=== PATIENT | female | born 1970 | race Caucasian/White ===

== ENCOUNTER 2022-06-26 18:33 | Outpatient (REF) | payer BC, SELFPAY ==
--- OUTSIDE RECORDS SUMMARY | 2022-06-26 18:53 | XMS_ITS | Encounter Summary ---
:1970 Author Organization [place] Address [address] [facility] [place] [address] Care Team Providers Name Role Phone Logan Hayes MD Primary Care Provider [phone] Encounter Details Date Type Department Care Team Description 09/01/2018 Travel Social History Tobacco Use Types Packs/Day Years Used Date Smoking Tobacco: Never Smokeless Tobacco: Never Alcohol Use Standard Drinks/Week Comments No 0 (1 standard drink = 0.6 oz pure alcoho l) Sex Assigned at Date Recorded Not on file documented as of this encounter Plan of Treatment Not on filedocumented as of this encounter Visit Diagnoses Not on filedocumented in this encounter Additional Health Concerns Assessment Noted Time PHQ-9 Depression Total Score: 16 05/13/2018 7:03 AM CD T documented as of this encounter Care Teams Paper Production Engineer Relationship Specialty Start Date End Date Logan Hayes MD PCP - General 10/21/01 [address] [place], [place] [id number] documented as of this encounter
--- OUTSIDE RECORDS SUMMARY | 2022-06-26 18:53 | XMS_ITS | Encounter Summary ---
:1970 Author Organization [place] Address [address] [facility] [place] [address] Care Team Providers Name Role Phone Logan Hayes MD Primary Care Provider [phone] Reason for Visit Reason Onset Date Comments Clinic Care Coordination - Initial 11/28/2018 Encounter Details Date Type Department Care Team Description 11/28/2018 Telephone [facility] Neurology Brody Walker GC Clinic Care Coordination [address] [place] [address] SE - Initial 3rd Floor [id number] [place] [id number] [phone] Social History Tobacco Use Types Packs/Day Years Used Date Smoking Tobacco: Never Smokeless Tobacco: Never Alcohol Use Standard Drinks/Week Comments No 0 (1 standard drink = 0.6 oz pure alcoho l) Sex Assigned at Date Recorded Not on file documented as of this encounter Miscellaneous Notes Telephone Encounter - Brody Walker GC - 11/28/2018 11:57 AM CDT GENETIC COUNSELING-Neurology I received a referral request from Dr. Ardon for genetic testing for Vamsi Chappell. He wanted me to do genetic testing for dystonias. I indicated in my message to Vamsi that I do need to have a physician here at [facility] order any genetic testing and I cannot order tests for physicians outside of our health system. She has seen Dr. Aguilar here and I indicated that one option is to see if he can co-sign any order for genetic testing, although it does not look like he had discussed genetic testing during his evaluation. If she did not want to proceed that way, then I would need to see her in conjunction with one of our movement disorders physicians in order to be able to order any genetic testing. Drew Walker MS, [facility] Licensed Genetic Counselor documented in this encounter Plan of Treatment Not on filedocumented as of this encounter Visit Diagnoses Not on filedocumented in this encounter Additional Health Concerns Assessment Noted Time PHQ-9 Depression Total Score: 16 05/13/2018 7:03 AM CD T documented as of this encounter Care Teams Miller Apprentice Relationship Specialty Start Date End Date Logan Hayes MD PCP - General 10/21/01 [address] [place] [address] documented as of this encounter
--- OUTSIDE RECORDS SUMMARY | 2022-06-26 18:53 | XMS_ITS | Encounter Summary ---
:1970 Author Organization [place] Address [facility] [place] [address] Care Team Providers Name Role Phone Logan Hayes MD Primary Care Provider [phone] Reason for Referral Genomics (Routine) - Closed Specialty Diagnoses / Procedures Referred By Contact Refer red To Contact Diagnoses Dystonia, torsion, fragments of Jonathan Jalloh GC Procedures Hereditary Genomics Hold For Preauthorization: [address] [place] [id number] Referral ID Status Reason Start Date Expiration Date Visits Requ ested Visits Authorized [id number] Closed 12/30/2018 12/30/2019 1 47 Reason for Visit Reason Comments REINALDO Medeiros Encounter Details Date Type Department Care Team Description 12/30/2018 Office Visit [facility] Neurology Jonathan Jalloh, Dystonia, torsion, [address] [place] [address] fragments of (Primary [address] Floor [address] [place] [address] Dx) [place] [id number] [place], [place] [phone] Social History Tobacco Use Types Packs/Day Years Used Date Smoking Tobacco: Never Smokeless Tobacco: Never Alcohol Use Standard Drinks/Week Comments No 0 (1 standard drink = 0.6 oz pure alcoho l) Sex Assigned at Date Recorded Not on file documented as of this encounter Last Filed Vital Signs Vital Sign Reading Time Taken Comments Blood Pressure 111/75 12/30/2018 11:56 AM CDT Pulse 76 12/30/2018 11:56 AM CDT Temperature - - Respiratory Rate - - Oxygen Saturation 98% 12/30/2018 11:56 AM CDT Inhaled Oxygen Concentration - - Weight 107 kg (236 lb) 12/30/2018 11:56 AM CDT Height 170.2 cm (5' 7) 12/30/2018 11:56 AM CDT Body Mass Index 36.96 12/30/2018 11:56 AM CDT documented in this encounter Progress Notes Jonathan Jalloh, GC - 12/30/2018 12:00 PM CDT GENETIC COUNSELING-Neurology I met with Coleman River for 45 minutes in the neurology clinic at [facility]. She was previously seen by Dr. Aguilar in our clinic. More recently, she saw Dr. Ardon who referred her to me to discuss genetic testing for dystonia. MEDICAL HISTORY- Coleman reports that she was in good health until she developed a severe pulmonary infection about 1 year ago. Since then, she has experienced significant dystonic changes in her speech. She notes that shehas also experienced 'cramping' involving her hands and feet and that she has also experienced 'analspasms.' Dr. Ardon referred her to me due to concern for a hereditary dystonia as the basis for these symptoms. FAMILY HISTORY-see scanned pedigree 1. Coleman notes that all four of her siblings experience similar cramping of their feet. 2. Coleman notes that her mother also experiences foot cramping and anal spasms. 3. No other family history of neurologic disease is reported. GENETIC COUNSELING- We discussed the genetic and environmental basis of neurologic disease. I explained that in most cases, it results from complex and lifelong interaction of multiple genetic and environmental factors. In some rare cases, there may be a single gene cause. 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 We discussed the genetics of dystonia. I explained that there are approximately 2 dozen known genetic dystonias- and likely many more to be discovered. Most of these conditions are inherited in a dominant pattern- although the pattern of inheritance is frequently complicated by reduced penetrance, andin some cases, psrwyc-[id number] specific imprinting. Thus, it can be difficult to defnitively diagnose or exclude a dominant dystonia purely upon reported family history. There are also some more rare forms that can be inherited in recessive or X- linked patterns. We discussed the implications of thesepatterns of inheritance in terms of risks to children, siblings, parents and extended family. We discussed risks, benefits, limitations, and utility of genetic testing. In Coleman's case, this testing may identify the basis for her unusual neurologic findings and her family history of similar findings. This may be important in medical management as some hereditary dystonias may be particularly responsive to medications (e.g. Dopa responsive dystonias) and some forms of dystonia may be ammenable to treatment with surgical interventions. Thus, establishing a precise diagnosis may impact medical management. Coleman indicated that she would like to proceed with genetic testing for dystonia and provided written consent for this testing. Blood was drawn and we will check on prior authorizatoin. Drew Jalloh MS, [facility] Licensed Genetic Counselor Jonathan Jalloh GC - 12/30/2018 12:00 PM CDT GENETIC COUNSELING- addendum I incorrectly stated in my initial note that Coleman's mother had experienced cramping and anal spasms- it was actually a sister who had experienced anal spasms. Drew Jalloh MS, [facility] Licensed Genetic Counselor documented in this encounter Nursing Notes Kaila Willett MA - 12/30/2018 12:00 PM CDT Chief Complaint Patient presents with ??? REINALDO Willett MA documented in this encounter Plan of Treatment Not on filedocumented as of this encounter Results Hereditary Genomics Hold For Preauthorization: (12/30/2018 1:06 PM CDT) Component Value Ref Test Analysis Performed At [facility] Method Time Signature Copath Report Patient Name: COLEMAN RIVER LAINA MR#: [id number] Specimen #: [id number] Collected: 12/30/2018 13:06 Received: 01/02/2019 09:20 Reported: 01/03/2019 10:22 Ordering Phy(s): JONATHAN JALLOH For improved result formatting, select 'View Enhanced Report Format' under Linked Documents section. TEST(S) REQUESTED: Genetics Pre-Authorization Hold SPECIMEN DESCRIPTION: Blood INTERPRETATION: RESULTS: Sample processed in lab for DNA and archived for future us e. ??Testing will not commence until insurance prior authorization is ??obtained and clinician orders specific testing required. ??Contact lab with questions, . Electronically Signed Out By: BOOM Quality Control Expert CPT Codes: A: [id number] TESTING LAB LOCATION: [address] [place] [id number] COLLECTION SITE: Client: [facility] Location: ??[facility] (B) Specimen Anatomical Collection Method Collection Time Receive d Time (Source) Location / / Volume Laterality Blood specimen 12/30/2018 1:06 PM 019 9:20 (specimen) CDT AM CDT Jonathan Jalloh LAB - GENOMICS Performing Organization Address City/State/ZIP Code Phon e Number COPATH documented in this encounter Visit Diagnoses Diagnosis Dystonia, torsion, 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
--- OUTSIDE RECORDS SUMMARY | 2022-06-26 18:53 | XMS_ITS | Encounter Summary ---
:1970 Author Organization [place] Address [address] [facility] [place] [address] Care Team Providers Name Role Phone Logan Hayes MD Primary Care Provider Reason for Visit Reason Onset Date Comments Appointment 11/24/2018 Encounter Details Date Type Department Care Team Description 11/24/2018 Telephone [facility] Neurology None Appointment [address] [facility] [address] [place] [phone] Social History Tobacco Use Types Packs/Day Years Used Date Smoking Tobacco: Never Smokeless Tobacco: Never Alcohol Use Standard Drinks/Week Comments No 0 (1 standard drink = 0.6 oz pure alcoho l) Sex Assigned at Date Recorded Not on file documented as of this encounter Miscellaneous Notes Telephone Encounter - Roya Barbour - 11/24/2018 9:35 AM CDT [facility] Call Center Phone Message May a detailed message be left on voicemail: yes Reason for Call: Other: Patient is being referred by Dr. Leslie Ardon with [facility] for possible dystonia / neurogenetics. The referral has been faxed to the clinic. Action Taken: Message routed to: [facility] Neurology documented in this encounter Plan of Treatment Not on filedocumented as of this encounter Visit Diagnoses Not on filedocumented in this encounter Additional Health Concerns Assessment Noted Time PHQ-9 Depression Total Score: 16 05/13/2018 7:03 AM CD T documented as of this encounter Care Teams Hide Paster Relationship Specialty Start Date End Date Logan Hayes MD PCP - General 10/21/01 [address] [place] [address] documented as of this encounter
--- OUTSIDE RECORDS SUMMARY | 2022-06-26 18:53 | XMS_ITS | Encounter Summary ---
:1970 Author Organization [place] Address [address] [facility] [place] [address] Care Team Providers Name Role Phone Logan Hayes MD Primary Care Provider [phone] Encounter Details Date Type Department Care Team Description 01/19/2019 Telephone [facility] Neurology Jonathan Walker GC [id number] [place], [place] [phone] [place] [address] (Wo rk) Social History Tobacco Use Types Packs/Day Years Used Date Smoking Tobacco: Never Smokeless Tobacco: Never Alcohol Use Standard Drinks/Week Comments No 0 (1 standard drink = 0.6 oz pure alcoho l) Sex Assigned at Date Recorded Not on file documented as of this encounter Miscellaneous Notes Telephone Encounter - Jonathan Walker GC - 01/19/2019 10:40 AM CDT I spoke with [place] River by telephone. Her insurance company approved a partial panel of dystonia genes. I explained that the approved genes are the core, most common genes causing dystonia. They declined coverage of the remaining genes. I explained that testing would still be subject to her deductible and coinsurance. She indicated that she would like to proceed with testing for the core group of covered genes: COL6A3,GCH1,PNKD,SGCE,SLC2A1,TH,THAP1,TOR1A. Drew Walker MS, [facility] Licensed Genetic Counselor documented in this encounter Plan of Treatment Not on filedocumented as of this encounter Results Next Generation Sequencing (12/30/2018 1:06 PM CDT) Component Value Ref Test Analysis Performed At [facility] gist Range Method Time Signature Copath Report Patient Name: COLEMAN RIVER MR#: [id number] Specimen #: [id number] Collected: 12/30/2018 13:06 Received: 01/19/2019 13:15 Reported: 02/10/2019 11:45 Ordering Phy(s): JONATHAN WALKER For improved result formatting, select 'View Enhanced Report Format' under Linked Documents section. TEST(S) REQUESTED: Next Generation Sequencing SPECIMEN DESCRIPTION: Blood TEST REQUESTED: Custom Dystonia Panel. Next generation sequencing and copy n umber variation analysis of: COL6A3, GCH1, PNKD, SGCE, SLC2A1, TH, THAP1, TOR1A. RESULTS: ?NEGATIVE ?Path ogenic Variant(s): ? None Detected ?Vari ant(s) of Uncertain Significance: ?None Detected INTERPRETATION: No clearly pathogenic sequence variants or clinically signif icant copy number variants were detected in the genes analyzed. Therefore, a genetic cause for this patient' s symptoms was not identified. Genetic counseling regarding these results is recommended. BACKGROUND: A custom dystonia panel including 8 genes was requested by t ordering provider. COVERAGE: This analysis is limited to the coding exons and immediately adjoining intronic sequences of the analyzed genes. Unless specifically indicated below, all analyzed cod ing exonic bases have either a minimum of 20x coverage or have been analyzed by Thor sequencing. Coverag e at 20x is not guaranteed for intronic positions. Therefore, intronic variants cannot be confirmed or excluded with the same degree of confidence as coding exonic variants. Sequences that reside more than 25 base angelito rs from a coding exon are not genotyped and mutations in these regions will not be detected by this anal ysis. METHODOLOGY [Odalis et al., 2015][Richa et al., 2014]: Genomic DNA is extracted from the sample, and sequencing pamela raries are prepared according to standard Illumina protocols utilizing the Skin Scan One [employer] Systems Sequencing Calloway el and a custom designed supplemental capture for enrichment of targeted genes. ??The enriched DNA libraries are sequenced on an Illumina Dimeres instrument. Raw sequencing reads are mapped to the reference genome zina kerrie BWA. Raw alignment files are realigned in the neighborhood of indels, and recalibrated for base quality ac curacy using the Genome Analysis Tool Kit (GATK) version 3.8. Point mutation and indel calls in exons and adj oining intronic regions are made using a combination of the GATK haplotype caller and Samtools mpileu p. ??Variants are interpreted according to guidance issued by the [employer] [Edel et al.2015]. Pathogenic and predicted pathogenic variants that meet ALL o f the following criteria are reported without validation by [place] sequencing: ??1- single nucleotide subs titution, 2- receives a PASS from the SNP or indel filter, 3- has a VAF in the accepted range (heterozygo us = 0.3-0.6, homozygous/hemizygous >0.9), 4- has a minimum of 20x coverage, and 5-is present in the GATiPrint VC F file. ?? Pathogenic variants that fail to meet any of these criteria are verified by Thor sequencing prior to reporting [Ramana et al., 2015]. For copy number variation (CNV) analysis, raw sequencing linda ds are mapped to the reference human genome (HG19) using both BWA and Bowtie algorithms. ??CNV ratios are compu redd by comparing the average coverage in the sample across 60 base pair windows. ??Average coverage is compare d to control loci both within the sample and within a gender-matched control sample from the same run. ??The BWA/B owtie coverage ratio is calculated for each window in order to identify regions where the presence of homologou s sequences precludes accurate CNV calls. Heterozygous deletion calls are made when 3 consecutive wind ows have a CNV ratio of 0.3-0.7; homozygous/hemizygous deletion calls are made when 3 consecu tive windows have a CNV ratio less than 0.3; duplication calls are made when 5 consecutive windows have a CNV ratio 1.4. ??Calls are only made in areas where the BWA/Bowtie ratio is 0.75-1.1 and the average cover age is 20x. ?? All CNV calls are confirmed with a supplementary qPCR assay. The following types of variants are not included in the clin ical report, but information about these variants is available upon request: *Missense variants that are present at >1% MAF in population databases AND are not reported as pathogenic/likely pathogenic in ClinVar. *Missense variants with a MAF <1%, that are classified as be nign or likely benign according to published ACMG criteria. *Synonymous variants that do not occur at intron/exon bounda traci, are not reported as pathogenic mutations in relevant clinical databases, and are present in 15 or more i ndividuals in ExAC. *Intronic variants that reside more than 5 bases from the ex on/intron boundary AND are not reported as pathogenic/likely pathogenic in ClinVar. ??Known pathogenic variants residing 5-25bp from an intron/exon boundary will be reported. *Untranslated region (UTR) variants not previously categoriz ed as pathogenic or likely pathogenic in relevant clinical databases. *Some variants may be excluded based on review of sequencing quality data. ??It is possible that some low quality variants are, in fact, real. LIMITATIONS: This analysis has not been validated for detect ion of insertion/deletion mutations larger than 18bp in length. The size of polymorphic repetitive sequences such as CAG repeats, intronic dinucleotide repeats, or intronic polyT/polyA sequences, cannot be determ ined by this analysis. The CNV algorithm is not validated to detect deletions encom passing less than 180 base pairs of coding sequence or duplications encompassing less than 300 base angelito rs of coding sequence. Coding exons comprised of less than 60 bases are not assessed by these methods. The CN V algorithm does not define precise breakpoints for duplications or deletions. REFERENCES: Ramana ANAND, Jarrett Garza, Zohaib Fernandez, Richa Lomas, et al. 2015. Criteria for Clinical Reporting of Variants from a Broad Target Capture NGS Assay without [place] Verific ation. [facility] biomarkers 2(1):1005. Jarrett Greenberg Bower M, Henzler C, Sumanth Farmer, Reese OSHEA, Addis B. 2016. CNV-RF Is a Random Tyler-Based Copy Number Variation Detection Method Using Real Time Content-Generation Sequencing. J Mol Diagn. 18(6):872-881. PMID: 84443961. Scot Greenberg Spears MD, Malik Carlton, Laura MCMAHON, Rashida Cardoso, Odalis Rdz, Aaron Tucker, Deonte OSHEA, Addis B. 2014. Implementation of [place] based next gene ration sequencing data analysis in a clinical laboratory. BMC Res Notes. 7:314. PMID: 42167215. Edel S, Melva N, Renzo S, Fausto D, Nestor S, Jolie J, Kj CASTRO, Lanette Farmer, Be E, Jenae E, Nicki K, Ranulfo HL, [facility] Laboratory Drapery Supervisor Committee. 201 5. Standards and guidelines for the interpretation of sequence variants: a joint consensus recommendation of e [employer] and Genomics and the Association for Molecular Pathology. Cynthia. Med. 17(5):405-24. PMID: 96989090. Clotilde JA, Erasmo AW, O'Jigar TD, Fu W, Siddharth EE, Gravel S, Peña S, Do R, Helton X, Berto G, Sainz HM, Estrada D, Aisha SM, Jarred S, Tyrel MJ, Abecaeva G, Altshuler D, N bebo DA, Brandon E, Sunyaev S, Paul CD, Ramirez MJ, Ladi JM, Broad GO, [place] GO, [facility] Exome S equencing Project. 2012. Evolution and functional impact of rare coding variation from deep sequencing of gay n exomes. Science. 337(4204):64-9. PMID: 63697780. Odalis Rdz, Bert Cardoso, Jing Mckee, Aaron Car Schomaker M, O nsongo G, Wilson J, Erdmann J, Devaughn Y, Gary Flores MD, Laura Mckee, Deonte OSHEA, Addis B. 2015 . Clinical validation of targeted next-generation sequencing for inherited disorders. Arch. Pathol. Lab. Med. 139(2):204-10. PMID: 68347939. If a patient is the recipient of an allogeneic bone marrow t ransplant, this test must be done on a pre-transplant sample or buccal swab. ??A previous allogenei c bone marrow transplant will interfere with test results. ??Call the [facility]([phone]) for instructions on sample collection for these patients. This test was developed and its performance characteristics determined by the [facility], ??Molecular Diagnostics Laboratory and the [facility] Genomics Center(Cancer & Cardiovascular Research Building Room 1-210, [address] [place] [address]). ?? Genomic DNA extraction, interpretation of sequencing data, and when nece ssary, [place] sequencing is performed at [facility], ??Molecular Diagno stics Laboratory. ?? Wet bench processes including library creation, sequence capture using an Illumina Dimeres analyzer and bioinformatics is performed at the [facility]. ??It has not been c leared or approved by the FDA. The laboratory is regulated under CLIA as qualified to perform high-complexity testing. This test is used for clinical purposes. It should not be regarded as investigational or for research . A resident/fellow in an accredited training program was invo lved in the selection of testing, review of laboratory data, and/or interpretation of this case. ??I, as the senior physician, attest that I: (i) confirmed appropriate testing, (ii) examined the relevant raw data for the specimen(s); and (iii) rendered or confirmed the interpretation(s). Electronically Signed Out By: Sreekanth Boles M.D., [facility] CPT Codes: A: [id number], [id number] TESTING LAB LOCATION: [address] [place] [address] [id number] COLLECTION SITE: Client: ??[facility] Location: ??[facility] (B) Specimen Anatomical Collection Method Collection Time Receive d Time (Source) Location / / Volume Laterality Blood specimen 12/30/2018 1:06 PM 019 1:15 (specimen) CDT PM CDT Jonathan Aaron GC LAB - GENOMICS Performing Organization Address City/State/ZIP Code Phon e Number COPATH documented in this encounter Visit Diagnoses Diagnosis Dystonia, torsion, 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
--- OUTSIDE RECORDS SUMMARY | 2022-06-26 18:53 | XMS_ITS | Clinical Summary ---
:1970 Author Organization [place] Address [address] [facility] [place] [address] Care Team Providers Name Role Phone Logan Hayes MD Primary Care Provider [phone] Allergies Active Allergy Reactions Severity Noted Date Comments Adhesive Tape 06/26/2009 Burn king fro m some type of tapes Codeine Nausea and Vomiting 12/16/2004 Codeine Other (See Comments) 11/17/2006 Vomitti ng Hydrocodone GI Disturbance 02/20/2014 Other reactio n(s): Vomiting Severe vomiting from hydrocodone Hydromorphone Nausea and Vomiting 12/04/2016 Other r eaction(s): Vomiting Promethazine Hcl Difficulty breathing 12/16/2004 Thr oat closing Promethazine Other (See Comments) 11/17/2006 Passed out per pt Tetracyclines Rash Low 01/12/2012 Medications Medication Sig Dispensed Refills Start Date End Date Status Ascorbic Acid (VITAMIN Take 500 mg by 0 09/17/2017 Active C) 500 MG CHEW mouth B Complex Vitamins Take 1 capsule 0 09/07/2017 Active (VITAMIN B COMPLEX PO) by mouth Cholecalciferol Take 1,000 Units 0 09/07/2017 Active (VITAMIN D3) 1000 units by mouth CAPS fluticasone (FLONASE) [place] 1 spray 0 12/04/2016 Active 50 MCG/ACT spray into both nostrils daily hyoscyamine Take 0.125 mg by 0 09/21/2017 Active (ANASPAZ/LEVSIN) 0.125 mouth MG tablet levothyroxine Take 125 mcg by 0 09/29/2017 Active (SYNTHROID/LEVOTHROID) mouth 125 MCG tablet melatonin 3 MG tablet Take 3 mg by 0 05/03/2014 Active mouth nightly as needed nitroGLYcerin Place 0.4 mg 0 09/17/2017 Ac tive (NITROSTAT) 0.4 MG under the tongue sublingual tablet FLUoxetine (PROZAC) 20 Take 20 mg by 0 Active MG capsule mouth daily gabapentin (NEURONTIN) Take 1 tablet 90 capsule 5 08/23/2018 Active 300 MG three times capsuleIndications: daily. After one Cramp of limb month increase to 2 tablets three times daily Additional Information Patient taking differently: 200 mg 3 TIMES DAILY, Take 1 tablet three times daily. 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 Resolved Problems Problem Noted Date Resolved Date Neck pain 06/27/2018 06/27/2019 Family History Medical History Relation Comments Other - See Comments Brother foot cramping Other - See Comments Mother foot cramping Other - See Comments Sister 1 foot cramping Other - See Comments Sister 2 foot cramping, anal spasms of unclear etiology Autism Spectrum Disorder Son Dystonia No family hx of Tremor No family hx of Relation Status Comments Brother Mother Sister 1 Sister 2 Son Social History Tobacco Use Types Packs/Day Years Used Date Smoking Tobacco: Never Smokeless Tobacco: Never Alcohol Use Standard Drinks/Week Comments No 0 (1 standard drink = 0.6 oz pure alcoho l) Sex Assigned at Date Recorded Not on file Last Filed Vital Signs Vital Sign Reading Time Taken Comments Blood Pressure 111/75 12/30/2018 11:56 AM CDT Pulse 76 12/30/2018 11:56 AM CDT Temperature 36.8 ??C (98.2 ??F) 03/19/2005 10:00 AM CDT Respiratory Rate - - Oxygen Saturation 98% 12/30/2018 11:56 AM CDT Inhaled Oxygen Concentration - - Weight 107 kg (236 lb) 12/30/2018 11:56 AM CDT Height 170.2 cm (5' 7) 12/30/2018 11:56 AM CDT Body Mass Index 36.96 12/30/2018 11:56 AM CDT Plan of Treatment Health Maintenance Due Date Last Done Comments ADVANCE CARE PLANNING 1970 ANNUAL REVIEW OF HM ORDERS 1970 CT COLONOGRAPHY 1970 FIT-DNA (Cologuard) 1970 FIT 1970 FLEX SIG 1970 HEPATITIS B IMMUNIZATION (1 1970 of 3 - 3-dose series) MAMMO SCREENING 1970 COVID-19 Vaccine (#1) 1970 COLONOSCOPY 1980 COLORECTAL CANCER SCREENING 1980 HIV SCREENING 1985 HEPATITIS C SCREENING 1988 PAP 1991 LIPID 2015 DTAP/TDAP/TD IMMUNIZATION 10/18/2017 10/18/2007 (2 - Td or Tdap) ZOSTER IMMUNIZATION (1 of 2020 2) PHQ-2 (once per calendar 09/06/2021 12/30/2018, 12/30/2018, year) 05/12/2018, Additional history exists INFLUENZA VACCINE (#1) 2022 12/30/2018 (Declined), 06/07/2012, 08/27/2008 YEARLY PREVENTIVE VISIT 02/27/2023 02/27/2022, 05/27/2020 IPV IMMUNIZATION Aged Out No longer eligi ble based on patient 's age to complete this topic MENINGITIS IMMUNIZATION Aged Out No longe r eligible based on patient 's age to complete this topic Pneumococcal Vaccine: Aged Out No longer eligible Pediatrics (0 to 5 Years) based on patient's age and At-Risk Patients (6 to to co mplete this topic 64 Years) Insurance Payer Benefit Plan / Subscriber ID Effective Dates Phone Addre ss Type Group BCBS BCBS OUT OF [id number] 2012-Present [phone] [address] [address] [place] [address] Vamsi Chappell Personal/Family Self 1970 [id number] [place] [address] (Home) [place] [address] Care Teams Test And Balance Engineer Relationship Specialty Start Date End Date Logan Hayes MD PCP - General 10/21/01 [address] [place], [place] [id number] (work)
--- OUTSIDE RECORDS SUMMARY | 2022-06-26 18:53 | XMS_ITS | Encounter Summary ---
:1970 Author Organization [place] Address [address] [facility] [place] [address] Care Team Providers Name Role Phone Logan Hayes MD Primary Care Provider [phone] Encounter Details Date Type Department Care Team Description 12/30/2018 Travel Social History Tobacco Use Types Packs/Day [...] documented as of this encounter Care Teams Physical Therapist Aide Relationship Specialty Start Date End Date Logan Hayes MD PCP - General 10/21/01 [address] [place], [place] [id number] documented as of this encounter
--- OUTSIDE RECORDS SUMMARY | 2022-06-26 18:53 | XMS_ITS | Encounter Summary ---
:1970 Author Organization [place] Address [address] [facility] 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 [address] Floor [id number] [address] [phone] Social History Tobacco Use Types Packs/Day Years Used Date Smoking Tobacco: Never Smokeless Tobacco: Never Alcohol Use Standard Drinks/Week Comments No 0 (1 standard drink = 0.6 oz pure alcoho l) Sex Assigned at Date Recorded Not on file documented as of this encounter Plan of Treatment Not on filedocumented as of this encounter Procedures Procedure Name Priority Date/Time Associated Comments Diagnosis NEXT GENERATION Routine 12/30/2018 1:06 PM Dystonia, torsion, Results for this SEQUENCING CDT fragments of procedure are i n the results section. documented in this encounter Results Next Generation Sequencing (12/30/2018 1:06 PM CDT) Component Value Ref Test Analysis Performed At [facility] Range Method Time Signature Copath Report Patient Name: COLEMAN RIVER MR#: [id number] Specimen #: [id number] Collected: 12/30/2018 13:06 Received: 01/19/2019 13:15 Reported: [...] panel including 8 genes was requested by johnny louie ordering provider. COVERAGE: This analysis is limited to the coding exons and immediately adjoining intronic sequences of the analyzed genes. Unless specifically indicated below, all analyzed cod ing exonic bases have either a minimum of 20x coverage or have been analyzed by Saunemin sequencing. Coverag e at 20x is not [...] according to standard Illumina protocols utilizing the Dacos Software Sequencing Calloway el and a custom designed supplemental capture for enrichment of targeted genes. ??The enriched DNA libraries are sequenced on an Illumina Househappy instrument. Raw sequencing reads are mapped to the reference genome usin g BWA. Raw alignment files are realigned in the neighborhood of indels, and recalibrated for base quality ac curacy using the Genome Analysis Tool Kit (GATK) version 3.8. Point mutation and indel calls in exons and adj oining intronic regions are made using a combination of the GATK haplotype caller and Samtools mpileu p. ??Variants are interpreted according to guidance issued by the [place] [employer] [Edel et al.2015]. Pathogenic and predicted pathogenic variants that meet ALL o f the following criteria are reported without validation by Saunemin sequencing: ??1- single nucleotide subs titution, 2- receives a PASS from the SNP or indel filter, 3- has a VAF in the accepted range (heterozygo us = 0.3-0.6, homozygous/hemizygous >0.9), 4- has a minimum of 20x coverage, and 5-is present in the GATRetrofit VC F file. ?? Pathogenic variants that fail to meet any of these criteria are verified by Saunemin sequencing prior to reporting [Ramana et al., [...] for duplications or deletions. REFERENCES: Ramana ANAND, Aaron Farmer, Jarrett TAVERAS, Zohaib Fernandez, Richa Lomas, et al. 2015. Criteria for Clinical Reporting of Variants from a Broad Target Capture NGS Assay without Thor Verific ation. [facility] biomarkers 2(1):1005. Jarrett Greenberg, Zohaib Garza Schomaker M, Silve rstein KA, Dannielleagarajarrod B. 2016. CNV-RF Is a Random [place]-Based Copy Number Variation Detection Method Using Mytopia-Generation Sequencing. J Mol Diagn. 18(6):872-881. PMID: 36208893. Scot Greenberg Spears MD, Malik Carlton, Laura MCMAHON, Rashida e A, Odalis S, Sumanth Farmer, Aaron Farmer, Deonte KA, Thyagarajan B. 2014. Implementation of Providence based next gene ration sequencing data analysis in a clinical laboratory. BMC Res Notes. 7:314. PMID: 27026884. Edel S, Melva N, Renzo S, Fausto D, Nestor S, Jolie J, Kj CASTRO, Lanette Farmer, Be Oliveros, Jenae Oliveros, Nicki Mckee, Ranulfo HL, [facility] Laboratory Teacher Of The Emotionally Disturbed Committee. 201 5. Standards and guidelines for the interpretation of sequence variants: a joint consensus recommendation of e [place] [employer]etics and Genomics and the Association for Molecular Pathology. Cynthia. Med. 17(5):405-24. PMID: 37531478. Clotilde JA, Erasmo AW, O'Jigar TD, Taj W, Siddharth EE, Britton S, Casey S, R, Helton X, Berto G, Alistair HM, Estrada D, Aisha SM, Jarred S, Tyrel MJ, Kenya G, Adalgisa D, N bebo DA, Brandon E, Ac S, Paul CD, Ramirez IRVING, Ladi JM, Broad GO, Murray GO, [facility] Exome S equencing Project. 2012. Evolution and functional impact of rare coding variation from deep sequencing of gay n exomes. Science. 337(5830):64-9. PMID: 96987455. Odalis S, Bert A, Jing K, Martha T, Aaron M, Sumanth Farmer, O stephen G, Eduardo J, Scot J, Devaughn Y, Gary Flores MD, Laura Mckee, Deonte KA, Addis Valero. 2015 . Clinical validation of targeted next-generation sequencing for inherited disorders. Arch. Pathol. Lab. Med. 139(2):204-10. PMID: 74928053. If a patient is the recipient of an allogeneic bone marrow t ransplant, this test must be done on a pre-transplant sample or buccal swab. ??A previous allogenei c bone marrow transplant will interfere with test results. ??Call the [facility]([phone]) for instructions on sample collection for these patients. This test was developed and its performance characteristics determined by the [facility], ??Molecular Diagnostics Laboratory and the [facility](Cancer & Cardiovascular Research Building Room 1-210, [address] [place] [address] , [place] [address]). ?? Genomic DNA extraction, interpretation of sequencing data, and when nece monserrat, Thor sequencing is performed at [facility], ??Molecular Diagno stics Laboratory. ?? Wet bench processes including library creation, sequence capture using an Illumina Househappy analyzer and bioinformatics is performed at the [facility]. ??It has not been c leared or [...] Electronically Signed Out By: Sreekanth Boles M.D., [facility] CPT Codes: A: [id number], [id number] TESTING LAB LOCATION: [place] [id number] [id number] COLLECTION SITE: Client: ??[facility] Location: ??[facility] (B) Specimen Anatomical Collection Method Collection Time Receive d Time (Source) Location / / Volume Laterality Blood specimen 12/30/2018 1:06 PM 019 1:15 (specimen) CDT PM CDT Jonathan Walker GC LAB - GENOMICS Performing Organization Address City/State/ZIP Code Phon e Number COPATH documented in this encounter Visit Diagnoses Diagnosis Dystonia, torsion, 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
--- OUTSIDE RECORDS SUMMARY | 2022-06-26 18:53 | XMS_ITS | Encounter Summary ---
:1970 Author Organization [place] Address [address] [place] [address] Care Team Providers Name Role Phone Logan Hayes MD Primary Care Provider [phone] Reason for Visit Genomics (Routine) - Closed Specialty Diagnoses / Procedures Referred By Contact Refer red To Contact Diagnoses Dystonia, torsion, fragments of Aaron, Jonathan, GC Procedures Hereditary Genomics Hold For Preauthorization: [address] [place] [address] [id number] [place], [place] [address] Referral ID Status Reason Start Date Expiration Date Visits Requ ested Visits Authorized [id number] Closed 12/30/2018 12/30/2019 1 47 Encounter Details Date Type Department Care Team Description 12/30/2018 Orders Only [facility] Dystonia, torsion, [address] [facility] fragments of [address] Floor [place], [place] [phone] Social History Tobacco Use Types Packs/Day Years Used Date Smoking Tobacco: Never Smokeless Tobacco: Never Alcohol Use Standard Drinks/Week Comments No 0 (1 standard drink = 0.6 oz pure alcoho l) Sex Assigned at Date Recorded Not on file documented as of this encounter Plan of Treatment Not on filedocumented as of this encounter Procedures Procedure Name Priority Date/Time Associated Comments Diagnosis HEREDITARY GENOMICS HOLD Routine 12/30/2018 1:06 Dystonia, tor alfonso, Results for this FOR PREAUTHORIZATION PM CDT fragments of procedu re are in the results section. documented in this encounter Results Hereditary Genomics Hold For Preauthorization: (12/30/2018 1:06 PM CDT) Component Value Ref Test Analysis Performed At [facility] Range Method Time Signature Copath Report Patient Name: COLEMAN RIVER MR#: [id number] Specimen #: [id number] Collected: 12/30/2018 13:06 Received: 01/02/2019 09:20 Reported: [...] questions, . Electronically Signed Out By: BOOM Piano Mechanic CPT Codes: A: [id number] TESTING LAB LOCATION: [address] [phone] COLLECTION SITE: Client: ??[facility] Location: ??[facility] (B) Specimen Anatomical Collection Method Collection Time [...] documented as of this encounter Care Teams Poker Machine Attendant Relationship Specialty Start Date End Date Logan Hayes MD PCP - General 10/21/01 [address] [place] [address] documented as of this encounter
--- OUTSIDE RECORDS SUMMARY | 2022-06-26 18:54 | XMS_ITS | Encounter Summary ---
:1970 Author Organization [place] Address [address] [place] [address] Care Team Providers Name Role Phone Logan Hayes MD Primary Care Provider [phone] Reason for Visit Reason Comments Consult spasmodic dysphonia Encounter Details Date Type Department Care Team Description 05/10/2018 Office Visit M [facility] Ear Nose and Bertram Peraza honia (Primary Dx); Throat MD Katie Other diseases of vocal cords [address] [place] [address] [address] [place], [place] [phone] Social History Tobacco Use Types Packs/Day Years Used Date Smoking Tobacco: Never Alcohol Use Standard Drinks/Week Comments No 0 (1 standard drink = 0.6 oz pure alcoho l) Sex Assigned at Date Recorded Not on file documented as of this encounter Progress Notes Bertram Peraza MD - 05/10/2018 10:30 AM CDT Images from the original note were not included. HISTORY OF PRESENT ILLNESS: Vamsi Chappell is a 48 year old female with a history of dysphonia. She developed bronchitis in early February. This is managed with antibiotics prednisone and Magic mouthwash. Sheis also given an albuterol inhaler. She was not hospitalized. She continued to have difficulties with bronchitis and she had a follow-up chest x-ray which showed diminished lung volumes but no infiltrates. She was continued on prednisone as well as antibiotics and an inhaler. Follow-up a few days later noted a cough with possible allergic bronchospastic component. She is given another course of antibiotics. She had continued throat and lung problems and was seen in emergency room on February 20, 2018. She was felt to have vocal fold dysfunction. CT chest was normal and with she was given lorazepam which appeared to resolve her symptoms. 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 It was noted that she responded well to lorazepam and she is recommended to work with speech therapy. Evaluation by the speech therapist raised the possibility of laryngeal dystonia.She had intermittent periods of time where her voice was normal and at other times it was quite strained. In the meantime she did experience hyperacusis which resulted in pain in both ears she had no other otologic symptoms. An audiogram was normal as was the tympanogram. An MRI showed no abnormal signal or enhancement within the internal auditory canals in the intracranial contents were within normal limits. A CT scan of the neck showed no evidence discrete mass in the aerodigestive tract and no abnormally enlarged cervical lymph nodes. She has no difficulty eating. Occasionally she will have a cough and difficulty breathing but this will last for less than a minute and then resolves. Her voice approximate once a week will be normal or near normal for the entire day. She has had a bad vocal quality for the last 3 days. 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 Right sided cystic nodule aspirated in 1988 x 2... Benign. 07/28/2011: R: Cystic nodule superolaterally 5.0 x 5.0 x 3.0 mm Larger hypoechoic solid nodule lower pole 2.4 x 1.0 x 1.2 cm. Third nodule 9.0 x 7.0 x 6.0 mm. L : Hypoechoic nodule superior to mid 1.8 x 1.3 x 1.0 cm Smaller nodule mid-pole medially 5.0 x 5.0 x 3.0 mm. TSH 0.27 (normal before) The 24-hour uptake 30.7%. Dominant hyperfunctioning nodule lower pole R. Hyperfunctioning nodule upper pole L. Decreased uptake L lower pole R upper thyroid, possibly due to suppression. 09/2011: TSH 0.12 FNA Benign 10/2011: Iodine ablation with 28 mCi 07/2012: Neck US: 0.8 x 0.5 x 0.5 cm nodule (smaller and no need for further studies)) ?? Dizziness 07/28/2011 Vitamin D deficiency 12/24/2009 2006 Multiple cervical herniations 12/18/2009 Anal fissure 12/06/2009 Surgical History Surgery Date Laterality Comments APPENDECTOMY ? laparotomy and left oophorectomy ? for ovarian cyst and endometriosis US ASPIRATION THYROID CYST 1988 and 1989 ? LAP CHOLECYSTECTOMY 12/08/13 ? abdominal hysterectomy right salpingooophorectomy 01/24/2014 ?? for endometriosis Family History Medical History Relation Name Comments Heart Disease Brother Bessy fatal heart attack at 39, had ICD. Good Health Brother Ruby ?? Heart Disease Brother Ruby chest pains, recurrent syncope Alcohol/Drug Father ? Heart Disease Father ?? heart attack at 42 and 43 Thyroid Disease Father ? Graves Heart Disease Maternal Aunt ?? pacemaker in 40s, at 55 Good Health Maternal Grandfather ?? at age 73 natural causes Good Health Maternal Grandmother ?? at age 85 Some psych concerns Heart Disease Maternal Grandmother ?? pacemaker Good Health Mother ? Heart Disease Mother ?? pacemaker placed November 2014 Cancer-colon Other ? Good Health Paternal Grandfather ?? at age 97 natural causes Good Health Paternal Grandmother ?? at age 76, natural causes Heart attack Paternal Uncle ?? multiple heart attacks Good Health Sister Acthi ?? Heart Disease Sister Cathi pacer / ICD for monomorphic ventricular tachycardia Good Health Sister ? Bilateral breast cancer No Family History ? Relation Name Status Comments Brother Bessy ?? Brother Ruby Alive ?? Father ? Maternal Aunt ? Maternal Grandfather ? SOCIAL HISTORY: Social History Substance Use Topics ??? Smoking status: Never Smoker ??? Smokeless tobacco: Not on file ??? Alcohol use No REVIEW OF SYSTEMS: Ten point review of systems was performed and is negative except for: What is noted in the past medical history and history of present illness. ALLERGIES: Codeine and Phenergan [promethazine hcl] MEDICATIONS: Current Outpatient Prescriptions Medication Sig Dispense Refill ??? Ascorbic Acid (VITAMIN C) 500 MG CHEW Take 500 mg by mouth ??? aspirin 81 MG EC tablet Take 81 mg by mouth ??? B Complex Vitamins (VITAMIN B COMPLEX PO) Take 1 capsule by mouth ??? Cholecalciferol (VITAMIN D3) 1000 units CAPS Take 1,000 Units by mouth ??? cyclobenzaprine (FLEXERIL) 10 MG tablet Take 10 mg by mouth ??? fluticasone (FLONASE) 50 MCG/ACT spray [place] 1 spray in nostril ??? hyoscyamine (ANASPAZ/LEVSIN) 0.125 MG tablet Take 0.125 mg by mouth ??? levothyroxine (SYNTHROID/LEVOTHROID) 125 MCG tablet Take 125 mcg by mouth ??? LORazepam (ATIVAN) 1 MG tablet One oral twice daily as needed. ??? melatonin 3 MG tablet Take 3 mg by mouth ??? nitroGLYcerin (NITROSTAT) 0.[address] 0.4 mg under the tongue PHYSICAL EXAMINATION: She is awake, alert and in no apparent distress. With talking there appears shai poor coordination between her respiratory support and her focalization. At the beginning of our visit her voice is quite strained and shows evidence of some dysarthria. Her tympanic membranes are clear and intact bilaterally. External auditory canals are clear. Nasal exam shows a mild septal deviation without obstruction. Examination of the oral cavity shows no suspicious lesions. There is symmetric movement of the tongue and soft palate. The oropharynx is clear. Her neck is supple without significant adenopathy. There is tenderness to palpation of the thyrohyoid muscle. Pulse is regular. Upper airway is clear. Cranial nerves II-XII are grossly intact. With attempts at phonation she had a quitestrained quality to her voice. When lingual and lip movements were not associated with phonation shehad normal rapid alternating motion of both the tongue and the lips. With breathy phonation her articulation improved. No hand tremors no difficulty with hand coordination or repetitive motion was seen PROCEDURE: A flexible laryngoscopy was performed. Informed consent was obtained and a time out was performed. 3% lidocaine and 0.25% phenylephrine was sprayed into the nasal cavity and allowed 3 to 5 minutes for effect. The scope was passed through the right sided nostril. Examination showed the vocalfolds to be mobile and meet in the midline. No nodules, polyps or ulcerations are seen. There is minimal to no inflammation or erythema of the supraglottic or glottic larynx. With phonation there is moderate contraction of the supraglottic larynx. For the majority of the time with phonation the vocal folds are approximated well with little supraglottic hyperfunction but it extensively tends voice is p resent suggested increased focal fold tension. She has poor coordination between respiration and phonation. At some time speaking with a widely patent glottis and a hesitation to her speech. At other times her voice is remarkably strained. The hypopharynx is otherwise clear as is the subglottis. 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 I recommended she work with our speech-language pathologist as some progress wasable to make made during our visit today and the variable nature of her voice disorder. Because of the significance of the disorder I did offer her botulinum toxin injections and we will schedule this in approximately 1 month as I do want our speech-language pathologist to be able to try a couple sessions with her before we begin the injection. My plan would be to initially begin with 0.5 units of botulinum a toxin bilaterally should her voice disorder not resolve by the time of her injection visit. documented in this encounter Nursing Notes Conor Ngo - 05/10/2018 10:30 AM CDT Chief Complaint Patient presents with ??? Consult spasmodic dysphonia There were no vitals taken for this visit. Huber Perdomo documented in this encounter Plan of Treatment Not on filedocumented as of this encounter Procedures Procedure Name Priority Date/Time Associated Diagnosis Comme [facility] HC LARYNGOSCOPY FLEX Routine 05/10/2018 4:22 PM Dysphoni a FIBEROPTIC, DIAGNOSTIC CDT Other diseases of vocal cords IMAGESTREAM RECORDING Routine 05/10/2018 11:37 AM Dysphonia ORDER CDT documented in this encounter Results IMAGESTREAM RECORDING ORDER (05/10/2018 11:37 AM CDT) Specimen (Source) Anatomical Location Collection Method / Collectio n Time Received Time / Laterality Volume Bertram Peraza MD OTHER Performing Organization Address City/State/ZIP Code Phon e Number RADIOLOGY RESULTS documented in this encounter Visit Diagnoses Diagnosis Dysphonia - Primary Other diseases of vocal cords documented in this encounter Additional Health Concerns Assessment Noted Time PHQ-9 Depression Total Score: 17 05/12/2018 8:55 AM CD T documented as of this encounter Care Teams Forestry Patrolman Relationship Specialty Start Date End Date Logan Hayes MD PCP - General 10/21/01 [address] [place] [address] documented as of this encounter
--- OUTSIDE RECORDS SUMMARY | 2022-06-26 18:54 | XMS_ITS | Encounter Summary ---
:1970 Author Organization [place] Address [facility] [place] [address] Care Team Providers Name Role Phone Logan Hayes MD Primary Care Provider [phone] Reason for Visit Reason Comments Derm Problem rash on upper chest area Nose Problem tingling on face and chin Encounter Details Date Type Department Care Team Description 12/16/2004 Office Visit [facility] Logan Hayes T FEVER ([facility] [place] MD Dx) [address] [place] [id number] [phone] Social History Tobacco Use Types Packs/Day Years Used Date Smoking Tobacco: Never Alcohol Use Standard Drinks/Week Comments No 0 (1 standard drink = 0.6 oz pure alcoho l) Sex Assigned at Date Recorded Not on file documented as of this encounter Last Filed Vital Signs Vital Sign Reading Time Taken Comments Blood Pressure 100/70 12/16/2004 11:15 AM CDT Pulse - - Temperature 36.8 ??C (98.2 ??F) 12/16/2004 11:15 AM CDT Respiratory Rate - - Oxygen Saturation - - Inhaled Oxygen Concentration - - Weight 70.3 kg (155 lb) 12/16/2004 11:15 AM CDT Height 171.5 cm (5' 7.5) 12/16/2004 11:15 AM CDT Body Mass Index 23.92 12/16/2004 11:15 AM CDT documented in this encounter Progress Notes Logan Hayes - 12/16/2004 12:05 PM CDT Patient complains of congestion with sore throat, nasal congestion and sinus pain. Some mucopurulantdischarge but no upper dental pain and no sustained fever. Duration less than three days.Scarlatina rash on her trunk has no history of airborn allergy or asthma. No chest pain, diaphoresis, or sob. non productive cough. TMs dull notred, sinus tenderness none lungs clear, s1s2,soft abd,no distress, cyanosis or stridor. A:URI with strep exposure and scalatina rash P:fluids, antipyretics,rest and prnas directed. Recheck PRN worsening or non-improvement over 5 days. Discussed signs of systemic or constutional illness. Rash has scaley papular redness, papule morphology, location trunk and back and duration as above It is not pruritic Associated symptoms include pharyngitis and headache History of streip exposure or contact documented in this encounter Nursing Notes 12/16/2004 11:15 AM CDT >> MAYNOR KWOK 12/16/2004 11:46 am Vamsi Chappell presents for rash on upper chest for 10 days.Also having tingling and congestion in face.Sinus? Initial BP 100/70 Ht 5' 7.5 (1.72m) Wt 155 lbs (70.3kg) Body Mass Index is 23.90 kg/(m^2). . BP completed using cuff size: regular. SRanjan Kwok LPN documented in this encounter Plan of Treatment Not on filedocumented as of this encounter Procedures Procedure Name Priority Date/Time Associated Diagnosis Comme nts HCL BETA STREP Routine 12/16/2004 12:14 PM Scarlet Fever Resul ts for this CONFIRM CDT procedure are i n the results section. HCL STREP GROUP A Routine 12/16/2004 12:14 PM Scarlet Fever Re sults for this AG (RAPID) CDT procedure are i n the results section. documented in this encounter Results BETA STREP CONFIRM (12/16/2004 12:14 PM CDT) Component Value Ref Test Analysis Performed At [facility] Range Method Time Signature Specimen Throat [place] Description [facility] Culture Micro No Beta TURNER Streptococcus [facility] Report status FINAL [id number] [facility] Specimen Anatomical Collection Method Collection Time Receive d Time (Source) Location / / Volume Laterality 12/16/2004 12:14 12/16/2004 PM CDT 12:19 PM CDT Logan Hayes MD LABORATORY Performing Organization Address City/[facility]/ZIP Code Phon e Number [facility] [id number] [place] [address] [facility] STREP GROUP A AG (RAPID) (12/16/2004 12:14 PM CDT) Component Value Ref Test Analysis Performed At [facility] Range Method Time Signature Specimen Throat [place] Description [facility] Rapid Strep A NEGATIVE: No Group A strepto coccal antigen detected by immunoassay, await TURNER Screen culture report. [facility] Report status FINAL [id number] [facility] Specimen Anatomical Collection Method Collection Time Receive d Time (Source) Location / / Volume Laterality 12/16/2004 12:14 12/16/2004 PM CDT 12:19 PM CDT Logan Hayes MD LABORATORY Performing Organization Address City/[facility]/ZIP Code Phon e Number [facility] [id number] [place] [address] [facility] documented in this encounter Visit Diagnoses Diagnosis Scarlet fever - Primary documented in this encounter Care Teams Bilingual Office Assistant Relationship Specialty Start Date End Date Logan Hayes MD PCP - General 10/[birth year]/[id number] [place] [id number] documented as of this encounter
--- OUTSIDE RECORDS SUMMARY | 2022-06-26 18:54 | XMS_ITS | Encounter Summary ---
:1970 Author Organization [place] Address [address] [facility] [place] [address] Care Team Providers Name Role Phone Logan Hayes MD Primary Care Provider [phone] Reason for Visit Reason Onset Date Comments Previsit 05/10/2018 Encounter Details Date Type Department Care Team Description 05/10/2018 [facility] VISIT [facility] Bertram Peraza Previsit [address] [place] [address] MD Katie [address] [place] [phone] [place] [address] (Wo rk) Social History Tobacco Use Types Packs/Day Years Used Date Smoking Tobacco: Never Alcohol Use Standard Drinks/Week Comments No 0 (1 standard drink = 0.6 oz pure alcoho l) Sex Assigned at Date Recorded Not on file documented as of this encounter Miscellaneous Notes Telephone Encounter - Ria Foley - 05/06/2018 2:55 PM CDT Phone Call: Contact Name [facility] Swanson CALLED TO GET IMAGES PUSHED TO PACS Telephone Encounter - Ria Foley - 05/06/2018 2:48 PM CDT FUTURE VISIT INFORMATION FUTURE VISIT INFORMATION: ?? Date: 05/10/2018 ?? Time: 10:30 ?? [place] [facility] [place]: ?? Referring provider: DR Gallardo ?? Referring providers clinic: [facility] ?? Reason for visit/diagnosis . Gallardo Dx Spasmodic Dysphonia- possible botox injections RECORDS REQUESTED FROM: Clinic name Comments Records Status Imaging Status [facility] OFFICE VISIT: 04/13/2018,02/22/2018, 02/15/2018, 06/12/2016, 11/21/2014, 07/07/2014 IMAGE: CT NECK 04/14/2018, MR HEAD 04/14/2018, XR CHEST 02/15/2018, 12/04/2016 INTERNAL YES RECORDS STATUS documented in this encounter Plan of Treatment Not on filedocumented as of this encounter Visit Diagnoses Not on filedocumented in this encounter Additional Health Concerns Assessment Noted Time PHQ-9 Depression Total Score: 17 05/12/2018 8:55 AM CD T documented as of this encounter Care Teams Precision Inspector Relationship Specialty Start Date End Date Logan Hayes MD PCP - General [birth year] [address] [place] [address] documented as of this encounter
--- OUTSIDE RECORDS SUMMARY | 2022-06-26 18:54 | XMS_ITS | Encounter Summary ---
:1970 Author Organization [place] Address [facility] [place] [address] Care Team Providers Name Role Phone Logan Hayes MD Primary Care Provider [phone] Reason for Visit Reason Comments RECHECK Encounter Details Date Type Department Care Team Description 08/09/2018 Office Visit [facility] Bertram Peraza (Primary Dx); Throat MD Katie Other diseases of vocal cords [address] [place] [phone] Social History Tobacco Use Types Packs/Day Years Used Date Smoking Tobacco: Never Alcohol Use Standard Drinks/Week Comments No 0 (1 standard drink = 0.6 oz pure alcoho l) Sex Assigned at Date Recorded Not on file documented as of this encounter Patient Instructions Patient InstructionsSaNia garcia RN - 08/09/2018 11:15 AM CST 1. You were seen in the ENT Clinic today by Dr. Peraza. If you have any questions or concerns after your appointment, please call [phone]. Press option #1 for scheduling related needs. Press option #3 for Nurse advice. 2. Plan is to return to clinic as needed. Nia Duarte RN [facility] ENT Head & Neck Surgery UET FLOOR LAYER documented in this encounter Progress Notes Bertram Peraza MD - 08/09/2018 11:15 AM CST Images from the original note were not [...] lorazepam which appeared to resolve her symptoms. ?? She was seen by an lead consultant and felt to have a laryngeal muscle [...] and no abnormally enlarged cervical lymph nodes. ?? She has no difficulty eating. Occasionally she will have a cough and difficulty breathing but this will last for less than a minute and then resolves. Her voice approximate once a week will be normal or near normal for the entire day. She has had a bad vocal quality for the last 3 days. 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 She worked with her speech-language pathologist we discussed the possibility of botulinum toxin injection should her voice disorder not resolve. Since our last visit she has undergone speech therapy and has had a nice response except for probable phonemes. She has clear speech except when she tries to pronounce a hard C and a K sound. With the sounds she does have squeezing of the pharynx and has significant dysphonia and dysarthria. She does have an appointment to see a movement disorders specialist. Last 2 Scores for Patient-Answered VHI Questionnaire VHI Total Score 08/08/2018 VHI Total Score 28 Last 2 Scores for Patient-Answered CSI Questionnaire CSI Total Score 08/08/2018 CSI Total Score 18 Active Problems ?? Problem Noted Date Vocal cord dysfunction 03/07/2018 [...] Multiple cervical herniations 12/18/2009 Anal fissure 12/06/2009 ?? Surgical History Surgery Date Laterality Comments APPENDECTOMY ? laparotomy and left oophorectomy ? for ovarian cyst and endometriosis US ASPIRATION THYROID CYST 1988 and 1989 ? LAP CHOLECYSTECTOMY 12/08/13 ? abdominal hysterectomy right salpingooophorectomy 01/24/2014 ? for endometriosis ? Family History Medical History Relation Name Comments Heart Disease Brother Bessy fatal heart attack at 39, had ICD. Good Health Brother Ruby ? Heart Disease Brother Ruby chest pains, recurrent syncope Alcohol/Drug Father ? Heart Disease Father ? heart attack at 42 and 43 Thyroid Disease Father ? Graves Heart Disease Maternal Aunt ? pacemaker in 40s, at 55 Good Health Maternal Grandfather ? at age 73 natural causes Good Health Maternal Grandmother ? at age 85 Some psych concerns Heart Disease Maternal Grandmother ? pacemaker Good Health Mother ? Heart Disease Mother ? pacemaker placed November 2014 Cancer-colon Other ? Good Health Paternal Grandfather ? at age 97 natural causes Good Health Paternal Grandmother ? at age 76, natural causes Heart attack Paternal Uncle ? multiple heart attacks Good Health Sister Cathi ? Heart Disease Sister Cathi pacer / ICD for monomorphic ventricular tachycardia Good Health Sister ? Bilateral breast cancer No Family History ? Relation Name Status Comments Brother Bessy ? Brother Ruby Alive ? Father ? Maternal Aunt ? Maternal Grandfather ? SOCIAL HISTORY: Social History Substance Use Topics ??? Smoking status: Never Smoker ??? Smokeless tobacco: Not on file ??? Alcohol use No REVIEW OF SYSTEMS: Ten point review of systems was performed and is negative except for: [facility] ENT ROS 08/08/2018 Psychology Frequently feeling anxious Ears, Nose, Throat Ear pain, Nasal congestion or drainage, Sore throat, Hoarseness Cardiopulmonary Cough, Breathing problems Gastrointestinal/Genitourinary Heartburn/indigestion Musculoskeletal Sore or stiff joints, Neck pain Allergy/Immunology Allergies or hay fever ALLERGIES: Codeine and Phenergan [promethazine hcl] MEDICATIONS: [...] mouth ??? fluticasone (FLONASE) 50 MCG/ACT spray [place] 1 spray in nostril ??? hyoscyamine (ANASPAZ/LEVSIN) [...] awake, alert and in no apparent distress. Her tympanic membranes are clear and intact bilaterally. External auditory canals are clear. Nasal exam shows a mild septal deviation without obstruction. Examination of the oral cavity shows no suspicious lesions. There is symmetric movement of the tongue and soft palate. The oropharynx is clear. Her neck is supple without significant adenopathy. Palpation of the thyrohyoid muscle is much less tender than seen previously. Pulse is regular. Upper airway is clear. Cranial nerves II-XII are grossly intact. PROCEDURE: A flexible laryngoscopy was performed by our speech-language pathologist and reviewed by myself.. Examination showed the vocal folds to be mobile and meet in the midline. No nodules, polyps or ulcerations are seen. There is mild inflammation or erythema of the supraglottic or glottic larynx. With phonation not involving velopharyngeal phonemes there is only mild contraction of the supraglottic larynx. This changes when she uses a hard C and K. There is increased pharyngeal squeeze andcontracture of the supraglottic larynx. The hypopharynx is otherwise clear as is the subglottis. IMPRESSION/PLAN: She has had nice improvement with speech therapy but continues to have trouble withcertain phonemes. She will be working with a movement disorders specialist. We discussed the possibility of botulinum toxin injection but she wishes to hold off for now. She will continue to work with our speech- language pathologist and we will see her back after completion of therapy. UET FLOOR LAYER documented in this encounter Nursing Notes Conor Ngo - 08/09/2018 11:15 AM CST Chief Complaint Patient presents with ??? RECHECK Huber Perdomo UET FLOOR LAYER documented in this encounter Plan of Treatment Not on filedocumented as of this encounter Procedures Procedure Name Priority Date/Time Associated Diagnosis Comme nts IMAGESTREAM RECORDING Routine 08/09/2018 12:39 PM Dysphonia ORDER PARQUET FLOOR LAYER documented in this encounter Results IMAGESTREAM RECORDING ORDER (08/09/2018 12:39 PM PARQUET FLOOR LAYER) Specimen (Source) Anatomical Location Collection Method / [...] documented as of this encounter Care Teams Supervisor Transferring And Boxing Relationship Specialty Start Date End Date Logna Hayes MD PCP - General 10/21/01 [address] [place] [address] documented as of this encounter
--- OUTSIDE RECORDS SUMMARY | 2022-06-26 18:54 | XMS_ITS | Encounter Summary ---
:1970 Author Organization [place] Address [address] [place] [address] Care Team Providers Name Role Phone Logan Hayes MD Primary Care Provider [phone] Encounter Details Date Type Department Care Team Description 12/13/2005 Historic Results INTERFACED REPORT Kyle Tom MD [address] [place] [address] Social History Tobacco Use Types Packs/Day Years Used Date Smoking Tobacco: Never Alcohol Use Standard Drinks/Week Comments No 0 (1 standard drink = 0.6 oz pure alcoho l) Sex Assigned at Date Recorded Not on file documented as of this encounter Plan of Treatment Not on filedocumented as of this encounter Procedures Procedure Name Priority Date/Time Associated Comments Diagnosis HEMOGRAM DIFFERENTIAL STAT 12/13/2005 2:45 AM Results for this AND PLATELET CDT procedure are i n the results section. LIPASE STAT 12/13/2005 2:45 AM Results f or this CDT procedure are i n the results section. HCG QUALITATIVE STAT 12/13/2005 2:45 AM Result s for this CDT procedure are i n the results section. ROUTINE UA WITH STAT 12/13/2005 2:30 AM Result s for this MICROSCOPIC CDT procedure are i n the results section. documented in this encounter Results Hemogram differential and platelet (12/13/2005 2:45 AM CDT) [facility] Method Time Signature MCV 95 78 - 100 [facility] fl MCH 31.5 26.5 - [facility] 33.0 pg MCHC 33.3 32.0 - [facility] 36.0 g/dL RDW 11.1 10.0 - [facility] 15.0 % WBC 7.4 4.0 - [facility] 11.0 10e9/L RBC Count 4.13 3.8 - 5.2 [facility] 10e12/L Hemoglobin 13.0 11.7 - [facility] 15.7 g/dL Hematocrit 39.0 35.0 - [facility] 47.0 % % Neutrophils 67 40 - 75 % [facility] % Lymphocytes 23 20 - 48 % [facility] % Monocytes 8 0 - 12 % [facility] % Eosinophils 2 0 - 6 % [facility] % Basophils 0 0 - 2 % [facility] Platelet Count 229 150 - 450 [facility] 10e9/L Absolute 4.9 1.6 - 8.3 [facility] Neutrophil 10e9/L Absolute 1.7 0.8 - 5.3 [facility] Lymphocytes 10e9/L Absolute 0.6 0.0 - 1.3 [facility] Monocytes 10e9/L Absolute 0.1 0.0 - 0.7 [facility] Eosinophils 10e9/L Absolute 0.0 0.0 - 0.2 [facility] Basophils 10e9/L Diff Method Automated [facility] Method Specimen Anatomical Collection Method Collection Time Receive d Time (Source) Location / / Volume Laterality 12/13/2005 2:45 AM 6 2:19 CDT AM CDT Kyle Tom MD LAB - BLOOD ORDERABLES Performing Organization Address City/State/ZIP Code Phon e Number [facility] Lipase (12/13/2005 2:45 AM CDT) P athologist Signature Lipase 89 20 - 250 U/L [facility] Specimen Anatomical Collection Method Collection Time Receive d Time (Source) Location / / Volume Laterality 12/13/2005 2:45 AM 6 2:19 CDT AM CDT Kyle Tom MD LAB - BLOOD ORDERABLES Performing Organization Address City/State/ZIP Code Phon e Number [facility] HCG qualitative (12/13/2005 2:45 AM CDT) Patholo gist Method Time Signature HCG Qualitative Negative NEG [facility] Serum Specimen Anatomical Collection Method Collection Time Receive d Time (Source) Location / / Volume Laterality 12/13/2005 2:45 AM 6 2:19 CDT AM CDT Kyle Tom MD LAB - BLOOD ORDERABLES Performing Organization Address City/State/ZIP Code Phon e Number [facility] (ABNORMAL) Routine UA with microscopic (12/13/2005 2:30 AM CDT) [facility] Method Time Signature Source Midstream [facility] Urine Color Urine Yellow [facility] Appearance Urine Clear [facility] Glucose Urine Negative NEG mg/dL [facility] Bilirubin Urine Negative NEG [facility] Ketones Urine Negative NEG mg/dL [facility] Specific [place] 1.007 1.003 - [facility] Urine 1.035 Blood Urine Negative NEG [facility] pH Urine 6.0 5.0 - 7.0 [facility] pH Protein Albumin Negative NEG mg/dL [facility] Urine Urobilinogen Normal 0.0 - 2.0 [facility] mg/dL mg/dL Nitrite Urine Negative NEG [facility] Leukocyte Negative NEG [facility] Esterase Urine WBC Urine <1 0 - 2 [facility] /HPF RBC Urine <1 0 - 2 [facility] /HPF Squamous <1 0 - 1 [facility] Epithelial /HPF /HPF Urine Bacteria Urine Few (A) NEG /HPF [facility] Specimen Anatomical Collection Method Collection Time Receive d Time (Source) Location / / Volume Laterality 12/13/2005 2:30 AM 200 6 2:19 CDT AM CDT Kyle Tom MD LAB - URINE ORDERABLES Performing Organization Address City/State/ZIP Code Phon e Number [facility] documented in this encounter Visit Diagnoses Not on filedocumented in this encounter Care Teams Voice Professor Relationship Specialty Start Date End Date Logan Hayes MD PCP - General 10/21/01 [address] [place] [address] documented as of this encounter
--- OUTSIDE RECORDS SUMMARY | 2022-06-26 18:54 | XMS_ITS | Encounter Summary ---
:1970 Author Organization [facility] Address [address] [facility] [place] [address] Care Team Providers Name Role Phone Logan Hayes MD Primary Care Provider [phone] Encounter Details Date Type Department Care Team Description 08/16/2018 Office Visit [facility] Voice Jose Roberto Black, Dysphonia (Primary Dx); [address] [facility] GEOGRAPHIC INFORMATION SYSTEMS ENGINEER Throat pain [address] [place] [address] Social History Tobacco Use Types Packs/Day Years Used Date Smoking Tobacco: Never Alcohol Use Standard Drinks/Week Comments No 0 (1 standard drink = 0.6 oz pure alcoho l) Sex Assigned at Date Recorded Not on file documented as of this encounter Progress Notes Jose Roberto Black, GEOGRAPHIC INFORMATION SYSTEMS ENGINEER - 08/16/2018 10:00 AM CST [facility] VOICE CLINIC THERAPY NOTE (CPT 61266) Patient: Vamsi Chappell Date of Service: 08/16/2018 Referring physician: Dr. Peraza Impressions from most recent evaluation: Vamsi Chappell is a 48 year old female, presenting today for follow-up evaluation of R49.0 (Dysphonia) and R07.0 (Throat Pain). There is also very likely component of dystonia, which I suspect primarily involves the base of tongue and some extrinsic strap muscles. However, this has not been formally diagnosed. She has an appointment with Dr. Aguilar later this month, which will hopefully provide more information. Further, she and Dr. Peraza agreed today that she is not interested in Botox treatments that he could provide, as any treatment of the base of tongue would very likely impact her ability to swallow safely. Evaluation and personal report demonstrates that she has made good gains in therapy, although the results of the laryngeal function studies and AVQI are approximately within the same range. SUBJECTIVE: Since the patient's last session, they report the following: ?? Overall symptoms are improved ?? Successes: able to use techniques to abbreviate coughing fits and help recalibrate her voice ?? She reports that certain activities are frequently disruptive to her voice quality including: ?? Excitement ?? Laughing ?? stress OBJECTIVE: PATIENT REPORTED MEASURES: Patient Supplied Answers To GEOGRAPHIC INFORMATION SYSTEMS ENGINEER QOL Questionnaire Therapy Quality of Life 08/16/2018 Since my l ast session, I used the speech therapy exercises and strategies as recommended by my speech pathologist. Agree strongly I feel that using my therapy techniques has become a habit Agree I feel confident in my ability to manage my current and future symptoms. Agree Since my last session I feel my symptoms have --------. Improved Overall, since starting therapy I feel my symptoms are --------. Better Overall, how much better? A good deal better THERAPEUTIC ACTIVITIES Counseling and Education: ??? Asked many questions about the nature of her symptoms, and I answered all of these thoroughly. ??? We discussed the nature of dystonic movements and the need for acceptance of occasional disruption, with focus of effort on having tools for recalibration subsequently. Exercises to improve respiratory phonatory coordination ?? Awareness of excessive (inspiratory reserve) and insufficient (expiratory reserve) lung volumes ?? A counting task was utilized to promote patient recognition of increased respiratory engagement to counter recoil during exhalation, and habituate a low breath subsequent to this threshold, but before expiratory reserve volume ?? The patient was triggered significantly by the use of counting, and ultimately was abandoned in favor of sustained phonation on /m/ ?? Patient reported improved awareness of these thresholds, and was able to operate within their boundaries with minimal to moderate clinician suppor t ?? With the use of techniques patient recognized sensation of throat constriction which proceeds herworsening voice quality ??? A regimen for home practice was instructed. ??? I provided an audio recording and handouts of today's therapeutic activities to facilitate practice. ASSESSMENT/PLAN PROGRESS TOWARD [facility] GOALS: Adequate progress; please see above IMPRESSIONS: R49.0 (Dysphonia) and R07.0 (Throat Pain). Ms. Chappell feels that she has been able to use the techniques she learned with my colleague Connie Yoon to adapt to disruptions in her voicing and reduce their effects on her activities of daily living. She had many questions about her symptoms and we spent a significant portion of today's session discussing the nature of potentially dystonic laryngeal/lingual motions associated with speech. Many of these concepts appeared to resonate with her. PLAN: I will see Ms. Chappell in 1 weeks, at which point we will continue to promote generalization of therapeutic techniques focusing on improving her self efficacy with regards to the use her daily life. TOTAL SERVICE TIME: 60 minutes TREATMENT (35877): 60 minutes NO CHARGE FACILITY FEE (28274) Eb Black M.M., M.A., [facility]-GEOGRAPHIC INFORMATION SYSTEMS ENGINEER Speech-Language Pathologist Certificate of Vocology [phone] ENISHER documented in this encounter Plan of Treatment Not on filedocumented as of this encounter Procedures Procedure Name Priority Date/Time Associated Diagnosis Comme [facility] SPEECH/HEARING Routine 08/16/2018 7:05 PM REPLENISHER Dyspho kia THERAPY, INDIVIDUAL Throat pain documented in this encounter Visit Diagnoses Diagnosis Dysphonia - Primary Throat pain documented in this encounter Additional Health Concerns Assessment Noted Time PHQ-9 Depression Total Score: 16 05/13/2018 7:03 AM CD T documented as of this encounter Care Teams Crochet Beader Relationship Specialty Start Date End Date Logan Hayes MD PCP - General 10/21/01 [address] [place] [address] documented as of this encounter
--- OUTSIDE RECORDS SUMMARY | 2022-06-26 18:54 | XMS_ITS | Encounter Summary ---
:1970 Author Organization [facility] Address [address] [facility] [place] [address] Care Team Providers Name Role Phone Logan Hayes MD Primary Care Provider [phone] Reason for Visit Reason Onset Date Comments Previsit 08/23/2018 Laryngeal/Lingual Dy stonia Encounter Details Date Type Department Care Team Description 08/23/2018 PRE VISIT [facility] Neurology Savage Aguilar, Previsit [address] [place] [address] (Laryngeal/Lingual 3rd Floor [address] [place] [address] Dystonia) [place] [address] [phone] Social History Tobacco Use Types Packs/Day Years Used Date Smoking Tobacco: Never Smokeless Tobacco: Never Alcohol Use Standard Drinks/Week Comments No 0 (1 standard drink = 0.6 oz pure alcoho l) Sex Assigned at Date Recorded Not on file documented as of this encounter Miscellaneous Notes Telephone Encounter - Cindy Myers - 08/10/2018 2:50 PM CST FUTURE VISIT INFORMATION FUTURE VISIT INFORMATION: ?? Date: 08/23/18 ?? Time: 12p ?? [place] [facility] [place] INFORMATION: ?? Referring provider: Dr. Peraza ?? Referring providers clinic: [facility] ENT ?? Reason for visit/diagnosis Laryngeal/Lingual Dystonia RECORDS REQUESTED FROM: Clinic name Comments Records Status Imaging Status [facility] ENT Dr. Peraza 07/18/18 OV with FRIEND OF THE COURT Connie Yoon Internal EPIC 08/10/18: Internal referral from Dr. Peraza in ENT. Records and imaging in EPIC. GATION SPECIALIST documented in this encounter Plan of Treatment Not on filedocumented as of this encounter Visit Diagnoses Not on filedocumented in this encounter Additional Health Concerns Assessment Noted Time PHQ-9 Depression Total Score: 16 05/13/2018 7:03 AM CD T documented as of this encounter Care Teams Planting Material Unloader Relationship Specialty Start Date End Date Logan Hayes MD PCP - General 10/21/01 [address] [place] [address] documented as of this encounter
--- OUTSIDE RECORDS SUMMARY | 2022-06-26 18:54 | XMS_ITS | Encounter Summary ---
:1970 Author Organization [facility] Address [facility] [place] [address] Care Team Providers Name Role Phone Loagn Hayes MD Primary Care Provider [phone] Encounter Details Date Type Department Care Team Description 12/13/2005 Orders Only [facility] Logan Hayes SIS NOT YET Clinic Lorimor MD Sixto DEFINED (Primary Dx) [address] [facility] [id number] [place] [phone] [id number] Social History Tobacco Use Types Packs/Day Years Used Date Smoking Tobacco: Never Alcohol Use Standard Drinks/Week Comments No 0 (1 standard drink = 0.6 oz pure alcoho l) Sex Assigned at Date Recorded Not on file documented as of this encounter Plan of Treatment Not on filedocumented as of this encounter Procedures Procedure Name Priority Date/Time Associated Diagnosis Comme nts ABSTRACT [facility] REPORT Routine 12/13/2005 DIAGNOSIS NOT YET DEFINED documented in this encounter Results ABSTRACT [facility] REPORT (12/13/2005) Specimen (Source) Anatomical Location Collection Method / Collectio n Time Received Time / Laterality Volume 12/13/2005 Narrative This result has an attachment that is no t available. Logan Hayes MD LABORATORY Performing Organization Address City/State/ZIP Code Phon e Number MISYS documented in this encounter Visit Diagnoses Diagnosis DIAGNOSIS NOT YET DEFINED - Primary documented in this encounter Care Teams Cryogenic Transport Driver Relationship Specialty Start Date End Date Logan Hayes MD PCP - General 10/21/01 [address] [place], [place] [id number] documented as of this encounter
--- OUTSIDE RECORDS SUMMARY | 2022-06-26 18:54 | XMS_ITS | Encounter Summary ---
:1970 Author Organization [facility] Address [address] [facility] [place] [address] Care Team Providers Name Role Phone Logan Hayes MD Primary Care Provider Encounter Details Date Type Department Care Team Description 08/16/2018 Travel Social History Tobacco Use Types Packs/Day [...] documented as of this encounter Care Teams Money Examiner Relationship Specialty Start Date End Date Logan Hayes MD PCP - General 10/21/01 [address] [place], [place] [id number] documented as of this encounter
--- OUTSIDE RECORDS SUMMARY | 2022-06-26 18:54 | XMS_ITS | Encounter Summary ---
:1970 Author Organization [facility] Address [address] [place] [address] Care Team Providers Name Role Phone Logan Hayes MD Primary Care Provider [phone] Encounter Details Date Type Department Care Team Description 07/18/[address] [facility] Voice Connie Yoon, Dysphonia (Primary Dx); [address] [facility] SE SOFTWARE DEVELOPMENT COORDINATOR Throat pain 4th Floor [place] [id number] [facility] [address] CLINIC [address] [phone] [place] [address] Social History Tobacco Use Types Packs/Day Years Used Date Smoking Tobacco: Never Alcohol Use Standard Drinks/Week Comments No 0 (1 standard drink = 0.6 oz pure alcoho l) Sex Assigned at Date Recorded Not on file documented as of this encounter Progress Notes Connie Yoon, SOFTWARE DEVELOPMENT COORDINATOR - 07/18/2018 3:00 PM CST [facility] VOICE CLINIC THERAPY NOTE (CPT [id number]) Patient: Vamsi Chappell Date of Service: 07/18/2018 Referring physician: Dr. Peraza Impressions from most recent evaluation: (05/10/2018) Vamsi Chappell is a 48 year old female, presenting today with R49.0 (Dysphonia)??and??R07.0 (Throat Pain), as evidenced by evaluation and the laryngeal exam. ??Due to the inconsistencies demonstrated during her evaluation today, it is unclear whether there is a neurogenic component at this time, but possible. ?We agreed to proceed with further evaluation by completing the laryngeal function studies during her next appointment as well as continuing therapy. ??Dr. Peraza has offered a trial course of Botox following an initial course of speech therapy. SUBJECTIVE: Since her last session, Ms. Chappell reports the following: ?? Overall she reports that symptoms are better ?? Reports that she finds her voice does not work well when she doesn't get a good breath and holdit (similar to a yawn). Otherwise, she feels her claustrophobia kicks in and she experiences breath stacking. ?? Tried gargling a few times over the last few weeks, unsuccessfully. [place] like she was choking. ?? PT has been a bit uncomfortable and she does experience a soreness after her sessions. OBJECTIVE: Ms. Chappell presents today with the following: ?? Mild to moderate extrinsic neck tension ? Improved, but still somewhat limited optimal breath coordination, which improved over the course of today's session. Voice quality: ?? Mild to moderate backward focus of resonance, moderate breathiness (no whispering today) and severe strain during connected speech ?? Modal pitch is around A3 ? Cough/ Throat clear: ?? Occasional severe, dry cough caused by massage of anterior extrinsic base of tongue muscles and prolonged phonation attempts. PATIENT REPORTED MEASURES: Patient Supplied Answers To SOFTWARE DEVELOPMENT COORDINATOR QOL Questionnaire Therapy Quality of Life 07/18/2018 Since my l ast session, I used the speech therapy exercises and strategies as recommended by my speech pathologist. Agree strongly I feel that using my therapy techniques has become a habit Neither agree nor disagree I feel confident in my ability to manage my current and future symptoms. Neither agree nor disagree Since my last session I feel my symptoms have --------. Improved Overall, since starting therapy I feel my symptoms are --------. About the same THERAPEUTIC ACTIVITIES ??? Demonstrated previous exercises. o demonstrated improved technique o appropriate redirection provided o instruction provided for increased level of complexity/difficulty Semi-Occluded Vocal Tract (SOVT) exercises instructed to reduce laryngeal tension, promote vocal fold pliability, and coordinate respiration and phonation ?? Straw phonation with water resistance was found to be most facilitating ?? Sustained phonation, and voice vs. voiceless productions used to promote easy voicing and raise awareness of laryngeal tension ?? Ascending and descending glides utilized to promote vocal fold pliability ?? Messa di voce, gradual crescendo and decrescendo to vary medial compression was also utilized to promote vocal fold pliability. ?? Instructed on the benefits of using these exercises for improved coordination of breath flow withphonation and tissue mobilization. ?? Instructed on the importance of using these exercises as a warm-up / cool down, and to re-calibrate the voice throughout the day. Exercises in techniques for improved airflow during phonation ?? Speech material with wh was facilitating at the word level. ?? Progressed to wh phrases blending phrases ?? Instructed to chant on modal pitch before speaking; this was helpful. ?? Jewett techniques to reduce glottal lund and improve breath flow; negative practice improved awareness today. Resonant Voice Therapy (RVT) exercises to promote forward locus of resonance and optimized pattern of laryngeal adduction ?? Easy descending glide on /m/ utilized in conjunction with relaxed jaw, tongue, and lightly closedlips to facilitate forward resonant sound ?? Use of the carrier phrase mmhmm instructed to promote generalization to everyday speech ?? Syllable level using /m/ in alternation with cardinal vowels on sustained pitches and speech inflection ?? Word level exercises featuring nasal continuant loaded stimuli ?? Phrase level exercises featuring nasal continuants in more complex phonemic contexts were employed ?? comfortable speech using optimal breath flow. ?? Able to recognize improvement in quality and comfort Counseling and Education: ??? Asked many questions about the nature of her symptoms, and I answered all of these thoroughly. ??? A revised regimen for home practice was instructed. ASSESSMENT/PLAN PROGRESS TOWARD GROUP HOME GOALS: Adequate progress; please see above IMPRESSIONS: R49.0 (Dysphonia) and R07.0 (Throat Pain). Ms. Chappell was able to achieve an improved voice quality today. I provided thorough education, to the different layers of voice symptoms. There appear to be three: 1) muscle tension 2) possible dystonia, which I suspect is associated with the base of tongue, as velar phonemes are most affected (ie: /k/ and /g/). ?? PLAN: I will see Ms. Chappell in 2 weeks For practice goals see AVS. ?? TOTAL SERVICE TIME: 60 minutes TREATMENT (71370): 60 minutes NO CHARGE FACILITY FEE (99075) ?? Connie Yoon M.M. (voice), M.A., CCC/SOFTWARE DEVELOPMENT COORDINATOR Speech-Language Pathologist Certificate of Vocology [facility] [phone] [email or web address] Prounouns: she/her ?? OR MAGAZINE Connie Yoon, SOFTWARE DEVELOPMENT COORDINATOR - 07/18/2018 3:00 PM CST Images from the original note were not included. After Visit Summary Patient: Vamsi Chappell Date of Visit: 07/18/2018 Next appointments: Wednesday at 3pm with Connie Wednesday at 10am with Jose Roberto Wednesday at 11am with Jose Roberto at 1pm with Jose Roberto Voice (2-3x/day unless otherwise noted): Bubbles (straw in 1-1.5?? of water) or finger by the mouth you showed us today: x/day for 1-2 min: REMEMBER: Breath flow is the gasoline for all voices. It is what makes vocal folds vibrate. Too much muscle will lead to whispering. 1) Blow bubbles for 15-20 seconds with no voice. Bubbles need to be consistent and like a bubbly cauldron 2) Jingle bells (10 times): Whooooo, whooooo, whooooooooooooooo on one low, but comfortable pitch 3) blow bubbles and add a sustained ???whooooooooooooooooooooooooooooo?? (same comfortable pitch) 4) bubbles and then lips away from the straw whooo are (if you have a problem, go back to the first step!) 5) When ready try bubbles with the following phrases: - whooooo are youuuuuuuuuuuuuuuuu - Whoooo is sheeeeeeeeeeeeeeee -Whoooooo is heeeeeeeeeeeeeee - whooooo are theyyyyyyyyyyyyyyy ??? M+ vowels ?? Repeat each vowel three times (Example: mmmma mmmma mmmma) ?m?? words o Chant on A3 (follow recording) o Then speak ?? m sentences ?? Chant on A3 (follow recording) ?? Then speak *Can use the finger by your mouth and the strategies learned today as a recalibration tool for your voice if you have a sneeze/cough/etc that sets you back Plant Equipment Engineer: Val Redd [phone]/ [email or web address] Connie Yoon M.M. (voice), MRanjanA., [facility]/SOFTWARE DEVELOPMENT COORDINATOR Speech-Language Pathologist Certificate of Vocology [facility] [phone] [email or web address] Prounouns: she/her OR MAGAZINE documented in this encounter Plan of Treatment Not on filedocumented as of this encounter Procedures Procedure Name Priority Date/Time Associated Diagnosis Comme [facility] SPEECH/HEARING Routine 07/25/2018 10:08 AM Dysphonia THERAPY, INDIVIDUAL EDITOR MAGAZINE Throat pain documented in this encounter Visit Diagnoses Diagnosis Dysphonia - Primary Throat pain documented in this encounter Additional Health Concerns Assessment Noted Time PHQ-9 Depression Total Score: 16 05/13/2018 7:03 AM CD T documented as of this encounter Care Teams Director Of Public Works Relationship Specialty Start Date End Date Logan Hayes MD PCP - General 10/21/01 [address] [place] [address] documented as of this encounter
--- OUTSIDE RECORDS SUMMARY | 2022-06-26 18:54 | XMS_ITS | Encounter Summary ---
:1970 Author Organization [facility] Address [address] [facility] [place] [address] Care Team Providers Name Role Phone Logan Hayes MD Primary Care Provider [phone] Reason for Referral Rehab Therapy Physical Therapy - Closed Specialty Diagnoses / Procedures Referred By Contact Refer red To Contact Diagnoses Dysphonia Bertram Peraza MD [address] [place] [phone] Referral ID Status Reason Start Date Expiration Date Visits Requ ested Visits Authorized [id number] Closed 06/20/2018 06/20/2019 1 1 Encounter Details Date Type Department Care Team Description 06/20/2018 Orders Only [facility] Bertram Peraza Dysp honia (Primary Dx) Throat MD Katie [address] [place] [address] [address] [place], [place] [phone] Social History Tobacco Use Types Packs/Day Years Used Date Smoking Tobacco: Never Alcohol Use Standard Drinks/Week Comments No 0 (1 standard drink = 0.6 oz pure alcoho l) Sex Assigned at Date Recorded Not on file documented as of this encounter Plan of Treatment Scheduled Referrals Name Type Priority Associated Diagnoses Order S chedule PHYSICAL THERAPY Referral Routine Dysphonia 1 Occurrenc es starting REFERRAL 06/20/2018 unti l 06/20/2019 documented as of this encounter Visit Diagnoses Diagnosis Dysphonia - Primary documented in this encounter Additional Health Concerns Assessment Noted Time PHQ-9 Depression Total Score: 16 05/13/2018 7:03 AM CD T documented as of this encounter Care Teams Display Decorator Relationship Specialty Start Date End Date Logan Hayes MD PCP - General 10/21/01 [address] [place] [address] documented as of this encounter
--- OUTSIDE RECORDS SUMMARY | 2022-06-26 18:54 | XMS_ITS | Encounter Summary ---
:1970 Author Organization [facility] Address [address] [facility] [place] [address] Care Team Providers Name Role Phone Logan Hayes MD Primary Care Provider [phone] Reason for Referral Consultation - Closed Specialty Diagnoses / Procedures Referred By Contact Refer red To Contact Diagnoses Dystonia Bertram Peraza MD [address] [place] [phone] Referral ID Status Reason Start Date Expiration Date Visits Requ ested Visits Authorized [id number] Closed 07/14/2018 07/14/2019 1 1 CLEANER OPERATOR Encounter Details Date Type Department Care Team Description 07/14/2018 Orders Only [facility] Bertram Peraza Dyst onia (Primary Dx) Throat MD Katie [address] [place] [address] [address]th [place], [place] [address] Social History Tobacco Use Types Packs/Day Years Used Date Smoking Tobacco: Never Alcohol Use Standard Drinks/Week Comments No 0 (1 standard drink = 0.6 oz pure alcoho l) Sex Assigned at Date Recorded Not on file documented as of this encounter Plan of Treatment Scheduled Referrals Name Type Priority Associated Diagnoses Order S chedule NEUROLOGY ADULT REFERRAL Referral Routine Dystonia Ord ered: 07/14/2018 documented as of this encounter Visit Diagnoses Diagnosis Dystonia - Primary Abnormal involuntary movements documented in this encounter Additional Health Concerns Assessment Noted Time PHQ-9 Depression Total Score: 16 05/13/2018 7:03 AM CD T documented as of this encounter Care Teams Crib Clerk Relationship Specialty Start Date End Date Logan Hayes MD PCP - General 10/21/01 [address] [place] [address] documented as of this encounter
--- OUTSIDE RECORDS SUMMARY | 2022-06-26 18:54 | XMS_ITS | Encounter Summary ---
:1970 Author Organization [place] Address [address] [facility] [place] [address] Care Team Providers Name Role Phone Logan Hayes MD Primary Care Provider [phone] Encounter Details Date Type Department Care Team Description 08/23/2018 Orders Only [facility] Cramp of limb [address] [facility] [address] 1[address] Floor [place], [place] [phone] Social History Tobacco Use [...] Procedure Name Priority Date/Time Associated Comments Diagnosis PARANEOPLASTIC ANTIBODY Routine 08/23/2018 2:05 PM Cramp of li mb Results for this SYSTEM SUPPORT DEVELOPER procedure are i n the results section. documented in this encounter Results Paraneoplastic antibody (08/23/2018 2:05 PM SYSTEM SUPPORT DEVELOPER) Analysis Performed At Patho logist Time Signature PNP Antibody SEE NOTE 09/01/2018 [facility] 09/01/2018 12:41 PM SYSTEM SUPPORT DEVELOPER [place] 12:41 PM [facility] [place] Comment: (Note) Test ? Result ?? Flag ??Unit ?RefValue Paraneoplastic Autoantibody Kendell Grey Interpretive Comments ? SEE NOTE ? No informative autoantibodies were d etected in the ?? Paraneoplastic Evaluation. However, a negative result does ?? not exclude neurological autoimmunit y with or without ?? associated neoplasia. Sensitivity an d specificity of ?? antibody testing are enhanced by malik ting both serum and ?? CSF. CINTHYA-1, S ?Negative ? titer ?? <1:240 ?? Reflex Added ? None. ? This test was developed and its perf ormance characteristics ?? determined by [facility] in a [place] consistent with CLIA ?? requirements. This test has not been cleared or approved by ?? the U.S. Food and Drug Administratio n. CINTHYA-2, S ?Negative ? titer ?? <1:240 ? This test was developed and its perf ormance characteristics ?? determined by [facility] in a [place] consistent with CLIA ?? requirements. This test has not been cleared or approved by ?? the U.S. Food and Drug Administratio n. CINTHYA-3, S ?Negative ? titer ?? <1:240 ? This test was developed and its perf ormance characteristics ?? determined by [facility] in a [place] consistent with CLIA ?? requirements. This test has not been cleared or approved by ?? the U.S. Food and Drug Administratio n. AGNA-1, S ?Negative ? titer ?? <1:240 ? This test was developed and its perf ormance characteristics ?? determined by [facility] in a [place] consistent with CLIA ?? requirements. This test has not been cleared or approved by ?? the U.S. Food and Drug Administratio n. PAINT BOOTH OPERATOR-1, S ? Negative ? titer ?? <1:240 ? This test was developed and its perf ormance characteristics ?? determined by [facility] in a [place] consistent with CLIA ?? requirements. This test has not been cleared or approved by ?? the U.S. Food and Drug Administratio n. PAINT BOOTH OPERATOR-2, S ? Negative ? titer ?? <1:240 ? This test was developed and its perf ormance characteristics ?? determined by [facility] in a [place] consistent with CLIA ?? requirements. This test has not been cleared or approved by ?? the U.S. Food and Drug Administratio n. PAINT BOOTH OPERATOR-Tr, S ?Negative ? titer ?? <1:240 ? This test was developed and its perf ormance characteristics ?? determined by [facility] in a [place] consistent with CLIA ?? requirements. This test has not been cleared or approved by ?? the U.S. Food and Drug Administratio n. Amphiphysin Ab, S ?Negative ? titer ?? <1:240 ? This test was developed and its perf ormance characteristics ?? determined by [facility] in a [place] consistent with CLIA ?? requirements. This test has not been cleared or approved by ?? the U.S. Food and Drug Administratio n. CRMP-5-IgG, S ?Negative ? titer ?? <1:240 ? This test was developed and its perf ormance characteristics ?? determined by [facility] in a [place] consistent with CLIA ?? requirements. This test has not been cleared or approved by ?? the U.S. Food and Drug Administratio n. Striational (Striated Muscle) ?Nega tive ? titer ?? <1:120 ?? Ab, S ?? This test was developed and its perf ormance characteristics ?? determined by [facility] in a [place] consistent with CLIA ?? requirements. This test has not been cleared or approved by ?? the U.S. Food and Drug Administratio n. P/Q-Type Calcium Channel Ab ?0.0 0 ? nmol/L ??<=0.02 ? This test was developed and its perf ormance characteristics ?? determined by [facility] in a [place] consistent with CLIA ?? requirements. This test has not been cleared or approved by ?? the U.S. Food and Drug Administratio n. N-Type Calcium Channel Ab ?0. 00 ? nmol/L ??<=0.03 ? This test was developed and its perf ormance characteristics ?? determined by [facility] in a [place] consistent with CLIA ?? requirements. This test has not been cleared or approved by ?? the U.S. Food and Drug Administratio n. ACh Receptor (Muscle) Binding ?0.00 ? nmol/L ??<=0.02 ?? Ab ?? This test was developed and its perf ormance characteristics ?? determined by [facility] in a [place] consistent with CLIA ?? requirements. This test has not been cleared or approved by ?? the U.S. Food and Drug Administratio n. AChR Ganglionic Neuronal Ab, S ?? 0.00 ? nmol/L ??<=0.02 ? This test was developed and its perf ormance characteristics ?? determined by [facility] in a [place] consistent with CLIA ?? requirements. This test has not been cleared or approved by ?? the U.S. Food and Drug Administratio n. Neuronal (V-G) K+ Channel Ab, S ??0.00 ? nmol/L ??<=0.02 ? This test was developed and its perf ormance characteristics ?? determined by [facility] in a [place] consistent with CLIA ?? requirements. This test has not been cleared or approved by ?? the U.S. Food and Drug Administratio n. ? Test Performed by: ?? [facility] ?? [address] [place], [place] [address] Specimen Anatomical Collection Method Collection Time Receive d Time (Source) Location / / Volume Laterality Blood specimen 08/23/2018 2:05 PM 018 2:10 (specimen) SYSTEM SUPPORT DEVELOPER PM SYSTEM SUPPORT DEVELOPER Todd Bright MD LAB - BLOOD ORDERABLES Performing Organization Address City/State/ZIP Code Phon e Number [address] [address] [facility] documented in this encounter Visit Diagnoses Diagnosis Cramp of limb documented in this encounter Additional Health Concerns Assessment Noted Time PHQ-9 Depression Total Score: 16 05/13/2018 7:03 AM CD T documented as of this encounter Care Teams Health And Safety Consultant Relationship Specialty Start Date End Date Logan Hayes MD PCP - General 10/21/01 [id number] [facility] [place] [address] documented as of this encounter
--- OUTSIDE RECORDS SUMMARY | 2022-06-26 18:54 | XMS_ITS | Encounter Summary ---
:1970 Author Organization [place] Address [address] [facility] [place] [address] Care Team Providers Name Role Phone Logan Hayes MD Primary Care Provider [phone] Reason for Visit [place] [facility] (Routine) - Closed Specialty Diagnoses / Procedures Referred By Contact Refer red To Contact Physical Therapy Diagnoses neck and throat / Connie Yoon @ [facility] OUT OF STATE Connie Yoon, OPERATIONS EXECUTIVE Zeferino Arredondo, PT Procedures [facility] [place] [address] [facility] [address] [place], [place] [address] [place] [address] Phone: Fax: Referral ID Status Reason Start Date Expiration Date Visits Requ ested Visits Authorized [id number] Closed 06/27/2018 09/05/2018 70 [id number] Encounter Details Date Type Department Care Team Description 06/27/2018 Therapy Visit [facility] Zeferino Arredondo, PT Neck pain (Primary Rehabilitation Services [place] MECHE A Dx) [facility] [address] [place] [address] [address] [place] [address] [address] [phone] [place], [place] (Work) [phone] Social History Tobacco Use Types Packs/Day Years Used Date Smoking Tobacco: Never Alcohol Use Standard Drinks/Week Comments No 0 (1 standard drink = 0.6 oz pure alcoho l) Sex Assigned at Date Recorded Not on file documented as of this encounter Progress Notes Zeferino Arredondo, PT - 06/27/2018 10:40 AM CDT Physical Therapy Initial Evaluation June 27, 2018 Instructions/Precautions/Restrictions: PT eval and treat. Referred by speech therapist at [facility]. 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 Skilled PT services are necessary in order to reduce impairments and improve independent function. Subjective: Date of Onset: February 2018. 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 Jaylin got very sick and was coughing very hard - almost to the point of emesis. Was told she had bronchitis, never got better. Went to ER and someone thought she had a vocal chord dysfunction. Saw ENT in [place] and say vocal chords were sp asming/slamming shut (scope procedure). Began to secondarily have lots of neck tightness (especiallyanteriorly) from trying to hard to vocalize. Worsened by: Environmental vibrations (leaf blower, Orbital Traction music, PAK PA systems), trying to speak, occasionally rotating neck, chin to chest (cervical flexion) hurts neck much more too. Alleviated by: Noise reduction headphones/earbuds, warm drinks, warm compress on anterior neck. General health as reported by patient: good Pertinent medical/surgical history: Refer to health history in EMR. Imaging: Scope from ENT. 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 Patient's goals are: decrease pain, talk more easily, turn head more easily. Return to MD: PRN. Objective: CERVICAL EXAMINATION Posture: Forward head on neck and Rounded shoulders Active ROM Limitation Flexion Mod loss, severe anterior neck pain Extension Min loss, mild anterior neck pain/stretch Protraction Retraction Min loss, no effect L R Rotation Min loss, pull on R Min loss, pull on L Sidebend Min loss, pull on R Min loss, pull on L Note: Exam condensed due to time constraints (patient got lost on way to appt), see objective flowsheet notes for ongoing evaluation. Assessment/Plan: The patient is a 48 year old female with chief complaint of neck hypertonicity. The patient has the following significant findings with corresponding treatment plan. 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 Pain - hot/cold therapy, US, electric stimulation, mechanical traction, manual therapy, splint/taping/bracing/orthotics, self management, education, directional preference exercise and home program Decreased ROM/flexibility - manual therapy, therapeutic exercise and home program Decreased joint mobility - manual therapy, therapeutic exercise and home program Decreased strength - therapeutic exercise, therapeutic activities and home program Impaired muscle performance - neuro re-education and home program Decreased function - therapeutic activities and home program Impaired posture - neuro re-education, therapeutic activities and home program Therapy Evaluation Codes: 1) History comprised of: Personal factors that impact the plan of care: Please refer to health history in EMR. Comorbidity factors that impact the plan of care are: Please refer to health history in EMR. Medications impacting care: None. 2) Examination of Body Systems comprised of: Body structures and functions that impact the plan of care: Cervical spine. Activity limitations that impact the plan of care are: Speak, drive, look down. Clinical presentation characteristics are: Stable/Uncomplicated. 3) Presentation comprised of: Presentation scored as Low complexity with uncomplicated characteristics.. 4) Decision-Making Low complexity using standardized patient assessment instrument and/or measureable assessment of functional outcome. Cumulative Therapy Evaluation is: Low complexity. Previous and current functional limitations: (See Goal Flow Sheet for this information) Short term and rn long term care goals: (See Goal Flow Sheet for this information) Communication ability: Patient appears to be able to clearly communicate and understand verbal and written communication and follow directions correctly. Treatment Explanation - The following has been discussed with the patient: RX ordered/plan of care, anticipated outcomes, and possible risks and side effects. This patient would benefit from PT intervention to resume normal activities. Rehab potential is good. Frequency: 2x/month, once daily Duration: for 2 months Discharge Plan: Achieve all LTGs, be independent in home treatment program, and reach maximal therapeutic benefit. Please refer to the daily flowsheet for treatment today, total treatment time and time spent performing 1:1 timed codes. Shyla Bailey - 06/27/2018 10:40 AM CDT [facility] Initial Evaluation Subjective: Patient is a 48 year old female presenting with rehab cervical spine hpi. Pertinent medical history includes: Overweight, thyroid problems, menopausal, migraines/headaches and depression. Medical allergies: yes (Adhesive, dilotid, hydrocodone, codeine, phenergan). Other surgeries include: Other (Gall bladder, full hysterectomy, appendix). Current medications: Anti-depressants and thyroid medication. 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 Objective: System Physical Exam General ROS Assessment/Plan: documented in this encounter Plan of Treatment Not on filedocumented as of this encounter Procedures Procedure Name Priority Date/Time Associated Diagnosis Comme [facility] Z THERAPEUTIC Routine 06/27/2018 1:49 PM CDT Neck pain EXERCISES documented in this encounter Visit Diagnoses Diagnosis Neck pain - Primary Cervicalgia documented in this encounter Additional Health Concerns Assessment Noted Time PHQ-9 Depression Total Score: 16 05/13/2018 7:03 AM CD T documented as of this encounter Care Teams Campus Recruiting Internship Relationship Specialty Start Date End Date Logan Hayes MD PCP - General 10/21/01 [address] [place] [address] documented as of this encounter
--- OUTSIDE RECORDS SUMMARY | 2022-06-26 18:54 | XMS_ITS | Encounter Summary ---
:1970 Author Organization [place] Address [address] [facility] [place] [address] Care Team Providers Name Role Phone Logan Hayes MD Primary Care Provider [phone] Reason for Visit [place] [facility] (Routine) - Closed Specialty Diagnoses / Procedures Referred By Contact Refer red To Contact Physical Therapy Diagnoses neck and throat / Connie Yoon @ [facility] Connie Yoon, GAS ENGINE OPERATOR COMPRESSORS Zeferino Arredondo, PT Procedures [facility] [place] [address] [facility] [address] [place], [place] [address] [address] [place] [address] Phone: Fax: Referral ID Status Reason Start Date Expiration Date Visits Requ ested Visits Authorized [id number] Closed 06/27/2018 09/05/2018 70 68 Encounter Details Date Type Department Care Team Description 08/01/2018 Therapy Visit [facility] Zeferino Arredondo, PT Neck pain Rehabilitation Services [place] [facility] [address] [facility] [address] [place] [address] [place], [place] [address] [phone] Social History Tobacco Use Types Packs/Day Years Used Date Smoking Tobacco: Never Alcohol Use Standard Drinks/Week Comments No 0 (1 standard drink = 0.6 oz pure alcoho l) Sex Assigned at Date Recorded Not on file documented as of this encounter Progress Notes Zeferino Arredondo, PT - 08/01/2018 1:50 PM CST Discharge Note Progress reporting period is from initial eval to Aug 01, 2018. Vamsi failed to return for next follow up visit and current status is unknown. Please see information below for last relevant information on current status. Patient seen for Rxs Used: 3 visits. SUBJECTIVE Subjective changes noted by patient: Subjective: Making good progress with Connie in speech therapy. With regard to neck movements, still having greatest difficulties with retraction and extension. Rotation seems to be improving. L side continues to be more painful than R side of anterior neck. . Current pain level is Current Pain level: 4/10. Previous pain level was Initial Pain level: 6/10. Changes in function: Yes (See Goal flowsheet attached for changes in current functional level) Adverse reaction to treatment or activity: None OBJECTIVE Changes noted in objective findings: Objective: 10deg improvement of rotation bilaterally. Pain continues with limited motion of retraction. . 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 Updated problem list and treatment plan: Decreased ROM/flexibility - HEP Decreased strength - HEP STG/LTGs have been met or progress has been made towards goals: Yes, please see goal flowsheet for most current information. Assessment of Progress: current status is unknown. Last current status: Assessment of progress: Pt is progressing as expected. Self Management Plans: HEP I have re-evaluated this patient and find that the nature, scope, duration and intensity of the therapy is appropriate for the medical condition of the patient. Vamsi continues to require the following intervention to meet STG and LTG's: HEP. Recommendations: Discharge with current home program. Patient to follow up with MD as needed. Episode to be closed atthis time and patient formally discharged from therapy. Zeferino Arredondo PT, DPT, OCS Please refer to the daily flowsheet for treatment today, total treatment time and time spent performing 1:1 timed codes. documented in this encounter Plan of Treatment Not on filedocumented as of this encounter Procedures Procedure Name Priority Date/Time Associated Diagnosis Comme nts JEROMEC MANUAL THER Routine 08/01/2018 2:05 PM Neck pain TECH,1+REGIONS,EA 15 MIN PRODUCTION SANITIZER Z NEUROMUSCULAR Routine 08/01/2018 2:05 PM Neck pain RE-EDUCATION PRODUCTION SANITIZER ZZC THERAPEUTIC EXERCISES Routine 08/01/2018 2:05 PM Neck pain PRODUCTION SANITIZER documented in this encounter Visit Diagnoses Diagnosis Neck pain Cervicalgia documented in this encounter Additional Health Concerns Assessment Noted Time PHQ-9 Depression Total Score: 16 05/13/2018 7:03 AM CD T documented as of this encounter Care Teams Material Lister Relationship Specialty Start Date End Date Logan Hayes MD PCP - General 10/21/01 [address] [place] [address] documented as of this encounter
--- OUTSIDE RECORDS SUMMARY | 2022-06-26 18:54 | XMS_ITS | Encounter Summary ---
:1970 Author Organization [place] Address [address] [facility] [place] [address] Care Team Providers Name Role Phone Logan Hayes MD Primary Care Provider [phone] Encounter Details Date Type Department Care Team Description 05/10/2018 Office Visit [facility] Voice Connie Yoon, Dysphonia (Primary Dx); [address] [facility] [address] BUSINESS PLANNING DIRECTOR Throat pain 4th Floor [place], [place] [address] [facility] [id number] CLINIC 8A [phone] [place] [address] Social History Tobacco Use Types Packs/Day Years Used Date Smoking Tobacco: Never Alcohol Use Standard Drinks/Week Comments No 0 (1 standard drink = 0.6 oz pure alcoho l) Sex Assigned at Date Recorded Not on file documented as of this encounter Progress Notes Connie Yoon, FABIAN - 05/10/2018 10:30 AM CDT Images from the original note were not included. [facility] Bertram Peraza Jr., M.D., F.A.C.S. Aida Lerner M.D., M.P.H. Jennifer Blanco, Ph.D., CCC/BUSINESS PLANNING DIRECTOR Connie Yoon M.M. (voice), Vanita, CCC/BUSINESS PLANNING DIRECTOR Jose Roberto Black M.M. (voice) MTigist., CCC/BUSINESS PLANNING DIRECTOR Evaluation report Clinician: Connie Yoon M.M. (voice)Vanita, CCC/BUSINESS PLANNING DIRECTOR Seen in conjunction with: Dr. Peraza Referring physician: Sami Patient: Vamsi Chappell Date of Visit: 05/10/2018 HISTORY Chief complaint: Vamsi Chappell is a 48 year old presenting today for evaluation of voice issues. Salienthistory: She has a history significant for a bout of bronchitis in February 2018. 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 CURRENT SYMPTOMS INCLUDE VOICE ?? Severely poor voice quality since she developed a bout of bronchitis in February 2018, which involvedsevere coughing. ?? Voice was normal prior to her illness ?? 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 ?? Sometimes she had experienced hoarseness in the past with allergies or a URI, but never voice issues like her current voice issues. ?? Voice can be near normal, and has been on a handful of days since February. ?? However, her voice quality has been particularly poor over the past 3-4 days. ?? She also complains of significant ear discomfort and hypersensitivity to noises. After Dr. Perazamassaged and touched near the TMJ, her voice slightly improved for a short time. COUGH/THROAT CLEARING ??? Denies issues SWALLOWING ?? Denies issues RESPIRATION ?? Experienced more shortness of breath during the more acute phases of her bronchitis. It is now more infrequent, but can still occur. ?? When she does experience shortness of breath, she will experience a tight feeling in the neck andsome grunting, which will turn into a cough that lasts for no longer than a minute. OTHER PERTINENT HISTORY ??? Please also refer to Dr. Peraza's dictation for additional details. ??? Has a Hx of ovarian cysts and endometriosis, and has been on Prozac for her symptoms since that time. ??? Anxiety/depression ??? Hx of thyroid issues. No past medical history on file. No past surgical history on file. OBJECTIVE PATIENT REPORTED MEASURES ?? Effort to talk: 10 / 10 (0-10 in which 10 represents maximal effort) ?? Effort to sing: n/a / 10 (0-10 in which 10 represents maximal effort) ?? Voice quality: 1 / 10 (0-10 in which 10 represents best possible voice) Patient Supplied Answers To VHI Questionnaire No flowsheet data found. Patient Supplied Answers To CSI Questionnaire No flowsheet data found. Patient Supplied Answers To EAT Questionnaire No flowsheet data found. PERCEPTUAL EVALUATION (CPT 21209) POSTURE / TENSION: ?? jaw ?? tounge base ?? neck ?? upper body ?? neck and shoulders ?? face BREATHING: ?? inspirations are inadequate in volume and frequency ?? excessive thoracic muscle use pattern ?? abdominal muscle use pattern ?? shoulder and neck involvement ?? abdominal contraction at initiation of phonation ?? phonation is not coordinated with respiration LARYNGEAL PALPATION: ?? firm musculature ?? tenderness of the thyrohyoid area ?? reduced thyrohyoid space ?? no significant tenderness ?? palpation induced cough VOICE: ?? Roughness: WNL ?? Breathiness: Moderate to severe ?? Strain: Severe to profound ?? Back focus ?? Irregular tight spasms ?? Frequent voice breaks ?? Valsalva during phonation attempts ?? Voiced phonemes were more effortful than voiceless phonemes, but both were markedly effortful. She noted that bilabial phonemes seemed easier to produce (ie: /m/) ?? Intermittently spoke with a whisper ?? Loudness ?? Conversational speech: Severely reduced ?? Projected speech: Profoundly ?? Pitch: ?? Conversational speech: Moderately lowered ?? Pitch glide: limited due (at least) partly to severe strain ?? Resonance: ?? Conversational speech: backward focus of resonance; ?? Singing vs. Speech: Same effort ?? Whistle: able to produce, but eventually led to severe throat discomfort and a cough ?? CAPE-V Overall Severity: 78/100 ORAL MOTOR EXAMINATION ?? Face: Normal ?? Lip Strength: Intact ?? Jaw Strength: Intact ?? Tongue Strength: Intact; no fasciculations noted by Dr. Peraza ?? Teeth: ?? Upper and lower intact ?? Alternating motion rates (AMRs): Significant delays when attempted with a voice; minimal difficulty when demonstrated with no voice ?? Sequential motion rates (SMRs): Significant delays when attempted with a voice; minimal difficulty when demonstrated with no voice SPEECH ?? Severe strain and prolonged periods of rest to catch her breath with all volitional phonation attempts. Reading was markedly more difficult than spontaneous connected speech. ?? Near normal laugh. ?? Visible effort/ strain and tension when attempting to speak with phonation, but also intermittently present during a whisper ?? Head and neck involvement in attempting to speak with phonation, but also intermittently present during a whisper ?? Effort and tension resolves when relaxed and using no voice ?? Strain and effort also obvious in the face, tongue and jaw. She notes that she will intermittently experience pain and discomfort in the face after attempting to speak for prolonged periods of time. COUGH/THROAT CLEARING: ?? Not observed, unless caused by prolonged phonation attempts or touch to the anterior extrinsic neck muscles. LARYNGEAL FUNCTION STUDIES (CPT 81170) Initiated, but not completed. Will complete this . LARYNGEAL EXAMINATION Procedure: Flexible endoscopy with chip-tip technology without stroboscopy, right nostril; topical anesthesia with 3% Lidocaine and 0.25% phenylephrine was applied. Performed by: Dr. Peraza The laryngeal and pharyngeal structures were evaluated for gross appearance, mobility, function, andfocal lesions / abnormalities of the associated mucosa. All findings were within normal limits with the exception of the following salient features: ?? Essentially healthy larynx with normal neurological mobility ?? no obvious spasms observed during the production of voiced and voiceless phonemes. ?? Severe respiratory incoordination during phonation tasks ?? Moderate to severe supraglottic hyperfunction observed during intermittent moments of phonation. The vocal folds appear stiff with minimal mucosal wave, which is most likely associated with incoordination between breath flow and phonation tasks. THERAPY PROBES: Limited improvement was elicited with use of forward resonant stimuli, coordination of respiration and phonation and use of yawn sigh; additional education and intervention is likely necessary to make progress. ?? Abducted view of the larynx - healthy in appearance. The laryngeal exam was reviewed with Ms. Chappell, and I provided pertinent explanations, as well as written and oral information. ASSESSMENT / PLAN IMPRESSIONS: Vamsi Chappell is a 48 year old female, presenting today with R49.0 (Dysphonia) and R07.0 (Throat Pain), as evidenced by evaluation and the laryngeal exam. Due to the inconsistencies demonstrated during her evaluation today, it is unclear whether there is a neurogenic component at this time, but possible. We agreed to proceed with further evaluation by completing the laryngeal function studies during her next appointment as well as continuing therapy. Dr. Peraza has offered a trial course ofBotox following an initial course of speech therapy. STIMULABILITY: Limited improvement was elicited with use of forward resonant stimuli, coordination of respiration and phonation and use of yawn sigh; additional education and intervention is likely necessary to make progress. RECOMMENDATIONS: ?? A course of speech therapy is recommended to optimize vocal technique, improve voice quality, promote reduced discomfort, effort and fatigue, promote reduction of vocal fold impact to help resolve the lesions and help reduce mucosal irritation and extrinsic neck discomfort. ?? She demonstrates a Good prognosis for improvement given adherence to therapeutic recommendations. ?? Positive indicators: diagnosis is known to respond to treatment high level of comittment ?? Negative indicators: possible neurogenic component to voice/ speech issues ?? DURATION / FREQUENCY: 2 one-hour weekly sessions, followed by 2 one-hour biweekly sessions. A total of 6-8 sessions may be necessary. GOALS: Patient goal: 1. To understand the problem and fix it as much as possible 2. To have a normal and acceptable voice quality 3. To breathe normally and comfortably in all situations Long-term goal(s): In 6 months, Ms. Chappell will: Report a week of typical vocal activities, in which dysphonia and throat discomfort do not exceed a level of 3 out of 10, 80% of the time Report a speaking voice quality that is acceptable to her, 90%of the time In a 20-minute conversation task, demonstrate 90% accuracy with forward resonance/optimal breath flow, by therapist judgment This treatment plan was developed with the patient who agreed with the recommendations. THERAPY NOTE (CPT 33371) Date of Service: 05/10/2018 SUBJECTIVE / OBJECTIVE: Please refer to my evaluation report from today's encounter for full details regarding subjective data, patient reported measures, and diagnostic findings. THERAPEUTIC ACTIVITIES Counseling and Education ??? Asked many questions about the nature of her symptoms, and I answered all of these thoroughly. o I also provided information regarding MTD, ILS, and proper respiratory mechanics Semi-Occluded Vocal Tract (SOVT) exercises instructed to reduce laryngeal tension, promote vocal fold pliability, and coordinate respiration and phonation Straw phonation with water resistance was found to be most facilitating Sustained phonation, and voice vs. voiceless productions used to promote easy voicing and raise awareness of laryngeal tension She was able to sustain phonation for up to 10 seconds today Instructed on the benefits of using these exercises for improved coordination of breath flow with phonation and tissue mobilization. Instructed on the importance of using these exercises as a warm-up / cool down, and to re-calibrate the voice throughout the day. ??? Concepts of an optimal regimen for practice were instructed. o She should use an interval schedule of practice, with brief periods of practice frequently throughout each day o [place] concepts of volitional practice to facilitate motor learning. ??? A regimen for home practice was instructed. ASSESSMENT/PLAN PROGRESS TOWARD COAT JOINER LOCKSTITCH GOALS: Minimal at this point, as this is first session, but good learning today IMPRESSIONS: R49.0 (Dysphonia) in the context of R07.0 (Throat Pain) PLAN: I will see Ms. Chappell in 2 days to complete the laryngeal function studies and continue therapy TOTAL SERVICE TIME: 75 minutes EVALUATION OF VOICE AND RESONANCE (64401) TREATMENT (94555) NO CHARGE FACILITY FEE (94723) Connie Yoon M.M. (voice) MRanjanARanjan, [facility]/BUSINESS PLANNING DIRECTOR Speech-Language Pathologist Certificate of Vocology [facility] [phone] [email or web address] Prounouns: she/her Answers for HPI/ROS submitted by the patient on 05/10/2018 PHQ-2 Score: 4 If you checked off any problems, how difficult have these problems made it for you to do your work, take care of things at home, or get along with other people?: Very difficult PHQ9 TOTAL SCORE: 17 documented in this encounter Plan of Treatment Not on filedocumented as of this encounter Procedures Procedure Name Priority Date/Time Associated Diagnosis Comme nts [facility] & Routine 05/10/2018 4:10 PM Dysphonia QUALITATIVE ANALYSIS CDT Throat pain VOICE AND RESONANCE [facility] SPEECH/HEARING Routine 05/10/2018 4:10 PM Dysphonia THERAPY, INDIVIDUAL CDT Throat pain documented in this encounter Visit Diagnoses Diagnosis Dysphonia - Primary Throat pain documented in this encounter Additional Health Concerns Assessment Noted Time PHQ-9 Depression Total Score: 17 05/12/2018 8:55 AM CD T documented as of this encounter Care Teams Communications Instructor Relationship Specialty Start Date End Date Logan Hayes MD PCP - General 10/21/01 [address] [place] [address] documented as of this encounter
--- OUTSIDE RECORDS SUMMARY | 2022-06-26 18:54 | XMS_ITS | Encounter Summary ---
:1970 Author Organization [facility] Address [address] [facility] [place] [address] Care Team Providers Name Role Phone Logan Hayes MD Primary Care Provider [phone] Encounter Details Date Type Department Care Team Description 05/31/2018 Office Visit [facility] Voice Connie Yoon, Dysphonia (Primary Dx); [address] [facility] [address] HEAD OF ENGLISH Throat pain 4th Floor [place] [id number] [facility] [id number] CLINIC 8A [phone] [place] [address] Social History Tobacco Use Types Packs/Day Years Used Date Smoking Tobacco: Never Alcohol Use Standard Drinks/Week Comments No 0 (1 standard drink = 0.6 oz pure alcoho l) Sex Assigned at Date Recorded Not on file documented as of this encounter Progress Notes Connie Yoon, HEAD OF ENGLISH - 05/31/2018 1:00 PM CDT [facility] THERAPY NOTE (CPT 80213) Patient: Vamsi Chappell Date of Service: 05/31/2018 Referring physician: Dr. Peraza Impressions from most recent evaluation (Impressions from most recent evaluation: (05/10/2018) Vamsi Chappell [...] by completing the laryngeal function studies during hernext appointment as well as continuing therapy. ??Dr. Peraza has offered a trial course of Botox following an initial course of speech therapy. *Talk to Dr. Peraza regarding this patient and scheduled botox treatment SUBJECTIVE: Since her last session, Ms. Chappell reports the following: ?? Recording of bubbles was difficult to hear - can listen to protestant music again, but turns the kohler down. ?? Today is a good voice day. Hard to say if things are improving, because she has had illness (whole family) since that time. ?? Voice continues to fatigue with extended speech ?? Overall, she reports symptoms continue to wax and wane; however, she tends to have more good days. OBJECTIVE: Ms. Chappell presents today with the following: ??? Still has significant hearing sensitivity; it is unclear as to whether it is associated with MTDsymptoms. Voice quality: ??? Intermittent, backward focus of resonance, moderate breathiness, and severe strain when falling into old voice ??? Velar phonemes such as /g/ and /k/ frequently caused spasms of neck and upper thoracic muscles indicating a possible base of tongue dystonia; however, there were a few times during the session whenMs. Chappell produced these phonemes without difficulty. Cough/ Throat clear: ??? Occasional severe, dry cough caused by massage of anterior extrinsic base of tongue muscles and prolonged phonation attempts. PATIENT REPORTED MEASURES: Patient Supplied Answers To HEAD OF ENGLISH QOL Questionnaire Therapy Quality of Life 05/31/2018 Since my l ast session, I used the speech therapy exercises and strategies as recommended by my speech pathologist. Agree I feel that using my therapy techniques has become a habit Neither agree nor disagree I feel confident in my ability to manage my current and future symptoms. Neither agree nor disagree Since my last session I feel my symptoms have --------. Stayed the same Overall, since starting therapy I feel my symptoms are --------. About the same THERAPEUTIC ACTIVITIES ??? Asked many questions about the nature of her symptoms, and I answered all of these thoroughly. ??? Demonstrated previous exercises. o demonstrated improved [...] airflow during phonation ?? Speech material with /ju/ glides and easy onsets beginning with Sh was facilitating at the wordlevel and phrase level. ?? Words were modified to eliminate velar sounds and voiceless plosives, which seemed to trigger hersymptoms ?? [place] techniques to improve voice quality; negative practice improved awareness today. Manual laryngeal massage was performed: ?? Significant tenderness of the base of tongue. ?? Base of tongue were targeted with gentle circular massage. ?? This exercise was stopped due to patient's profound hypersensitivity. The exercise caused her discomfort/pain and triggered a moderate to severe bout of coughing. ?? We discussed the possibility of working with a physical therapist for additional therapeutic exercises, as well as myofascial release. she was amenable to this recommendation. Counseling and Education: ??? Asked many questions about the nature of her symptoms, and I answered all of these thoroughly. ??? A revised regimen for home practice was instructed. ??? I provided an audio recording (iPhone) and handouts of today's therapeutic activities to facilitate practice. ASSESSMENT/PLAN PROGRESS TOWARD COLOR COATER GOALS: Adequate progress; too early for objective measures IMPRESSIONS: R49.0 (Dysphonia) and R07.0 (Throat Pain). Ms. Chappell demonstrated good learning today. It remains unclear whether her symptoms are partly related to a neurogenic component, however today she demonstrated spasms that were most often associated with velar sounds, and suggested that any possible dystonia may not be laryngeal, but possibly base of tongue. I will consult with Dr. Peraza further regarding today's symptoms, as she is scheduled for a Botox procedure the day after her next therapy appointment. I spoke with Dr. Peraza on 06/07/18 and we agreed that she should postpone her Botox appt that was scheduled on 06/21 until further notice. I have rescheduled Vamsi for a follow up on 08/[address] Peraza, and will touch base with him regarding a possible referral for PT. - Connie PLAN: I will see Ms. Chappell in 3 weeks. [facility]? For practice goals see AVS. TOTAL SERVICE TIME: 60 minutes TREATMENT (32461): 60 minutes NO CHARGE FACILITY FEE (35506) Connie Yoon M.M. (voice)Vanita, CCC/HEAD OF ENGLISH Speech-Language Pathologist Certificate of Vocology [facility] [phone] [email or web address] Prounouns: she/her Connie Yoon HEAD OF ENGLISH - 05/31/2018 1:00 PM CDT Images from the original note were not included. After Visit Summary Patient: Vamsi Chappell Date of Visit: 05/31/2018 Hygiene: ?? Gargling (let's try to get to this next time) ?? Relieving Extrinsic Muscle Discomfort: ?? Massage (let's try to get to this and exercises for base of tongue tension next time) ?? Breathing: ?? In the morning and evening (twice daily) for 2-5 minutes: ?? Breathe while lying on your back with your face and knees up. Hands on tummy and chest. Take a breath in with rounded lips and exhale with a ???Shhhhh? Inhale = Inflate; exhale = deflate ?? 3x each: try breathin in/8 out ?? Throughout the day (2-3x/day for just a couple minutes) check breathing while keeping shoulders relaxed (riding to and from school, etc.) ? Breathing Tips: ?? If you are coughing - try repeated sh, sh, sh to calm your throat and cough ?? During practice of breathing: Breathe in through rounded lips with a slurping breath and out with a ???Sh? Keep shoulders down and chest relaxed ?? Speaking Tips: - Breathe before all speech - Speak into the mask, feel vibrations anywhere in the front of the face and keep your voice there. - Do not whisper - stop and take a breath and then speak - Avoid speaking in the back of your throat - stop/ take a breath/ who on B3, then transition to [id number]..., then chanting [id number] to help recalibrate your voice to the better place. ?? Voice (2-3x/day unless otherwise noted): ?? Semi-occluded vocal tract exercise: ?? Bubbles (straw in 1.5 to 2?? of water) every hour (or as often as possible)/day for 1-2 min: ?? 5x: blow 10-15 seconds with no voice and keep bubbles consistent. ?? 5x: blow bubbles and add a sustained ???who?? or an ???oo?? (Bb3) These exercises are great for: *warm up / cool down - Part of the morning routing and before and after extended voice use. *tissue mobilization exercise - Improving the condition and pliability of the vocal folds. *Abdominal breathing and applying optimal breath flow to speech/singing. ?u?? words (2-3 x per day) ?? Few/ new/ pew/ shoe (skip Cue and Chew if they cause problems for you - reinforce the better voice quality, rather than reinforcing old habits to make these words happen). ?? Breathe first and chant on Bb3 (use recording to help if needed) Relieving Extrinsic Muscle Discomfort: ??? Massage o Please follow instructions as learned today and provided on handout - Focus on base of tongue, front of the neck and using a warm compress. Start with a warm compress to help reduce tension. ?Sh?? words o Progress from1- and 2-syllable words to the modified sentences Clean In Places Operator: Val Redd [phone]/ [email or web address] Connie Yoon M.M. (voice), M.A., [facility]/HEAD OF ENGLISH Speech-Language Pathologist Certificate of Vocology [facility] [phone] [email or web address] Prounouns: she/her Connie Yoon SLP - 05/31/2018 1:00 PM CDT Images from the original note were not included. documented in this encounter Plan of Treatment Not on filedocumented as of this encounter Procedures Procedure Name Priority Date/Time Associated Diagnosis Comme nts [facility] SPEECH/HEARING Routine 06/04/2018 10:25 PM Dysphonia THERAPY, INDIVIDUAL CDT Throat pain documented in this encounter Visit Diagnoses Diagnosis Dysphonia - Primary Throat pain documented in this encounter Additional Health Concerns Assessment Noted Time PHQ-9 Depression Total Score: 16 05/13/2018 7:03 AM CD T documented as of this encounter Care Teams Cord Cutter Relationship Specialty Start Date End Date Logan Hayes MD PCP - General 10/21/01 [address] [place] [address] documented as of this encounter
--- OUTSIDE RECORDS SUMMARY | 2022-06-26 18:54 | XMS_ITS | Encounter Summary ---
:1970 Author Organization [place] Address [address] [facility] [place] [address] Care Team Providers Name Role Phone Logan Hayes MD Primary Care Provider [phone] Encounter Details Date Type Department Care Team Description 09/01/2018 Office Visit [facility] Voice Jose Roberto Black, Dysphonia (Primary Dx); [address] [facility] WEAVER AXMINSTER Throat pain [address] [place] [address] Social History Tobacco Use Types Packs/Day Years Used Date Smoking Tobacco: Never Smokeless Tobacco: Never Alcohol Use Standard Drinks/Week Comments No 0 (1 standard drink = 0.6 oz pure alcoho l) Sex Assigned at Date Recorded Not on file documented as of this encounter Progress Notes Jose Roberto Black, WEAVER AXMINSTER - 09/01/2018 1:00 PM CST [facility] VOICE CLINIC THERAPY NOTE (CPT 03309) Patient: Vamsi Chappell Date of Service: 09/01/2018 Referring physician: Dr. Peraza Impressions from most [...] report the following: ?? Overall symptoms are a good deal better ?? She is feeling less stressed about her breathing and in turn her voice ?? Significant ear pain when around noise ?? Michaelle saw Dr. Aguilar but predominately worked with one of the residents / fellows, and wasn't happy with the process. She and her are considering a second opinion. ?? Per review of that note evaluation showed no clear evidence of dystonia, but a paraneoplastic panel is being performed currently for further evaluation. OBJECTIVE: PATIENT REPORTED MEASURES: Patient Supplied Answers To WEAVER AXMINSTER QOL Questionnaire Therapy Quality of Life 09/01/2018 Since my l ast session, I used [...] how much better? A good deal better Patient Supplied Answers To Last 2 VHI Questionnaires Voice Handicap Index (VHI-10) 08/08/2018 09/01/2018 My voice makes it difficult for people to hear me 3 2 People have difficulty understanding me in a noisy room 3 4 My voice difficulties restrict my personal and social life. 3 3 I feel left out of conversations because of my voice 3 3 My voice problem causes me to lose income 2 3 I feel as though I have to strain to produce voice 3 2 The clarity of my voice is unpredictable 4 3 My voice problem upsets me 3 3 My voice makes me feel handicapped 3 3 People ask, What's wrong with your voice? 4 3 VHI-10 31 29 THERAPEUTIC ACTIVITIES Counseling and Education: ??? Many questions about her symptoms particularly hyper acuity. I mentioned that this was outside of my [place], but I would speak with some of my audiology colleagues, and follow-up with her if there are other avenues worthy of exploration. Exercises to promote generalization of therapeutic techniques to everyday voice use ?? Resonant voice stimuli was utilized particularly the /m/ phoneme in a carrier phrase or as an initiator prior to statements ?? Work was predominantly in a conversational context is this is most reflective of daily voice use ?? Patient was able to recognize laryngeal/perilaryngeal tension and use this facilitating strategy to re-calibrate within the course of a conversation with good accuracy and minimal clinician support ?? She reported that focus on forward locus of resonance as well as anterior sensation of articulation was significantly facilitating ?? To this end forward resonant loaded phrases were utilized ?? Good accuracy minimal to moderate clinician support ??? A regimen for home practice was instructed. ??? I provided an audio recording and handouts of today's therapeutic activities to facilitate practice. 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 Ms. Chappell feels that she is more in control of her voice and is less stressed about its use with focus on target strategies. Today's session focused on the use of quick facilitating strategies during conversational speech to act as a vocal re-calibrators, and she felt that this was significantly helpful. PLAN: I will see Ms. Chappell in 4-8 weeks, at which point we will gauge maintenance of gains and introduce conversational training therapy TOTAL SERVICE TIME: 60 minutes TREATMENT (82584): 60 minutes NO CHARGE FACILITY FEE (95888) Eb Black M.M., M.A., [facility]-WEAVER AXMINSTER Speech-Language Pathologist Certificate of Vocology [phone] AURANT SHIFT SUPERVISOR documented in this encounter Plan of Treatment Not on filedocumented as of this encounter Procedures Procedure Name Priority Date/Time Associated Diagnosis Comme [facility] SPEECH/HEARING Routine 09/01/2018 1:30 PM RESTAURANT SHIFT SUPERVISOR Dyspho kia THERAPY, INDIVIDUAL Throat pain documented in this encounter Visit Diagnoses Diagnosis Dysphonia - Primary Throat pain documented in this encounter Additional Health Concerns Assessment Noted Time PHQ-9 Depression Total Score: 16 05/13/2018 7:03 AM CD T documented as of this encounter Care Teams Corporate Real Estate Specialist Relationship Specialty Start Date End Date Logan Hayes MD PCP - General 10/21/01 [address] [place] [address] documented as of this encounter
--- OUTSIDE RECORDS SUMMARY | 2022-06-26 18:54 | XMS_ITS | Encounter Summary ---
:1970 Author Organization [place] Address [address] [facility] [place] [address] Care Team Providers Name Role Phone Logan Hayes MD Primary Care Provider [phone] Encounter Details Date Type Department Care Team Description 08/09/2018 Office Visit [facility] Voice Connie Yoon, Dysphonia (Primary Dx); [address] [facility] SE TEST ENGINE EVALUATOR Throat pain 4th Floor [place], [place] [address] [facility] [place] [address] CLINIC [address]A [phone] [place] [address] Social History Tobacco Use Types Packs/Day Years Used Date Smoking Tobacco: Never Alcohol Use Standard Drinks/Week Comments No 0 (1 standard drink = 0.6 oz pure alcoho l) Sex Assigned at Date Recorded Not on file documented as of this encounter Progress Notes Connie Yoon, FABIAN - 08/09/2018 11:15 AM CST Images from the original note were not included. [facility] Bertram Peraza Jr., M.D., F.A.C.S. Aida Lerner M.D., M.P.H. Jennifer Blanco, Ph.D., CCC/TEST ENGINE EVALUATOR Connie Yoon M.M. (voice), Livan., CCC/TEST ENGINE EVALUATOR Jose Roberto Black M.M. (voice) MTigist., CCC/TEST ENGINE EVALUATOR [facility] VOICE/SPEECH/BREATHING THERAPY CLINICAL FOLLOW-UP AND LARYNGEAL EXAMINATION REPORT Clinician: Connie Yoon M.M. (voice)Vanita, CCC/TEST ENGINE EVALUATOR Seen in conjunction with: Dr. Peraza Referring physician: StuPatient: Vamsi Chappell Date of Visit: 08/09/2018 HISTORY PATIENT INFORMATION Vamsi Chappell was seen for follow-up in conjunction with a visit to Dr. Peraza today. Please also refer to Dr. Peraza's dictation. She was last seen on 08/01/18 for therapy. She is returning today for follow up evaluation of her voice symptoms. PROGRESS SINCE LAST VISIT Ms. Chappell reports: ??? voice quality moments of near normal voice quality. She is able to use her piano jordon and the strategies learned to recalibrate her voice when she becomes symptomatic. ??? Ongoing difficulty with velar phonemes (/g, k/), and also intermittently /d/ today. ??? Tries to substitute words, but finds it difficult to think of words that would not trigger her symptoms quickly ??? Intermittently, talking and using trigger phonemes will develop a moderate to severe cough, and she reports that it feels as though her throat is 'tight, and closing up PROGRESS ON LONG-TERM GOALS: Improving, but not yet met. OBJECTIVE FINDINGS PERCEPTUAL EVALUATION (CPT 02649) POSTURE / TENSION: ?? tounge base ?? upper body ?? neck and shoulders BREATHING: ?? appears within normal limits and adequate ?? clavicular muscle use pattern ?? shoulder and neck involvement ?? phonation is not coordinated with respiration LARYNGEAL PALPATION: ?? firm musculature ?? tenderness of the thyrohyoid area ?? reduced thyrohyoid space ?? However, her anterior neck and base of tongue tension has significantly improved since she began PT, and she continues to complete the exercises on a regular basis. VOICE: ?? Roughness: Mild Intermittent ?? Breathiness: Mild Intermittent ?? Strain: Severe ?? Back focus ?? Loudness ?? Conversational speech: Mildly reduced ?? Projected speech: n/a ?? Pitch: ?? Conversational speech: WNL ?? Pitch glide: difficulty completing with out a spasm, but no SLN weakness noted ?? Resonance: ?? Conversational speech: backward focus of resonance ?? Singing vs. Speech: same ?? CAPE-V Overall Severity: 55/100 COUGH/THROAT CLEARING: ?? Occasional ?? Dry ?? Severity: moderate to severe LARYNGEAL FUNCTION STUDIES (CPT 99517) Laryngeal Function Studies (CPT 67815) Acoustic Measures Protocol / Parameter = result Fundamental frequency Metrics /a/ mean F0 = 227 Hz (SD = 3.01 Hz) /i/ mean F0 = 224 Hz (SD = 3.47 Hz) [place] Mean f0 = 232 Hz (SD 62.52 Hz) [place]: Min F0 = 63 Hz Max F0 = 816 Hz Range = 753 Hz Notes = limited range, but was intentionally more careful today Cepstral Measures CPPS /a/ = 22.51 dB CPPS /i/ = 23.02 dB CPPS all voiced = 16.87 dB AVQI (v.3.01) = 2.40 Additional Measures Harmonic to Noise Ratio /a/ = 23.36 dB Harmonic to Noise Ratio: [place] = 12.11 dB Jitter (local) /a/ = 0.380 % Shimmer (local) /a/ = 2.017 % Aerodynamic Measures Protocol / Parameter Result Normative Mean (SD) Vital Capacity Expiratory Volume 3.11 Liters 3.01 (0.7) Liters Comfortable Sustained Phonation Mean SPL 68.64 dB 77.53 (3.9) dB Mean Pitch 232.08 Hz 197.7 (23.92) Hz Peak Expiratory Airflow 0.439 Lit/Sec 0.21 (0.09) Lit/Sec Mean Expiratory Airflow 0.205 Lit/Sec 0.15 (0.07) Lit/Sec Voicing Efficiency Peak Air Pressure -1 cm H2O 7.49 (2.64) cm H2O Mean Peak Air Pressure -1 cm H2O 5.76 (1.51) cm H2O Peak Expiratory Airflow 2.291 Lit/Sec 0.22 (0.1) Lit/Sec Mean Airflow During Voicing 0.301 Lit/Sec 0.13 (0.06) Lit/Sec Running Speech: All Voiced Stimulus Mean SPL 74.61 dB Mean Pitch 223.26 Hz Peak Expiratory Airflow 19.57 cm H2O Mean Expiratory Airflow 10.86 cm H2O Mean Airflow During Voicing 0.24 Lit/Sec Running Speech: [place] Mean SPL 0.256 morales SPL Range 44.34 cm H2O/(l/s) Mean Pitch 16 ppm Pitch Range Peak Expiratory Airflow 68 dB Mean Expiratory Airflow 198.29 Hz Expiratory Volume 3.29 Mean Airflow During Voicing 2.37 Sec Peak Inspiratory Airflow 4.29 Sec Inspiratory Volume 0.601 Lit/Sec LARYNGEAL EXAMINATION Procedure: Flexible endoscopy with chip-tip technology without stroboscopy, left nostril; topical anesthesia with 3% Lidocaine and 0.25% phenylephrine was applied. Performed by: Connie Yoon M.M. (voice), Vanita, CCC/TEST ENGINE EVALUATOR The laryngeal and pharyngeal structures were evaluated for gross appearance, mobility, function, andfocal lesions / abnormalities of the associated mucosa. All findings were within normal limits with the exception of the following salient features: ?? Occasional mild base of tongue retraction, but never obstructing airway or touching pharyngeal wall. ?? Moderate 4 way constriction during the production of trigger phonemes. ?? Good improvement and relaxation with the use of resonant phonemes today THERAPY PROBES: Improvement was elicited with use of forward resonant stimuli, coordination of respiration and phonation, use of yawn sigh and use of cough suppression and substitution strategies. The laryngeal exam was reviewed with Ms. Chappell, and I provided pertinent explanations, as well as written and oral information. IMPRESSIONS/ RECOMMENDATIONS/ PLAN IMPRESSIONS: Vamsi Chappell is a 48 [...] base of tongue would very likely impact herability to swallow safely. Evaluation and personal report demonstrates that she has made good gains in therapy, although the results of the laryngeal function studies and AVQI are approximately within the same range. She will continue therapy with my colleague, Mr. Jose Roberto Black, while I am on medicalleave. STIMULABILITY: results of therapy probes during perceptual and laryngeal evaluation demonstrate improvement with use of forward resonant stimuli, coordination of respiration and phonation, use of yawn sigh and use of cough suppression and substitution strategies. RECOMMENDATIONS: ?? An ongoing course of speech therapy is recommended to optimize vocal technique and improve voice quality. She will continue to work with my colleague, Mr. Jose Roberto Black, who I introduced today. ?? She demonstrates a Good prognosis for improvement given adherence to therapeutic recommendations. ?? Positive indicators: positive response to therapy probes diagnosis is known to respond to treatment high level of comittment good awareness of patterns of use ?? Negative indicators: ongoing dystonic symptoms are undergoing further evaluation with Dr. Aguilar of the neurologic/ movement disorders team ?? DURATION / FREQUENCY: 3 one-hour sessions. A total of 6-8 sessions may be necessary. GOALS: Patient goal: To improve and maintain a healthy voice quality To understand the problem and fix it as much as possible To reduce her cough/ throat hypersensitivity to acceptable levels Long-term goal(s): In 6 months, Ms. Chappell will: 2. Report a week of typical vocal activities, in which dysphonia and throat discomfort do not exceeda level of 3 out of 10, 85% of the time 3. Report a speaking voice quality that is acceptable to her, 85%of the time 4. In a 20-minute conversation task, demonstrate 85% accuracy with forward resonance/optimal breath flow, by therapist judgment ?? TOTAL SERVICE TIME: 90 minutes EVALUATION OF VOICE AND RESONANCE (77337) LARYNGEAL FUNCTION STUDIES (97944) ENDOSCOPIC LARYNGEAL EXAMINATION WITHOUT STROBOSCOPY (79256) NO CHARGE FACILITY FEE (44768) Connie Yoon M.M. (voice), MRanjanA., CCC/TEST ENGINE EVALUATOR Speech-Language Pathologist Certificate of Vocology [facility] [phone] [email or web address] Prounouns: she/her PING HAND documented in this encounter Plan of Treatment Not on filedocumented as of this encounter Procedures Procedure Name Priority Date/Time Associated Diagnosis Comme [facility] BEHAVIORAL & Routine 08/11/2018 8:25 AM Dysphonia QUALITATIVE ANALYSIS SHIPPING HAND Throat pain VOICE AND RESONANCE HC LARYNGOSCOPY FLEX Routine 08/11/2018 8:25 AM Dysphoni a FIBEROPTIC, DIAGNOSTIC SHIPPING HAND Throat pain [facility] LARYNGEAL FUNCTION Routine 08/11/2018 8:25 AM Dyspho kia STUDIES SHIPPING HAND Throat pain documented in this encounter Visit Diagnoses Diagnosis Dysphonia - Primary Throat pain documented in this encounter Additional Health Concerns Assessment Noted Time PHQ-9 Depression Total Score: 16 05/13/2018 7:03 AM CD T documented as of this encounter Care Teams Will Call Order Clerk Relationship Specialty Start Date End Date Lgoan Hayes MD PCP - General 10/21/01 [address] [place] [address] documented as of this encounter
--- OUTSIDE RECORDS SUMMARY | 2022-06-26 18:54 | XMS_ITS | Encounter Summary ---
:1970 Author Organization [place] Address [address] [facility] [place] [address] Care Team Providers Name Role Phone Logan Hayes MD Primary Care Provider [phone] Encounter Details Date Type Department Care Team Description 07/11/2018 Office Visit [facility] Voice Connie Yoon, Dysphonia (Primary Dx); [address] [facility] [address] DIAMOND CLEAVER Throat pain 4th Floor [place] [address] [facility] [address] CLIN[address] [phone] [place] [address] Social History Tobacco Use Types Packs/Day Years Used Date Smoking Tobacco: Never Alcohol Use Standard Drinks/Week Comments No 0 (1 standard drink = 0.6 oz pure alcoho l) Sex Assigned at Date Recorded Not on file documented as of this encounter Progress Notes Connie Yoon, DIAMOND CLEAVER - 07/11/2018 3:00 PM CST [facility] VOICE CLINIC THERAPY NOTE (CPT 82234) Patient: Vamsi Chappell Date of Service: 07/11/2018 Referring physician: Dr. Peraza Impressions from most [...] session, Ms. Chappell reports the following: ?? PT is going well. There was some confusion associated with why we were recommending physical therapy. I clarified today that it was for her present extrinsic muscle tension; not to work on her base of tongue symptoms. ?? Overall she reports that symptoms are poor; limited progress ?? She reports that she had two severe bouts of sneezing last . Her voice has improved sincethat time, but is still quite poor, which is a frustration. ?? She presents today with a letter from her , as he is frustrated about her limited progressand not having a clear understanding of the root cause of her symptoms. OBJECTIVE: Ms. Chappell presents today with the following: ??? Continues to experience moderate extrinsic neck tension ??? Significant limitation of optimal breath coordination, which improved over the course of today'ssession. Voice quality: ?? Constant backward focus of resonance, moderate to severe breathiness (and intermittent whispering) and severe strain during connected speech ?? Cough/ Throat clear: ?? Occasional severe, dry cough caused by massage of anterior extrinsic base of tongue muscles and prolonged phonation attempts. PATIENT REPORTED MEASURES: Patient Supplied Answers To DIAMOND CLEAVER QOL Questionnaire Therapy Quality of Life 07/11/2018 Since my l ast session, I used the speech therapy exercises and strategies as recommended by my speech pathologist. Agree I feel that using my therapy techniques has become a habit Agree I feel confident in my ability to manage my current and future symptoms. Disagree Since my last session I feel my symptoms have --------. Stayed the same Overall, since starting therapy I feel my symptoms are --------. About the same THERAPEUTIC ACTIVITIES ??? Demonstrated previous exercises. o Demonstrated limited improvement. o appropriate redirection provided and exercises were either modified to improve understanding and make progress. Semi-Occluded Vocal Tract (SOVT) exercises instructed to [...] utilized to promote vocal fold pliability. ?? Advanced to /w/ phoneme to promote forward locus of resonance ?? Instructed on the benefits of using these exercises for improved coordination of breath flow withphonation and tissue mobilization. ?? Instructed on the importance of using these exercises as a warm-up / cool down, and to re-calibrate the voice throughout the day. Counseling and Education: ??? Asked many questions about the nature of her symptoms, and I answered all of these thoroughly. ??? A revised regimen for home practice was instructed. ??? I provided an audio recording (phone) and handouts of today's therapeutic activities to facilitate practice. ASSESSMENT/PLAN PROGRESS TOWARD CROWN POUNCER GOALS: Modest progress to date, therapeutic methods have been altered to account for this; please see above IMPRESSIONS: R49.0 (Dysphonia) and R07.0 (Throat Pain). Ms. Chappell was able to achieve an improved voice quality today, but her progress remains slow and there continue to be several questions as to theultimate cause of her symptoms. I provided thorough education, and stressed that the irregularity ofappointments (not placing blame on either side of this collaboration), has made it more difficult toprogress in an ideal way. PLAN: I will see Ms. Chappell in 1 week For practice goals see AVS. TOTAL SERVICE TIME: 60 minutes TREATMENT (17460): 60 minutes NO CHARGE FACILITY FEE (66999) Connie Yoon M.M. (voice), M.A., CCC/DIAMOND CLEAVER Speech-Language Pathologist Certificate of Vocology [facility] Voice [facility] [phone] [email or web address] Prounouns: she/her GRATION PATROL INSPECTOR Connie Yoon, DIAMOND CLEAVER - 07/11/2018 3:00 PM CST Images from the original note were not included. After Visit Summary Patient: Vamsi Chappell Date of Visit: 07/11/2018 When having trouble getting voice out - Resume basic activities that need to be at the foundation ofyo voice. Semi-occluded vocal tract exercise: o Bubbles (straw in 1-1.5?? of water) x/day for 1-2 min: REMEMBER: Breath flow is the gasoline for all voices. It is what makes vocal folds vibrate. Too much muscle will lead to whispering. 1) Blow bubbles for 15-20 seconds with no voice. Bubbles need to be consistent and like a bubbly cauldron 2) Jingle [place] (10 times): Whooooo, whooooo, whooooooooooooooo on one [...] -Whoooooo is heeeeeeeeeeeeeee - whooooo are theyyyyyyyyyyyyyyy I suspect that your sneezes caused your throat to react in a protective manner and tense. The throatis meant to protect us from trouble and things coming in Fitness/Wellness Director: Val Redd [phone]/ [email or web address] Connie Yoon M.M. (voice), MRanjanA., [facility]/DIAMOND CLEAVER Speech-Language Pathologist Certificate of Vocology [facility] [phone] [email or web address] Prounouns: she/her GRATION PATROL INSPECTOR documented in this encounter Plan of Treatment Not on filedocumented as of this encounter Procedures Procedure Name Priority Date/Time Associated Diagnosis Comme [facility] SPEECH/HEARING Routine 07/18/2018 3:00 PM IMMIGRATION PATROL INSPECTOR Dyspho kia THERAPY, INDIVIDUAL Throat pain documented in this encounter Visit Diagnoses Diagnosis Dysphonia - Primary Throat pain documented in this encounter Additional Health Concerns Assessment Noted Time PHQ-9 Depression Total Score: 16 05/13/2018 7:03 AM CD T documented as of this encounter Care Teams Reproduction Artist Relationship Specialty Start Date End Date Logan Hayes MD PCP - General 10/21/01 [address] [place] [address] documented as of this encounter
--- OUTSIDE RECORDS SUMMARY | 2022-06-26 18:54 | XMS_ITS | Encounter Summary ---
:1970 Author Organization [place] Address [address] [facility] [place] [address] Care Team Providers Name Role Phone Logan Hayes MD Primary Care Provider [phone] Reason for Visit [facility] (Routine) - Closed Specialty Diagnoses / Procedures Referred By Contact Refer red To Contact Physical Therapy Diagnoses neck and throat / Connie Yoon @ [facility]/ [facility] OUT OF STATE Connie Yoon, FIELD ARTILLERY FIRE CONTROL MAN Zeferino Arredondo, PT Procedures SPINE INITIAL [facility] [address] [facility] [address] [place], [place] [address] [address] [place] [address] Phone: Fax: Referral ID Status Reason Start Date Expiration Date Visits Requ ested Visits Authorized [id number] Closed 06/27/2018 09/05/2018 70 68 Encounter Details Date Type Department Care Team Description 07/11/2018 Therapy Visit [facility] Zeferino Arredondo, PT Neck pain Rehabilitation Services [facility] [address] [facility] [address] [place] [address] [place], [place] [address] [phone] Social History Tobacco Use Types Packs/Day Years Used Date Smoking Tobacco: Never Alcohol Use Standard Drinks/Week Comments No 0 (1 standard drink = 0.6 oz pure alcoho l) Sex Assigned at Date Recorded Not on file documented as of this encounter Plan of Treatment Not on filedocumented as of this encounter Procedures Procedure Name Priority Date/Time Associated Diagnosis Comme nts [facility] MANUAL THER Routine 07/11/2018 2:16 PM Neck pain TECH,1+REGIONS,EA 15 MIN AIRPORT OPERATIONS COORDINATOR [facility] NEUROMUSCULAR Routine 07/11/2018 2:16 PM Neck pain RE-EDUCATION AIRPORT OPERATIONS COORDINATOR [facility] THERAPEUTIC EXERCISES Routine 07/11/2018 2:16 PM Neck pain AIRPORT OPERATIONS COORDINATOR documented in this encounter Visit Diagnoses Diagnosis Neck pain Cervicalgia documented in this encounter Additional Health Concerns Assessment Noted Time PHQ-9 Depression Total Score: 16 05/13/2018 7:03 AM CD T documented as of this encounter Care Teams Exhibit Technician Relationship Specialty Start Date End Date Logan Hayes MD PCP - General 10/21/01 [address] [place] [address] documented as of this encounter
--- OUTSIDE RECORDS SUMMARY | 2022-06-26 18:54 | XMS_ITS | Encounter Summary ---
:1970 Author Organization [place] Address [address] [facility] [place] [address] Care Team Providers Name Role Phone Logan Hayes MD Primary Care Provider [phone] Encounter Details Date Type Department Care Team Description 05/12/2018 Office Visit [facility] Connie Yoon, Dysphonia (Primary Dx); [address] [facility] [address] PRODUCT OPERATIONS ASSOCIATE Throat pain [address] [place] [address] [facility] [address] CLINIC [address]A [phone] [place] [address] Social History Tobacco Use Types Packs/Day Years Used Date Smoking Tobacco: Never Alcohol Use Standard Drinks/Week Comments No 0 (1 standard drink = 0.6 oz pure alcoho l) Sex Assigned at Date Recorded Not on file documented as of this encounter Patient Instructions Patient InstructionsConnie Yoon, PRODUCT OPERATIONS ASSOCIATE - 05/12/2018 10:00 AM CDT Images from the original note were not included. After Visit Summary Patient: Vamsi Chappell Date of Visit: 05/12/2018 Hygiene: ??? Gargling (let's try to get to this next time) Relieving Extrinsic Muscle Discomfort: ??? Massage (let's try to get to this and exercises for base of tongue tension next time) Breathing: ??? In the morning and evening (twice daily) for 2-5 minutes: o Breathe while lying on your back with your face and knees up. Hands on tummy and chest. Take a breath in with rounded lips and exhale with a ???Shhhhh?? o Inhale = Inflate; exhale = deflate o 3x each: try breathin in/8 out o Throughout the day (2-3x/day for just a couple minutes) check breathing while keeping shoulders relaxed (riding to and from school, etc.) ??? Breathing Tips: o If you are coughing - try repeated sh, sh, sh to calm your throat and cough o During practice of breathing: Breathe in through rounded lips with a slurping breath and out with a ???Sh?? o Keep shoulders down and chest relaxed Speaking Tips: - Breathe before all speech - Speak into the mask, feel vibrations anywhere in the front of the face and keep your voice there. - Do not whisper - stop and take a breath and then speak - Avoid speaking in the back of your throat - stop/ take a breath/ who on B3, then transition to kia-sxq-iao-william-who..., then chanting otx-ehay-uxh to help recalibrate your voice to the better place. Voice (2-3x/day unless otherwise noted): ??? Semi-occluded vocal tract exercise: o Bubbles (straw in 1.5 to 2?? of water) every hour (or as often as possible)/day for 1-2 min: o 5x: blow 10-15 seconds with no voice and keep bubbles consistent. o 5x: blow bubbles and add a sustained ???who?? or an ???oo?? (Bb3) These exercises are great for: *warm up / cool down - Part of the morning routing and before and after extended voice use. *tissue mobilization exercise - Improving the condition and pliability of the vocal folds. *Abdominal breathing and applying optimal breath flow to speech/singing. ?u?? words (2-3 x per day) o Few/ new/ pew/ shoe (skip Cue and Chew if they cause problems for you - reinforce the better voicequality, rather than reinforcing old habits to make these words happen). o Breathe first and chant on Bb3 (use recording to help if needed) ?Spacious speech phrases?? (2-3x per day) o Second column - H+ vowel combinations - tongue dip touching lower teeth o First column - Start with ross - guadarrama - you and continue through asuzo-nqeir-lsggs ??? [place] o Take breaths as needed o Keep speech in the mask * No - you don't sound sexual! Call me the next 2 and leave a voice message when you have time, BUT - avoid phone use, orother circumstances that make you try to speak louder for now. Supply Analyst: Val Redd [phone]/ [email or web address] Connie Yoon M.M. (voice)Vanita, [facility]/PRODUCT OPERATIONS ASSOCIATE Speech-Language Pathologist Certificate of Vocology [facility] [phone] [email or web address] Prounouns: she/her documented in this encounter Progress Notes Connie Yoon SLP - 05/12/2018 10:00 AM CDT Images from the original note were not included. [facility] THERAPY NOTE (CPT 88869) Patient: Vamsi Chappell Date of Service: 05/12/2018 Referring physician: Dr. Peraza Impressions from most [...] Dr. Peraza has offered a trial course of Botox following an initial course of speech therapy. SUBJECTIVE: Since her last session, Ms. Chappell reports the following: ?? Overall she reports that symptoms are minimally better ?? She is still experiencing a globus sensation (worse when she is supine) ?? Anterior extrinsic muscle soreness and tenderness ?? Notes there have been a few moments where her voice sounds near normal ??? She experiences improvement in fatigue and discomfort while doing the bubbles OBJECTIVE: Ms. Chappell presents today with the following: Voice quality: ??? Backward focus of resonance, which did improve frequently with verbal cues ??? Occasional diplophonia ??? Severe strain, which reduced after exercises to coordinate breath and phonation as well as reduce muscle tension ??? Moderate breathiness ??? Occasional valsalva during phonation attempts ??? Intermittently spoke with a whisper; however, I encouraged her to try to produce a voice insteadof a whisper Cough/ Throat clear: ??? Frequent throat clearing ??? Occasional severe, dry cough caused by prolonged phonation attempts PATIENT REPORTED MEASURES: Patient Supplied Answers To PRODUCT OPERATIONS ASSOCIATE QOL Questionnaire Therapy Quality of Life 05/12/2018 Since my l ast session, I used the speech therapy exercises and strategies as recommended by my speech pathologist. Neither agree nor disagree I feel that using my therapy techniques has become a habit Disagree strongly I feel confident in my ability to manage my current and future symptoms. Disagree strongly Since my last session I feel my symptoms have --------. Stayed the same Overall, since starting therapy I feel my symptoms are --------. About the same Laryngeal Function Studies (CPT 94134) Acoustic Measures Protocol / Parameter = result Fundamental frequency Metrics /a/ mean F0 = 150 Hz (SD = 68.58 Hz) /i/ mean F0 = 178 Hz (SD = 27.66 Hz) [place] Passage Mean f0 = 219 Hz (SD 53.81 Hz) Thornton: Min F0 = 51 Hz Max F0 = 1773 Hz Range = 1721 Hz Cepstral Measures CPPS /a/ = 15.21 dB CPPS /i/ = 16.73 dB CPPS all voiced = 16.06 dB AVQI (v.3.01) = 2.29 Additional Measures Harmonic to Noise Ratio /a/ = 4.69 dB Harmonic to Noise Ratio: Grayland passage = 17.00 dB Jitter (local) /a/ = 3.289 % Shimmer (local) /a/ = 11.213 % Aerodynamic Measures Protocol / Parameter Result Normative Mean (SD) Vital Capacity Expiratory Volume 3.64 Liters 3.01 (0.7) Liters Comfortable Sustained Phonation Mean SPL 67.83 dB 77.53 (3.9) dB Mean Pitch 164.5 Hz 197.7 (23.92) Hz Peak Expiratory Airflow 0.437 Lit/Sec 0.21 (0.09) Lit/Sec Mean Expiratory Airflow 0.286 Lit/Sec 0.15 (0.07) Lit/Sec Voicing Efficiency Peak Air Pressure 21.6 cm H2O 7.49 (2.64) cm H2O Mean Peak Air Pressure 15.54 cm H2O 5.76 (1.51) cm H2O Peak Expiratory Airflow 1.053 Lit/Sec 0.22 (0.1) Lit/Sec Mean Airflow During Voicing 0.365 Lit/Sec 0.13 (0.06) Lit/Sec Running Speech: All Voiced Stimulus Mean SPL 62.13 dB Mean Pitch 199.51 Hz Peak Expiratory Airflow 0.591 Lit/Sec Mean Expiratory Airflow 0.257 Lit/Sec Mean Airflow During Voicing 0.333 Lit/Sec Running Speech: Grandfather Passage Mean SPL 58.3 dB SPL Range 55.47 dB Mean Pitch 193.07 Hz Pitch Range 262.74 Hz Peak Expiratory Airflow 2.249 Lit/Sec Mean Expiratory Airflow 0.421 Lit/Sec Expiratory Volume 13.18 Liters Mean Airflow During Voicing 0.372 Lit/Sec Peak Inspiratory Airflow -2.822 Lit/Sec Inspiratory Volume -11.25 Liters THERAPEUTIC ACTIVITIES ??? Asked many questions about the nature of her symptoms, and I answered all of these thoroughly. ??? Demonstrated previous exercises. o demonstrated improved technique o appropriate redirection provided o instruction provided for increased level of complexity/difficulty Exercises to promote optimal respiratory mechanics ?? I provided explanation of the anatomy and physiology of respiration for speech and singing; she found this to be helpful ?? She demonstrated excessive upper thoracic engagement during inhalation ?? She demonstrated clavicular/neck/shoulder involvement in inhalation and a great deal of upper body tension. ?? Practiced in a seated, prone and supine position on the massage table, with tactile cue of a handon the low rib-cage to facilitate awareness of low respiratory engagement. ?? With clinician support, patient was able to demonstrate improved abdominal relaxation and engagement on inhalation ?? Optimal exhalation using inward engagement of the abdominal wall with no corresponding collapse of the upper chest cavity was trained using the pulsed sh task ?? Denning a respiratory pacing exercise; this was helpful ?? Acceptable improvement in airflow and respiratory mechanics Semi-Occluded Vocal Tract (SOVT) exercises instructed to reduce laryngeal tension, promote vocal fold pliability, and coordinate respiration and phonation ?? Straw phonation with water resistance was found to be most facilitating ?? Sustained phonation, and voice vs. voiceless productions used to promote easy voicing and raise awareness of laryngeal tension (Bb3) ?? Instructed on the benefits of using these exercises for improved coordination of breath flow withphonation and tissue mobilization. ?? Instructed on the importance of using these exercises as a warm-up / cool down, and to re-calibrate the voice throughout the day. Exercises in techniques for improved airflow during phonation ?? Speech material with /ju/ glides and aspirate onsets was facilitating at the word level. ?? Progressed to easy onset/ flow ?? Instructed with chanting words and short phrases on Bb3; this was helpful. ?? Denning techniques to reduce muscle tension and improve breath flow. ?? Good increase in awareness today. Instructed in techniques to improve length of utterance with reduced effort for optimal carryover. o Instructed with the [place] Pass[place] o Focusing on taking breaths as much as possible and keeping speech in the mask ??? Developed a mental checklist of factors to help trouble shoot moments of difficulty during dailyspeaking tasks. Counseling and Education: ??? Asked many questions about the nature of her symptoms, and I answered all of these thoroughly. ??? A revised regimen for home practice was instructed. ??? I provided an audio recording and handouts of today's therapeutic activities to facilitate practice. ASSESSMENT/PLAN PROGRESS TOWARD AMBULANCE DISPATCHER GOALS: Minimal at this point, as this is first session, but good learning today IMPRESSIONS: Ms. Chappell is a 48 year old female presenting with R49.0 (Dysphonia) and R07.0 (Throat Pain), as evidenced by evaluation and the laryngeal exam. Due to the inconsistencies she continues to demonstrate today, it is unclear whether there is a neurogenic component at this time, but possible. Ms. Chappell demonstrated very good learning today. Her dysphonia and voice identity with her less optimal voice is quite significant; however, she was able to learn how to achieve and recalibrate to a more optimal voice quality by the end of today's lengthy session. I strongly encouraged her to use therecordings and therapeutic activities regularly to help maintain the more optimal voice quality achieved today. PLAN: I will see Ms. Chappell in 2 1/2 weeks, if not sooner depending on appointment availability. At Ms. Chappell's next session we will discuss vocal hygiene (gargling), techniques to relieve extrinsic muscle discomfort and significant base of tongue tension. For practice goals see AVS. TOTAL SERVICE TIME: 120 minutes LARYNGEAL FUNCTION STUDIES (57715) TREATMENT (61410) NO CHARGE FACILITY FEE (03672) Connie Yoon M.M. (voice), Vanita, CCC/PRODUCT OPERATIONS ASSOCIATE Speech-Language Pathologist Certificate of Vocology [facility] [phone] [email or web address] Prounouns: she/her Answers for HPI/ROS submitted by the patient on 05/12/2018 PHQ-2 Score: 4 If you checked off any problems, how difficult have these problems made it for you to do your work, take care of things at home, or get along with other people?: Very difficult PHQ9 TOTAL SCORE: 16 Connie Yoon PRODUCT OPERATIONS ASSOCIATE - 05/12/2018 10:00 AM CDT Images from the original note were not included. After Visit Summary Patient: Vamsi Chappell Date of Visit: 05/12/2018 Hygiene: ??? Gargling (let's try to get to this next time) Relieving Extrinsic Muscle Discomfort: ??? Massage (let's try to get to this and exercises for base of tongue tension next time) Breathing: ??? In the morning and evening (twice daily) for 2-5 minutes: o Breathe while lying on your back with your face and knees up. Hands on tummy and chest. Take a breath in with rounded lips and exhale with a ???Shhhhh?? o Inhale = Inflate; exhale = deflate o 3x each: try breathin in/8 out o Throughout the day (2-3x/day for just a couple minutes) check breathing while keeping shoulders relaxed (riding to and from school, etc.) ??? Breathing Tips: o If you are coughing - try repeated sh, sh, sh to calm your throat and cough o During practice of breathing: Breathe in through rounded lips with a slurping breath and out with a ???Sh?? o Keep shoulders down and chest relaxed Speaking Tips: - Breathe before all speech - Speak into the mask, feel vibrations anywhere in the front of the face and keep your voice there. - Do not whisper - stop and take a breath and then speak - Avoid speaking in the back of your throat - stop/ take a breath/ who on B3, then transition to gbi-ska-hbv-william-who..., then chanting mcj-lyhq-aap to help recalibrate your voice to the better place. Voice (2-3x/day unless otherwise noted): ??? Semi-occluded vocal tract exercise: o Bubbles (straw in 1.5 to 2?? of water) every hour (or as often as possible)/day for 1-2 min: o 5x: blow 10-15 seconds with no voice and keep bubbles consistent. o 5x: blow bubbles and add a sustained ???who?? or an ???oo?? (Bb3) These exercises are great for: *warm up / cool down - Part of the morning routing and before and after extended voice use. *tissue mobilization exercise - Improving the condition and pliability of the vocal folds. *Abdominal breathing and applying optimal breath flow to speech/singing. ?u?? words (2-3 x per day) o Few/ new/ pew/ shoe (skip Cue and Chew if they cause problems for you - reinforce the better voicequality, rather than reinforcing old habits to make these words happen). o Breathe first and chant on Bb3 (use recording to help if needed) ?Spacious speech phrases?? (2-3x per day) o Second column - H+ vowel combinations - tongue dip touching lower teeth o First column - Start with ross - guadarrama - you and continue through ruwjc-ecrzp-psclc ??? [place] o Take breaths as needed o Keep speech in the mask * No - you don't sound sexual! Call me the next 2 and leave a voice message when you have time, BUT - avoid phone use, orother circumstances that make you try to speak louder for now. Supply Analyst: Val Redd [phone]/ [email or web address] Connie Yoon M.M. (voice), M.A., CCC/PRODUCT OPERATIONS ASSOCIATE Speech-Language Pathologist Certificate of Vocology [facility] [phone] [email or web address] Prounouns: she/her documented in this encounter Plan of Treatment Not on filedocumented as of this encounter Procedures Procedure Name Priority Date/Time Associated Diagnosis Comme nts [facility] LARYNGEAL FUNCTION Routine 05/12/2018 6:33 PM CDT Dy sphonia STUDIES Throat pain [facility] SPEECH/HEARING Routine 05/12/2018 6:33 PM CDT Dyspho kia THERAPY, INDIVIDUAL Throat pain documented in this encounter Visit Diagnoses Diagnosis Dysphonia - Primary Throat pain documented in this encounter Additional Health Concerns Assessment Noted Time PHQ-9 Depression Total Score: 16 05/13/2018 7:03 AM CD T documented as of this encounter Care Teams Material Crew Supervisor Relationship Specialty Start Date End Date Logan Hayes MD PCP - General 10/21/01 [address] [place] [address] documented as of this encounter
--- OUTSIDE RECORDS SUMMARY | 2022-06-26 18:54 | XMS_ITS | Encounter Summary ---
:1970 Author Organization [place] Address [facility] [place] [address] Care Team Providers Name Role Phone Logan Hayes MD Primary Care Provider [phone] Reason for Visit Reason Comments Derm Problem bumps on lower leg Encounter Details Date Type Department Care Team Description 03/19/2005 Office Visit [facility] Logan Hayes SEBORR HEIC KERATOSIS NOS; Clinic Mustang MD Sixto MOLLUSCUM CONTAGIOSUM [address] [place] [phone] Social History Tobacco Use Types Packs/Day Years Used Date Smoking Tobacco: Never Alcohol Use Standard Drinks/Week Comments No 0 (1 standard drink = 0.6 oz pure alcoho l) Sex Assigned at Date Recorded Not on file documented as of this encounter Last Filed Vital Signs Vital Sign Reading Time Taken Comments Blood Pressure 114/60 03/19/2005 10:00 AM CDT Pulse - - Temperature 36.8 ??C (98.2 ??F) 03/19/2005 10:00 AM CDT Respiratory Rate - - Oxygen Saturation - - Inhaled Oxygen Concentration - - Weight 75.3 kg (166 lb) 03/19/2005 10:00 AM CDT Height 172.7 cm (5' 8) 03/19/2005 10:00 AM CDT Body Mass Index 25.24 03/19/2005 10:00 AM CDT documented in this encounter Progress Notes Logan Hayes - 03/19/2005 10:28 AM CDT In today for partial excision and cryotherapy of multiple warts with prior treatments. Discussed the success factors in treatments including intervals, additional peeling agents and recurrent lesions due to friction. Treatment options including pealing or aldara alone are discussed. On the left leg are anterior and posterior sebhorreah keratoses and on the anterior right leg a cluster of molluscum. She elects to observe the bunch and report back prn documented in this encounter Nursing Notes 03/19/2005 10:00 AM CDT >> WILLIAM MAYERS 03/19/2005 10:03 am Vamsi Chappell presents for bumps on lower legs. Initial BP 114/60 Temp (Src) 98.2 (Oral) Ht 5' 8 (1.73m) Wt 166 lbs (75.3kg) Body Mass Index is 25.25 kg/(m^2). . BP completed using cuff size: regular. William Mayers CMA documented in this encounter Plan of Treatment Not on filedocumented as of this encounter Visit Diagnoses Diagnosis Other seborrheic keratosis Molluscum contagiosum documented in this encounter Care Teams Pole Framer Machine Relationship Specialty Start Date End Date Logan Hayes MD PCP - General 10/21/01 [address] [place] [address] documented as of this encounter
--- OUTSIDE RECORDS SUMMARY | 2022-06-26 18:54 | XMS_ITS | Encounter Summary ---
:1970 Author Organization [place] Address [address] [facility] [place] [address] Care Team Providers Name Role Phone Logan Hayes MD Primary Care Provider [phone] Encounter Details Date Type Department Care Team Description 08/23/2018 Travel Social History Tobacco Use Types Packs/Day [...] documented as of this encounter Care Teams Straddle Bug Operator Relationship Specialty Start Date End Date Logan Hayes MD PCP - General 10/21/01 [address] [place], [place] [id number] documented as of this encounter
--- OUTSIDE RECORDS SUMMARY | 2022-06-26 18:54 | XMS_ITS | Encounter Summary ---
:1970 Author Organization Cool Address [address] [facility] [place] [address] Care Team Providers Name Role Phone Logan Hayes MD Primary Care Provider [phone] Encounter Details Date Type Department Care Team Description 12/13/2005 Emergency room Kyle Still MD [address] [place] [address] Social History Tobacco Use Types Packs/Day Years Used Date Smoking Tobacco: Never Alcohol Use Standard Drinks/Week Comments No 0 (1 standard drink = 0.6 oz pure alcoho l) Sex Assigned at Date Recorded Not on file documented as of this encounter Progress Notes Interface, Surveillance Observer - 12/18/2005 3:19 PM CDT FINAL CHIEF COMPLAINT: Abdominal pain. HISTORY OF PRESENT ILLNESS: The patient is a 35-year-old female who says she did not feel well all day. Tonight she went to bed at 22:30, she woke at 23:15 with pain in her upper and mid abdomen that was crampy and radiated to her back and was burning. It is constant, but worse at times. It was a 10/10 on the pain scale, now it is a 2/10. She has felt nauseated but has not vomited. She has had normal stools including at 1800 hours last evening. She denies any urinary symptoms. She had a period 2 weeks ago. The patient says that she had ham, potato salad, dressing with corn and onions in it for both supper and lunch today when family members were over. She says she has not had dietary intolerance previously. She has a history of pancreatitis several years ago. She was worked up for a cause none was found including no gallstones. She is currently getting treated for neck and shoulder pain. MEDICATIONS: Naproxen, Skelaxin. ALLERGIES: Phenergan and codeine. PAST MEDICAL HISTORY: As above. Appendectomy. She has one child. SOCIAL HISTORY: She does not smoke or use alcohol. 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 She is , here with her . REVIEW OF SYSTEMS: All other systems are negative. PHYSICAL EXAMINATION: GENERAL: An alert female. VITAL SIGNS: Temperature is 97.3, pulse 90, respirations 16, blood pressure 135/70 and pulse ox 98%on room air. HEENT: Normal. CHEST: Shows clear equal breath sounds. CARDIOVASCULAR: Regular S1 and S2 without murmur, normal pulses. ABDOMEN: Bowel sounds are active, soft. She has some mild mid abdominal tenderness. Her liver edge is negative. There is no guarding or rebound, no mass effect. PELVIC AND RECTAL: Deferred. BACK: Negative. EXTREMITIES: Normal. SKIN: Clear. NEUROLOGIC: Within normal limits. LABORATORY DATA: Urine specific gravity 1.007, pH 6, with a few bacteria. White count 7400, hemoglobin 13, platelets 229,000, 67 PMNs and 23 lymphs, lipase 89 and hCG negative. EMERGENCY DEPARTMENT COURSE: The situation was discussed with the patient and her . She had an IV of normal saline established at 100 cc an hour, 10 mg of Reglan and 4 mg of morphine were givenIV with her symptoms improving. Eventually, her test results were reviewed with her when they becameavailable. She has abdominal pain. She does not have pancreatitis. Most likely this is related to her diet and a combination of factors, although I did advise her she could have an evolving condition and require prompt reevaluation and possibly intervention of some sort. In the meanwhile, however, sheis able to be discharged. We will cover her with Cipro for her urine for now. The discharge plan wasreviewed with her and is as follows. DISCHARGE PLAN: The patient is to rest at home. She is to be on clear liquids for 24 hours. Vicodin5/500 one every 4 hours as needed for pain, #15 and Cipro 500 mg twice a day for 5 days was prescribed. The patient is to be rechecked with a doctor if she is worse at any time or in 2-3 days and may return to emergency department as needed. DIAGNOSES: 1. Abdominal pain. 2. History of pancreatitis. Electronically signed on 12/18/2005 15:18 by KYLE STILL MD MT: BISHOP#[id number] Name: COLEMAN RIVER Account: [id number] : 1970 Visit Date: 12/13/2005 Document: [id number] Interface, Surveillance Observer - 12/14/2005 2:14 PM CDT PRELIMINARY CHIEF COMPLAINT: Abdominal pain. HISTORY OF PRESENT ILLNESS: The patient is a 35-year-old female who says she did not feel well all day. Tonight she went to bed at 22:30, she woke at 23:15 with pain in her upper and mid abdomen that was crampy and radiated to her back and was burning. It is constant, but worse at times. It was a 10/10 on the pain scale, now it is a 2/10. She has felt nauseated but has not vomited. She has had normal stools including at 1800 hours last evening. She denies any urinary symptoms. She had a period 2 weeks ago. The patient says that she had ham, potato salad, dressing with corn and onions in it for both supper and lunch today when family members were over. She says she has not had dietary intolerance previously. She has a history of pancreatitis several years ago. She was worked up for a cause none was found including no gallstones. She is currently getting treated for neck and shoulder pain. MEDICATIONS: Naproxen, Skelaxin. ALLERGIES: Phenergan and codeine. PAST MEDICAL HISTORY: As above. Appendectomy. She has one child. SOCIAL HISTORY: She does not smoke or use alcohol. 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 She is , here with her . REVIEW OF SYSTEMS: All other systems are negative. PHYSICAL EXAMINATION: GENERAL: An alert female. VITAL SIGNS: Temperature is 97.3, pulse 90, respirations 16, blood pressure 135/70 and pulse ox 98%on room air. HEENT: Normal. CHEST: Shows clear equal breath sounds. CARDIOVASCULAR: Regular S1 and S2 without murmur, normal pulses. ABDOMEN: Bowel sounds are active, soft. She has some mild mid abdominal tenderness. Her liver edge is negative. There is no guarding or rebound, no mass effect. PELVIC AND RECTAL: Deferred. BACK: Negative. EXTREMITIES: Normal. SKIN: Clear. NEUROLOGIC: Within normal limits. LABORATORY DATA: Urine specific gravity 1.007, pH 6, with a few bacteria. White count 7400, hemoglobin 13, platelets 229,000, 67 PMNs and 23 lymphs, lipase 89 and hCG negative. EMERGENCY DEPARTMENT COURSE: The situation was discussed with the patient and her . She had an IV of normal saline established at 100 cc an hour, 10 mg of Reglan and 4 mg of morphine were givenIV with her symptoms improving. Eventually, her test results were reviewed with her when they becameavailable. She has abdominal pain. She does not have pancreatitis. Most likely this is related to her diet and a combination of factors, although I did advise her she could have an evolving condition and require prompt reevaluation and possibly intervention of some sort. In the meanwhile, however, sheis able to be discharged. We will cover her with Cipro for her urine for now. The discharge plan wasreviewed with her and is as follows. DISCHARGE PLAN: The patient is to rest at home. She is to be on clear liquids for 24 hours. Vicodin5/500 one every 4 hours as needed for pain, #15 and Cipro 500 mg twice a day for 5 days was prescribed. The patient is to be rechecked with a doctor if she is worse at any time or in 2-3 days and may return to emergency department as needed. DIAGNOSES: 1. Abdominal pain. 2. History of pancreatitis. KYLE STILL MD MT: BISHOP#[id number] Name: COLEMAN [place] Account: [id number] : 1970 Visit Date: 12/13/2005 Document: [id number] documented in this encounter Plan of Treatment Not on filedocumented as of this encounter Visit Diagnoses Not on filedocumented in this encounter Care Teams Skip Pit Worker Relationship Specialty Start Date End Date Logan Hayes MD PCP - General 10/21/01 [address] [place] [address] documented as of this encounter
--- OUTSIDE RECORDS SUMMARY | 2022-06-26 18:54 | XMS_ITS | Encounter Summary ---
:1970 Author Organization [facility] Address [address] [place] [address] Care Team Providers Name Role Phone Logan Hayes MD Primary Care Provider [phone] Encounter Details Date Type Department Care Team Description 06/08/2018 Orders Only [facility], Bertram Throat MD Katie [address] [place] [address] [place] [phone] Social History Tobacco Use Types Packs/Day Years [...] documented as of this encounter Care Teams Shirt Maker Relationship Specialty Start Date End Date Logan Hayes MD PCP - General 10/21/01 [address] [place], [place] [id number] documented as of this encounter
--- OUTSIDE RECORDS SUMMARY | 2022-06-26 18:54 | XMS_ITS | Encounter Summary ---
:1970 Author Organization [place] Address [address] [facility] [place] [address] Care Team Providers Name Role Phone Logan Hayes MD Primary Care Provider [phone] Encounter Details Date Type Department Care Team Description 08/01/2018 [facility] Visit [facility] Connie Yoon, Dysphonia (Primary [address] [facility] [address] RETIREMENT ASSISTANT Dx) 4th Floor [place], [place] [address] [facility] [address] CL[address] [phone] [place] [address] Social History Tobacco Use Types Packs/Day Years Used Date Smoking Tobacco: Never Alcohol Use Standard Drinks/Week Comments No 0 (1 standard drink = 0.6 oz pure alcoho l) Sex Assigned at Date Recorded Not on file documented as of this encounter Progress Notes Connie Yoon, RETIREMENT ASSISTANT - 08/01/2018 3:00 PM CST [facility] THERAPY NOTE (CPT 40405) Patient: Vamsi Chappell Date of Service: 08/01/2018 Referring physician: Dr. Peraza Impressions from most [...] session, Ms. Chappell reports the following: ?? was difficult because they were with family for Thanksgiving who smoke heavily. Wednesday was a recovery day, Wednesday more difficult again. Yesterday and today are better. ?? Feels that she has more of a voice today. ?? Gargling: too difficult to complete. ?? Completed PT; optimized what he could help with. Has provided exercises for her to continue independently. ?? Still, if she over extends her head back, or completes a chin tuck, she will have a difficult time making her voice spasm. ?? Repetitive sh has been very helpful for cough suppression, and her PT has even commented on howquickly she was able to stifle her cough. OBJECTIVE: Ms. Chappell presents today with the following: Voice quality: ??? Habitual pitch A 3 ??? Many more moments of near normal voice quality today THROAT ISSUES ??? Intermittent coughing, and throat clearing persist, but have significantly improved. PATIENT REPORTED MEASURES: Patient Supplied Answers To RETIREMENT ASSISTANT QOL Questionnaire Therapy Quality of Life 08/01/2018 Since my l ast session, I used [...] are --------. Better Overall, how much better? Somewhat better THERAPEUTIC ACTIVITIES ??? Asked many questions about the nature of her symptoms, and I answered all of these thoroughly. ??? [place] concepts of post-operative voice use and care, to optimize healing. ??? Demonstrated previous exercises. o demonstrated improved technique o appropriate redirection provided o instruction provided for increased level of complexity/difficulty Chronic cough / throat clearing reduction therapy ?? Suppression and substitution strategies were instructed including ?? Swallowing substitution techniques ?? Breathing suppression techniques to reduce laryngeal tension ?? Low impact glottic coup and soft cough ?? Techniques to raise awareness of habitual throat clearing Semi-Occluded Vocal Tract (SOVT) exercises instructed to reduce laryngeal tension, promote vocal fold pliability, and coordinate respiration and phonation ?? Straw phonation with water resistance was found to be most facilitating ?? Sustained phonation, and voice vs. voiceless productions used to promote easy voicing and raise awareness of laryngeal tension. ?? Instructed on the benefits of using these exercises for improved coordination of breath flow withphonation and tissuemobilization. ?? Instructed on the importance of using these exercises as a warm-up / cool down, and to re-calibrate the voice throughout the day. Resonant Voice Therapy (RVT) exercises to promote forward locus of resonance and optimized pattern of laryngeal adduction ?? Speech material that elicits a high, forward tongue position (/n/) was most facilitating ?? Easy descending glide on /n/ utilized in conjunction with relaxed jaw, tongue, and lightly closedlips to facilitate forward resonant sound ?? Syllable level using /n/ in alternation with cardinal vowels on sustained pitches and speech inflection ?? Word level exercises featuring nasal continuant loaded stimuli ?? Phrase level exercises featuring nasal continuants in more complex phonemic contexts were employed ?? Negative practice was employed and was facilitative ?? Able to recognize improvement in quality and comfort Counseling and Education: ??? Asked many questions about the nature of her symptoms, and I answered all of these thoroughly. ??? A revised regimen for home practice was instructed. ??? I provided an audio recording (phones) and handouts of today's therapeutic activities to facilitate practice. ASSESSMENT/PLAN PROGRESS TOWARD FDC GOALS: Adequate progress; please see above IMPRESSIONS: R49.0 (Dysphonia) and R07.0 (Throat Pain). Ms. Chappell, demonstrates good improvement in her understanding of her voice symptoms, the therapeutic activities that she has learned, and how they support improvement of her voice quality. We discussed at length that we continue to work on reducing muscle tension dysphonia, suppression of cough and reduction of laryngeal hypersensitivity. She has undergone a course of physical therapy to help reduce extrinsic neck tension, and will be pursuing further evaluation of her neurologic symptoms (I question a possible base of tongue dystonia, as her s ymptoms are most triggered by velar phonemes) in August. In the meantime, she will continue speechtherapy with my colleague, Mr. Jose Roberto Black, as I will soon be going on medical leave. Separate from her appointment today, I provided her with a recording of strategies to reduce anxiety by Trudy Love; she feels that these may be helpful to her work in therapy, and I encouraged her to discuss it further with her counselor. PLAN: Ms. Chappell will continue therapy with my colleague, Jose Roberto Black, while I am on my medical leave. Her next appointment is 08/16/2018. For practice goals see AVS. TOTAL SERVICE TIME: 60 minutes TREATMENT (56334): 60 minutes NO CHARGE FACILITY FEE (77514) Connie Yoon M.M. (voice)Vanita, CCC/RETIREMENT ASSISTANT Speech-Language Pathologist Certificate of Vocology [facility] [phone] [email or web address] Prounouns: she/her L MAINTENANCE ENGINEER Connie Yoon RETIREMENT ASSISTANT - 08/01/2018 3:00 PM CST Images from the original note were not included. After Visit Summary Patient: Vamsi Chappell Date of Visit: 08/01/2018 Next appointments: Wednesday at 10am with Jose Roberto Wednesday at 11am with Jose Roberto (Jian - beata) at 1pm with Jose Roberto Continue with: - coordination of breath Hygiene: ??? Systemic Hydration: internal hydration of the entire body o Continue to sip water regularly ??? Topical Hydration: hydration for the surface mucosa of the larynx and vocal folds. ?? Please follow strategies learned on the Tips for Topical Hydration handout ??? Nasal [place] o 3 puffs in each nostril; sniff and then blow your nose (especially when exposed to strong odors, or have a dry nose) Cough/ Throat Clearing/ Laryngeal hypersensitivity: ?? Tongue up: ?? Great for cold air ?? Environmental odors ?? If someone surprises you. ??? Breathe in through rounded lips + out with a repeated ???sh?? + swallow ??? Puppy Sniffs - 2-3 small quick sniffs through the nose and exhale with ???sh? Sip of water (room temp or warm, as cold is an issue for you) ??? Swallow ??? Hum + swallow ??? Soft throat clear h, h, h + swallow ??? Suck on a lozenge with Pectin (avoid mint or menthol) or a sugar-free candy, gum, wet snacks (apples, pineapple, grapes, etc). Also consider Xylitol products, like the [place] brand of lozenges, gum, spray ??? massage Breathing: ??? Breathing Tips: o Breathe in and tongue up, use it for speech ?? Voice (2-3x/day unless otherwise noted): Bubbles (straw in??1-1.5?of water) or finger by the mouth you showed us today:??x/day for 1-2 min: REMEMBER: Breath flow is the gasoline for all voices. It is what makes vocal folds vibrate. ??Too much muscle will lead to whispering. ?1) Blow bubbles for 15-20 seconds with no voice. ??Bubbles need to be consistentand like a bubbly cauldron ? 2) Dominique harvey (10 times): Whooooo, whooooo, whooooooooooooooo on one low, butcomfortable pitch ?3) ??blow bubbles and add a sustained ???whooooooooooooooooooooooooooooo?(same comfortable pitch) ?4) bubbles and then lips away from the straw whooo are (if you have a problem, go back to the first step!) ??5) When ready try bubbles with the following phrases: ?- whooooo are youuuuuuuuuuuuuuuuu ?- Whoooo is sheeeeeeeeeeeeeeee ?-Whoooooo is heeeeeeeeeeeeeee ?- whooooo are theyyyyyyyyyyyyyyy ? M (or N)+ vowels ?? Repeat each vowel three times (Example: mmmma mmmma mmmma) ?m?? (n) words ?? Chant on A3 (follow recording) ?? Then speak ? m (n) sentences ?? Chant on A3 (follow recording) ?? Then speak ?? *Can use the finger by your mouth and the strategies learned today as a recalibration tool for your voice if you have a sneeze/cough/etc that sets you back *Check out Trudy CD ?? Deck Engine Operator: Val Redd [phone]/ [email or web address] ?? Connie Yoon M.M. (voice)Vanita, CCC/RETIREMENT ASSISTANT Speech-Language Pathologist Certificate of Vocology [facility] [phone] [email or web address] Prounouns: she/her Deck Engine Operator: Val Redd [phone]/ [email or web address] Connie Yoon M.M. (voice)Vanita, CCC/RETIREMENT ASSISTANT Speech-Language Pathologist Certificate of Vocology [facility] [phone] [email or web address] Prounouns: she/her L MAINTENANCE ENGINEER documented in this encounter Plan of Treatment Not on filedocumented as of this encounter Procedures Procedure Name Priority Date/Time Associated Diagnosis Comme [facility] SPEECH/HEARING Routine 08/07/2018 8:02 AM HOTEL MAINTENANCE ENGINEER Dysphonia THERAPY, INDIVIDUAL documented in this encounter Visit Diagnoses Diagnosis Dysphonia - Primary documented in this encounter Additional Health Concerns Assessment Noted Time PHQ-9 Depression Total Score: 16 05/13/2018 7:03 AM CD T documented as of this encounter Care Teams Iron Worker Relationship Specialty Start Date End Date Logan Hayes MD PCP - General 10/21/01 [address] [place] [address] documented as of this encounter
--- OUTSIDE RECORDS SUMMARY | 2022-06-26 18:54 | XMS_ITS | Encounter Summary ---
:1970 Author Organization [place] Address [address] [facility] [place] [address] Care Team Providers Name Role Phone Logan Hayes MD Primary Care Provider Reason for Visit Reason Comments Consult [facility] NEW - LARYNGEAL/LINGUAL DYSTONIA, HANDS/FEET CRAMPING Consultation - Closed Specialty Diagnoses / Procedures Referred By Contact Refer red To Contact Diagnoses Dystonia Bertram Peraza MD [address] [place] [address] [phone] Referral ID Status Reason Start Date Expiration Date Visits Requ ested Visits Authorized [id number] Closed 07/14/2018 07/14/2019 1 1 Encounter Details Date Type Department Care Team Description 08/23/2018 Office Visit [facility] Neurology Lauren, Cramp of limb (Primary Dx); [address] [facility] MD Savage Temporomandibular dysfunction syndrome [address]rd [address] [place] [id number] [phone] Social History Tobacco Use Types Packs/Day Years Used Date Smoking Tobacco: Never Smokeless Tobacco: Never Alcohol Use Standard Drinks/Week Comments No 0 (1 standard drink = 0.6 oz pure alcoho l) Sex Assigned at Date Recorded Not on file documented as of this encounter Last Filed Vital Signs Vital Sign Reading Time Taken Comments Blood Pressure 121/79 08/23/2018 12:11 PM LUNG SPLITTER Pulse 80 08/23/2018 12:11 PM LUNG SPLITTER Temperature - - Respiratory Rate - - Oxygen Saturation 99% 08/23/2018 12:11 PM LUNG SPLITTER Inhaled Oxygen Concentration - - Weight 107.3 kg (236 lb 8 oz) 08/23/2018 12:11 PM LUNG SPLITTER Height - - Body Mass Index - - documented in this encounter Patient Instructions Patient InstructionsTodd Bright MD - 08/23/2018 12:00 PM CST We do not see any evidence of dystonia on your exam. Try taking gabapentin for your cramps. I have ordered one lab to rule out a cause of cramping. SPLITTER documented in this encounter Progress Notes Savage Aguilar MD - 08/23/2018 12:00 PM CST [facility] - New Patient CC: possible dystonia HPI: Vamsi Chappell is a 48 year-old female who presents for evaluation of possible dystonia. She was referred by Dr Peraza for possibly laryngeal dystonia. She notes other symptoms which she is concerned are related to dystonia as well. She reports she had a bad episode of bronchitis in February. Had lots of coughing. Since then has had difficulty speaking particularly with k and g sounds. It will worsen if she flexes her neck and moves her shoulders in certain ways. Also worse if trying to project her voice, laugh, or cry. Also present during singing. She was referred for speech therapy and has had some improvement. Botox has been considered in the future as well. 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 She is wondering if some other symptoms she has are related. She has had cramping of the feet, left more than right, for about 20 years. She has had the toes feel like they cross over, toes extend, andalso the great toe abduct. These are painful. She also has pain on the top of the left foot. In addition she feels like her hand will get stuck in a cupped position after playing the flute. It has beenmore painful in her left hand when she holds hair to cut it. She denies any tremors, hyposmia, dream enactment behavior, difficulty walking (unless left foot pain present), difficulty rising from a chair or rolling over in bed. Will have some sudden hypersalivation episodes while sleeping. No orthostasis. Has some stress incontinence. Results of laryngoscopy from Dr. Peraza: PROCEDURE: A flexible laryngoscopy was performed. Informed [...] is otherwise clear as is the subglottis. Past Medical History: Diagnosis Date ??? Temporomandibular dysfunction syndrome Past Surgical History: Procedure Laterality Date ??? HYSTERECTOMY Current Outpatient Medications Medication ??? Ascorbic Acid (VITAMIN C) 500 MG CHEW ??? B Complex Vitamins (VITAMIN B COMPLEX PO) ??? Cholecalciferol (VITAMIN D3) 1000 units CAPS ??? FLUoxetine (PROZAC) 20 MG capsule ??? fluticasone (FLONASE) 50 MCG/ACT spray ??? hyoscyamine (ANASPAZ/LEVSIN) 0.125 MG tablet ??? levothyroxine (SYNTHROID/LEVOTHROID) 125 MCG tablet ??? melatonin 3 MG tablet ??? nitroGLYcerin (NITROSTAT) 0.4 MG sublingual tablet No current facility-administered medications for this visit. Social History Social History Narrative . Works at home. No tobacco, no alcohol. Family History Problem Relation Age of Onset ??? Other - See Comments Mother foot cramping ??? Other - See Comments Sister foot cramping ??? Other - See Comments Brother foot cramping ??? Other - See Comments Sister foot cramping, anal spasms of unclear etiology ??? Autism Spectrum Disorder Son ??? Dystonia No family hx of ??? Tremor No family hx of Remainder of complete ROS negative Exam: BP 121/79 (BP Location: Left arm, Patient Position: Sitting, Cuff Size: Adult Regular) Pulse 80 Wt 107.3 kg (236 lb 8 oz) SpO2 99% No acute distress Breathing comfortably No peripheral edema Neurological Examination (R/L): Mental Status: Awake, alert. Fluent. Affect normal. Cranial Nerves: Visual palacios intact to confrontation. Versions full. No hypomimia. No hypophonia. Fluctuating dysphonia. Breathy voice at times and hesitation/stuttering. No arrest of vocalization. EEEE and AAHH normal. Motor: Pronator drift was absent. Strength full. No bradykinesia although left hand grasping and left toe tapping limited due to pain. Sensory: Light touch intact in all four extremities. Vibration intact at the toes bilaterally. Romberg negative. Reflexes: Biceps 2/2 Triceps 2/2 Brachioradialis 2/2 Patellar 2/2 Achilles 2/2. Toes were downgoing bilaterally. Coordination: Finger to nose without dysmetria. Gait: Can rise from chair with arms crossed. Gait narrow-based with good posture, arm swing, and stride length. Pivot turns. Imaging: [facility] HEAD MRI WITHOUT AND WITH IV CONTRAST 04/14/2018 10:19 AM INDICATION: Hyperacusis Of Both Ears Spasmodic Dysphonia. TECHNIQUE:?Head MRI without and with IV contrast with attention to the internal auditory canals. CONTRAST: Gadavist 5 mL. COMPARISON: None. FINDINGS: Diffusion-weighted images demonstrate no areas of restricted diffusion. Normal cerebral parenchymal volume. No midline shift. The basilar cisterns are patent. Cerebral parenchymal signal is within normal limits for patient's age. The flow-voids of the directly imaged major intracranial arteries and major dural venous sinuses appear grossly patent. No abnormal signal within the internal auditory canals or inner ear structures bilaterally. No abnormal enhancement within the internal auditory canals. Whole brain postcontrast images demonstrate no abnormal enhancement. The pituitary gland is not enlarged. No abnormal signal within the orbits. Mild mucosal thickening of the ethmoid air cells. No abnormal signal within the mastoid air cells. Nonpathologic marrow signal in the bones of the calvaria and skull base. CONCLUSION: 1.?No abnormal signal or enhancement within the internal auditory canals bilaterally. 2.?Intracranial contents are within normal limits for patient's age. Assessment: 48 year-old with dysphonia following bronchitis as well as muscle cramping. See no clearevidence of dystonia on exam. Given laryngeal spasms and cramps can be seen in paraneoplastic syndromes will evaluate for this, although it seems somewhat unlikely. Will attempt symptomatic treatment for cramps with gabapentin. Recommendations: -paraneoplastic panel -gabapentin 300mg TID, after one month can increase to 600mg TID Follow-up 3 -6 months Todd Bright MD Movement Disorders Fellow I, Savage Aguilar, personally interviewed, examined and evaluated this patient on 08/23/2018. I discussed the patient with Dr. Bright and agree with the assessment, examiantion and plan of care documented by Dr. Bright. I personally reviewed the vital signs, medications and labs/imaging. She has longtime cramps. This does not sound like dystonia. It is painful and intermittent. Her speech disorder is more recent and by speech pathology exam and Dr. Peraza's laryngoscopy exam looks morelike muscle tension dysphonia. I don't think she has a generalized dystonic disorder. We will try her on some gabapentin which is the best evidence-based medication for cramp. We will also check her for CINTHYA-2 antibodies (related to laryngospam and breast cancer) and VGK antibodies (seen in some crampdisorders). Savage Aguilar MD SPLITTER documented in this encounter Nursing Notes Bart Gonzalez EMT - 08/23/2018 12:00 PM CST Chief Complaint Patient presents with ??? Consult [facility] NEW - LARYNGEAL/LINGUAL DYSTONIA, HANDS/FEET CRAMPING ISAI Cabrera SPLITTER documented in this encounter Plan of Treatment Not on filedocumented as of this encounter Results Paraneoplastic antibody (08/23/2018 2:05 PM LUNG SPLITTER) Analysis Performed At Patho logist Time Signature PNP Antibody SEE NOTE 09/01/2018 [facility] 09/01/2018 12:41 PM [facility] 12:41 PM [facility] Comment: (Note) Test ? Result ?? Flag ??Unit ?RefValue Paraneoplastic Autoantibody Eval, S Interpretive Comments ? SEE NOTE ? No [...] its perf ormance characteristics ?? determined by [facility] in a mariola r consistent with CLIA ?? requirements. This test has not been cleared or approved by ?? the U.S. Food and Drug Administratio n. CINTHYA-2, S ?Negative ? titer ?? <1:240 ? This test was developed and its perf ormance characteristics ?? determined by [facility] in a mariola r consistent with CLIA ?? requirements. This test has not been cleared or approved by ?? the U.S. Food and Drug Administratio n. CINTHYA-3, S ?Negative ? titer ?? <1:240 ? This test was developed and its perf ormance characteristics ?? determined by [facility] in a mariola r consistent with CLIA ?? requirements. This test has not been cleared or approved by ?? the U.S. Food and Drug Administratio n. AGNA-1, S ?Negative ? titer ?? <1:240 ? This test was developed and its perf ormance characteristics ?? determined by [facility] in a mariola r consistent with CLIA ?? requirements. This test has not been cleared or approved by ?? the U.S. Food and Drug Administratio n. PAPER PROCESSING MACHINE HELPER-1, S ? Negative ? titer ?? <1:240 ? This test was developed and its perf ormance characteristics ?? determined by [facility] in a mariola r consistent with CLIA ?? requirements. This test has not been cleared or approved by ?? the U.S. Food and Drug Administratio n. PAPER PROCESSING MACHINE HELPER-2, S ? Negative ? titer ?? <1:240 ? This test was developed and its perf ormance characteristics ?? determined by [facility] in a mariola r consistent with CLIA ?? requirements. This test has not been cleared or approved by ?? the U.S. Food and Drug Administratio n. PAPER PROCESSING MACHINE HELPER-Tr, S ?Negative ? titer ?? <1:240 ? This test was developed and its perf ormance characteristics ?? determined by [facility] in a mariola r consistent with CLIA ?? requirements. This test has not been cleared or approved by ?? the U.S. Food and Drug Administratio n. Amphiphysin Ab, S ?Negative ? titer ?? <1:240 ? This test was developed and its perf ormance characteristics ?? determined by [facility] in a mariola r consistent with CLIA ?? requirements. This test has not been cleared or approved by ?? the U.S. Food and Drug Administratio n. CRMP-5-IgG, S ?Negative ? titer ?? <1:240 ? This test was developed and its perf ormance characteristics ?? determined by [facility] in a mariola r consistent with CLIA ?? requirements. This test has not been cleared or approved by ?? the U.S. Food and Drug Administratio n. Striational (Striated Muscle) ?Nega tive ? titer ?? <1:120 ?? Ab, S ?? This test was developed and its perf ormance characteristics ?? determined by [facility] in a mariola r consistent with CLIA ?? requirements. This test has not been cleared or approved by ?? the U.S. Food and Drug Administratio n. P/Q-Type Calcium Channel Ab ?0.0 0 ? nmol/L ??<=0.02 ? This test was developed and its perf ormance characteristics ?? determined by [facility] in a mariola r consistent with CLIA ?? requirements. This test has not been cleared or approved by ?? the U.S. Food and Drug Administratio n. N-Type Calcium Channel Ab ?0. 00 ? nmol/L ??<=0.03 ? This test was developed and its perf ormance characteristics ?? determined by [facility] in a mariola r consistent with CLIA ?? requirements. This test has not been cleared or approved by ?? the U.S. Food and Drug Administratio n. ACh Receptor (Muscle) Binding ?0.00 ? nmol/L ??<=0.02 ?? Ab ?? This test was developed and its perf ormance characteristics ?? determined by [facility] in a mariola r consistent with CLIA ?? requirements. This test has not been cleared or approved by ?? the U.S. Food and Drug Administratio n. AChR Ganglionic Neuronal Ab, S ?? 0.00 ? nmol/L ??<=0.02 ? This test was developed and its perf ormance characteristics ?? determined by [facility] in a mariola r consistent with CLIA ?? requirements. This test has not been cleared or approved by ?? the U.S. Food and Drug Administratio n. Neuronal (V-G) K+ Channel Ab, S ??0.00 ? nmol/L ??<=0.02 ? This test was developed and its perf ormance characteristics ?? determined by [facility] in a mariola r consistent with CLIA ?? requirements. This test has not been cleared or approved by ?? the U.S. Food and Drug Administratio n. ? Test Performed by: ?? [facility] ?? [address] [id number] Specimen Anatomical Collection Method Collection Time Receive d Time (Source) Location / / Volume Laterality Blood specimen 08/23/2018 2:05 PM 018 2:10 (specimen) LUNG SPLITTER PM LUNG SPLITTER Todd Bright MD LAB - BLOOD ORDERABLES Performing Organization Address City/State/ZIP Code Phon e Number [address] [address] [facility] documented in this encounter Visit Diagnoses Diagnosis Cramp of limb - Primary Temporomandibular dysfunction syndrome Temporomandibular joint disorders, unspe cified documented in this encounter Additional Health Concerns Assessment Noted Time PHQ-9 Depression Total Score: 16 05/13/2018 7:03 AM CD T documented as of this encounter Care Teams Labor Delivery Rn Relationship Specialty Start Date End Date Logan Hayes MD PCP - General 10/21/01 [address] [place] [address] documented as of this encounter
--- OUTSIDE RECORDS SUMMARY | 2022-06-26 18:54 | XMS_ITS | Encounter Summary ---
:1970 Author Organization [place] Address [address] [facility] [place] [address] Care Team Providers Name Role Phone Logan Hayes MD Primary Care Provider [phone] Reason for Visit Reason Onset Date Comments Other 08/23/2018 DOUGLAS number Encounter Details Date Type Department Care Team Description 08/23/2018 [facility] Savage Aguilar Othe r (DOUGLSA number) Neurology Clinic N[facility] HUTCHINS [address] [id number] [phone] Social History Tobacco Use Types Packs/Day Years Used Date Smoking Tobacco: Never Smokeless Tobacco: Never Alcohol Use Standard Drinks/Week Comments No 0 (1 standard drink = 0.6 oz pure alcoho l) Sex Assigned at Date Recorded Not on file documented as of this encounter Miscellaneous Notes Telephone Encounter - Todd Bright MD - 08/23/2018 2:10 PM [facility] [employer] Called. My DOUGLAS number is incorrect in system. Called and fixed with pharmacy. Todd Bright MD Movement Disorders Fellow [employer] Telephone Encounter - Adrienne Patel - 08/23/2018 1:37 PM CST M [facility] Call Center Phone Message May a detailed message be left on voicemail: yes Reason for Call: Other: Kyle at [facility] called in looking for the DOUGLAS number for Todd Bright. He says the number that was sent in on pt's script is inaccurate. Please give Kyle a call back [phone]. Thank you. Action Taken: Message routed to: [facility] Neurology [employer] [employer] documented in this encounter Plan of Treatment Not on filedocumented as of this encounter Visit Diagnoses Not on filedocumented in this encounter Additional Health Concerns Assessment Noted Time PHQ-9 Depression Total Score: 16 05/13/2018 7:03 AM CD T documented as of this encounter Care Teams Supply Cataloguer Relationship Specialty Start Date End Date Logan Hayes MD PCP - General 10/21/01 [address] [place] [address] documented as of this encounter
--- OUTSIDE RECORDS SUMMARY | 2022-06-26 18:55 | XMS_ITS | Encounter Summary ---
:1970 Author Organization [facility] Address [address], [place] [address] Care Team Providers Name Role Phone Jatinder Haddad MD Primary Care Provider Encounter Details Date Type Department Care Team Description 11/02/2000 PN Conversion Only [facility] Leann Hazel [address] [facility] [place] [address] URGENT CARE [phone] 00 URGENT CARE, 000 00 Social History Tobacco Use Types Packs/Day Years Used Date Smoking Tobacco: Never Assessed Sex Assigned at Date Recorded Not on file documented as of this encounter Progress Notes Leann Hazel MD - 11/02/2000 12:01 AM CST Progress Notes signed by Leann Hazel MD at 11/08/00 0853 Author: Leann Hazel MD Service: (none) Author Type: (none) Filed: 12/24/109 Note Time: 11/02/00 0001 Status: Signed Access Specialist: Leann Hazel MD (Physician) IMPRESSION: Gastritis and esophagitis. SUBJECTIVE: Patient is a 30-year-old female who is having mid epigastric pain and sort of a deep, penetrating, crampy feeling in the upper abdomen and a lot of heartburn over the past four to five days. She had just gotten over cold and flu symptoms last week and then was seen Wednesday for a sinus infection and was treated with amoxicillin. Over the past two to three days, abdominal pain and heartburn seem to be somewhat worse but actually preceded the antibiotic use. She had a similar thing happen a few years ago. Does not recall exactly how long the symptoms lasted or what was done for her medically. Otherwise she is in good health. ALLERGIES: CODEINE MAKES HER SICK. OBJECTIVE: BP: 104/64. T: 97.4. P: 82. R: 20. PHYSICAL EXAM: Pleasant female sitting hunched over clutching her mid epigastrium. COLOR: Good. HEENT: Unremarkable. CHEST: Clear. CARDIAC: Regular rate and rhythm without murmurs, gallops or rubs. ABDOMEN: With tenderness in the mid epigastrium. Active bowel sounds. No other abdominal tenderness, no masses, no organomegaly. Rectal not done. ASSESSMENT: Gastritis and esophagitis. PLAN: Zantac 150 mg p.o. b.i.d. x one month then 20 mg p.o. q.i.d. p.r.n. stomach spasm; 40 tablets given. Carafate 1 gm p.o. b.i.d. crushed in tablespoon or two of water and taken at least an hour before or an hour after meals. She was advised to avoid caffeine, carbonated beverages, alcohol and she should expect improvement of her symptoms in the next couple of days and continuing gradual improvement thereafter over the next seven to ten days. If she has any worsening of symptoms, particularly any evidence of hematemesis or melena, she should be seen immediately. JCL:[id number] C: DOCUMENT: [id number] Suzan Carvajal MD - 10/30/2000 12:01 AM CST Progress Notes signed by at 10/28/022109 Author: Suzan Gutierrez MD Service: (none) Author Type: Physician Filed: 12/24/102109 Note Time: 10/30/002109 Status: Signed Access Specialist: Suzan Gutierrez MD (Physician) IMPRESSION: No dictation. Sinusitis. SUBJECTIVE: N/A OBJECTIVE: N/A ASSESSMENT: Sinusitis. PLAN: TREATMENT: Amoxicillin. [id number] C: DOCUMENT: [id number] NER BOX Amira Zuleta MD - 04/11/2000 12:01 AM CDT Progress Notes signed by Amira Zuleta MD at 05/13/01 8808 Author: Amira Zuleta MD Service: (none) Author Type: Physician Filed: 12/24/10 0302 Note Time: 04/11/00 0001 Status: Signed Access Specialist: Amira Zuleta MD (Physician) IMPRESSION: Tonsillitis. SUBJECTIVE: A 30-year-old white female who noted onset of throat pain on 04/09. This is primarily on the right side. Pain radiates into the right jaw and the right ear. Says she really has not had any cough or nasal congestion. She has no strep exposure that she is aware of. PAST MEDICAL HISTORY is significant for prominent seasonal allergies. ALLERGIES: CODEINE which causes vomiting. MEDICATION: Miraphen, Nasonex, Maxair, Patanol ophthalmic drops, and Zyrtec. OBJECTIVE: T: 96.8 tympanic. P: 72. R: 16. BP: 110/70. Patient looks uncomfortable, although not toxic. TMs are clear. Oropharynx shows 3+ erythema with 2-3+ tonsillar hypertrophy and some exudate on the right tonsil. The uvula is midline and I am not suspicious of a peritonsillar abscess. She has 2+ adenopathy. Chest is clear to auscultation. Rapid strep test is negative. She is given Advil 400 mg p.o. which helped her pain. ASSESSMENT: Tonsillitis. PLAN: She is given Rocephin 1 gram IM which she tolerated well. Prescription for Augmentin 875 mg 1 q. 12 hours with food, #20. Plenty of fluids and warm salt water gargles. May use Tylenol or ibuprofen. Recheck p.r.n. [id number] C: DOCUMENT: [id number] Adri Kelly MD - 08/03/1999 12:01 AM CST Progress Notes signed by Adri Kelly MD at 08/06/992040 Author: Guy Kelly MD Service: (none) Author Type: Physician Filed: 12/24/10 0386 Note Time: 08/03/992109 Status: Signed Access Specialist: Guy Kelly MD (Physician) IMPRESSION: Upper respiratory infection with possible sinusitis. SUBJECTIVE: This pleasant patient presents for followup of urgent care visit. Apparently last Wednesday she was in the urgent care here and was evaluated and was told she had sinus infection. She was placed on amoxicillin 500 mg. Right now facial pain is better, but since that time she still has had hoarseness, difficulty talking. She also has noticed some streaks of blood in the phlegm. She denies having fevers, chills. She feels tired. OBJECTIVE: T: 99.4. P: 88. BP: 118/72. Please see urgent care [facility]. Exam was unremarkable. ASSESSMENT: Upper respiratory infection with possible sinusitis. PLAN: Reassurance was given. Advised patient to continue taking amoxicillin. Robitussin with Codeine prescribed. She was asked to increase her fluid intake and see family physician if she is not improving after a few days. CC: [facility]:[id number] C: DOCUMENT: [id number] NER BOX Suzan Gutierrez MD - 08/01/1999 12:01 AM CST Progress Notes signed by Suzan Gutierrez MD at 06/16/002002 Author: Suzan Gutierrez MD Service: (none) Author Type: Physician Filed: 12/24/10 7692 Note Time: 08/01/992109 Status: Signed Access Specialist: Suzan Gutierrez MD (Physician) IMPRESSION: Viral syndrome. Sinusitis. SUBJECTIVE: No dictation. OBJECTIVE: N/A ASSESSMENT: 1. Viral syndrome. 2. Sinusitis. PLAN: Amoxicillin. CC: [id number] C: DOCUMENT: [id number] documented in this encounter Plan of Treatment Not on filedocumented as of this encounter Procedures Procedure Name Priority Date/Time Associated Diagnosis Comme nts STREP GROUP A Routine 04/11/2000 10:44 AM Results for this ANTIGEN TEST CDT procedure are i n the results section. BETA STREP FOLLOWUP Routine 04/11/2000 10:44 AM R esults for this CDT procedure are i n the results section. documented in this encounter Results Strep Group A Antigen Test (04/11/2000 10:44 AM CDT) Analysis Performed At Patho logist Time Signature Strep Group A Negative Negative HP CONVERSION Antigen Test Comment: Culture to follow. Specimen (Source) Anatomical Collection Method Collection Time Re ceived Time Location / / Volume Laterality 04/11/2000 10:44 AM CDT Jimy Rushing MD LAB_1 Performing Organization Address City/State/ZIP Code Phon e Number HP CONVERSION Beta Strep Followup (04/11/2000 10:44 AM CDT) P athologist Signature Strep Screen SEE TEXT HP CONVERSION Comment: Patient: [place] Rapid Strep Follow up Culture @ ? Collected: ??[id number] ??[id number] Source: Throat ?Processed: ??[id number] ??1327 ? 1V Final Report ------ ?[id number] ??1015 No beta hemolytic Strep group A isolated . @ = Rapid F/U Cult Performed at ??[address] [place], [place] ?[address] Specimen (Source) Anatomical Collection Method Collection Time Re ceived Time Location / / Volume Laterality 04/11/2000 10:44 AM CDT Jimy Rushing MD LAB_1 Performing Organization Address City/State/ZIP Code Phon e Number HP CONVERSION documented in this encounter Visit Diagnoses Not on filedocumented in this encounter Care Teams Loan Workout Officer Relationship Specialty Start Date End Date Jatinder Haddad MD PCP - General 08/18/1996 [address] [place] [address] documented as of this encounter
--- OUTSIDE RECORDS SUMMARY | 2022-06-26 18:55 | XMS_ITS | Encounter Summary ---
:1970 Author Organization [facility] Address [address], [place] [address] Care Team Providers Name Role Phone Jatinder Haddad MD Primary Care Provider Encounter Details Date Type Department Care Team Description 01/24/2014 Orders Only External to Sadie Wilson MD [address] [place], [place] [address] Social History Tobacco Use Types Packs/Day Years Used Date Smoking Tobacco: Never Assessed Sex Assigned at Date Recorded Not on file documented as of this encounter Plan of Treatment Not on filedocumented as of this encounter Procedures Procedure Name Priority Date/Time Associated Diagnosis Comme nts PATHOLOGY 01/24/2014 12:00 AM Results for this CDT procedure are i n the results section . documented in this encounter Results PATHOLOGY (01/24/2014 12:00 AM CDT) Specimen (Source) Anatomical Location Collection Method / Collectio n Time Received Time / Laterality Volume 01/24/2014 Narrative This result has an attachment that is no t available. DUMMY/OTHER/AR documented in this encounter Visit Diagnoses Not on filedocumented in this encounter Care Teams District Administrator Relationship Specialty Start Date End Date Jatinder Haddad MD PCP - General 08/18/1996 [address] [place] [address] documented as of this encounter
--- OUTSIDE RECORDS SUMMARY | 2022-06-26 18:55 | XMS_ITS | Encounter Summary ---
:1970 Author Organization [facility] Address [address] [place] [address] Care Team Providers Name Role Phone Jatinder Haddad MD Primary Care Provider Reason for Visit Reason Comments Refill Encounter Details Date Type Department Care Team Description 03/26/2020 Refill [facility] Leslie Ardon MD Refill [address] [address] [place], [place] [address] [place], [place] [address] (Wo rk) Social History Tobacco Use Types Packs/Day Years Used Date Smoking Tobacco: Never Assessed Sex Assigned at Date Recorded Not on file documented as of this encounter Nursing Notes Danielle Domínguez RN - 03/26/2020 4:29 PM CDT Last seen: 10/25/18. Called and spoke with Vamsi. She states she has been using something called [employer] and this effects the neuro points and has helped with her symptoms. 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 She has reduced her gabapentin to 1 tab daily, so will refuse this request. Set up follow-up on 06/18/20 documented in this encounter Plan of Treatment Not on filedocumented as of this encounter Visit Diagnoses Not on filedocumented in this encounter Care Teams Construction Carpenters Helper Relationship Specialty Start Date End Date Jatinder Haddad MD PCP - General 08/18/1996 [address] [place] [address] documented as of this encounter
--- OUTSIDE RECORDS SUMMARY | 2022-06-26 18:55 | XMS_ITS | Encounter Summary ---
:1970 Author Organization [facility] Address [address] [address] Care Team Providers Name Role Phone Jatinder Haddad MD Primary Care Provider Encounter Details Date Type Department Care Team Description 09/28/2006 Correspondence External to External, Provid er AMELIA [place] [address] Social History Tobacco Use Types Packs/Day Years Used Date Smoking Tobacco: Never Assessed Sex Assigned at Date Recorded Not on file documented as of this encounter Progress Notes External, Provider - 09/28/2006 12:00 AM PRESIDENT AND CHIEF EXECUTIVE OFFICER documented in this encounter Plan of Treatment Not on filedocumented as of this encounter Visit Diagnoses Not on filedocumented in this encounter Care Teams Drafting Technician Relationship Specialty Start Date End Date Jatinder Haddad MD PCP - General 08/18/1996 [address] [place] [address] documented as of this encounter
--- OUTSIDE RECORDS SUMMARY | 2022-06-26 18:55 | XMS_ITS | Encounter Summary ---
:1970 Author Organization [facility] Address [address] [address] Care Team Providers Name Role Phone Jatinder Haddad MD Primary Care Provider Encounter Details Date Type Department Care Team Description 11/02/2018 Correspondence [facility], MRI SAFETY SHEET [address] [facility] [place] [address] Social History Tobacco Use Types Packs/Day Years Used Date Smoking Tobacco: Never Assessed Sex Assigned at Date Recorded Not on file documented as of this encounter Plan of Treatment Not on filedocumented as of this encounter Visit Diagnoses Not on filedocumented in this encounter Care Teams Joint Filler Relationship Specialty Start Date End Date Jatinder Haddad MD PCP - General 08/18/1996 [address] [place] [address] documented as of this encounter
--- OUTSIDE RECORDS SUMMARY | 2022-06-26 18:55 | XMS_ITS | Encounter Summary ---
:1970 Author Organization [facility] Address [address], [place] [address] Care Team Providers Name Role Phone Jatinder Haddad MD Primary Care Provider Reason for Visit Reason Onset Date Comments Medication Request 12/07/2018 gabepentin Refill 12/12/2018 Refill 12/14/2018 Refill 12/15/2018 Refill 01/05/2019 Encounter Details Date Type Department Care Team Description 12/07/2018 Refill [facility] Allison Tavera Medication Request [address] fabby Elder, RN (gabepentin); Refill; [place], [place] [address] Refill; Refill; Refill [phone] Social History Tobacco Use Types Packs/Day Years Used Date Smoking Tobacco: Never Assessed Sex Assigned at Date Recorded Not on file documented as of this encounter Progress Notes Herminia Johnson RN - 01/17/2019 1:08 PM CDT Addended by: HERMINIA JOHNSON on: 01/17/2019 01:08 PM Modules accepted: Orders documented in this encounter Nursing Notes Herminia Johnson RN - 01/17/2019 1:04 PM CDT Pt called with update. She states that 300mg TID of gabapentin has not done much for her voice but it has improved the tremors in her hands, cramping of her feet, and left hand cramping as well. She would like to continue onthe Rx and would like to switch to the gabapentin 300mg capsule strength, 1 cap TID. Order pended. FYI Pt states she's still waiting to here from the to find out if her genetic testing is covered by insurance. Dr. Ardon- GALA. Please sign pended order if you agree. Thanks Herminia Johnson RN - 01/06/2019 1:03 PM CDT Spoke with pt. She verbalized her understanding and had no further questions/concerns at this time. Closing encounter. Herminia Johnson RN - 01/05/2019 5:57 PM CDT LM for pt to return call to discuss. Leslie Ardon MD - 01/05/2019 3:31 PM CDT OK to increase the gabapentin to 300 mg tid. If it works better she shou;ld let us know so we can switch to the 300 mg capsules. I am not sure it will help wit her voice though. Allison Tavera RN - 01/05/2019 2:35 PM CDT Spoke with patient she will continue taking the gabapentin 200mg TID as ordered. She states this dose have improved symptoms, but she still has concerns with her voice. She would like to know Dr. Ardon thoughts on when to increase to 300mg TID? She did have to push back her genetic counselor appointment to last week. They took blood work and are determining what her insurance will and will not cover. Patient okays a detailed message to be left on her voicemail with provider response. Dr. Ardon - Please advise on gabapentin. Allison Tavera RN - 12/15/2018 1:49 PM CDT Provider signed a prescription. Left message requesting patient to call back into discuss provider response. Requested Prescriptions Signed Prescriptions Disp Refills ??? gabapentin (NEURONTIN) 100 MG capsule 180 Capsule 11 Sig: Take 2 Capsules by mouth three times a day. Authorizing Provider: LESLIE ARDON Awaiting a return call Allison Tavera RN - 12/07/2018 11:54 AM CDT The patient called in to request an updated order for gabapentin be sent to the pharmacy. She says she has been having and increased amount of better times, but she does not know if that is medication or environment related. She also is requesting direction on if she should stay on 200mg TID or increase to 300mg TID. She also has a genetic appointment later this week at the [facility]. Dr. Ardon - please advise on medication documented in this encounter Plan of Treatment Not on filedocumented as of this encounter Visit Diagnoses Not on filedocumented in this encounter Care Teams Video Operator Relationship Specialty Start Date End Date Jatinder Haddad MD PCP - General 08/18/1996 [address] [place] [address] documented as of this encounter
--- OUTSIDE RECORDS SUMMARY | 2022-06-26 18:55 | XMS_ITS | Encounter Summary ---
:1970 Author Organization [facility] Address [address], [place] [address] Care Team Providers Name Role Phone Jatinder Haddad MD Primary Care Provider Encounter Details Date Type Department Care Team Description 11/08/2018 Orders Only [facility] EEG /EMG [address] [place] [address]. [facility] [place] [address] [place], [place] [phone] (Wo rk) Social History Tobacco Use Types Packs/Day Years Used Date Smoking Tobacco: Never Assessed Sex Assigned at Date Recorded Not on file documented as of this encounter Progress Notes Leslie Ardon MD - 11/08/2018 11:59 PM CST Please call her: the EMG was normal. ER SCREEN OPERATOR documented in this encounter Plan of Treatment Not on filedocumented as of this encounter Procedures Procedure Name Priority Date/Time Associated Diagnosis Comme nts EMG SCAN 11/08/2018 12:00 AM Results for this SHAKER SCREEN OPERATOR procedure are i n the results section . documented in this encounter Results EMG SCAN (11/08/2018 12:00 AM SHAKER SCREEN OPERATOR) Specimen (Source) Anatomical Location Collection Method / Collectio n Time Received Time / Laterality Volume 11/08/2018 Narrative This result has an attachment that is no t available. Leslie Ardon MD HP DUMMY CODES documented in this encounter Visit Diagnoses Not on filedocumented in this encounter Care Teams Bacteriologist Pharmaceutical Relationship Specialty Start Date End Date Jatinder Haddad MD PCP - General 08/18/1996 [address] [place] [address] documented as of this encounter
--- OUTSIDE RECORDS SUMMARY | 2022-06-26 18:55 | XMS_ITS | Encounter Summary ---
:1970 Author Organization [facility] Address [address], [place] [address] Care Team Providers Name Role Phone Jatinder Haddad MD Primary Care Provider Reason for Visit Auth/Cert Specialty Diagnoses / Procedures Referred By Contact Refer red To Contact Referral ID Status Reason Start Date Expiration Date Visits Requ ested Visits Authorized [id number] 1 1 Encounter Details Date Type Department Care Team Description 11/02/2018 Ancillary [facility], Muscle cramps ; Procedure [facility] MRI Leslie Cardoso MD Muscle spasm; 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 documented in this encounter Results MR Cervical Spine WO IV Cont (11/02/2018 12:17 PM MENTAL HYGIENE CONSULTANT) Anatomical Region Laterality Modality Spine, C-Spine, Neck, Vascular Magnetic Resonance Specimen (Source) Anatomical Collection Method Collection Time Re ceived Time Location / / Volume Laterality 11/02/2018 12:17 PM MENTAL HYGIENE CONSULTANT Narrative 11/02/2018 3:[address]GIENE [address] [facility] EXAM: MR CERVICAL SPINE WO IV CONT LOCATION: [facility] DATE/TIME: 11/02/2018 12:17 PM INDICATION: Muscle spasms COMPARISON: None available. TECHNIQUE: Without IV contrast. FINDINGS: Vertebral body heights are unremarkable. No marrow-replacing process is demonstrated. There is no evidence of pathologic bony edema. There is a T2 hyperintense/T1 hypointense/STIR hyperintense 9 mm focu s in the T2 vertebral body without destr uctive features. This is incompletely characterized but favored to reflect an atypical hemangioma. There is straightening of the normal cer vical lordosis. Alignment is otherwise unremarkable. No cervical cord signal abnormalities ar e demonstrated. The paraspinal soft tissues are unremark able. Limited images of the intracranial tucker rtment demonstrate no acute abnormality. Uncal vertebral artery flow voids appear preserved. C2-C3: Normal disc height. No herniation . No facet arthropathy. No spinal canal stenosis. No right neural foraminal stenosis. No left neural foraminal stenosis. C3-C4: Unremarkable disc height. Shallow broad-based bulge . No significant facet arthropathy. No significant spinal canal stenosis. No right neural foraminal stenosis. No left neural foraminal stenosis. C4-C5: Preserved intervertebral disc hei ght. Shallow broad-based bulge. No facet arthropathy. No significant spinal canal stenosis. No right neural foraminal stenosis. No left neural foraminal stenosis. ?? C5-C6: Preserved intervertebral disc hei ght. Trace bulge. No facet arthropathy. No spinal canal stenosis. No right neural foraminal stenosis. No left neural foraminal stenosis. C6-C7: Mild intervertebral disc height l oss with shallow broad-based disc bulge and mild bilateral uncinate spurring. No significant facet arthropathy. No spinal canal stenosis. No right neural foraminal stenosis. No left neural foraminal stenosis. C7-T1: Normal disc height. No herniation . No facet arthropathy. No spinal canal stenosis. No right neural foraminal stenosis. No left neural foraminal stenosis. CONCLUSION: 1. ??No evidence of cervical cord signal abnormality. 2. ??Mild spondylosis without sites of h igh-grade spinal canal stenosis or neural foraminal stenosis. Procedure Note Blayne Carballo MD - 11/02/2018Formatti ng of this note might be different from the original. [facility] RAD[facility] EXAM: MR CERVICAL SPINE WO IV CONT LOCATION: [facility] DATE/TIME: 11/02/2018 12:17 PM INDICATION: Muscle spasms COMPARISON: None available. TECHNIQUE: Without IV contrast. FINDINGS: Vertebral body heights are unremarkable. No marrow-replacing process is demonstrated. There is no evidence of pathologic bony edema. There is a T2 hyperintense/T1 hypointense/STIR hyperintense 9 mm focus in the T2 vertebral body without destructive featu res. This is incompletely characterized but favored to reflect an atypical hemangioma. There is straightening of the normal cer vical lordosis. Alignment is otherwise unremarkable. No cervical cord signal abnormalities ar e demonstrated. The paraspinal soft tissues are unremark able. Limited images of the intracranial tucker rtment demonstrate no acute abnormality. Uncal vertebral artery flow voids appear preserved. C2-C3: Normal disc height. No herniation . No facet arthropathy. No spinal canal stenosis. No right neural foraminal stenosis. No left neural foraminal stenosis. C3-C4: Unremarkable disc height. Shallow broad-based bulge . No significant facet arthropathy. No significant spinal canal stenosis. No right neural foraminal stenosis. No left neural foraminal stenosis. C4-C5: Preserved intervertebral disc hei ght. Shallow broad-based bulge. No facet arthropathy. No significant spinal canal stenosis. No right neural foraminal stenosis. No left neural foraminal stenosis. C5-C6: Preserved intervertebral disc hei ght. Trace bulge. No facet arthropathy. No spinal canal stenosis. No right neural foraminal stenosis. No left neural foraminal stenosis. C6-C7: Mild intervertebral disc height l oss with shallow broad-based disc bulge and mild bilateral uncinate spurring. No significant facet arthropathy. No spinal canal stenosis. No right neural foraminal stenosis. No left neural foraminal stenosis. C7-T1: Normal disc height. No herniation . No facet arthropathy. No spinal canal stenosis. No right neural foraminal stenosis. No left neural foraminal stenosis. CONCLUSION: 1. No evidence of cervical cord signal a bnormality. 2. Mild spondylosis without sites of hig h-grade spinal canal stenosis or neural foraminal stenosis. Leslie Ardon MD RAD MRI documented in this encounter Visit Diagnoses Diagnosis Muscle cramps Cramp of limb Muscle spasm Spasm of muscle Dysphonia documented in this encounter Care Teams Real Estate Sales Supervisor Relationship Specialty Start Date End Date Jatinder Haddad MD PCP - General 08/18/1996 [address] [place] [address] documented as of this encounter
--- OUTSIDE RECORDS SUMMARY | 2022-06-26 18:55 | XMS_ITS | Encounter Summary ---
:1970 Author Organization [employer] Address [address], [place] [address] Care Team Providers Name Role Phone Jatinder Haddad MD Primary Care Provider Reason for Visit Reason Comments Follow-up Medication Questions Should she take the gabapent in? Or when should she take it? Encounter Details Date Type Department Care Team Description 06/18/2020 Telemedicine [facility] Parashos, Sotirios Muscle spasm (Primary Dx); [address] Khal[address] Cardoso MD Dysphonia; Drive [address] Muscle cramps [place], [place] [address] [address] [place], [place] [phone] (Wo rk) Social History Tobacco Use Types Packs/Day Years Used Date Smoking Tobacco: Never Assessed Sex Assigned at Date Recorded Not on file documented as of this encounter Last Filed Vital Signs Vital Sign Reading Time Taken Comments Blood Pressure 106/70 06/18/2020 4:15 PM CDT 05/27/20 Pulse 71 06/18/2020 4:15 PM CDT Temperature - - Respiratory Rate - - Oxygen Saturation - - Inhaled Oxygen Concentration - - Weight 104.8 kg (231 lb) 06/18/2020 4:15 PM CDT 05/27/20 Height - - Body Mass Index 35.12 10/25/2018 10: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 Please contact us using [employer] or by calling the [facility] nurse line at [phone]. Danielle Domínguez RN documented in this encounter Progress Notes Leslie Ardon MD - 06/18/2020 4:10 PM CDT Neurology progress note. Chief complaint: Follow-up of dysphonia. History of present illness: This is a 50-year-old lady whom I saw on more than 1 year ago because at the time she had some voicechanges that were suggestive of dysphonia and started having some spasms in her feet and arms that raise the question of dystonia. She had been evaluated at the [facility] previously and the evaluation was inconclusive for possible dystonia, and she was seen at the voice clinic there, andwas felt not to be a candidate for botulinum toxin injections. When I saw him she was receiving gabapentin for spasms with some benefit. At the time recommended genetic counseling and she did that and had genetic testing for 8 of the known genes to produce dystonia, all of which were negative. Also the last time I saw her we obtained an MRI of the cervical spine which showed no abnormalities, and an EMG which failed to reveal any muscle membrane instability such as a channelopathy that might producemuscle cramps and muscle spasming. In the meanwhile she tried some alternative treatments, and eventually ran across a treatment called Voxxlife, which consists of a pattern that is working to socks and insoles, and which is marketed for a variety of an such as chronic pain, spasms, etcetera. She finds out that when she wears those socks or the soles her voice normalizes. When she takes them off almost immediately her voice returns to the previous dysphonic sound being condition with spasming of thevocal cords. The extremities spasms have completely subsided and at some point she came off of the gabapentin. She is now wondering whether there is any particular reason that she should remain she also had some questions about whether she should be using her voice normally, or whether overusing her visit cause her dysphonia to get worse. Impression: 1. 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 2. Muscle spasms of the extremities which have noted. Discussion: I explained the patient that she has she found about it seems to be helping her symptoms, I see absolutely no reason why she should continue taking the medication which was prescribed a symptomatic therapy rather than etiologic therapy. I do not see any reason to not use her voice regularly as long michael does not experience the symptoms of dysphonia, however if the dysphonia occurs then she should probably preserve her voice, to avoid a possible component of task specific dystonia. I do not see any reason to have any further scheduled neurological follow-up with myself at this point. She will call me in the future on an as-needed basis. TT 25 minutes, CT 20 minutes. Leslie Ardon MD documented in this encounter Plan of Treatment Not on filedocumented as of this encounter Visit Diagnoses Diagnosis Muscle spasm - Primary Spasm of muscle Dysphonia Muscle cramps Cramp of limb documented in this encounter Care Teams Materials Planning Manager Relationship Specialty Start Date End Date Jatinder Haddad MD PCP - General 08/18/1996 [address] [place] [address] documented as of this encounter
--- OUTSIDE RECORDS SUMMARY | 2022-06-26 18:55 | XMS_ITS | Encounter Summary ---
:1970 Author Organization [facility] Address [address], [place] [address] Care Team Providers Name Role Phone Jatinder Haddad MD Primary Care Provider Encounter Details Date Type Department Care Team Description 04/06/2014 Office Visit [facility] Adarsh Butler Suture reaction, [address] WORLEY MD initial en counter [address] (Primary Dx) [place] [address] Social History Tobacco Use Types Packs/Day Years Used Date Smoking Tobacco: Never Assessed Sex Assigned at Date Recorded Not on file documented as of this encounter Last Filed Vital Signs Vital Sign Reading Time Taken Comments Blood Pressure 108/69 04/06/2014 3:19 PM CDT Pulse 76 04/06/2014 3:19 PM CDT Temperature 36.8 ??C (98.2 ??F) 04/06/2014 3:19 PM CDT Respiratory Rate - - Oxygen Saturation - - Inhaled Oxygen Concentration - - Weight 90.3 kg (199 lb) 04/06/2014 3:19 PM CDT Height 171.5 cm (5' 7.5) 04/06/2014 3:19 PM CDT Body Mass Index 30.71 04/06/2014 3:19 PM CDT documented in this encounter Patient Instructions Patient InstructionsAdarsh Butler MD - 04/06/2014 3:[address] heat over the a radha twice a day for 10 minutes. documented in this encounter Progress Notes Adarsh Butler MD - 04/06/2014 3:49 PM CDT I was asked to evaluate this [address] Bart Cardenas. HPI: This woman is about 10 weeks out after surgery after she had hysterectomy. She has had problemswith hysterectomy incision. She initially she had nine holes which did not close now she only has five. She had what sounds like a Vicryl suture, outer quadrant incisions. She also has a dull ache and burning sensation sometimes. Every few days she has these will start to close and then opened up a few days later. She sometimes has some drainage. She has been cultured and started on oral antibiotics. She also has some tenderness in the left lateral aspect above the incision. She does not use alcohol. She does not smoke. PAST MEDICAL HISTORY No past medical history on file. Patient Active Problem List Diagnosis ??? Postoperative wound infection PAST SURGICAL HISTORY No past surgical history on file. SOCIAL HISTORY History Social History ??? Marital Status: Unknown Spouse Name: N/A Number of Children: N/A ??? Years of Education: N/A Social History Main Topics ??? Smoking status: Not on file ??? Smokeless tobacco: Not on file ??? Alcohol Use: Not on file ??? Drug Use: Not on file ??? Sexual Activity: Not on file Other Topics Concern ??? Not on file Social History Narrative ALLERGIES Allergies Allergen Reactions ??? Codeine Other, see comments Vomitting ??? Doxy [Tetracyclines] Rash ??? Hydrocodone Gastrointestinal Severe vomiting from hydrocodone ??? Phenergan [Promethazine Hcl] Other, see comments Passed out per pt CURRENT MEDICATIONS Current Outpatient Prescriptions Medication Sig ??? Black Cohosh 540 MG Take 1 Tab by mouth three times a day. ??? cephalexin (AKA KEFLEX) 500 MG capsule Take 1 Cap by mouth 4 times a day. ??? fexofenadine (ALLER-EASE) 180 MG tablet Take 180 mg by mouth daily as needed. ??? FLUoxetine (AKA PROZAC) 20 MG capsule Take 20 mg by mouth daily. ??? levothyroxine (AKA SYNTHROID) 100 MCG tablet Take 100 mcg by mouth daily. ROS: Remainder of Complete Review of Systems is negative PHYSICAL EXAM Blood pressure 108/69, pulse 76, temperature 98.2 ??F (36.8 ??C), temperature source Oral, height 5'7.5 (1.715 m), weight 199 lb (90.266 kg). Alert and oriented The Pfannenstiel incision is without evidence of cellulitis. There are very superficial skin dehiscence is since four small areas. The abdomen is soft and nontender. There is a little bit of tendernesswith a possible Maxon not which I assume is the fascial closure just above the lateral aspect of theleft end of the incision. ASSESSMENT: Reaction to Vicryl. I reassured the patient. There is no need for antibiotics. PLAN: I recommended heat to the area that is sore above the lateral left part of the incision twice a day for 10 minutes. I invited to come back to see me if she is concerned about 3-4 weeks. Adarsh Butler MD documented in this encounter Plan of Treatment Not on filedocumented as of this encounter Visit Diagnoses Diagnosis Suture reaction, initial encounter - Lois bustillo documented in this encounter Care Teams Web Production Artist Relationship Specialty Start Date End Date Jatinder Haddad MD PCP - General 08/18/1996 [address] [place] [address] documented as of this encounter
--- OUTSIDE RECORDS SUMMARY | 2022-06-26 18:55 | XMS_ITS | Encounter Summary ---
:1970 Author Organization [facility] Address [address] [address] Care Team Providers Name Role Phone Jatinder Haddad MD Primary Care Provider Reason for Referral Procedure/Equipment (Routine) - Closed Specialty Diagnoses / Procedures Referred By Contact Refer red To Contact Diagnoses Muscle cramps Muscle spasm Dysphonia Leslie Ardon MD [address] [place], [place] [address] Referral ID Status Reason Start Date Expiration Date Visits Requ ested Visits Authorized [id number] Closed 10/25/2018 01/24/2020 1 1 Scheduling Instructions Your provider has recommended genetic la b testing. This request is being reviewed by the [facility] Genetic [facility] un[facility]. If testing is needed, your care team will contact you to assist you in settin g up a lab appointment. The recommended service and/or location may not be cover ed by your insurance plan. Please call the number on your insurance card to find ou t your specific benefits and coverage for the recommended services and/or location. IFIED NEURODIAGNOSTIC TECHNOLOGIST Procedure/Equipment (Routine) - Closed Specialty Diagnoses / Procedures Referred By Contact Refer red To Contact Diagnoses Muscle cramps Muscle spasm Dysphonia Leslie Ardon MD Procedures NEURO--EMG ELECTRICAL NERVE CONDUCTION STUDY [facility] [place], [place] [address] Referral ID Status Reason Start Date Expiration Date Visits Requ ested Visits Authorized [id number] Closed 10/25/2018 01/24/2020 1 1 IFIED NEURODIAGNOSTIC TECHNOLOGIST Procedure/Equipment (Routine) - Incomplete Specialty Diagnoses / Procedures Referred By Contact Refer red To Contact Diagnoses Muscle cramps Muscle spasm Dysphonia Leslie Ardon MD Procedures MR Cervical Spine WO IV Cont [address] [place], [place] [address] Referral ID Status Reason Start Date Expiration Date Visits V isits Requested Authorized [id number] Incomplete 10/25/2018 01/24/2020 1 1 IFIED NEURODIAGNOSTIC TECHNOLOGIST Reason for Visit Reason Comments Cramps foot and hand cramps TREMORS left hand on occasion for pa st few years, has increased in past year Symptoms neck pain, voice changes sin ce February of 2018 due to bronchitis Encounter Details Date Type Department Care Team Description 10/25/2018 Initial Consult [facility] Leslie Ardon Muscle cramps (Primary Dx); [address] Khalif Orona MD Muscle spasm; Drive [address] [facility] [address] [place], [place] [phone] Social History Tobacco Use Types Packs/Day Years Used Date Smoking Tobacco: Never Assessed Sex Assigned at Date Recorded Not on file documented as of this encounter Last Filed Vital Signs Vital Sign Reading Time Taken Comments Blood Pressure 121/80 10/25/2018 10:26 AM CERTIFIED NEURODIAGNOSTIC TECHNOLOGIST Pulse 95 10/25/2018 10:26 AM CERTIFIED NEURODIAGNOSTIC TECHNOLOGIST Temperature - - Respiratory Rate - - Oxygen Saturation - - Inhaled Oxygen Concentration - - Weight 107 kg (236 lb) 10/25/2018 10:24 AM CERTIFIED NEURODIAGNOSTIC TECHNOLOGIST Height 172.7 cm (5' 8) 10/25/2018 10:24 AM CERTIFIED NEURODIAGNOSTIC TECHNOLOGIST Body Mass Index 35.88 10/25/2018 10:24 AM CERTIFIED NEURODIAGNOSTIC TECHNOLOGIST documented in this encounter Patient Instructions Patient InstructionsYing Jackson RN - 10/25/2018 10:10 AM CERTIFIED NEURODIAGNOSTIC TECHNOLOGIST Please call the [facility] nurse line for any questions, concerns or updates, . Ying Jackson RN IFIED NEURODIAGNOSTIC TECHNOLOGIST documented in this encounter Progress Notes Leslie Ardon MD - 10/25/2018 10:10 AM CST Chief complaint: Possible dystonia. History of present illness: She is seen because of cramps and shaking. She has had cramping in her feet for all her life. Over the last 6-9 months her cramps have become worse and more painful especially in her hands. She had a bad case of bronchitis in February of 2018, ravindra orona pes]rsistent severe cough after which she has had difficulty with phonation especially with hard g and hard k and sometimes h sounds. Her cough is quite bad at times where she may even vomit. Laughing, crying or talking too much may bring it on, but at other times it just happens spontaneously. 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 She did have some voice exercises that have been helpful.Last summer she also started having hyperacusis and could not tolerate sound. She has been using earplugs as she does not tolerate the noise of the traffic. She feels that the vibrations from music affects her ears but they also cause pain to her neck region. At other times her voice gets back to normal. She had a brain MRI done which was normal. She also saw ENT and she was evaluated by Dr. Gandhi,who did a laryngoscopy and felt that this was tension of the vocal cords and recommended speech therapy as he thought Botox injections would not be indicated. Seen Dr. Aguilar at the [facility] who did not feel this was dystonia. A paraneoplastic panel was obtained and was negative. She tried gabapentin for a month. She had a lot of side-effects of dizziness and being disoriented. She is frustratedand looking for answers. Her mother and siblings have cramps. She has been on Prozac, so she is wondering if that has anything to do with it. A friend who has dysphonia and PD recommended an evaluationat our center. She showed me a video-clip of her feet and toes, which will go in weird positions when they cramp up and this is similar to what her siblings and her mother has had. I reviewed the PMH, PSH, FH, SH, medications and allergies from the EHR and through care everywhere.She is her autistic son's primary caregiver. 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 All others are negative. General: Normal appearance for age, overweight. Cardiovascular: Normal auscultation of the heart and great vessels of the neck. Mental status: Alert, oriented, with normal attention, concentration, language, memory, fund of knowledge. Cranial nerves: Visual palacios full, eye movements conjugate, pupillary responses symmetric, funduscopic examination benign. Face movement and sensation, tongue and palate movement, shoulder shrug and neck muscle strength, swallowing and hearing are normal to bedside testing. She has variable voice, strained and breathy at times. She may go into a coughing paroxysm at times. There may be diaphragm spasming as well. Motor: Normal muscle strength, muscle bulk, and tone. Deep tendon reflexes: Normal and symmetric, except for absent right ankle jerk (left is present) without Babinski signs. Sensory: No deficits to light touch and vibration. Coordination: Normal rggxau-uhva-qiludj, fzvf-xbzg-livt. Normal rapid alternating motion rate in the4 extremities. Gait balance: Normal casual and tandem gait, Romberg test, and posture. Impression: 1. Dysphonia 2. Muscle cramps. 3. Muscle spasms. Discussion: Consideration should be given to either a hereditary or acquired channelopathy that produced muscle spasms or dystonic phenomena. She may have a dystonic condition that produces primarily phasic dystonia as well, particularly after viewing the video clips. I think it is worthwhile obtaining a MRI of the c-spine (given possible involvement of the diaphragm and possible triggers as it would be in segmental myoclonus), and an EMG (looking for myotonic discharges), and consider genetic testing for dystonias and channelopathies. Recommendations: 1. MRI c-spine. 2. Genetic counseling 3. EMG 4. Follow up afterwards. IFIED NEURODIAGNOSTIC TECHNOLOGIST documented in this encounter Plan of Treatment Scheduled Referrals Name Type Priority Associated Diagnoses Order S chedule Genetic Lab Testing Referral Routine Muscle cramp s Ordered: 10/25/2018 Request Muscle spasm Dysphonia documented as of this encounter Results MR Cervical Spine WO IV Cont (11/02/2018 12:17 PM CERTIFIED NEURODIAGNOSTIC TECHNOLOGIST) Anatomical Region Laterality Modality Spine, C-Spine, Neck, Vascular Magnetic Resonance Specimen (Source) Anatomical Collection Method Collection Time Re ceived Time Location / / Volume Laterality 11/02/2018 12:17 PM CERTIFIED NEURODIAGNOSTIC TECHNOLOGIST Narrative 11/02/2018 3:25 PM CERTIFIED NEURODIAGNOSTIC TECHNOLOGIST [facility] EXAM: MR CERVICAL SPINE WO IV [...] note might be different from the original. [facility] EXAM: MR CERVICAL SPINE WO IV [...] this encounter Visit Diagnoses Diagnosis Muscle cramps - Primary Cramp of limb Muscle spasm Spasm of muscle Dysphonia Muscle cramps Cramp of limb Muscle spasm Spasm of muscle Dysphonia documented in this encounter Care Teams Geotechnicial Properties Technician Relationship Specialty Start Date End Date Jatinder Haddad MD PCP - General 08/18/1996 [address] [place] [address] documented as of this encounter
--- OUTSIDE RECORDS SUMMARY | 2022-06-26 18:55 | XMS_ITS | Encounter Summary ---
:1970 Author Organization [facility] Address [address] [address] Care Team Providers Name Role Phone Jatinder Haddad MD Primary Care Provider Reason for Visit Reason Comments RESULTS, TEST MRI c-spine Encounter Details Date Type Department Care Team Description 11/03/2018 Telephone [facility] Mayte Oropeza, RESULTS, TEST (MRI [address] fabby [facility] c-spine) [place] [phone] Social History Tobacco Use Types Packs/Day Years Used Date Smoking Tobacco: Never Assessed Sex Assigned at Date Recorded Not on file documented as of this encounter Nursing Notes Mayte Constantino RN - 11/03/2018 9:04 AM CST Spoke with patient and read to her the msg from Dr. Ardon. She verbalized her understanding and has no further questions. Closing encounter at this time. H PLANT SUPERVISOR Mayte Constantino RN - 11/03/2018 9:01 AM CST ----- Message from Leslie Ardon MD sent at 11/02/2018 4:07 PM BATCH PLANT SUPERVISOR ----- Please call:her: MRI c-spine looks good H PLANT SUPERVISOR documented in this encounter Plan of Treatment Not on filedocumented as of this encounter Visit Diagnoses Not on filedocumented in this encounter Care Teams Lamp Shade Maker Relationship Specialty Start Date End Date Jatinder Haddad MD PCP - General 08/18/1996 [address] [place] [address] documented as of this encounter
--- OUTSIDE RECORDS SUMMARY | 2022-06-26 18:55 | XMS_ITS | Encounter Summary ---
:1970 Author Organization [facility] Address [address], [place] [address] Care Team Providers Name Role Phone Jatinder Haddad MD Primary Care Provider Encounter Details Date Type Department Care Team Description 01/24/2014 Outside Hospital External to Sadie Wilson OPE RATIVE REPORT [facility] [address] [place] [address] Social History Tobacco Use Types Packs/Day Years Used Date Smoking Tobacco: Never Assessed Sex Assigned at Date Recorded Not on file documented as of this encounter Plan of Treatment Not on filedocumented as of this encounter Visit Diagnoses Not on filedocumented in this encounter Care Teams Broomcorn Sorter Relationship Specialty Start Date End Date Jatinder Haddad MD PCP - General 08/18/1996 [address] [place] [address] documented as of this encounter
--- OUTSIDE RECORDS SUMMARY | 2022-06-26 18:55 | XMS_ITS | Encounter Summary ---
:1970 Author Organization [employer] Address [address] [place] [address] Care Team Providers Name Role Phone Jatinder Haddad MD Primary Care Provider Encounter Details Date Type Department Care Team Description 05/29/1997 Orders Only Jatinder Haddad MD ABDOMINAL PAIN RUQ [address] [place] [address] (Wo rk) Social History Tobacco Use Types Packs/Day Years Used Date Smoking Tobacco: Never Assessed Sex Assigned at Date Recorded Not on file documented as of this encounter Procedure Notes Terry Navarrete - 05/29/1997 12:00 AM CDTAssociated Order(s): SMALL BOWEL STUDY CLINICAL DATA: R/O SMALL BOWEL PATHOLOGY INTERPRETATION: SBFT: The jejunum, ileum, and terminal ileum are Nl. in appearance. No inflammatory changes are Nl. CONCLUSION: Nl. SBFT Terry Navarrete MD cc: Radiology AV Jatinder Haddad MD documented in this encounter Plan of Treatment Not on filedocumented as of this encounter Procedures Procedure Name Priority Date/Time Associated Diagnosis Comme nts RADEX SM INT W/CHAIR INSTALLER 05/29/1997 12:00 AM Abdominal Pain Ruq Results for this SRL FLMS CDT procedure are i n the results section. documented in this encounter Results SMALL BOWEL STUDY (05/29/1997 12:00 AM CDT) Anatomical Region Laterality Modality Other Specimen (Source) Anatomical Location Collection Method / Collectio n Time Received Time / Laterality Volume 05/29/1997 Transcriptions Terry Navarrete - 05/29/1997 12 :00 AM CDTCLINICAL DATA: R/O SMALL BOWEL PATHOLOGY INTERPRETATION: SBFT: The jejunum, ileum , and terminal ileum are Nl. in appearance. No inflammatory changes are Nl. CONCLUSION: Nl. SBFT Terry Navarrete MD cc: Radiology AV Jatinder Haddad MD Jatinder Haddad MD RAD_FL documented in this encounter Visit Diagnoses Diagnosis Abdominal pain, right upper quadrant documented in this encounter Care Teams Marketing Production Coordinator Relationship Specialty Start Date End Date Jatinder Haddad MD PCP - General 08/18/1996 [address] [place] [address] documented as of this encounter
--- OUTSIDE RECORDS SUMMARY | 2022-06-26 18:55 | XMS_ITS | Encounter Summary ---
:1970 Author Organization [facility] Address [address], [place] [address] Care Team Providers Name Role Phone Jatinder Haddad MD Primary Care Provider Reason for Referral Consult/Transfer Care (Routine) - Closed Specialty Diagnoses / Procedures Referred By Contact Refer red To Contact Diagnoses Muscle spasm Dysphonia Leslie Ardon MD [address] [place], [place] [address] Referral ID Status Reason Start Date Expiration Date Visits Requ ested Visits Authorized [id number] Closed 11/18/2018 05/17/2019 1 1 Scheduling Instructions This order is your clinician's recommend ation for a service and is not an insurance referral which authorizes payment. The r ecommended service and/or location may not be covered by your insurance plan. Please c all the number on your insurance card to find out your specific benefits and coverage for the recommended services and/or location. If you need help scheduling the recommen ded services, please ask your clinician's staff to assist you. Reason for Visit Reason Comments RESULTS, TEST Encounter Details Date Type Department Care Team Description 11/15/2018 Telephone [facility] Mayte Oropeza RN RESULTS, TEST [address] [place] [address] Social History Tobacco Use Types Packs/Day Years Used Date Smoking Tobacco: Never Assessed Sex Assigned at Date Recorded Not on file documented as of this encounter Nursing Notes Ying Jackson, ERYN - 11/22/2018 1:56 PM CDT Completed referral to [facility] faxed to [phone]. Mayte Constantino RN - 11/21/2018 2:53 PM CDT Called and LM for pt with the instructions for titration below (pt states it would be OK to LM). Asked that she call back if she had any further questions/concerns? Leslie Ardon MD - 11/21/2018 2:37 PM CDT After 1 week of 100 mg tid she can increase the dose to 200 mg tid for the gabapentin. Mayte Constantino RN - 11/21/2018 1:29 PM CDT Referral form for the [facility] placed in MD folder for review/completion. Attached the signed Rx from [facility]. Did speak with pt today. She states that she is tolerating the 100mg TID well for the gabapentin (noincreased fatigue). She is wondering how soon she should try titrating it up? She has not noticed any improvement in cramping symptoms yet. Leslie Ardon MD - 11/18/2018 12:26 PM CDT OK. I am faxing the referral Mayte Constantino RN - 11/17/2018 4:23 PM CDT Pt verbalized her understanding. She would like to try the gabapentin and she said she would like to do the referral to the [facility] for genetic testing as well. Please write order as you see fit. Thanks Leslie Ardon MD - 11/17/2018 4:06 PM CDT If she wants to try a low dose of gabapentin we can prescribe the 100 mg and she can try 1 cap up totid. However, this is wit the understanding that we do not know what we are treating. Genetic testing would be able to tell us if she has any of the genes known to cause dystonia. If negative we may not have much else to try diagnostically. If, however, one of the tests s positive then we have an established diagnosis so we know what we are dealing with, what to expect and what might and min=ght not work. I am sending a prescription for the gabapentin. Mayte Constantino RN - 11/17/2018 3:04 PM CDT Patient states if the testing so far has not shown anything, she is wondering what the genetic testing would do for her besides say that I would be more prone to have issues? She states she does not want to go back to [facility] (she said she had a bad experience at the Neurology office). Pt states she's interested in trying a lower-dose of gabapentin to see if it helps her foot concerns; previously when she tried it she experienced bothersome fatigue. Dr. Ardon - please advise. Thanks Leslie Ardon MD - 11/17/2018 2:27 PM CDT Could refer her for genetic counseling to the [facility], but she has been seen there before by Neurology, so I don't know if she wishes to go there. Typically the [facility] core machine operator wants his patients evaluated also by [facility] neurology, but she already had that done. If she wants to pursue we can send a referral. Mayte Constantino RN - 11/17/2018 11:43 AM CDT Spoke with Tevin Nieves, genetic counselor. She states that at this time the schedules are too full for new testing so they are unable to take PN referrals. How would you like to proceed? Leslie Ardon MD - 11/15/2018 12:23 PM CDT Was the genetic counseling ever scheduled? That would be with Yasmeen at [facility]. Follow up with me after that. Mayte Constantino RN - 11/15/2018 11:48 AM CDT Pt called back. Told her EMG was normal. Pt is wondering what her plan for f/u is? She mentioned that it was discussed that she possibly restart gabapentin if the tests were normal or if she should see Dr. Ardon again. Dr. Ardon - please advise. Did you want her to f/u at [facility] or the [facility]? thanks Mayte Constantino RN - 11/15/2018 10:08 AM CDT Attempted call to pt to discuss results. Was only able to LM. Awaiting return call. Mayte Dumont RN - 11/15/2018 10:07 AM CDT ----- Message from Leslie Ardon MD sent at 11/11/2018 2:45 PM REGISTERED PUBLIC SURVEYOR ----- Please call her: the EMG was normal. documented in this encounter Plan of Treatment Scheduled Referrals Name Type Priority Associated Diagnoses Order S chedule Genetics Consult-Adult Referral Routine Muscle sp asm Ordered: 11/18/2018 Dysphonia documented as of this encounter Visit Diagnoses Diagnosis Muscle spasm - Primary Spasm of muscle Dysphonia documented in this encounter Care Teams Asset Liability Analyst Relationship Specialty Start Date End Date Jatinder Haddad MD PCP - General 08/18/1996 [address] [place] [address] documented as of this encounter
--- OUTSIDE RECORDS SUMMARY | 2022-06-26 18:55 | XMS_ITS | Encounter Summary ---
:1970 Author Organization [facility] Address [address] [place] [address] Care Team Providers Name Role Phone Jatinder Haddad MD Primary Care Provider Reason for Visit Procedure/Equipment (Routine) - Closed Specialty Diagnoses / Procedures Referred By Contact Refer red To Contact Diagnoses Muscle cramps Muscle spasm Dysphonia Leslie Ardon MD Procedures NEURO--EMG ELECTRICAL NERVE CONDUCTION STUDY [address] [place], [place] [address] Referral ID Status Reason Start Date Expiration Date Visits Requ ested Visits Authorized [id number] Closed 10/25/2018 01/24/2020 1 1 Encounter Details Date Type Department Care Team Description 11/08/2018 Office Visit David Cardozo Left arm pa in (Primary Dx); [facility] [place] Muscle cramps; Neurology EEG/EMG [address] Muscle spasm; [address] [place], [place] Dysphonia; [place] [address] Left leg pain [phone] Social History Tobacco Use Types Packs/Day Years Used Date Smoking Tobacco: Never Assessed Sex Assigned at Date Recorded Not on file documented as of this encounter Patient Instructions Patient Erin Green - 11/08/2018 10:00 AM CST The results of your EMG exam will be sent to the health care provider who ordered your EMG. Results are usually available in 2-3 days. Your referring provider will discuss the EMG results with you. If you have any site tenderness from the EMG needle exam, feel free to use an ice pack on the area as well as any over the counter pain reliever such as Tylenol or Ibuprofen. If you have any further questions or concerns, please contact us. Call for the [facility]G [facility] in [place]. ER TRAINEE documented in this encounter Progress Notes David Bright MD - 11/08/2018 10:00 AM CST Normal study. David Bright MD 11/08/2018, 10:49 AM Department of Neurology [facility] ER TRAINEE documented in this encounter Plan of Treatment Not on filedocumented as of this encounter Visit Diagnoses Diagnosis Left arm pain - Primary Pain in limb Muscle cramps Cramp of limb Muscle spasm Spasm of muscle Dysphonia Left leg pain Pain in limb documented in this encounter Care Teams Shoulder Boner Relationship Specialty Start Date End Date Jatinder Haddad MD PCP - General 08/18/1996 [address] [place] [address] documented as of this encounter
--- OUTSIDE RECORDS SUMMARY | 2022-06-26 18:55 | XMS_ITS | Encounter Summary ---
:1970 Author Organization [facility] Address [address] [address] Care Team Providers Name Role Phone Jatinder Haddad MD Primary Care Provider Encounter Details Date Type Department Care Team Description 07/06/1997 Orders Only David Arriaga MD ABDOMINAL PAIN UNSPEC SITE [address] [place] [address] (Wo rk) Social History Tobacco Use Types Packs/Day Years Used Date Smoking Tobacco: Never Assessed Sex Assigned at Date Recorded Not on file documented as of this encounter Procedure Notes Davis Osuna - 07/06/1997 12:00 AM CSTAssociated Order(s): CHOLECYSTOGRAPHY (GALLBLADDER) CLINICAL DATA: RUQ PAIN, R/O GALLSTONES INTERPRETATION: OCG: The gallblader is well opacified. The gallbladder is Nl. and no stone is identified. Davis Sepulveda MD cc: Radiology AV David Arriaga M.D. documented in this encounter Plan of Treatment Not on filedocumented as of this encounter Procedures Procedure Name Priority Date/Time Associated Diagnosis Comme nts CCG ORAL CNTRST 07/06/1997 12:00 AM Abdominal Pain Uns pec Results for this CONSTRUCTION SAFETY CONSULTANT Site procedure are i n the results section. documented in this encounter Results CHOLECYSTOGRAPHY (GALLBLADDER) (07/06/1997 12:00 AM CONSTRUCTION SAFETY CONSULTANT) Anatomical Region Laterality Modality Other Specimen (Source) Anatomical Location Collection Method / Collectio n Time Received Time / Laterality Volume 07/06/1997 Transcriptions Davis sOuna - 07/06/1997 12:00 AM C STCLINICAL DATA: RUQ PAIN, R/O GALLSTONES INTERPRETATION: OCG: The gallblader is w ell opacified. The gallbladder is Nl. and no stone is identified. Davis Sepulveda MD cc: Radiology AV David Arriaga M.D. David Arriaga MD RAD_FL documented in this encounter Visit Diagnoses Diagnosis Abdominal pain, unspecified site documented in this encounter Care Teams Radiation Technician Relationship Specialty Start Date End Date Jatinder Haddad MD PCP - General 08/18/1996 [address] [place] [address] documented as of this encounter
--- OUTSIDE RECORDS SUMMARY | 2022-06-26 18:55 | XMS_ITS | Encounter Summary ---
:1970 Author Organization [facility] Address [address] [address] Care Team Providers Name Role Phone Jatinder Haddad MD Primary Care Provider Encounter Details Date Type Department Care Team Description 01/24/2014 Orders Only External to Sadie Wilson MD [address] [place], [place] [address] Social History Tobacco Use [...] on filedocumented in this encounter Care Teams Prehemmer Relationship Specialty Start Date End Date Jatinder Haddad MD PCP - General 08/18/1996 [address] [place] [address] documented as of this encounter
--- OUTSIDE RECORDS SUMMARY | 2022-06-26 18:55 | XMS_ITS | Clinical Summary ---
:1970 Author Organization [employer] [facility] [place] [address] Care Team Providers Name Role Phone Dario Ramos MD Primary Care Provider Allergies Active Allergy Reactions Severity Noted Date Comments Codeine Vomiting 11/17/2006 Hydromorphone Vomiting 12/04/2016 Doxycycline Rash 01/12/2012 Hydrocodone Vomiting 02/20/2014 Promethazine 11/17/2006 Adhesive Tape 06/26/2009 Burn king fro m some type of tapes Tetracycline Rash 03/29/2014 Medications Medication Sig Dispensed Refills Start End Date Status Date fluticasone (50 mcg Inhale 1 [place] 1 Bottle 0 Active per actuation) nasal into both 7 solution (FLONASE) nostrils once daily. cholecalciferol Take 1 capsule 0 Active (VITAMIN D3) 1,000 by mouth once 8 unit capsule daily. hyoscyamine (LEVSIN) Take 1 tablet by 0 Active 0.125 mg tablet mouth every 4 9 hours if needed. ibuprofen (ADVIL; Take 1 tablet by 60 tablet 0 Active MOTRIN) 600 mg mouth every 6 1 tabletIndications: hours if needed. Leg injury, right, Maximum of 3200 initial encounter mg in 24 hours. FLUoxetine (PROZAC) TAKE 1 CAPSULE 30 Capsule 0 Active 40 mg BY MOUTH EVERY 1 capsuleIndications: DAY IN THE Generalized anxiety MORNING disorder mirtazapine Take 1 Tablet 90 Tablet 1 Acti ve (REMERON) 7.5 mg (7.5 mg) by 1 tabletIndications: mouth at Depression, bedtime. unspecified depression type FLUoxetine (PROZAC) Take 20 mg by 0 Active 20 mg capsule mouth once 2 daily. buPROPion Take 150 mg by 0 Activ e (WELLBUTRIN XL) 150 mouth once 2 mg Extended-Release daily. tablet lamoTRIgine Take 100 mg by 0 Act fabby (LAMICTAL) 100 mg mouth once 2 tablet daily. propranoloL Take 20 mg by 0 Acti ve (INDERAL) 20 mg mouth. FOR 2 tablet ANXIETY traZODone (DESYREL) 0.5-2 TABS DAILY 0 Active 50 mg tablet AT BEDTIME 2 NEEDED FOR SLEEP polyethylene Drink 2 liters 4000 mL 0 Ac tive glycol-electrolyte the day before 2 (GOLYTELY) procedure and 236-22.74-6.74 -5.86 drink 2 liters gram 4-6 hours before suspensionIndication colonoscopy s: Encounter for appointment screening colonoscopy fluconazole Take 1 tablet by 2 Tablet 0 A ctive (DIFLUCAN) 150 mg mouth once. January 05 tabletIndications: repeat in 3 days Yeast vaginitis if needed. levothyroxine TAKE 1 TABLET 90 Tablet 0 Ac tive (SYNTHROID) 125 mcg (125 MCG) BY 2 tabletIndications: MOUTH BEFORE Acquired BREAKFAST. hypothyroidism levothyroxine TAKE 1 TABLET 90 Tablet 0 06/26/20 Di scontinued (SYNTHROID) 125 mcg (125 MCG) BY 2 22 tabletIndications: MOUTH BEFORE Acquired BREAKFAST. hypothyroidism cephalexin (KEFLEX) Take 1 Capsule 28 Capsule 0 03/25 500 mg (500 mg) by 2 22 capsuleIndications: mouth four times Abdominal wall daily for 7 cellulitis days. mupirocin (BACTROBAN Apply topically 30 g 0 03/25 OINTMENT) to affected 2 22 ointmentIndications: area(s) three Abdominal wall times daily for cellulitis 7 days. Active Problems Problem Noted Date Stage 3a chronic kidney disease 06/13/2022 Insomnia, idiopathic 10/18/2020 Vocal cord dysfunction 03/07/2018 Family history of heart disease 09/07/2017 Adjustment disorder with mixed anxiety and depressed m ood 05/10/2012 Postablative hypothyroidism 12/29/2011 Toxic multinodul goiter 07/31/2011 Overview: Right sided cystic nodule aspirated in 1 989 x 2... Benign. 07/28/2011: R: Cystic nodule superolaterally 5.0 x 5 .0 x 3.0 mm Larger hypoechoic solid nodule lower po le 2.4 x 1.0 x 1.2 cm. Third nodule 9.0 x 7.0 x 6.0 mm. L : Hypoechoic nodule superior to mid 1. 8 x 1.3 x 1.0 cm Smaller nodule mid-pole medially 5.0 x 5.0 x 3.0 mm. TSH 0.27 (normal before) The 24-hour uptake 30.7%. Dominant hyper functioning nodule lower pole R. Hyperfunctioning nodule upper pole L. Decreased uptake L lower pole R upper th yroid, possibly due to suppression. 09/2011: TSH 0.12 FNA Benign 10/2011: Iodine ablation with 28 mCi 07/2012: Neck US: 0.8 x 0.5 x 0.5 cm nod ule (smaller and no need for further studies)) Dizziness 07/28/2011 Vitamin D deficiency 12/24/2009 2006 Multiple cervical herniations 12/18/2009 Anal fissure 12/06/2009 Anxiety and depression Resolved Problems Problem Noted Date Resolved Date Generalized anxiety disorder 05/22/2020 05/27/2020 Cholecystitis chronic, acute 12/27/2013 09/09/2020 Abnormal thyroid function test 07/31/2011 2 Degeneration of cervical intervertebral disc 02/11/2007 10/30/2009 Displacement of cervical intervertebral disc without 007 10/30/2009 myelopathy Unspecified musculoskeletal disorders and symptoms referable 11/17/2006 10/30/2009 to neck Encounters Date Type Specialty Care Team Description 06/25/2022 Refill Dario Ramos Refill Requ est MD Meaghan (Levothyroxine) 06/15/2022 Telephone Dario Ramos Questions ( patients MD Meaghan request) 06/12/2022 Preop Visit Claire Erwin, Preopera tive Exam; DO Follow Up; Immunization/In jection 06/12/2022 Travel 06/10/2022 Travel 06/05/2022 Office Visit Claire Erwin, Derm Pro blem DO 06/05/2022 Travel 06/01/2022 Nurse/Clinic Staff Immunizat ion/Injection Only 06/01/2022 Travel 05/27/2022 Orders Only Yasmin Nathan, PT <No scan s attached> 05/21/2022 Telephone Abdulaziz Clinton Appointment Re maynor Wan MD 04/16/2022 Hospital Encounter Florencia Tran, MAGNETIC PROSPECTOR Yasmin Nathan, PT Discharge Summary - Yasmin Nathan, PT - 04/16/2022 10:30 AM CDT [facility] Outpatient Physical Therapy Discharge Summary DISCHARGE NOTE Start of Service: 04/06/22 Last date of service: Therapy Completed: No Reason Therapy Not Completed : Unknown - used for patients that do not complete their care or return the therapist's call for a status update (Pt canceled her follow up appointments and has not rescheduled appointments in a month) Goal Status: The status of p atient? s goals cannot be assessed at this time due to patient not returning. See progress note from 04/16/2022 for patient's last known status in therapy. [facility] Physical Therapy Outpatient Progress Note ? Patient Name: JOSE RAFAEL Chappell Date of Service: 04/16/2022 Start of Service: 04/06/22 Visit Count: Visit Count: 2 PT MEDICAL/TREATMENT DIAGNOS IS Mixed stress and urge urinar y incontinence ICD-10 N39.46 ? Referring MD/Provider: Florencia Cárdenas NP Insurance: BCBS ?? Therapist Assessment Patient seen for second naldo tment session for treatment of her mixed urinary incontinence. Patient reports no significant change to date has has some success with urge deferring techniques. Patient tole rated assessment of core and hips today and was able to demonstrate ability to perform exercise issued for home exercise program after instructions in treatment session today. Patient was issued written illustrated instructions. P atient would continue to benefit from skilled physical therapy at this time to address her mixed urinary incontinence. ? SUBJECTIVE SUBJECTIVE Patient Symptoms : Same Change in Functional Status: No Comments : Pt states she [place] to the cabin after last treatment and forgot her folder so did not do her bladder diary will do next week and bring for next rx session. Acute Pain Intensity (0-10): (5-6/10) Location: (in lower back and will shoot posteriorly bilateral LE) Quality: (shooting, sharp, a eva) ? OBJECTIVE SPINE OBJECTIVE (last 48 josé miguel rs) ?? Spine Objective ?? Row Name 04/16/221033 ? CORE STRENGTH ?? Spinal Extensors Normal e quals 10 sec ? TA Contraction Impaired < 10 sec ? Trunk Flexors Impaired <1 0 sec ? Lateral Abdominals Impair ed <10 sec ? LE ROM (last 48 hours) ?? LE OBJECTIVE ?? Row Name 04/16/221033 ? Hip Strength (Flex/Ext/Ab d/Add/IR/ER/Knee Flex/Knee Ext) ?? Hip Strength Right Normal , Except:;Left Normal, Except: ? Row Name 04/16/221033 ? LEFT HIP IMPAIRED STRENGT H ?? Left Hip Extension with F lexed Knee 3+/5 ? Left Hip ER in Sitting 3+ /5 ? Row Name 04/16/221033 ? RIGHT HIP IMPAIRED STRENG TH ?? Right Hip Extension with Flexed Knee 3+/5 ? Right Hip ER in Sitting 3 +/5 ? OBJECTIVE (last 48 hours) ?? PELVIC FLOOR OBJECTIVE ?? Row Name 04/16/221033 ? PELVIC FLOOR OBJECTIVE ?? Pelvic Floor Objective Pe lvic Exam ? Row Name 04/16/221033 ? JOINT SCREEN ?? Lumbar Impaired Lumbar RO M ? Impaired Lumbar ROM Flex finger tips to knees pain in lower back, R SB 80% of normal with increased pain R SI region, L SB and ext WNL ? Row Name 04/16/22 1034 ? SACRAL ILIAC JOINT ?? Active Straight Leg Raise Right Positive ? Distraction Right Positiv e ? Compression Right Positiv e ? Thigh Thrust Negative ? Gaenslen's Negative ? Row Name 04/16/22 1034 ? FLEXIBILITY ?? Hamstring Bilateral Stephanie l ? Piriformis/Gluteals Bilat eral Normal ? Quadriceps Bilateral Norm al ? ITB/TFL Bilateral Normal ? Row Name 04/16/22 1034 ? Hip Strength (Flex/Ext/Ab d/Add/IR/ER/Knee Flex/Knee Ext) ?? Hip Strength Right Normal , Except:;Left Normal, Except: ? Row Name 04/16/22 1034 ? LEFT HIP IMPAIRED STRENGT H ?? Left Hip Extension with F lexed Knee 3+/5 ? Left Hip ER in Sitting 3+ /5 ? Row Name 04/16/22 1034 ? RIGHT HIP IMPAIRED STRENG TH ?? Right Hip Extension with Flexed Knee 3+/5 ? Right Hip ER in Sitting 3 +/5 ? Row Name 04/16/22 1034 ? CORE STRENGTH ?? Spinal Extensors Normal e quals 10 sec ? TA Contraction Impaired < 10 sec ? Trunk Flexors Impaired <1 0 sec ? Lateral Abdominals Impair ed <10 sec ? Row Name 04/16/22 1034 ? DIASTASIS ?? Above Umbilicus 1 ? At Umbilicus 1 ? Below Umbilicus 1 ? Tenting No ? Row Name 04/16/22 1034 ? DIAPHRAGM BREATHING ABILI TY ?? Diaphragm Breathing Abili ty Compensates with Accessory Muscles Breathing ? Row Name 04/16/22 1034 ? BONY PALPATION ?? Bony Palpation Pain/Tende r ? Pain/Tender to sacral yovani maninder with pain over sacrum ? INTERVENTION Today's Interventions Therapeutic Exercise : to im prove strength, endurance, mobility and proper stability to address deficits identified in Physical Therapy to improve patient's function and quality of life. *patient's lumbar and hip mo bility and strength assessed ?? -TrA contraction 5 min with verbal and tactile cues given using diaphragmatic breathing to help patient to initiate contraction -Supine march x 5 reps with tactile and verbal cues for form to ensure TrA activation given -Beginner bridge 5 x 10 rep s with tactile and verbal cues for form given to ensure posterior chain activation -side lying clamshell 5 x 1 0 reps with tactile and verbal cues for form given ?? HOME EXERCISE PROGRAM for re ference ?? Access Code: [email or web address] URL: [email or web address] Date: 04/16/2022 Prepared by: Yasmin Nathan ?? Exercises Hooklying Transversus Abdomi nis Palpation - 1 x daily - 7 x weekly - 1 sets - 10 reps - 5 hold Supine March - 1 x daily - 7 x weekly - 1 sets - 10 reps Beginner Bridge - 1 x daily - 7 x weekly - 1 sets - 10 reps - 5 hold Clamshell - 1 x daily - 7 x weekly - 1 sets - 10 reps - 5 hold ? Home Exercise Program: Urge deferring techniques ? GOALS ?? Patient goal: is better blad aftab control Goal Status Comments: Early in POC only second rx session. ?? Patient will demonstrate: ab cuadra to delay voiding => 20 min from first urge in order to: allow pt to complete tasks without interruption to urinate. in (weeks): 6 weeks Goal Status Comments: Early in POC only second rx session. ?? Patient will demonstrate: go od TrA contration with supine march in order to: stabilize pelvis for improved pelvic floor function to improve bladder control. in (weeks): 8 weeks Goal Status Comments: Early in POC only second rx session. ?? Patient will demonstrate: ab cuadra to perform the knack in order to: decrease incontinence when she coughs or sneezes. in (weeks): 8 weeks Goal Status Comments: Early in POC only second rx session. ?? Patient will demonstrate: in dependence in home program in order to: self manage symptoms to maintain continence after discharge from therapy for improved quality of life. in (weeks): 12 weeks Goal Status Comments: Early in POC only second rx session. ? PLAN ?? Plan for next session: Trell paredes bladder diary, complete pevic exam and progress HEP as assessed to be appropriate. ?? Frequency (number of times p er week): 1 Duration (entire episode of care in weeks): 12 ?? Planned Interventions: Thera peutic exercise (84299);Therapeutic activity (82397);Neuromuscular re-education (91113);Manual therapy (05326);Biofeedback Desiree/Anorect with EMG (27994/86357) 04/16/2022 Travel 04/06/2022 Hospital Encounter Alvin Tran ssiradha E, MAGNETIC PROSPECTOR Mixed stress and urge urinary Yasmin Nathan, PT incontin ence 04/06/2022 Travel from Last 3 Months Immunizations Name Administration Dates Next Due COVID-19 vaccine (Adrling-J&J) PF, MDV 2021 Influenza, IIV3 (Age >=3 years) 06/07/2012, 08/27/2008 Influenza, IIV4 06/12/2022, 06/19/2019 Influenza, IIV4 (=>6mos) MDV 05/29/2016 Td, Preservative Free (age >= 7 Years) 10/18/2007 Tdap 04/05/2017 Zoster (Shingrix-RZV, recombinant) 06/01/2022, 02/27/2022 Family History Medical History Relation Name Comments Heart Disease Brother 1 Kully fatal heart darrian ck at 39, had ICD. Good Health Brother 2 Trepp Heart Disease Brother 2 Trepp chest pains, rec urrent syncope Alcohol/Drug Father Heart Disease Father heart attack at 42 and 43 Thyroid Disease Father ?? Graves Heart Disease Maternal Aunt pacemaker in 40s , at 55 Good Health Maternal Grandfather at age 73 natural causes Good Health Maternal Grandmother at age 85 Some psych concerns Heart Disease Maternal Grandmother pacemaker Good Health Mother Heart Disease Mother pacemaker placed November 2014 Cancer-colon Other Good Health Paternal Grandfather at age 97 natural causes Good Health Paternal Grandmother at age 76, natural causes Heart attack Paternal Uncle multiple heart a ttacks Good Health Sister 1 Cathi Heart Disease Sister 1 Cathi pacer / ICD for monomorphic ventricular tach ycardia Lumbar disc disease Sister 1 Cathi Obesity Sister 1 Cathi Asthma Sister 2 Sol Good Health Sister 2 Sol Bilateral breast cancer No Family History Cancer-breast No Family History Cancer-ovarian No Family History Relation Name Status Comments Brother 1 Kully Brother 2 Trepp Alive Father Alive Maternal Aunt Maternal Grandfather Maternal Grandmother Mother Alive Other Paternal Grandfather Paternal Grandmother Paternal Uncle Sister 1 Cathi Alive Sister 2 Sol Social History Tobacco Use Types Packs/Day Years Used Date Never Smoker Smokeless Tobacco: Never Used Tobacco Cessation: Counseling Given: Yes Alcohol Use Standard Drinks/Week Comments No 0 (1 standard drink = 0.6 oz pure alcoho l) Sex Assigned at Date Recorded Female 2021 1:16 AM CDT COVID-19 Exposure Response Date Recorded In the last 10 days, have you been in contact with No / Unsu re 06/12/2022 2:10 PM CDT someone who was confirmed or suspected to have Coronavirus/COVID-19? Obstetrics History Para Term AB IAB SAB Ectopic Multiple Living Live Births 2 2 2 1 1 Date Outcome GA Total Labor/2nd/3rd Weight Sex Delivery Anes PTL Rebecca A 1 A5 Name Clin Labor Term Ann-Marie ng Term Last Filed Vital Signs Vital Sign Reading Time Taken Comments Blood Pressure 110/70 06/12/2022 2:16 PM CDT Pulse 71 06/12/2022 2:16 PM CDT Temperature 36.6 ??C (97.9 ??F) 05/27/2020 8:53 AM CDT Respiratory Rate 16 10/29/2020 12:00 PM DESIGNER Oxygen Saturation 98% 06/12/2022 2:16 PM CDT Inhaled Oxygen Concentration - - Weight 113.7 kg (250 lb 11.2 oz) 06/12/2022 2:16 PM CDT Height 171.5 cm (5' 7.52) 06/12/2022 2:16 PM CDT Body Mass Index 38.66 06/12/2022 2:16 PM CDT Plan of Treatment Upcoming Encounters Date Type Specialty Care Team Description 06/29/2022 Procedure Only Abdulaziz Clinton MD [address] [facility] [address] (Wo rk) Health Maintenance Due Date Last Done Comments Colonoscopy through age 75 1970 COVID-19 vaccine series (2 05/19/2021 2021 - Booster for Darling series) Depression screening for 10/18/2021 10/18/2020, 09/09/2020, age 12+ 07/01/2020, Additional history exists Fecal testing non-DNA 02/27/2023 12/30/2020 Postponed from (FIT,FOBT,iFOBT) for age 04 022 (Patient 45-75 discretion) Mammogram for age 45-75 03/23/2023 03/23/2022, 08/31/2019, 08/15/2018, Additional history exists BMI (ht and wt on same 06/12/2023 06/12/2022, 02/27/2022, day) for age 18+ 2021, Additional history exists Lipids for age 45-75 02/27/2027 02/27/2022, 05/27/2020, 09/07/2017, Additional history exists Tetanus booster 04/05/2027 04/05/2017, 10/18/2007 Tdap Completed 04/05/2017 Hepatitis C screening for Completed 02/27/2022 age 18-79 Zoster (shingles) series Completed 06/01/2022, 02/27/2022 for age 50+ Influenza for age 50-64 Completed 06/12/2022, 06/19/2019, 05/29/2016, Additional history exists Procedures Procedure Name Priority Date/Time Associated Comments Diagnosis CREATININE Routine 06/12/2022 2:59 PM Abnormal creatine Resu lts for this CDT kinase level procedure are i n the results section. AEROBIC BACTERIAL Routine 06/05/2022 1:40 PM Abdominal wall Re sults for this CULTURE, STAIN CDT cellulitis procedure are in the results section. from Last 3 Months Results (ABNORMAL) CREATININE (06/12/2022 2:59 PM CDT) P athologist Signature CREATININE 1.08 0.57 - 1.11 06/13/2022 [facility] mg/dL 10:17 AM CDT LABORATORY-[facility]ENT [facility] eGFR 62 (L) >90 06/13/2022 [facility] mL/min/1.73 10:17 AM CDT LABORATORY-CENT m2 RAL LABORATORY Comment: As of 2021, eGFR is calcu lated by the CKD-EPI creatinine equation without race adjustment. eGFR can be inf luenced by muscle mass, exercise, and diet. The reported eGFR is an estimation only and is only applicable if the renal function is stable. Specimen Anatomical Collection Method / Collection Time Recei gokul Time (Source) Location / Volume Laterality Blood BLOOD SPECIMEN / Venipuncture / 06/12/2022 2:59 2021 2:59 Unknown Unknown PM CDT PM CDT Claire Erwin DO CHEMISTRY Performing Organization Address City/State/ZIP Code Phon e Number [email or web address] [address] [place] [address] LABORATORY-CENTRAL [facility] LABORATORY (ABNORMAL) AEROBIC BACTERIAL CULTURE, STAIN (06/05/2022 1:40 PM CDT) Component Value Ref Test Analysis Performed At [facility] gist Range Method Time Signature CULTURE RESULT (A) 06/08/2022 [facility] 2:20 PM CDT LABORATORY-CE NTRAL LABORATORY CULTURE 1+ Staphylococcus 06/08/2022 [facility] coagulase negative 2:20 PM CDT LABORATOR Y-CE NTRAL LABORATORY GRAM STAIN No Epithelial 06/08/2022 [facility] cells 2:20 PM CDT LABORATORY-CE NTRAL LABORATORY GRAM STAIN 4+ RBCs 06/08/2022 [facility] 2:20 PM CDT LABORATORY-CE NTRAL LABORATORY GRAM STAIN No PMNs 06/08/2022 [facility] 2:20 PM CDT LABORATORY-CE NTRAL LABORATORY GRAM STAIN No organisms seen 06/08/2022 [facility] 2:20 PM CDT LAB[facility]AT[facility]-CE NTRAL LABORATORY Specimen Anatomical Collection Method Collection Time Receive d Time (Source) Location / / Volume Laterality Other (Other) Non-Blood / 06/05/2022 1:40 PM 06/05/20 22 1:40 Unknown CDT PM CDT Claire Silva Yaima DO MICROBIOLOGY Performing Organization Address City/State/ZIP Code Phon e Number [facility] [address] [place] [address] LABORATORY-CENTRAL [address] LABORATORY from Last 3 Months Insurance Payer Benefit Plan Subscriber ID Effective Dates Phone Address Type / Group WC WORKERS WC WORKERS [id number] 2005-Presen [phone] [address] [place] [address] [employer] OF [id number] 2021-Presen [address] [address] [place] [address] ChappellJOSE RAFAEL Fernandez Workers Comp Self [address] (Home) [place] [address] Care Teams Radiologic Therapist Relationship Specialty Start Date End Date Dario Ramos MD PCP - General Family Practice 06/15/22 [address] [place], [place] [id number]
--- OUTSIDE RECORDS SUMMARY | 2022-06-26 18:55 | XMS_ITS | Encounter Summary ---
:1970 Author Organization [employer] Address [address] [place] [address] Care Team Providers Name Role Phone Jatinder Haddad MD Primary Care Provider Reason for Visit Reason Comments INCISION DRAINING hysterectomy 01/24/14 [facility]AL Encounter Details Date Type Department Care Team Description 03/29/2014 Office Visit [facility] Theresa, Post- operative and Gynecology MD Bart complication, initial Physicians [address] encounter (Primary Dx) [address] [place], [place] [address] [place] [address] [phone] Social History Tobacco Use Types Packs/Day Years Used Date Smoking Tobacco: Never Assessed Sex Assigned at Date Recorded Not on file documented as of this encounter Last Filed Vital Signs Vital Sign Reading Time Taken Comments Blood Pressure 108/72 03/29/2014 2:17 PM CDT Pulse - - Temperature 36.9 ??C (98.4 ??F) 03/29/2014 2:17 PM CDT Respiratory Rate - - Oxygen Saturation - - Inhaled Oxygen Concentration - - Weight - - Height - - Body Mass Index - - documented in this encounter Patient Instructions Patient InstructionsBart Cardenas MD - 03/29/2014 2:38 PM CDT Please cleanse incision area 1-2 times daily with saline and gauze. May address the area with a new sanitary napkin each time. Call with signs of claire infection such as pus drainage increasing redness pain fever or chills. Bart Cardenas MD 03/29/2014, 2:39 PM documented in this encounter Progress Notes Bart Cardenas MD - 03/29/2014 3:48 PM CDT S: This 44-year-old patient presents with concerns about a poorly healing incision post-hysterectomy. She underwent a hysterectomy on 01/24/[address] Sadie Wilson in collaboration with Dr. Gela Escobar had [facility]. Preoperative diagnosis was pelvic pain, history of endometriosis and history of failed laparoscopy with laparotomy to remove left tube and ovary. We have obtained the operative note. Closure of the fascia was done with a 0 looped Maxon suture subcutaneous tissues were approximated with 3 interrupted 3-0 plain catgut suture and skin was closed with subcuticular 4-0 Vicryl stitch. Postoperative pathology showed endometriosis involving uterine serosa, functional ovarian cyst on the right ovary with hemorrhagic corpus luteum, 3 small leiomyomas proliferative phase endometrium and cystically dilated endocervical glands (nabothian cyst) no malignancy was found. Patient states that at her [address] Wilson everything was good with her incision. However at 4 weeks postoperatively she noticed a small defect in the incision was some puslike drainage and bleeding. She saw her primary care doctor for assessment of this and was treated with antibiotics, she thinks cephalexin. 6 weeks postoperative patient saw her surgeon again and was told that the incision everything looked good. However since that time she has noticed small raised areas along the skin suture line that sometimes drain and open up. These spots will heal after several days to week but other spots will open up and go through the same process. She denies high fever or chills. She was treating her incision earlier with half peroxide and half saline washes. She is no longer doing that. O: Blood pressure 108/72, temperature 98.4 ??F (36.9 ??C), temperature source Oral. On exam today she is in no acute distress. Incision is largely intact. She has erythematous slightlyraised areas approximately half a centimeter long in a few millimeters wide some of which showed slight defect superficially in the edges of the incision. I see no claire pus or signs of claire infection. She is not significantly tender to palpation over these areas. Swab taken from some of these areas and sent for superficial wound culture. HGB (g/dl) Date Value 03/29/2014 13.8 05/22/1997 14.6 WBC (k/ul) Date Value 03/29/2014 6.1 05/22/1997 7.1 A: 1-postoperative wound complication P: I reviewed her operative note and told her that the subcuticular Vicryl stitch that was placed and take up to 6-8 weeks to dissolve. Some people get some what an allergic reaction to Vicryl this could be part of the problem. However since she is 9 weeks post postoperative now, I would think if thiswere the issue, that things would be resolving. I advised her to await wound culture and treat accordingly. I also advised her to have a consult with one of our general surgeons regarding these findings. This was arranged for her at [facility] the next several days. The meantime advised her to use saline washes with sterile gauze 1-2 times daily over the incision in Q but open to the air or usea clean sanitary napkin over the incision tissue from rubbing by her clothes. She is to report any signs of claire infection, pus drainage, fever chills increasing pain etc. Greater than 30 minutes then this encounter discussing her concerns and making recommendations. All this was for counseling and discussion except for a few minutes for exam. Bart Cardenas MD 03/29/2014, 3:48 PM documented in this encounter Plan of Treatment Not on filedocumented as of this encounter Procedures Procedure Name Priority Date/Time Associated Diagnosis Comme nts WOUND CULTURE ONLY Routine 03/29/2014 2:00 PM Post-operative R esults for this / SUPERFIC CDT complication, procedure are in initial encounter the result s section. COMPLETE BLOOD Waiting 03/29/2014 1:59 PM Post-operative Resul ts for this COUNT-NO DIFF CDT complication, procedure are in initial encounter the result s section. documented in this encounter Results WOUND CULTURE ONLY / SUPERFIC (03/29/2014 2:00 PM CDT) Component Value Ref Test Analysis Performed At [facility] Range Method Time Signature Specimen Abdomen Swab [facility] Description [facility] Special Unspecified [facility] Requests [facility] Culture Moderate [facility] Staphylococcus [facility] aureus Culture No Evidence of [facility] Inducible [facility] Clindamycin Resistance Report Status Final 03/31/2014 [facility] Organism Moderate [facility] Staphylococcus [facility] aureus Specimen Anatomical Collection Method Collection Time Receive d Time (Source) Location / / Volume Laterality 03/29/2014 2:00 PM 4 3:13 CDT PM CDT Narrative [facility] - 03/31/2014 8:29 AM C DT Performed at [facility], [address] [place] [address] ??[id number] Organism Antibiotic Method Susceptibility Moderate staphylococcus aureus Clindamycin ROGELIO < =0.5 Susceptible SUSCEPTIBLE Moderate staphylococcus aureus Erythromycin ROGELIO > 4 Resistant Resistant Moderate staphylococcus aureus Oxacillin ROGELIO 0 .5 Susceptible Predicts activit y of Methicillin,Nafc illin,Cloxacillin ,Dicloxacillin, cephalosporins,b eta-lactam inhibitor combin ations and Imipenem SUSCEPTIBLE Moderate staphylococcus aureus Tetracycline ROGELIO < =0.5 Susceptible SUSCEPTIBLE Moderate staphylococcus aureus Trimeth/Sulfa ROGELIO < =0.5/9.5 Susceptible SUSCEPTIBLE Moderate staphylococcus aureus Vancomycin ROGELIO 1 Susceptible SUSCEPTIBLE Bart Cardenas MD LAB_2 Performing Organization Address City/State/ZIP Code Phon e Number [facility] [phone] (ABNORMAL) HEMOGRAM/PLTS (03/29/2014 1:59 PM CDT) athologist Signature WBC 6.1 4.0 - 11.0 [facility] k/ul [facility] RBC 4.19 4.0 - 5.2 [facility] M/ul [facility] Hemoglobin 13.8 12.0 - [facility] 16.0 g/dl [facility] HCT 39.8 36.0 - [facility] 46.0 % LAB[facility] MCV 95.0 80 - 100 [facility] fl [facility] MCH 33.1 26 - 34 pg [facility] MCHC 34.8 32 - 36 [facility] g/dl [facility] RDW 11.4 (L) 11.5 - [facility] 14.5 % [facility] Platelets 243 150 - 450 [facility] k/ul [facility] Specimen Anatomical Collection Method Collection Time Receive d Time (Source) Location / / Volume Laterality 03/29/2014 1:59 PM 4 2:04 CDT PM CDT Narrative [facility] - 03/29/2014 2:10 PM C DT Performed at [facility], [address], [place] [address] Bart Cardenas MD LAB_1 Performing Organization Address City/State/ZIP Code Phon e Number [facility] [phone] documented in this encounter Visit Diagnoses Diagnosis Post-operative complication, initial enc ounter - Primary documented in this encounter Care Teams Deckhand Clam Dredge Relationship Specialty Start Date End Date Jatinder Haddad MD PCP - General 08/18/1996 [address] [place] [address] documented as of this encounter
--- OUTSIDE RECORDS SUMMARY | 2022-06-26 18:55 | XMS_ITS | Clinical Summary ---
:1970 [facility] Address [address], [place] [address] Care Team Providers Name Role Phone Jatinder Haddad MD Primary Care Provider Source Comments You are receiving this document as you are listed as the primary care provider,follow-up provider, or the patient has been referred to you for consultation.This is in compliance with the Medicare and Medicaid EHR Incentive Program,which states Providers who transition their patient to another setting of careor provider of care or refers their patient to another provider of care shouldprovide summarycare record for each transition of care or referral. [employer] Allergies Active Allergy Reactions Severity Noted Date Comments Codeine Other, see comments 03/29/2014 Vomittin g Hydromorphone Nausea And Vomiting 10/25/2018 Tetracyclines & Related Rash 03/29/2014 Hydrocodone Gastrointestinal 04/06/2014 Severe vomi ting from hydrocodone Promethazine Hcl Other, see comments 03/29/2014 Pass ed out per pt Medications Medication Sig Dispensed Refills Start Date End Date Status fexofenadine Take 180 mg by 0 Ac tive (ALLER-EASE) 180 MG mouth daily as tablet needed. levothyroxine Take 125 mcg by 1 09/17/2018 Active (SYNTHROID) 125 MCG mouth daily. tablet hyoscyamine (LEVSIN) Take 0.125 mg by 0 09/21/2017 Active 0.125 MG tablet mouth as needed. FLUoxetine (PROZAC) 20 Take 20 mg by 0 Active MG capsule mouth daily. Active Problems Problem Noted Date Muscle cramps 06/18/2020 Muscle spasm 10/25/2018 Dysphonia 10/25/2018 Suture reaction 04/06/2014 Postoperative wound infection 03/31/2014 Overview: See 03/30/14 Energy Project Engineer note. 03/31/2014 Positive wound culture for Sta ph aureus. Discussed sensitivity results with Dr. Vega of I[facility]D. She recommends Cephalexin 500mg qid for 10 days. Social History Tobacco Use Types Packs/Day Years Used Date Smoking Tobacco: Never Assessed Sex Assigned at Date Recorded Not on file Last Filed Vital Signs Vital Sign Reading Time Taken Comments Blood Pressure 106/70 06/18/2020 4:15 PM CDT 05/27/20 Pulse 71 06/18/2020 4:15 PM CDT Temperature 36.8 ??C (98.2 ??F) 04/06/2014 3:19 PM CDT Respiratory Rate - - Oxygen Saturation - - Inhaled Oxygen Concentration - - Weight 104.8 kg (231 lb) 06/18/2020 4:15 PM CDT 05/27/20 Height 172.7 cm (5' 8) 10/25/2018 10:24 AM PREVENTIVE MEDICINE SPECIALIST Body Mass Index 35.12 10/25/2018 10:24 AM PREVENTIVE MEDICINE SPECIALIST Plan of Treatment Health Maintenance Due Date Last Done Comments Cervical Cancer Screening 1970 Due Colon Cancer Screening Plan 1970 Due Hep C Screening (Preventive 1970 Services) HepB (1) 1970 Mammogram 1970 COVID-19 Vaccine (#1) 1970 HIV Screening (Preventive 1986 Services) Adult Preventive Visit 1988 Cholesterol 2015 Zoster/Shingles (1 of 2) 2020 Influenza (#1) 2022 06/19/2019, 05/29/2016, 06/07/2012, Additional history exists DTaP/Tdap/Td (2 - Tdap) 04/05/2027 04/05/2017, 10/18/2007 HepA Aged Out No longer eligib le based on patient 's age to complete this topic Hib Aged Out No longer eligib le based on patient 's age to complete this topic IPV (Polio) Aged Out No longer eligib le based on patient 's age to complete this topic MCV4 Aged Out No longer eligib le based on patient 's age to complete this topic Pneumococcal Aged Out No longer eligib le based on patient 's age to complete this topic Insurance Payer Benefit Plan / Subscriber ID Effective Dates Phone Addre ss Type Group BCBS BCBS OUT OF [id number] 2013-Present [address] [address] [place] [address] (Home) W [phone] PRINCETON MD (Work) [id number] [address] Personal/Family Self [address] (Home) [place] [address] Care Teams Public Policy Associate Relationship Specialty Start Date End Date Jatinder Haddad MD PCP - General 08/18/1996 [address] [place] [address]
--- OUTSIDE RECORDS SUMMARY | 2022-06-26 18:55 | XMS_ITS | Encounter Summary ---
:1970 Author Organization [facility] Address [address] [place] [address] Care Team Providers Name Role Phone Jatinder Haddad MD Primary Care Provider Encounter Details Date Type Department Care Team Description 07/02/1997 Office Visit David Hennessy MD ABDOMINAL PAIN UNSPEC Gastroenterology [address] [facility] [address] [place], [place] [phone] (Wo rk) Social History Tobacco Use Types Packs/Day Years Used Date Smoking Tobacco: Never Assessed Sex Assigned at Date Recorded Not on file documented as of this encounter Progress Notes David Arriaga - 07/02/1997 12:00 AM CSTHISTORY OF PRESENT ILLNESS The patient is a 27-year-old woman who has chronic abdominal pain for the last 1 years who had an extensive workup and is referred in today for possible further evaluation and explanation of symptoms by the referring doctor, Dr. Parker Haddad. Her symptoms began approximately 1 years ago, but apparently were quite severe last summer. She speaks of herself as being chronically ill and yet she has not been hospitalized. Has been told by many physicians that no abnormalities have been found on the studies. Her pain was experienced in the right upper quadrant and would last for a matter of minutes, but was associated with nausea. This would be experienced almost any time she would eat and she gives a list of foods that bother her. This is a very extensive list including anything that is greasy or spicy and at times any sort of food. The pain would be a dull pressure or intense cramp, the latter lasting just for several minutes, the former lasting for hours and hours. It has been associated with nausea, and what she describes as a sick feeling. She keeps referring to herself as getting sick and yet there is nothing objective to suggest that she really is ill. She and her express dissatisfaction with numerous doctors prior to seeing Dr. Haddad due to the fact that they felt the workup and the origin of her symptoms were not adequately explained. There were suggestions that she seek mental health counseling, but they did not want to do this and apparently she was tried on nortriptyline for a month or two without success. Her workup has been thorough and includes a gastroscopy with biopsy showing H. pylori, although treatment was widely not offered to her by Dr. Velez or Renu. She also has had a barium enema, the results of which are not available, but she tells me were unremarkable. Small bowel follow through was unremarkable. She has had several ultrasounds, right upper quadrant, which are also unremarkable. There was a hepatobiliary scan done that apparently showed an ejection fraction of 29%, normal being 35%. She briefly saw a surgeon who told her that he did not want to take her gallbladder out. Currently, she is doing fairly well, according to her and her , who were here with their little boy who was consistently disruptive during the interview and made the interview somewhat inefficient. Any time she eats she has right upper quadrant pain lasting 2-3 minutes and says that she feels very sick. She has not had nausea and vomiting, weight loss, change in bowel habits, melena, hematochezia, ocular or other joint symptoms. Her recent CBC on 05/22 was unremarkable, as was a bili, and a set of LFTs and an amylase. She had previously been a [facility] patient back in 1994 and 1993 and her CBC and labs were normal also. There is a positive family history of gallbladder disease at a young age in her mother. Both her and her insist that this presented the same way. There was so much to talk about that we did not even get to stresses and anxieties in life as they were not particularly interested in discussing these. She has been seen several times in our urgent care or ER setting and, I believe, was hospitalized once briefly for a CT scan that was also unremarkable. I do note back in that she had abdominal pain and nausea. She has been on amitriptyline and Tagamet. She has not had discreet heartburn, regurgitation, dysphagia or odynophagia. But her symptoms are almost always postprandial within the past hour, but not nocturnal. She does not drink alcohol. Does not have a past medical, surgical or family history of any significance. The symptoms began shortly after her son was born, but we did not discuss stress and anxiety related to child rearing or her family situation. She does not use NSAIDs regularly and is on no medications now. PHYSICAL EXAMINATION: Weight is 175. Pulse 84. Blood pressure 108/70. Pleasant, somewhat anxious young woman in no acute distress. Lungs are clear to auscultation and percussion. There is no lymphadenopathy or thyromegaly. Cardiac exam reveals normal S1 and S2 with no murmurs, rubs or gallops. The abdomen is scaphoid with no evidence of organomegaly, masses or tenderness. She states that her right upper quadrant is tender, but there are no trigger points and the pain is not reproduced. The liver descends two finger breaths and is not palpable, but is percussible. There is no hepatosplenomegaly, masses or ascites. No signs of chronic liver disease, scleral icterus, jaundice, spider angiomatous, etc. IMPRESSION: Upper abdominal pain - dyspepsia. COMMENTS AND PLAN: I had an extensive discussion with her and her about the likely origin of her symptoms as being nonulcerative dyspepsia, a poorly understood entity where patients have symptoms following eating. However, I do suggest the following to confirm this diagnosis: 1. I will begin her on Tagamet 800 b.i.d., which is an antireflux dose, as it is somewhat possible that atypical reflux symptoms may be causing this. Ulcerative dyspepsia in general does not respond to H2 blockers. 2. I will order an oral cholecystogram just in case she does have evidence of chronic gallbladder disease given that her ejection fraction was somewhat down. If there is evidence of cholesterosis, small gallstones, and/or chronic cholecystitis, she can be referred to a surgeon for consideration of cholecystectomy. They seem to want to meet with a surgeon and this would be reasonable, although I hasten to add that the response rate to laparoscopic cholecystectomy in someone of this sort may be around the placebo rate of 30-40%. 3. I would like her to seriously consider after the above measures are done that she might benefit by seeing a health psychologist who can discuss with her her reaction to these symptoms and her perception that she is ill. She speaks of these symptoms as being disabling and yet she and her cannot give me an exact question as to why this is the case. I do suspect that unless we turn up something on the gallbladder studies, that she is indeed a functional patient and may require some sort of health psychology for stress management, inside oriented discussion, or low-dose antidepressives. She will call me over the phone for results of these studies and may need to follow up with Dr. Haddad to discuss the surgical referral if this is deemed worthwhile at that time. I would suggest no further diagnostic studies other than mentioned above at this time. cc: E SPECIALIST documented in this encounter Plan of Treatment Not on filedocumented as of this encounter Visit Diagnoses Diagnosis Abdominal pain, unspecified site documented in this encounter Care Teams Ethanol Maintenance Mechanic Relationship Specialty Start Date End Date Jatinder Haddad MD PCP - General 08/18/1996 [address] [place] [address] documented as of this encounter
--- OUTSIDE RECORDS SUMMARY | 2022-06-26 18:55 | XMS_ITS | Encounter Summary ---
:1970 Author Organization [facility] Address [address], [place] [address] Care Team Providers Name Role Phone Jatinder Haddad MD Primary Care Provider Encounter Details Date Type Department Care Team Description 04/27/1995 Orders Only Destiny Turk Social History Tobacco Use Types Packs/Day Years Used Date Smoking Tobacco: Never Assessed Sex Assigned at Date Recorded Not on file documented as of this encounter Plan of Treatment Not on filedocumented as of this encounter Visit Diagnoses Not on filedocumented in this encounter Care Teams Entry Level Java Developer Relationship Specialty Start Date End Date Jatinder Haddad MD PCP - General 08/18/1996 [address] [place] [address] documented as of this encounter
--- OUTSIDE RECORDS SUMMARY | 2022-06-26 18:55 | XMS_ITS | Encounter Summary ---
:1970 Author Organization [employer] Address [address], [place] [address] Care Team Providers Name Role Phone Jatinder Haddad MD Primary Care Provider Encounter Details Date Type Department Care Team Description 05/22/1997 Notes/[place] [address] [place] [address] (Wo rk) Social History Tobacco Use Types Packs/Day Years Used Date Smoking Tobacco: Never Assessed Sex Assigned at Date Recorded Not on file documented as of this encounter Plan of Treatment Not on filedocumented as of this encounter Procedures Procedure Name Priority Date/Time Associated Diagnosis Comme nts AMYLASE Routine 05/22/1997 4:38 PM Results f or this CDT procedure are i n the results section. ALT (SGPT) Routine 05/22/1997 4:38 PM Results f or this CDT procedure are i n the results section. AST Routine 05/22/1997 4:38 PM Results f or this CDT procedure are i n the results section. BILIRUBIN, TOTAL Routine 05/22/1997 4:38 PM Resul ts for this CDT procedure are i n the results section. ALKALINE Routine 05/22/1997 4:38 PM Results f or this PHOSPHATASE, TOTAL CDT procedure are in the results section. UA MICRO IF Routine 05/22/1997 4:38 PM Results f or this CDT procedure are i n the results section. CBC HEME PANEL Routine 05/22/1997 4:38 PM Results for this CDT procedure are i n the results section. documented in this encounter Results BILI - TOTAL (> 30 DAYS OLD) (05/22/1997 4:38 PM CDT) athologist Signature Bilirubin, 0.3 0.3 - 1.2 [facility] Total mg/dl Specimen Anatomical Collection Method Collection Time Receive d Time (Source) Location / / Volume Laterality 05/22/1997 4:38 PM 7 4:39 CDT PM CDT Jatinder Haddad MD LAB_1 Performing Organization Address [facility] Phon e Number [facility] [phone] [facility] [address] [place] [phone] AST (SGOT) (05/22/1997 4:38 PM CDT) athologist Signature AST (SGOT) 14 12 - 45 U/L [facility] Specimen Anatomical Collection Method Collection Time Receive d Time (Source) Location / / Volume Laterality 05/22/1997 4:38 PM 7 4:39 CDT PM CDT Jatinder Haddad MD LAB_1 Performing Organization Address [facility] Phon e Number [employer] [phone] [address] AMYLASE (05/22/1997 4:38 PM CDT) athologist Signature Amylase 87 34 - 122 [facility] U/L Specimen Anatomical Collection Method Collection Time Receive d Time (Source) Location / / Volume Laterality 05/22/1997 4:38 PM 7 4:39 CDT PM CDT Jatinder Haddad MD LAB_1 Performing Organization Address [facility] Phon e Number [employer] [phone] [facility] [address] [place] [phone] ALT (SGPT) (05/22/1997 4:38 PM CDT) athologist Signature ALT (SGPT) 6 0 - 55 U/L [facility] Specimen Anatomical Collection Method Collection Time Receive d Time (Source) Location / / Volume Laterality 05/22/1997 4:38 PM 7 4:39 CDT PM CDT Jatinder Haddad MD LAB_1 Performing Organization Address [facility] Code Phon e Number [facility] [phone] [facility] [address] [place] [phone] ALK. P'TASE, TOTAL (05/22/1997 4:38 PM CDT) Analysis Performed At Patho logist Time Signature Alkaline 88 31 - 115 [facility] Phosphatase U/L Specimen Anatomical Collection Method Collection Time Receive d Time (Source) Location / / Volume Laterality 05/22/1997 4:38 PM 7 4:39 CDT PM CDT Jatinder Haddad MD LAB_1 Performing Organization Address [facility] Phon e Number [facility] [phone] [facility] [address] [place] [phone] UA MICRO IF (05/22/1997 4:38 PM CDT) Patholo gist Method Time Signature Appr Yellow [facility] Appr Clear [facility] Sp Gr 1.025 1.005 - [facility] 1.030 Leuk 0 0 [facility] Nitr 0 0 [facility] pH 8.0 4.5 - 8.0 [facility] Prot 0 0 mg/dl [facility] Gluc 0 0 g/dl [facility] Ket 0 0 [facility] Urob 0.1-1 0.1 - 1 [facility] mg/dl Bili 0 0 [facility] Blood 0 0 [facility] Comment Micro Not [facility] Indicated Specimen Anatomical Collection Method Collection Time Receive d Time (Source) Location / / Volume Laterality 05/22/1997 4:38 PM 7 4:39 CDT PM CDT Jatinder Haddad MD LAB_1 Performing Organization Address [facility] Phon e Number [employer] [phone] [facility] [address] [place] [phone] CBC HEME PANEL (05/22/1997 4:38 PM CDT) P athologist Signature WBC 7.1 4.2 - 10.0 [facility] k/ul RBC 4.61 3.8 - 5.4 [facility] M/ul Hemoglobin 14.6 12 - 16 [facility] g/dl HCT 42.6 35 - 46 % [facility] MCV 92 80 - 98 fl [facility] MCH 31.7 27 - 34 pg [facility] MCHC 34.3 32 - 36 % [facility] Platelets 214 150 - 450 [facility] k/ul Specimen Anatomical Collection Method Collection Time Receive d Time (Source) Location / / Volume Laterality 05/22/1997 4:38 PM 7 4:39 CDT PM CDT Jatinder Haddad MD LAB_1 Performing Organization Address City/State/ZIP Code Phon e Number [facility] [phone] [address] documented in this encounter Visit Diagnoses Not on filedocumented in this encounter Care Teams Western Philosophy Professor Relationship Specialty Start Date End Date Jatinder Haddad MD PCP - General 08/18/1996 [address] [place] [address] documented as of this encounter
--- OUTSIDE RECORDS SUMMARY | 2022-06-26 18:55 | XMS_ITS | Encounter Summary ---
:1970 Author Organization [facility] Address [address], [place] [address] Care Team Providers Name Role Phone Jatinder Haddad MD Primary Care Provider Reason for Visit Reason Comments Outside Records on File CT TMJ Disk Encounter Details Date Type Department Care Team Description 09/23/2018 Telephone [facility] Allison Tavera Outside Records on [address] Jerrod RN File (CT T MJ Disk) [place] [address] Social History Tobacco Use Types Packs/Day Years Used Date Smoking Tobacco: Never Assessed Sex Assigned at Date Recorded Not on file documented as of this encounter Nursing Notes Allison Tavera RN - 09/23/2018 3:28 PM CST Received a CT TMJ disk. Placed in Dr. Ardon blue folder for review. Patient has upcoming appointment. Closing encounter at this time. Dr. Reva CEDEÑO RWEAR TRIMMER documented in this encounter Plan of Treatment Not on filedocumented as of this encounter Visit Diagnoses Not on filedocumented in this encounter Care Teams Supervisor Edging Relationship Specialty Start Date End Date Jatinder Haddad MD PCP - General 08/18/1996 [address] [place] [address] documented as of this encounter
--- OUTSIDE RECORDS SUMMARY | 2022-06-26 18:55 | XMS_ITS | Encounter Summary ---
:1970 Author Organization [employer] Address [address] [place] [address] Care Team Providers Name Role Phone Jatinder Haddad MD Primary Care Provider Encounter Details Date Type Department Care Team Description 05/22/1997 Office Visit Jatinder Haddad MD ABDOMINAL PAIN UNSPEC SITE [address] [place] [address] (Wo rk) Social History Tobacco Use Types Packs/Day Years Used Date Smoking Tobacco: Never Assessed Sex Assigned at Date Recorded Not on file documented as of this encounter Consult Notes Jatinder Haddad - 05/22/1997 12:00 AM CDTS: Patient former member who comes in for evaluation regarding chronic right upper quadrant abdominal pain. Patient had been living in [place], moved back to [place] in . Underwent an appendectomy in , about 3 months . Apparently about a year ago had an episode of nausea, lightheadedness, stomach and abdominal discomfort after eating some mixed nuts. Had a negative gallbladder ultrasound at that time. Then states beginning in late February she just started feeling poorly and then on 03/16 had a lunch of fried chicken and developed some nausea and right upper quadrant pain. Was seen with her primary care clinic in [place] at that time and an ultrasound was scheduled which again was negative. States over about a 2 week period she kept having symptoms of nausea and right upper quadrant pain, sometimes associated with lightheadedness, sometimes associated with radiation into the right side of her back. Sx. seemed to be worse after eating. Over time the symptoms did become less frequent but tend to occur more often with greasy and spicy foods or with eating large meals. The episodes occur unpredictably now although sometimes she knows if she eats a certain thing it will reproduce the symptoms. She really has not had any bowel changes. States occasionally when the pain is real severe she will have a little bit of loose stool but otherwise has normal soft stools once every day or two. She has not lost any weight or gained weight. She has not had any vomiting. Patient has undergone significant battery of tests during this time in [place]. She was admitted to the hospital in [place] in late March overnight. Evaluation has included her negative abdominal ultrasound. She had a normal pelvic and abdomen CT scan. She had a normal chest x-ray and KUB of the abdomen. Normal barium enema, as well as essentially negative hepatobiliary scan in early April. The only possible abnormality on the scan showed an ejection fraction of the gallbladder of 29.1% which was felt to be lower than the normal of 35%. Patient also underwent an upper endoscopy by a loft patternmaker in late March. Apparently showed very mild gastritis. Test for H-pylori was negative. Patient has been treated with H2 blockers including Zantac, Tagamet, as well as Propulsid. Didn't feel that any of those medicines really helped much. Patient has also had stool cultures, smears for white cells, O&P, Giardia - all have been negative. Serum chemistries have also been apparently normal. Patient has been using Darvocet on an average of about once a day. About 3 weeks ago she saw a surgeon who felt that possibly her symptoms could be related to an irritable bowel syndrome and had her try Nortriptyline 25 mg. b.i.d. which she took for about a week but because she was having allergy symptoms and didn't want to mix medicine she stopped it at that point. She has been working at [employer]. Has not been under any more stress. Her and son are with her here today and her seems to confirm that there has not been any significant emotional changes. Patient in the past has been known to need to have somewhat persistent pain symptoms of various areas including during her when I followed her. She does not eat much diary products. O: Weight: 171 lb. B/P: 100/70. Heart rate: 88, regular. She has no CVA tenderness. Chest is clear. Cardiac exam is benign. She does have tenderness to the right mid epigastric and right upper quadrant. There is no liver enlargement. No splenic enlargement. Remainder of the abdomen is entirely benign. Pelvic exam not performed at this time. A: Chronic episodic nausea and right upper quadrant abdominal pain which does sound more typical of gallbladder disease but really her studies have been negative. Could certainly be irritable bowel syndrome but really seems a little bit atypical for that and the pattern of her symptoms. She has had a very thorough workup although a small bowel has not been fully assessed. I doubt that this will be positive and think it is a low likelihood that she has Crohn's disease or some other small bowel pathology. P: After some discussion with patient and we decided to go ahead and do a small bowel follow through to complete her evaluation. I will also recheck CBC, liver function test and urinalysis. I did advise her to go ahead and initiate Nortriptyline 25 mg. at h.s. We discussed use of plain antihistamines and avoiding decongestants for her allergies. I will discuss test results with her when we have obtained them. She states one of the reasons they switched clinics was to get a 2nd opinion regarding her problem and I feel we may want to go ahead and have GI see her for a 2nd opinion of the current tests are negative. cc: documented in this encounter Plan of Treatment Not on filedocumented as of this encounter Visit Diagnoses Diagnosis Abdominal pain, unspecified site documented in this encounter Care Teams Manager Regional Relationship Specialty Start Date End Date Jatinder Haddad MD PCP - General 08/18/1996 [address] [place] [address] documented as of this encounter
--- OUTSIDE RECORDS SUMMARY | 2022-06-26 18:55 | XMS_ITS | Encounter Summary ---
:1970 Author Organization [facility] Address [address] [place] [address] Care Team Providers Name Role Phone Jatinder Haddad MD Primary Care Provider Reason for Visit Reason Onset Date Comments Medication Request 03/31/2014 Encounter Details Date Type Department Care Team Description 03/31/2014 Telephone [facility]line Consuelo Arriaga, Medication Request [address] RN [place], [place] [address] Social History Tobacco Use Types Packs/Day Years Used Date Smoking Tobacco: Never Assessed Sex Assigned at Date Recorded Not on file documented as of this encounter Nursing Notes Consuelo Arriaga RN - 03/31/2014 11:01 AM CDT Spoke to Dr. Cardenas. He ordered a medication for pt's positive wound culture. Verbal order verified with provider. cephalexin (AKA KEFLEX) 500 MG capsule 40 Cap 0 03/31/2014 Pt did have questions regarding the wound culture and requested to speak with provider. Called provider and he stated he would call her. Consuelo Arriaga RN 03/31/2014, 11:02 AM documented in this encounter Plan of Treatment Not on filedocumented as of this encounter Visit Diagnoses Not on filedocumented in this encounter Care Teams Realty Specialist Relationship Specialty Start Date End Date Jatinder Haddad MD PCP - General 08/18/1996 [address] [place], [place] [id number] documented as of this encounter
--- OUTSIDE RECORDS SUMMARY | 2022-06-26 18:55 | XMS_ITS | Encounter Summary ---
:1970 Author Organization [facility] Address [address] [place] [address] Care Team Providers Name Role Phone Jatinder Haddad MD Primary Care Provider Encounter Details Date Type Department Care Team Description 03/31/2014 Telephone [place] [facility] and Bart Cardenas MD Gynecology Physician s [address] [place], [place] [address] [phone] (Wo rk) Social History Tobacco Use Types Packs/Day Years Used Date Smoking Tobacco: Never Assessed Sex Assigned at Date Recorded Not on file documented as of this encounter Nursing Notes Bart Cardenas MD - 03/31/2014 11:16 AM CDT At the request of Care Line nurse, I called patient about recommended Rx of Cephalexin for wound infection. Patient is reluctant to take it because she was on it 4 weeks ago and her wound issues did not permanently resolve. I explained to patient about the wound culture showed Staph aureus growth withsensitivity results showing activity of Cephalexin against the Staph. I discussed these results withDr. Vega of I.D., and she recommends Cephalexin over the other antibiotics showing activity against the Staph even though the patient was on this antibiotic before. Dr. Vega is aware of her prior use of Cephalexin. Patient also wants to see a resource specialist teacher for evaluation. I informed her that lead nurse Shira Freeman is in the process of arranging evaluation of her wound through General Surgery and should contact her early next week. I did inform patient that the Surgeon would likely want to await the effectsof the entire course of treatment with Cephalexin before recommending some other intervention. She understands this but still says she wants to see a resource specialist teacher next week. I told patient that she would be called Wednesday by lead nurse Shira Freeman, but, in the meantime, she should order picker her Cephalexin Rx and start this today. She is in agreement with that. Bart Cardenas MD 03/31/2014, 11:26 AM documented in this encounter Plan of Treatment Not on filedocumented as of this encounter Visit Diagnoses Not on filedocumented in this encounter Care Teams Bailing Machine Operator Relationship Specialty Start Date End Date Jatinder Haddad MD PCP - General 08/18/1996 [address] [place] [address] documented as of this encounter
--- OUTSIDE RECORDS SUMMARY | 2022-06-26 18:56 | XMS_ITS | Encounter Summary ---
:1970 Author Organization [facility] Address [address], [place] [address] Care Team Providers Name Role Phone Jatinder Haddad MD Primary Care Provider Encounter Details Date Type Department Care Team Description 01/27/1995 Office Visit Jatinder Haddad MD Supervision of normal first [address] [facility] [place], [place] [phone] (Wo rk) Social History Tobacco Use Types Packs/Day Years Used Date Smoking Tobacco: Never Assessed Sex Assigned at Date Recorded Not on file documented as of this encounter Plan of Treatment Not on filedocumented as of this encounter Visit Diagnoses Diagnosis Supervision of normal first documented in this encounter Care Teams Trade Marker Relationship Specialty Start Date End Date Jatinder Haddad MD PCP - General 08/18/1996 [address] [place], [place] [id number] documented as of this encounter
--- OUTSIDE RECORDS SUMMARY | 2022-06-26 18:56 | XMS_ITS | Encounter Summary ---
:1970 Author Organization [facility] Address [address], [place] [address] Care Team Providers Name Role Phone Jatinder Haddad MD Primary Care Provider Encounter Details Date Type Department Care Team Description 04/27/1995 Office Visit Destiny Cintron MD Acute sinusitis, [address] unspecified [place], [place] [address] (Wo rk) Social History Tobacco Use Types Packs/Day Years Used Date Smoking Tobacco: Never Assessed Sex Assigned at Date Recorded Not on file documented as of this encounter Progress Notes Destiny Cintron MD - 04/27/1995 12:00 AM CDTS: 25 YOF here c/o having general scratchy throat, a little headache x 5 days and over the last 3 days increased nasal congestion, pressure, headaches associated with jaw pain and teeth pain. She has had fever and chills, PND, slight amount of cough. Feels like her ears are plugged. She did try some Sudafed without any significant changes. She is breast feeding. O: Alert, cooperative, INAD. Sounding nasally congested. HEENT: TMs pearly sheets in color with good light reflex and landmarks. Retracted. Nose showed mild swelling with clear nasal discharge. Mouth is moist. Posterior pharynx clear. She had tenderness over the maxillary sinuses. Neck was supple with submandibular lymphadenopathy. A: Sinusitis. P: Amoxicillin 500 mg. one p.o. t.i.d. x 14 days. Tylenol for pain. Sudafed for decongestant. Normal saline nasal spray. F/u 2 wk. if not better. cc: documented in this encounter Plan of Treatment Not on filedocumented as of this encounter Visit Diagnoses Diagnosis Acute sinusitis, unspecified documented in this encounter Care Teams Business Objects Developer Relationship Specialty Start Date End Date Jatinder Haddad MD PCP - General 08/18/1996 [address] [place] [address] documented as of this encounter
--- OUTSIDE RECORDS SUMMARY | 2022-06-26 18:56 | XMS_ITS | Encounter Summary ---
:1970 Author Organization [facility] Address [address] [address] Care Team Providers Name Role Phone Jatinder Haddad MD Primary Care Provider Encounter Details Date Type Department Care Team Description 12/30/1994 Office Visit Jatinder Haddad MD Supervision of normal first [address] [facility] [place], [place] [phone] (Wo rk) Social History Tobacco Use Types Packs/Day Years Used Date Smoking Tobacco: Never Assessed Sex Assigned at Date Recorded Not on file documented as of this encounter Plan of Treatment Not on filedocumented as of this encounter Visit Diagnoses Diagnosis Supervision of normal first documented in this encounter Care Teams Hl7 Developer Relationship Specialty Start Date End Date Jatinder Haddad MD PCP - General 08/18/1996 [address] [place], [place] [phone] documented as of this encounter
--- OUTSIDE RECORDS SUMMARY | 2022-06-26 18:56 | XMS_ITS | Encounter Summary ---
:1970 Author Organization [facility] Address [address] [address] Care Team Providers Name Role Phone Jatinder Haddad MD Primary Care Provider Encounter Details Date Type Department Care Team Description 01/20/1995 Office Visit Jatinder Haddad MD Supervision of normal first [address] [facility] [place], [place] [id number] (Wo rk) Social History Tobacco Use Types Packs/Day Years Used Date Smoking Tobacco: Never Assessed Sex Assigned at Date Recorded Not on file documented as of this encounter Plan of Treatment Not on filedocumented as of this encounter Visit Diagnoses Diagnosis Supervision of normal first documented in this encounter Care Teams Consulting Business Developer Relationship Specialty Start Date End Date Jatinder Haddad MD PCP - General 08/18/1996 [address] [place], [place] [phone] documented as of this encounter
--- OUTSIDE RECORDS SUMMARY | 2022-06-26 18:56 | XMS_ITS | Encounter Summary ---
:1970 Author Organization [facility] Address [address], [place] [address] Care Team Providers Name Role Phone Jatinder Haddad MD Primary Care Provider Encounter Details Date Type Department Care Team Description 11/02/1994 Office Visit Jatinder Haddad MD Abdominal pain; [address] [facility] Supervision of normal first [place], [place] [phone] (Wo rk) Social History Tobacco Use Types Packs/Day Years Used Date Smoking Tobacco: Never Assessed Sex Assigned at Date Recorded Not on file documented as of this encounter Plan of Treatment Not on filedocumented as of this encounter Visit Diagnoses Diagnosis Abdominal pain Supervision of normal first documented in this encounter Care Teams Jersey Knitter Relationship Specialty Start Date End Date Jatinder Haddad MD PCP - General 08/18/1996 [address] [place] [address] documented as of this encounter
--- OUTSIDE RECORDS SUMMARY | 2022-06-26 18:56 | XMS_ITS | Encounter Summary ---
:1970 Author Organization [facility] Address [address] [address] Care Team Providers Name Role Phone Jatinder Haddad MD Primary Care Provider Encounter Details Date Type Department Care Team Description 08/13/1994 Office Visit [place] [facility] Joycelyn Pinedo Othe r and Gynecology MD screening [address] [place], [place] [address] Social History Tobacco Use Types Packs/Day Years Used Date Smoking Tobacco: Never Assessed Sex Assigned at Date Recorded Not on file documented as of this encounter Plan of Treatment Not on filedocumented as of this encounter Visit Diagnoses Diagnosis Other screening Other specified screening documented in this encounter Care Teams Secy Relationship Specialty Start Date End Date Jatinder Haddad MD PCP - General 08/18/1996 [address] [place] [address] documented as of this encounter
--- OUTSIDE RECORDS SUMMARY | 2022-06-26 18:56 | XMS_ITS | Encounter Summary ---
:1970 Author Organization [facility] Address [address], [place] [address] Care Team Providers Name Role Phone Jatinder Haddad MD Primary Care Provider Encounter Details Date Type Department Care Team Description 04/29/1994 Office Visit Lisette Rubio Headach e(784.0); ALEXANDRA VACA Unspecified otitis media [address] [place] [address] Social History Tobacco Use Types Packs/Day Years Used Date Smoking Tobacco: Never Assessed Sex Assigned at Date Recorded Not on file documented as of this encounter Progress Notes Lisette Rubio, ALEXANDRA VACA - 04/29/1994 12:00 AM CDTS: Here for f/u of ears. Also c/o headaches located in the occipital region. Also some discomfort in parietal regions bilaterally. Denies any other symptoms with the headaches. States it feels like a tight band is around her head at times. Was at the [facility] and had a free chiropractic evaluation and they stated she had a problem with her neck that was probably contributing to her headaches. States her ears feel much better and no longer having problems with clicking when she chews. O: Bilateral TM's within normal limits. Does have some tenderness to palpation of the cervical spine on the left side. Tenderness does also exist with palpation of skull on left side up to parietal region. A: OM, resolved. Muscle contraction type headache. P: Will finish antibiotics. Given booklet on care of neck and also some information on relaxation techniques. Addendum: patient states she does not want to try Motrin for her problems with headaches. cc: documented in this encounter Plan of Treatment Not on filedocumented as of this encounter Visit Diagnoses Diagnosis Headache(784.0) Headache Unspecified otitis media documented in this encounter Care Teams Line Tender Relationship Specialty Start Date End Date Jatinder Haddad MD PCP - General 08/18/1996 [address] [place] [address] documented as of this encounter
--- OUTSIDE RECORDS SUMMARY | 2022-06-26 18:56 | XMS_ITS | Encounter Summary ---
:1970 Author Organization [facility] Address [address] [address] Care Team Providers Name Role Phone Jatinder Haddad MD Primary Care Provider Encounter Details Date Type Department Care Team Description 10/19/1994 Office Visit Lisette Rubio, Supervi alfonso of normal FINANCIAL RISK MANAGER, CUTTING MACHINE OFFBEARER first [address] [place] [address] Social History Tobacco Use Types Packs/Day Years Used Date Smoking Tobacco: Never Assessed Sex Assigned at Date Recorded Not on file documented as of this encounter Plan of Treatment Not on filedocumented as of this encounter Visit Diagnoses Diagnosis Supervision of normal first documented in this encounter Care Teams Cooky Packer Relationship Specialty Start Date End Date Jatinder Haddad MD PCP - General 08/18/1996 [address] [place] [address] documented as of this encounter
--- OUTSIDE RECORDS SUMMARY | 2022-06-26 18:56 | XMS_ITS | Encounter Summary ---
:1970 Author Organization [facility] Address [address] [address] Care Team Providers Name Role Phone Jatinder Haddad MD Primary Care Provider Encounter Details Date Type Department Care Team Description 04/14/1994 Office Visit Lisette Rubio, Unspeci fied otitis media LIFE EDUCATOR, ADVERTISING AGENT [address] [place], [place] [address] Social History Tobacco Use Types Packs/Day Years Used Date Smoking Tobacco: Never Assessed Sex Assigned at Date Recorded Not on file documented as of this encounter Progress Notes Lisette Rubio, LIFE EDUCATOR, ADVERTISING AGENT - 04/14/1994 12:00 AM CDTS. Complains of itching in the perineal region and has had increased yellow discharge. Also is having Crohn's again with pain in the preauricular area. States that the discomfort did decrease after she had finished about half of her Amox. that she did finish the entire Rx and that the discomfort has started to return. O. Rt. and Lt. TM with area of retraction, decreased movement of TM noted. Perineal area with slight erythema noted. Small amount of thick white vaginal discharge noted. Sent to lab - Neg. Clue, Neg. Yeast. A. Recurrent OM. Possible Contact Irritation From Fragnant Laundry Soaps Or Toilet Paper. P. Given Rx for Ceftin 250 l po b.i.d. x l0 days. Recommended use of unscented soaps and toilet paper. Will RTC prn cont. of perineal irritation. U/A sent. cc: documented in this encounter Plan of Treatment Not on filedocumented as of this encounter Visit Diagnoses Diagnosis Unspecified otitis media documented in this encounter Care Teams Sales Estimator Relationship Specialty Start Date End Date Jatinder Haddad MD PCP - General 08/18/1996 [address] [place] [address] documented as of this encounter
--- OUTSIDE RECORDS SUMMARY | 2022-06-26 18:56 | XMS_ITS | Encounter Summary ---
:1970 Author Organization [facility] Address [address] [place] [address] Care Team Providers Name Role Phone Jatinder Haddad MD Primary Care Provider Encounter Details Date Type Department Care Team Description 06/29/1994 Office Visit Jatinder Haddad MD Mild hyperemesis gravidarum, antepartum; [address] [facility] [place] [address] (Wo rk) Social History Tobacco Use Types Packs/Day Years Used Date Smoking Tobacco: Never Assessed Sex Assigned at Date Recorded Not on file documented as of this encounter Plan of Treatment Not on filedocumented as of this encounter Visit Diagnoses Diagnosis Mild hyperemesis gravidarum, antepartum Supervision of normal first documented in this encounter Care Teams Tombstone Polisher Relationship Specialty Start Date End Date Jatinder Haddad MD PCP - General 08/18/1996 [address] [place] [address] documented as of this encounter
--- OUTSIDE RECORDS SUMMARY | 2022-06-26 18:56 | XMS_ITS | Encounter Summary ---
:1970 Author Organization [facility] Address [address], [place] [address] Care Team Providers Name Role Phone Jatinder Haddad MD Primary Care Provider Encounter Details Date Type Department Care Team Description 03/15/1995 Office Visit Terry Amaro Cracke d nipple, condition or complication [address] [place] [phone] (Wo rk) Social History Tobacco Use Types Packs/Day Years Used Date Smoking Tobacco: Never Assessed Sex Assigned at Date Recorded Not on file documented as of this encounter Plan of Treatment Not on filedocumented as of this encounter Visit Diagnoses Diagnosis Cracked nipple, condition or complication documented in this encounter Care Teams Fish Cleaner Machine Tender Relationship Specialty Start Date End Date Jatinder Haddad MD PCP - General 08/18/1996 [address] [place] [address] documented as of this encounter
--- OUTSIDE RECORDS SUMMARY | 2022-06-26 18:56 | XMS_ITS | Encounter Summary ---
:1970 Author Organization [facility] Address [address], [place] [address] Care Team Providers Name Role Phone Jatinder Haddad MD Primary Care Provider Encounter Details Date Type Department Care Team Description 06/23/1994 Office Visit Jatinder Haddad MD Supervision of normal first [address] [facility] [place], [place] [phone] (Wo rk) Social History Tobacco Use Types Packs/Day Years Used Date Smoking Tobacco: Never Assessed Sex Assigned at Date Recorded Not on file documented as of this encounter Plan of Treatment Not on filedocumented as of this encounter Visit Diagnoses Diagnosis Supervision of normal first documented in this encounter Care Teams Keyboarding Teacher Relationship Specialty Start Date End Date Jatinder Haddad MD PCP - General 08/18/1996 [address] [place], [place] [phone] documented as of this encounter
--- OUTSIDE RECORDS SUMMARY | 2022-06-26 18:56 | XMS_ITS | Encounter Summary ---
:1970 Author Organization [facility] Address [address] [address] Care Team Providers Name Role Phone Jatinder Haddad MD Primary Care Provider Encounter Details Date Type Department Care Team Description 09/17/1994 Office Visit Jatinder Haddad MD Supervision of normal first [address] [facility] [place], [place] [phone] (Wo rk) Social History Tobacco Use Types Packs/Day Years Used Date Smoking Tobacco: Never Assessed Sex Assigned at Date Recorded Not on file documented as of this encounter Plan of Treatment Not on filedocumented as of this encounter Visit Diagnoses Diagnosis Supervision of normal first documented in this encounter Care Teams Meter Calibrator Relationship Specialty Start Date End Date Jatinder Haddad MD PCP - General 08/18/1996 [address] [place], [place] [id number] documented as of this encounter
--- OUTSIDE RECORDS SUMMARY | 2022-06-26 18:56 | XMS_ITS | Encounter Summary ---
:1970 Author Organization [facility] Address [address] [address] Care Team Providers Name Role Phone Jatinder Haddad MD Primary Care Provider Encounter Details Date Type Department Care Team Description 12/16/1994 Office Visit Jatinder Haddad MD Supervision of normal first [address] [facility] [place], [place] [phone] (Wo rk) Social History Tobacco Use Types Packs/Day Years Used Date Smoking Tobacco: Never Assessed Sex Assigned at Date Recorded Not on file documented as of this encounter Plan of Treatment Not on filedocumented as of this encounter Visit Diagnoses Diagnosis Supervision of normal first documented in this encounter Care Teams Instrument And Control Technician Relationship Specialty Start Date End Date Jatinder Haddad MD PCP - General 08/18/1996 [address] [place], [place] [phone] documented as of this encounter
--- OUTSIDE RECORDS SUMMARY | 2022-06-26 18:56 | XMS_ITS | Encounter Summary ---
:1970 Author Organization [facility] Address [address] [place] [address] Care Team Providers Name Role Phone Jatinder Haddad MD Primary Care Provider Encounter Details Date Type Department Care Team Description 02/09/1995 [place] [address] [place], [place] [phone] (Wo rk) Social History Tobacco Use Types Packs/Day Years Used Date Smoking Tobacco: Never Assessed Sex Assigned at Date Recorded Not on file documented as of this encounter Plan of Treatment Not on filedocumented as of this encounter Visit Diagnoses Diagnosis Cord around neck, with compression, comp licating labor and delivery, delivered documented in this encounter Care Teams Educational Administrator Relationship Specialty Start Date End Date Jatinder Haddad MD PCP - General 08/18/1996 [address] [place] [address] documented as of this encounter
--- OUTSIDE RECORDS SUMMARY | 2022-06-26 18:56 | XMS_ITS | Encounter Summary ---
:1970 Author Organization [facility] Address [address] [place] [address] Care Team Providers Name Role Phone Jatinder Haddad MD Primary Care Provider Encounter Details Date Type Department Care Team Description 07/17/1994 Office Visit Everton Arriaga MD Mild hyperemesis [address] gravidarum, antepartum [place], [place] [address] (Wo rk) Social History Tobacco Use Types Packs/Day Years Used Date Smoking Tobacco: Never Assessed Sex Assigned at Date Recorded Not on file documented as of this encounter Progress Notes Everton Arriaga MD - 07/17/1994 12:00 AM CSTCC: F/u regarding hyperemesis S: Since seen 2 days ago she has felt much much better. Decreased vomiting and abdominal complaints. Primarily taking clear fluids and some antacids recently. O: No apparent distress. Slight tenderness in epigastrium. A: Hyperemesis improved. P: Cont. with increased fluids and starchy foods. F/u next week with her regular provider for visit. cc: RIAL RECLAIMER documented in this encounter Plan of Treatment Not on filedocumented as of this encounter Visit Diagnoses Diagnosis Mild hyperemesis gravidarum, antepartum documented in this encounter Care Teams Java Application Engineer Relationship Specialty Start Date End Date Jatinder Haddad MD PCP - General 08/18/1996 [address] [place], [place] [phone] documented as of this encounter
--- OUTSIDE RECORDS SUMMARY | 2022-06-26 18:56 | XMS_ITS | Encounter Summary ---
:1970 Author Organization [facility] Address [address] [place] [address] Care Team Providers Name Role Phone Jatinder Haddad MD Primary Care Provider Encounter Details Date Type Department Care Team Description 12/22/1994 Orders Only Everton Arriaga MD [address] [place] [address] (Wo rk) Social History Tobacco Use Types Packs/Day Years Used Date Smoking Tobacco: Never Assessed Sex Assigned at Date Recorded Not on file documented as of this encounter Plan of Treatment Not on filedocumented as of this encounter Visit Diagnoses Not on filedocumented in this encounter Care Teams Labor Delivery Rn Relationship Specialty Start Date End Date Jatinder Haddad MD PCP - General 08/18/1996 [address] [place] [address] documented as of this encounter
--- OUTSIDE RECORDS SUMMARY | 2022-06-26 18:56 | XMS_ITS | Encounter Summary ---
:1970 Author Organization [facility] Address [address], [place] [address] Care Team Providers Name Role Phone Jatinder Haddad MD Primary Care Provider Encounter Details Date Type Department Care Team Description 07/22/1994 Office Visit Jatinder Haddad MD Supervision of normal first [address] [facility] [place], [place] [phone] (Wo rk) Social History Tobacco Use Types Packs/Day Years Used Date Smoking Tobacco: Never Assessed Sex Assigned at Date Recorded Not on file documented as of this encounter Plan of Treatment Not on filedocumented as of this encounter Visit Diagnoses Diagnosis Supervision of normal first documented in this encounter Care Teams Station Tender Relationship Specialty Start Date End Date Jatinder Haddad MD PCP - General 08/18/1996 [address] [place], [place] [phone] documented as of this encounter
--- OUTSIDE RECORDS SUMMARY | 2022-06-26 18:56 | XMS_ITS | Encounter Summary ---
:1970 Author Organization [facility] Address [address] [address] Care Team Providers Name Role Phone Jatinder Haddad MD Primary Care Provider Encounter Details Date Type Department Care Team Description 06/13/1994 Office Visit Ky Escalera examination or HP BUILDING test [address] [place] [address] Social History Tobacco Use Types Packs/Day Years Used Date Smoking Tobacco: Never Assessed Sex Assigned at Date Recorded Not on file documented as of this encounter Plan of Treatment Not on filedocumented as of this encounter Visit Diagnoses Diagnosis examination or test documented in this encounter Care Teams Avionics Systems Integration Specialist Relationship Specialty Start Date End Date Jatinder Haddad MD PCP - General 08/18/1996 [address] [place] [address] documented as of this encounter
--- OUTSIDE RECORDS SUMMARY | 2022-06-26 18:56 | XMS_ITS | Encounter Summary ---
:1970 Author Organization [facility] Address [address] [place] [address] Care Team Providers Name Role Phone Jatinder Haddad MD Primary Care Provider Encounter Details Date Type Department Care Team Description 03/01/1995 Office Visit Jatinder Haddad MD Nonpurulent mastitis [address] [facility] [place] [address] (Wo rk) Social History Tobacco Use Types Packs/Day Years Used Date Smoking Tobacco: Never Assessed Sex Assigned at Date Recorded Not on file documented as of this encounter Progress Notes Jatinder Haddad MD - 03/01/1995 12:00 AM CDTS: Patient had a vaginal delivery on 02/09/95 and on 02/21 was treated over the phone by aviation ordnance officer physician for post mastitis. At that time was having left inferior breast redness and pain as well as fever up to 102.9. Was placed on Dicloxacillin 500 mg for two doses then 250 qid. A day later she developed some right upper medial breast tenderness and redness as well but over a few days the fever and symptoms resolved. She was feeling well up until last evening when she developed a fever and headache. Temp reached a max of 101.7 during the night. She has now developed redness and pain and firmness to the inferior portion of the right lower breast. She has continued to breast feed every 2-3 hrs., now uncomfortable to breast feed on the right. She has 2 days left on her Dicloxacillin. O: Pt. with normal left breast exam. Right breast with erythema, firmness and tenderness to the inferior portion of the right breast. A: Right mastitis. P: Will d/c the Dicloxacillin and switch to Clindamycin 300 mg po q 6 hrs. She is advised to use warm moist compresses to this area aggressively. To pump the breast after breast feeding to insure that it fully empties. To call me if she is not seeing significant improvement over the next 2-3 days. Cautioned regarding diarrhea from the antibiotic. cc: documented in this encounter Plan of Treatment Not on filedocumented as of this encounter Visit Diagnoses Diagnosis Nonpurulent mastitis associated with chi ldbirth Nonpurulent mastitis, unspecified as to episode of or care documented in this encounter Care Teams Chucker Relationship Specialty Start Date End Date Jatinder Haddad MD PCP - General 08/18/1996 [address] [place] [address] documented as of this encounter
--- OUTSIDE RECORDS SUMMARY | 2022-06-26 18:56 | XMS_ITS | Encounter Summary ---
:1970 Author Organization [facility] Address [address], [place] [address] Care Team Providers Name Role Phone Jatinder Haddad MD Primary Care Provider Encounter Details Date Type Department Care Team Description 08/19/1994 Office Visit Jatinder Haddad MD Supervision of other normal [address] [facility] [place], [place] [phone] (Wo rk) Social History Tobacco Use Types Packs/Day Years Used Date Smoking Tobacco: Never Assessed Sex Assigned at Date Recorded Not on file documented as of this encounter Plan of Treatment Not on filedocumented as of this encounter Visit Diagnoses Diagnosis Supervision of other normal documented in this encounter Care Teams Hand Riveter Relationship Specialty Start Date End Date Jatinder Haddad MD PCP - General 08/18/1996 [address] [place], [place] [phone] documented as of this encounter
--- OUTSIDE RECORDS SUMMARY | 2022-06-26 18:56 | XMS_ITS | Encounter Summary ---
:1970 Author Organization [facility] Address [address], [place] [address] Care Team Providers Name Role Phone Jatinder Haddad MD Primary Care Provider Encounter Details Date Type Department Care Team Description 01/13/1995 Office Visit Jatinder Haddad MD Supervision of normal first [address] [facility] [place], [place] [phone] (Wo rk) Social History Tobacco Use Types Packs/Day Years Used Date Smoking Tobacco: Never Assessed Sex Assigned at Date Recorded Not on file documented as of this encounter Plan of Treatment Not on filedocumented as of this encounter Visit Diagnoses Diagnosis Supervision of normal first documented in this encounter Care Teams Checkerer Hand Relationship Specialty Start Date End Date Jatinder Haddad MD PCP - General 08/18/1996 [address] [place], [place] [phone] documented as of this encounter
--- OUTSIDE RECORDS SUMMARY | 2022-06-26 18:56 | XMS_ITS | Encounter Summary ---
:1970 Author Organization [facility] Address [address], [place] [address] Care Team Providers Name Role Phone Jatinder Haddad MD Primary Care Provider Encounter Details Date Type Department Care Team Description 11/13/1994 Office Visit Jatinder Haddad MD Supervision of normal first [address] [facility] [place], [place] [phone] (Wo rk) Social History Tobacco Use Types Packs/Day Years Used Date Smoking Tobacco: Never Assessed Sex Assigned at Date Recorded Not on file documented as of this encounter Plan of Treatment Not on filedocumented as of this encounter Visit Diagnoses Diagnosis Supervision of normal first documented in this encounter Care Teams Tv Production Assistant Relationship Specialty Start Date End Date Jatinder Haddad MD PCP - General 08/18/1996 [address] [place], [place] [phone] documented as of this encounter
--- OUTSIDE RECORDS SUMMARY | 2022-06-26 18:56 | XMS_ITS | Encounter Summary ---
:1970 Author Organization [employer] Address [address] [place] [address] Care Team Providers Name Role Phone Jatinder Haddad MD Primary Care Provider Encounter Details Date Type Department Care Team Description 07/15/1994 Office Visit Everton Arriaga MD Supervision of normal first ; [address] [place] [place] [address] (Wo rk) Social History Tobacco Use Types Packs/Day Years Used Date Smoking Tobacco: Never Assessed Sex Assigned at Date Recorded Not on file documented as of this encounter Progress Notes Everton Arriaga MD - 07/15/1994 12:00 AM CSTCC: Nausea and vomiting S: This woman is approximately 10 wks. . has thus far been remarkable only for inceased nausea and vomiting. She is eating poorly and continues to lose some weight. Also c/o some hip pain around the right side. O: No apparent distress. Appears bright, alert, good skin turgor. Pulses 2+ throughout. Chest clear. No CVAT. Abdomen with uterus palpable about 4-5 cm above the pubis. FHT's present today 160-170/minute wiht doppler. Abdomen is otherwise benign. Hips appears normal. A: 10 week IUP with hyperemesis and mild hip discomfort. P: Increase clear fluids and starchy foods. Avoid fatty and high protein foods. Tylenol prn pain. Will also check creatinine, BUN, potassium and glucose and CBC. F/u in several days with primary physician. cc: RUMENT WORKER documented in this encounter Plan of Treatment Not on filedocumented as of this encounter Visit Diagnoses Diagnosis Supervision of normal first Persistent vomiting documented in this encounter Care Teams Manager Military Relationship Specialty Start Date End Date Jatinder Haddad MD PCP - General 08/18/1996 [address] [place] [address] documented as of this encounter
--- OUTSIDE RECORDS SUMMARY | 2022-06-26 18:56 | XMS_ITS | Encounter Summary ---
:1970 Author Organization [employer] Address [address] [place] [address] Care Team Providers Name Role Phone Jatinder Haddad MD Primary Care Provider Encounter Details Date Type Department Care Team Description 03/30/1995 Office Visit Jatinder Haddad MD Routine [id number] [facility] [place] [address] (Wo rk) Social History Tobacco Use Types Packs/Day Years Used Date Smoking Tobacco: Never Assessed Sex Assigned at Date Recorded Not on file documented as of this encounter Progress Notes Jatinder Haddad MD - 03/30/1995 12:00 AM CDTS: Patient 7 wk. post . Had a normal spontaneous vaginal delivery of a 7 lb. 15 oz. male. Apgars 9 and 9. Midline episiotomy and repair. No other complications. Has been breast feeding and doing quite well with this now. Met with a business analysis consultant a couple weeks ago and things are going well now. Last Pap was , was 020. She is on vitamins. Does c/o being somewhat tired. Occasionally feels a little lightheaded. She has not had any vaginal bleeding for about 3 wk. Did try intercourse x 1 with condoms and did have some discomfort in the area of her episiotomy. Uncertain about contraception in the future. O: Chest is clear. Cardiac exam without murmur. Weighs 155 lb. B/P is 85/49. Heart rate is 82 and regular. She is not orthostatic with lying to standing. Abdominal exam revealed some residual striae. Breast exam with some striae and engorgement but no tenderness nor mass. Vaginal exam reveals normal vaginal vault and cervix. Episiotomy is tender with palpation but appears well healed. Bimanual pelvic exam reveals uterus which is anteverted, fairly normal size. There is very minimal left adnexal tenderness but no mass. Hgb. is 14.6. A: Essentially normal post exam. Lightheadedness without evidence of anemia. P: Discussed diet, rest, breast feeding etc. If lightheadedness does not improve, she will contact me. I also gave her information on barrier, as well as hormonal contraception. She will review this and get back to be regarding choice. cc: documented in this encounter Plan of Treatment Not on filedocumented as of this encounter Visit Diagnoses Diagnosis Routine follow-up documented in this encounter Care Teams Cable Driller Relationship Specialty Start Date End Date Jatinder Haddad MD PCP - General 08/18/1996 [address] [place] [address] documented as of this encounter
--- OUTSIDE RECORDS SUMMARY | 2022-06-26 18:56 | XMS_ITS | Encounter Summary ---
:1970 Author Organization [facility] Address [address] [address] Care Team Providers Name Role Phone Jatinder Haddad MD Primary Care Provider Encounter Details Date Type Department Care Team Description 02/03/1995 Office Visit Jatinder Haddad MD Supervision of other normal [address] [facility] [place], [place] [phone] (Wo rk) Social History Tobacco Use Types Packs/Day Years Used Date Smoking Tobacco: Never Assessed Sex Assigned at Date Recorded Not on file documented as of this encounter Plan of Treatment Not on filedocumented as of this encounter Visit Diagnoses Diagnosis Supervision of other normal documented in this encounter Care Teams Industrial Specialist Relationship Specialty Start Date End Date Jatinder Haddad MD PCP - General 08/18/1996 [address] [place], [place] [address] documented as of this encounter
--- OUTSIDE RECORDS SUMMARY | 2022-06-26 18:56 | XMS_ITS | Encounter Summary ---
:1970 Author Organization Count includes the [facility] Address [address] [place] [address] Care Team Providers Name Role Phone Jatinder Haddad MD Primary Care Provider Encounter Details Date Type Department Care Team Description 12/22/1994 Office Visit Everton Arriaga MD Infections of genitourinary [address] tract antepartum [place], [place] [phone] (Wo rk) Social History Tobacco Use Types Packs/Day Years Used Date Smoking Tobacco: Never Assessed Sex Assigned at Date Recorded Not on file documented as of this encounter Plan of Treatment Not on filedocumented as of this encounter Visit Diagnoses Diagnosis Infections of genitourinary tract antepa rtum documented in this encounter Care Teams Director Child Abuse Therapy Relationship Specialty Start Date End Date Jatinder Haddad MD PCP - General 08/18/1996 [address] [place] [address] documented as of this encounter
--- OUTSIDE RECORDS SUMMARY | 2022-06-26 18:56 | XMS_ITS | Encounter Summary ---
:1970 Author Organization [facility] Address [address] [address] Care Team Providers Name Role Phone Jatinder Haddad MD Primary Care Provider Encounter Details Date Type Department Care Team Description 03/01/1995 [place] [address] [place] [address] (Wo rk) Social History Tobacco Use Types Packs/Day Years Used Date Smoking Tobacco: Never Assessed Sex Assigned at Date Recorded Not on file documented as of this encounter Plan of Treatment Not on filedocumented as of this encounter Visit Diagnoses Not on filedocumented in this encounter Care Teams Naval Gunfire Liaison Officer Relationship Specialty Start Date End Date Jatinder Haddad MD PCP - General 08/18/1996 [address] [place], [place] [address] documented as of this encounter
--- OUTSIDE RECORDS SUMMARY | 2022-06-26 18:57 | XMS_ITS | Encounter Summary ---
:1970 Author Organization [facility] Address [address], [place] [address] Care Team Providers Name Role Phone Jatinder Haddad MD Primary Care Provider Encounter Details Date Type Department Care Team Description 03/10/1994 Orders Only Av[facility], Im II [facility] [id number] [place] [address] Social History Tobacco Use Types Packs/Day Years Used Date Smoking Tobacco: Never Assessed Sex Assigned at Date Recorded Not on file documented as of this encounter Plan of Treatment Not on filedocumented as of this encounter Results OFFICE VISIT EST. LEVEL3 (03/10/1994 12:00 AM CDT) Specimen (Source) Anatomical Location Collection Method / Collectio n Time Received Time / Laterality Volume 03/10/1994 Im [facility]ucc II E&M CODES Performing Organization Address [facility] Phon e Number [facility] [phone] OFFICE VISIT EST. LEVEL3 (03/10/1994 12:00 AM CDT) Specimen (Source) Anatomical Location Collection Method / Collectio n Time Received Time / Laterality Volume 03/10/1994 Im [facility] II E&M CODES Performing Organization Address City/State/ZIP Code Phon e Number [facility] [phone] OFFICE VISIT EST. LEVEL3 (03/10/1994 12:00 AM CDT) Specimen (Source) Anatomical Location Collection Method / Collectio n Time Received Time / Laterality Volume 03/10/1994 Im [facility] II E&M CODES Performing Organization Address City/State/ZIP Code Phon e Number [facility] [phone] documented in this encounter Visit Diagnoses Not on filedocumented in this encounter Care Teams Cereal Miller Relationship Specialty Start Date End Date Jatinder Haddad MD PCP - General 08/18/1996 [address] [place] [address] documented as of this encounter
--- OUTSIDE RECORDS SUMMARY | 2022-06-26 18:57 | XMS_ITS | Encounter Summary ---
:1970 Author Organization [facility] Address [address] [place] [address] Care Team Providers Name Role Phone Jatinder Haddad MD Primary Care Provider Encounter Details Date Type Department Care Team Description 03/10/1994 Orders Only Unknown, Physici an [address] [place] [address] (Wo rk) Social History Tobacco Use Types Packs/Day Years Used Date Smoking Tobacco: Never Assessed Sex Assigned at Date Recorded Not on file documented as of this encounter Procedure Notes John Nevarez - 03/10/1994 12:00 AM CDTAssociated Order(s): RADIOLOGIC STUDY ORDERING PHYSICIAN CLINICAL DATA: INTERPRETATION: Normal. Davion Huang MD cc: Radiology AV Fam.Prac.2 MD Juan documented in this encounter Plan of Treatment Not on filedocumented as of this encounter Procedures Procedure Name Priority Date/Time Associated Diagnosis Comme nts UNLISTED DX RADIOGRAPHIC 03/10/1994 Res ults for this PROCEDURE procedure are i n the results section . documented in this encounter Results RADIOLOGIC STUDY (03/10/1994) Anatomical Region Laterality Modality Other Specimen (Source) Anatomical Location Collection Method / Collectio n Time Received Time / Laterality Volume Narrative 03/10/1994 Ordered by an unspecified provider. Transcriptions Geri John M - 03/10/1994 12:00 AM C DTORDERING PHYSICIAN CLINICAL DATA: INTERPRETATION: Normal. Davion Huang MD cc: Radiology AV Fam.Prac.2 Peteucconor, Physician Unknown [facility] documented in this encounter Visit Diagnoses Not on filedocumented in this encounter Care Teams Admission Liaison Relationship Specialty Start Date End Date Jatinder Haddad MD PCP - General 08/18/1996 [address] [place] [address] documented as of this encounter
--- OUTSIDE RECORDS SUMMARY | 2022-06-26 18:57 | XMS_ITS | Encounter Summary ---
:1970 Author Organization [facility] Address [address], [place] [address] Care Team Providers Name Role Phone Jatinder Haddad MD Primary Care Provider Encounter Details Date Type Department Care Team Description 03/06/1994 Office Visit Lisa Burris MD Enthesopathy of unspecified [address] [place], [place] [phone] (Wo rk) Social History Tobacco Use Types Packs/Day Years Used Date Smoking Tobacco: Never Assessed Sex Assigned at Date Recorded Not on file documented as of this encounter Plan of Treatment Not on filedocumented as of this encounter Visit Diagnoses Diagnosis Enthesopathy of unspecified site documented in this encounter Care Teams Story Teller Relationship Specialty Start Date End Date Jatinder Haddad MD PCP - General 08/18/1996 [address] [place] [address] documented as of this encounter
--- OUTSIDE RECORDS SUMMARY | 2022-06-26 18:57 | XMS_ITS | Encounter Summary ---
:1970 Author Organization [facility] Address [address] [address] Care Team Providers Name Role Phone Jatinder Haddad MD Primary Care Provider Encounter Details Date Type Department Care Team Description 01/06/1994 Office Visit Jatinder Haddad MD Other bursitis disorders [address] [place] [address] (Wo rk) Social History Tobacco Use Types Packs/Day Years Used Date Smoking Tobacco: Never Assessed Sex Assigned at Date Recorded Not on file documented as of this encounter Progress Notes Jatinder Haddad MD - 01/06/1994 12:00 AM CDTS: Patient states 10 days ago she was doing some heavy gardening and developed onset of right shoulder pain. The pain has persisted and gotten a little worse with time. Points to the right upper lateral shoulder as a source of her discomfort. O: Patient has pain with abduction of the arm to 45 with flexion to 80 . With internal rotation she can just touch the lower part of her thoracic spine. External rotation is only minimally limited. She has local tenderness in the subacromial bursa area. A: Probable subacromial bursitis. P: Suggested steroid injection into the subacromial bursa. Patient agreed to this, but was quite queasy about the injection. Requested lying down. Initially the injection was tried lying down initially with just local anesthetic just using a #23 ruth 1 needle, anatomy was difficult to obtain and was not able to enter the subacromial bursa with that attempt. We, therefore, had her sit up and reattempt was successful. Following this 6 mg. Celestone was instilled into the subacromial bursa after 1 cc. of 1% Lidocaine. Patient was instructed to ice the shoulder today and to call us with results of the injection in 3-7 days. Also, gave Rx. for Ibuprofen, 800 mg. t.i.d. to use if the shoulder injection is not successful. cc: documented in this encounter Plan of Treatment Not on filedocumented as of this encounter Visit Diagnoses Diagnosis Other bursitis disorders documented in this encounter Care Teams Payer Specialist Relationship Specialty Start Date End Date Jatinder Haddad MD PCP - General 08/18/1996 [address] [place] [address] documented as of this encounter
--- OUTSIDE RECORDS SUMMARY | 2022-06-26 18:57 | XMS_ITS | Encounter Summary ---
:1970 Author Organization Count includes the [facility] Address [address], [place] [address] Care Team Providers Name Role Phone Jatinder Haddad MD Primary Care Provider Encounter Details Date Type Department Care Team Description 04/10/1994 Office Visit Cathy Witt [facility] [address] [place], [place] [address] Social History Tobacco Use Types Packs/Day Years Used Date Smoking Tobacco: Never Assessed Sex Assigned at Date Recorded Not on file documented as of this encounter Plan of Treatment Not on filedocumented as of this encounter Visit Diagnoses Diagnosis Myopia documented in this encounter Care Teams Floor Tiling Professional Relationship Specialty Start Date End Date Jatinder Haddad MD PCP - General 08/18/1996 [address] [place] [address] documented as of this encounter
--- OUTSIDE RECORDS SUMMARY | 2022-06-26 18:57 | XMS_ITS | Encounter Summary ---
:1970 Author Organization [facility] Address [address], [place] [address] Care Team Providers Name Role Phone Jatinder Haddad MD Primary Care Provider Encounter Details Date Type Department Care Team Description 03/23/1994 Office Visit Lisette Rubio, Unspeci fied otitis media DIRECTOR OF VALUATION, CHARGING CAR OPERATOR [address] [place] [address] Social History Tobacco Use Types Packs/Day Years Used Date Smoking Tobacco: Never Assessed Sex Assigned at Date Recorded Not on file documented as of this encounter Progress Notes Lisette Rubio, DIRECTOR OF VALUATION, CHARGING CAR OPERATOR - 03/23/1994 12:00 AM CDTS: C/o pain located anterior to both ears and slightly posterior to both ears for the last few days. States that she has problems with chewing hard foods and that the pain in her ears is usually the worst at h.s. when she goes to sleep. Was seen by the dentist in for teeth cleaning at that time. O: Rt. TM somewhat retracted with slight area of injection noted. Left TM with slight bulging of membrane and area of injection noted. Mild tragal and auricular tenderness noted with exam of ear. TMJ area palpated without crepitus noted. A: Probable OM bilat. Doubt TMJ. P: Given Rx. for Amox. 250 mg. t.i.d. x 10 days. Instructed that may also use Ibuprofen 800 mg. p.o. t.i.d. x 2-3 days then prn for another 4-5 days and will RTC prn no improvement in condition in 48-72 hr. cc: documented in this encounter Plan of Treatment Not on filedocumented as of this encounter Visit Diagnoses Diagnosis Unspecified otitis media documented in this encounter Care Teams Special Service Representative Relationship Specialty Start Date End Date Jatinder Haddad MD PCP - General 08/18/1996 [address] [place] [address] documented as of this encounter
[2022-06-26 19:43] LABS: SARS PCR* Negative SARS-CoV-2 (Negative)
== END 2022-06-26 18:34 | disposition home or self-care (01) ==
LOC: NPINS 18:33
PROVIDERS: PCP Family Medicine; Visit Provider Internal Medicine Gastroenterology
DX: Z20.822 Contact with and (suspected) exposure to COVID-19 (principal)
CPT/HCPCS: 87635

== ENCOUNTER 2022-06-29 10:17 | Outpatient (CLI) | payer BC, SELFPAY ==
--- OUTSIDE RECORDS SUMMARY | 2022-06-29 10:21 | XMS_ITS | Encounter Summary ---
:[address] Address [address] [facility] [place] [address] Care Team Providers Name Role Phone Logan Hayes MD Primary Care Provider [phone] Reason for Visit Genomics (Routine) - Closed Specialty Diagnoses / Procedures Referred By Contact Refer red To Contact Diagnoses Dystonia, torsion, fragments of Aaron, Jonathan, GC Procedures Hereditary Genomics Hold For Preauthorization: [address] [place] [address] [id number] [place], [place] [address] Referral ID Status Reason Start Date Expiration Date Visits Requ ested Visits Authorized [id number] Closed 12/30/2018 12/30/2019 1 47 Encounter Details Date Type Department Care Team Description 12/30/2018 Orders Only [facility] Dystonia, torsion, [address] [facility] fragments of 1st Floor [place], [place] [phone] Social History Tobacco Use [...] Component Value Ref Test Analysis Performed At [facility] Range Method Time Signature Copath Report Patient Name: COLEMAN RIVER MR#: [id number] Specimen #: [id number] Collected: 12/30/2018 13:06 Received: 01/02/2019 09:20 Reported: [...] questions, . Electronically Signed Out By: BOOM Induction Heating Equipment Setter CPT Codes: A: [id number] TESTING LAB LOCATION: [address] [id number] COLLECTION SITE: Client: [facility] Location: ??[facility] (B) Specimen Anatomical Collection Method Collection [...] documented as of this encounter Care Teams Blow Moulding Machine Operator Relationship Specialty Start Date End Date Logan Hayes MD PCP - General 10/21/01 [address] [place] [address] documented as of this encounter
--- OUTSIDE RECORDS SUMMARY | 2022-06-29 10:21 | XMS_ITS | Encounter Summary ---
:1970 Author Organization [place] Address [address] [facility] [address] Care Team Providers Name Role Phone Logan Hayes MD Primary Care Provider [phone] Encounter Details Date Type Department Care [...] documented as of this encounter Care Teams Solution Coordinator Relationship Specialty Start Date End Date Logan Hayes MD PCP - General 10/21/01 [address] [place], [place] [phone] documented as of this encounter
--- OUTSIDE RECORDS SUMMARY | 2022-06-29 10:21 | XMS_ITS | Encounter Summary ---
:1970 Author Organization [place] Address [address] [facility] [place] [address] Care Team Providers Name Role Phone Logan Hayes MD Primary Care Provider [phone] Reason for Referral Consultation - Closed Specialty Diagnoses / Procedures Referred By Contact Refer red To Contact Diagnoses Dystonia Bertram Peraza MD [address] [place] [address] Referral ID Status Reason Start Date Expiration Date Visits Requ ested Visits Authorized [id number] Closed 07/14/2018 07/14/2019 1 1 GER DISH Encounter Details Date Type Department Care Team Description 07/14/2018 Orders Only [facility] Nose and Bertram Peraza Dyst onia (Primary Dx) Throat MD Katie [address] [place] [address] [address]th [address] [place], [place] [address] Social History Tobacco Use Types Packs/Day [...] documented as of this encounter Care Teams Dump Truck Driver Off Highway Relationship Specialty Start Date End Date Logan Hayes MD PCP - General 10/21/01 [address] [place] [address] documented as of this encounter
--- OUTSIDE RECORDS SUMMARY | 2022-06-29 10:21 | XMS_ITS | Encounter Summary ---
:1970 Author Organization [place] Address [address] [facility] [place] [address] Care Team Providers Name Role Phone Logan Hayes MD Primary Care Provider Encounter Details Date Type Department Care Team Description 01/19/2019 Orders Only [facility] Neurology Jonathan Walker GC Dystonia, torsion, [address] fragments of 3rd Floor [id number] [place] [address] [phone] Social History Tobacco Use Types Packs/Day Years [...] Component Value Ref Test Analysis Performed At [facility] Range Method Time Signature Copath Report Patient Name: COLEMAN RIVER MR#: [id number] Specimen #: [id number] Collected: 12/30/2018 13:06 Received: 01/19/2019 13:15 Reported: [...] 20x coverage or have been analyzed by [facility] sequencing. Coverag e at 20x is not [...] according to standard Illumina protocols utilizing the [employer] Sequencing C[place]ay el and a custom designed supplemental capture for enrichment of targeted genes. ??The enriched DNA libraries are sequenced on an Illumina CV Ingenuity instrument. Raw sequencing reads are mapped to [...] interpreted according to guidance issued by the [employer] [Edel et al.2015]. Pathogenic and predicted pathogenic variants that meet ALL o f the following criteria are reported without validation by [facility] sequencing: ??1- single nucleotide subs titution, 2- receives a PASS from the SNP or indel filter, 3- has a VAF in the accepted range (heterozygo us = 0.3-0.6, homozygous/hemizygous >0.9), 4- has a minimum of 20x coverage, and 5-is present in the GATAudiodraft VC F file. ?? Pathogenic variants that fail to meet any of these criteria are verified by [facility] sequencing prior to reporting [Ramana et al., [...] Capture NGS Assay without Thor Verific ation. [facility] biomarkers 2(1):1005. Jarrett Greenberg, Zohaib Garza Schomaker M, Silve rstein KA, Dannielleagarajarrod B. 2016. CNV-RF Is a Random [place]-Based Copy Number Variation Detection Method Using Water Innovate-Generation Sequencing. J Mol Diagn. 18(6):872-881. PMID: 01203722. Scot Greenberg Spears MD, Malik Carlton, Laura MCMAHON, Rashida e A, Odalis S, Sumanth Farmer, Aaron Farmer, Deonte KA, Thyagarajan B. 2014. Implementation of [place] based next gene ration sequencing data analysis in a clinical laboratory. BMC Res Notes. 7:314. PMID: 32168165. Edel S, Melva N, Renzo S, Fausto D, Nestor S, Jolie J, Kj CASTRO, Lanette Farmer, Be Oliveros, Jenae Oliveros, Nicki Mckee, Ranulfo HL, [facility] Laboratory Purchase Order Checker Committee. 201 5. Standards and guidelines for the interpretation of sequence variants: a joint consensus recommendation of e [employer] and Genomics and the Association for Molecular Pathology. Cynthia. Med. 17(5):405-24. PMID: 98957638. Clotilde JA, Erasmo AW, O'Jigar TD, Taj W, Siddharth EE, Britton S, Casey S, R, Helton X, Berto G, Alistair HM, Estrada D, Aisha SM, Jarred S, Tyrel MJ, Kenya G, Adalgisa D, N bebo DA, Brandon E, Ac S, Paul CD, Ramirez IRVING, Ladi JM, Broad GO, [place] GO, [facility] Exome S equencing Project. 2012. Evolution and functional impact of rare coding variation from deep sequencing of gay n exomes. Science. 337(6351):64-9. PMID: 71735429. Odalis S, Bert A, Jing K, Martha T, Aaron M, Sumanth Farmer, O stephen G, Eduardo J, Scot J, Devaughn Y, Gary [place] MD, Laura Mckee, Deonte KA, Addis Valero. 2015 . Clinical validation of targeted next-generation sequencing for inherited disorders. Arch. Pathol. Lab. Med. 139(2):204-10. PMID: 36569152. If a patient is the recipient of an allogeneic bone marrow t ransplant, this test must be done on a pre-transplant sample or buccal swab. ??A previous allogenei c bone marrow transplant will interfere with test results. ??Call the [facility]([phone]) for instructions on sample collection for these patients. This test was developed and its performance characteristics determined by the [facility], ??Molecular Diagnostics Laboratory and the [facility](Cancer & Cardiovascular Research Building Room 1-210, [address] [place] [address] , [place] [address]). ?? Genomic DNA extraction, interpretation of sequencing data, and when nece monserrat, Thor sequencing is performed at [facility], ??Molecular Diagno stics Laboratory. ?? Wet bench processes including library creation, sequence capture using an Illumina CV Ingenuity analyzer and bioinformatics is performed at the [facility]. ??It has not been c [...] Electronically Signed Out By: Sreekanth Boles M.D., [facility] CPT Codes: A: [id number], [id number] TESTING LAB LOCATION: [place] [id number] [phone] COLLECTION SITE: Client: ??[facility] Location: ??[facility] Specimen Anatomical Collection Method Collection Time [...] documented as of this encounter Care Teams Natural Gas Engineer Relationship Specialty Start Date End Date Logan Hayes MD PCP - General 10/21/01 [address] [place] [address] documented as of this encounter
--- OUTSIDE RECORDS SUMMARY | 2022-06-29 10:21 | XMS_ITS | Encounter Summary ---
:1970 Author Organization [place] Address [address] [facility] [place] [address] Care Team Providers Name Role Phone Logan Hayes MD Primary Care Provider [phone] Encounter Details Date Type Department Care [...] documented as of this encounter Care Teams Manager Supplier Relationship Specialty Start Date End Date Logan Hayes MD PCP - General 10/21/01 [address] [place], [place] [id number] documented as of this encounter
--- OUTSIDE RECORDS SUMMARY | 2022-06-29 10:21 | XMS_ITS | Encounter Summary ---
:1970 Author Organization [place] Address [address] [facility] [place] [address] Care Team Providers Name Role Phone Logan Hayes MD Primary Care Provider [phone] Encounter Details Date Type Department Care Team Description 08/16/2018 Office Visit [facility] Voice Jose Roberto Black, Dysphonia (Primary Dx); 9[address] [facility] MITER OPERATOR Throat pain 4th [place] [address] Social History Tobacco Use Types Packs/Day Years Used Date Smoking Tobacco: Never Alcohol Use Standard Drinks/Week Comments No 0 (1 standard drink = 0.6 oz pure alcoho l) Sex Assigned at Date Recorded Not on file documented as of this encounter Progress Notes Jose Roberto Black, MITER OPERATOR - 08/16/2018 10:00 AM CST [facility] VOICE CLINIC THERAPY NOTE (CPT 17413) Patient: Vamsi Chappell Date of Service: 08/16/2018 [...] PATIENT REPORTED MEASURES: Patient Supplied Answers To MITER OPERATOR QOL Questionnaire Therapy Quality of Life 08/16/2018 [...] activities to facilitate practice. ASSESSMENT/PLAN PROGRESS TOWARD JAIL GOALS: Adequate progress; please see above IMPRESSIONS: [...] life. TOTAL SERVICE TIME: 60 minutes TREATMENT (26924): 60 minutes NO CHARGE FACILITY FEE (27781) Eb Black M.M., M.A., [facility] OPERATOR Speech-Language Pathologist Certificate of Vocology [phone] E STEWARD/STEWARDESS documented in this encounter Plan of Treatment Not on filedocumented as of this encounter Procedures Procedure Name Priority Date/Time Associated Diagnosis Comme [facility] SPEECH/HEARING Routine 08/16/2018 7:05 PM HOUSE STEWARD/STEWARDESS Dyspho kia THERAPY, INDIVIDUAL Throat pain documented in this encounter Visit Diagnoses Diagnosis Dysphonia - Primary Throat pain documented in this encounter Additional Health Concerns Assessment Noted Time PHQ-9 Depression Total Score: 16 05/13/2018 7:03 AM CD T documented as of this encounter Care Teams Cleat Thrower Relationship Specialty Start Date End Date Logan Hayes MD PCP - General 10/21/01 [address] [place] [address] documented as of this encounter
--- OUTSIDE RECORDS SUMMARY | 2022-06-29 10:21 | XMS_ITS | Encounter Summary ---
:1970 Author Organization [place] Address [address] [facility] [place] [address] Care Team Providers Name Role Phone Logan Hayes MD Primary Care Provider Encounter Details Date Type Department Care Team Description 08/01/2018 [facility] Voice Connie Yoon, Dysphonia (Primary [address] [facility] SE IT PROGRAM MANAGER Dx) 4th Floor [place], [place] [address] [facility] [place] [facility] [address] CLINIC 8A [phone] [place] [address] Social History Tobacco Use Types Packs/Day Years Used Date Smoking Tobacco: Never Alcohol Use Standard Drinks/Week Comments No 0 (1 standard drink = 0.6 oz pure alcoho l) Sex Assigned at Date Recorded Not on file documented as of this encounter Progress Notes Connie Yoon, IT PROGRAM MANAGER - 08/01/2018 3:00 PM CST [facility] VOICE CLINIC THERAPY NOTE (CPT 35353) Patient: Vamsi Chappell Date of Service: 08/01/2018 [...] PATIENT REPORTED MEASURES: Patient Supplied Answers To IT PROGRAM MANAGER QOL Questionnaire Therapy Quality of Life 08/01/2018 [...] I answered all of these thoroughly. ??? [place] concepts of post-operative voice use and care, [...] activities to facilitate practice. ASSESSMENT/PLAN PROGRESS TOWARD CARE HOME GOALS: Adequate progress; please see above [...] AVS. TOTAL SERVICE TIME: 60 minutes TREATMENT (96048): 60 minutes NO CHARGE FACILITY FEE (59677) Connie Yoon M.M. (voice)Vanita, CCC/IT PROGRAM MANAGER Speech-Language Pathologist Certificate of Vocology [facility] [phone] [email or web address] Prounouns: she/her M TRAIN DRIVER Connie Yoon IT PROGRAM MANAGER - 08/01/2018 3:00 PM CST Images from [...] Tips for Topical Hydration handout ??? Nasal Morganza o 3 puffs in each nostril; sniff [...] etc). Also consider Xylitol products, like the [place] brand of lozenges, gum, spray ??? massage [...] you back *Check out Trudy CD ?? Gasfitter: Val Redd [phone]/ [email or web address] ?? Connie Yoon M.M. (voice)Vanita, CCC/IT PROGRAM MANAGER Speech-Language Pathologist Certificate of Vocology [facility] [phone] [email or web address] Prounouns: she/her Gasfitter: Val Redd [phone]/ [email or web address] Connie Yoon M.M. (voice)Vanita, CCC/IT PROGRAM MANAGER Speech-Language Pathologist Certificate of Vocology [facility] [phone] [email or web address] Prounouns: she/her M TRAIN DRIVER documented in this encounter Plan of Treatment Not on filedocumented as of this encounter Procedures Procedure Name Priority Date/Time Associated Diagnosis Comme [facility] SPEECH/HEARING Routine 08/07/2018 8:02 AM STEAM TRAIN DRIVER Dysphonia THERAPY, INDIVIDUAL documented in this encounter Visit Diagnoses Diagnosis Dysphonia - Primary documented in this encounter Additional Health Concerns Assessment Noted Time PHQ-9 Depression Total Score: 16 05/13/2018 7:03 AM CD T documented as of this encounter Care Teams Statistical Methods Professor Relationship Specialty Start Date End Date Logan Hayes MD PCP - General 10/21/01 [address] [place] [address] documented as of this encounter
--- OUTSIDE RECORDS SUMMARY | 2022-06-29 10:21 | XMS_ITS | Clinical Summary ---
:1970 Author Organization [place] Address [address] [facility] [address] Care Team Providers Name Role Phone Logan Hayes MD Primary Care Provider [phone] Allergies Active Allergy Reactions Severity Noted [...] 1000 units by mouth CAPS fluticasone (FLONASE) [place] 1 spray 0 12/04/2016 Active 50 MCG/ACT [...] ss Type Group BCBS BCBS OUT OF [id number] 2012-Present [phone] [address] [address] [place] [address] Vamsi Chappell Personal/Family Self 1970 [address] [place] [address] (Home) [place] [address] Care Teams Manager Net Relationship Specialty Start Date End Date Logan Hayes MD PCP - General 10/21/01 [address] [place], [place] [id number] (work)
--- OUTSIDE RECORDS SUMMARY | 2022-06-29 10:21 | XMS_ITS | Encounter Summary ---
:1970 Author Organization [place] Address [address] [facility] [place] [address] Care Team Providers Name Role Phone Logan Hayes MD Primary Care Provider [phone] Reason for Referral Rehab Therapy Physical Therapy - Closed Specialty Diagnoses / Procedures Referred By Contact Refer red To Contact Diagnoses Dysphonia Bertram Peraza MD [address] [place] [address] [phone] Referral ID Status Reason Start Date Expiration Date Visits Requ ested Visits Authorized [id number] Closed 06/20/2018 06/20/2019 1 1 Encounter Details Date Type Department Care Team Description 06/20/2018 Orders Only [facility] and Bertram Peraza Dysp honia (Primary Dx) Throat MD Katie [address] [place] [address] [address] [place], [place] [address] Social History Tobacco Use Types Packs/Day [...] documented as of this encounter Care Teams Crystal Flat Grinder Relationship Specialty Start Date End Date Logan Hayes MD PCP - General 10/21/01 [address] [place] [address] documented as of this encounter
--- OUTSIDE RECORDS SUMMARY | 2022-06-29 10:21 | XMS_ITS | Encounter Summary ---
:1970 Author Organization [place] Address [address] [facility] [place] [address] Care Team Providers Name Role Phone Logan Hayes MD Primary Care Provider [phone] Reason for Visit Reason Comments Consult [facility] NEW - LARYNGEAL/LINGUAL DYSTONIA, HANDS/FEET CRAMPING Consultation - Closed Specialty Diagnoses / Procedures Referred By Contact Refer red To Contact Diagnoses Dystonia Bertram Peraza MD [address] [place] [address] [phone] Referral ID Status Reason Start Date Expiration Date Visits Requ ested Visits Authorized [id number] Closed 07/14/2018 07/14/2019 1 1 Encounter Details Date Type Department Care Team Description 08/23/2018 Office Visit [facility] Neurology Lauren, Cramp of limb (Primary Dx); 909 [facility] MD Savage Temporomandibular dysfunction syndrome [address]rd [address] [place] [address] [phone] Social History Tobacco Use Types Packs/Day Years Used Date Smoking Tobacco: Never Smokeless Tobacco: Never Alcohol Use Standard Drinks/Week Comments No 0 (1 standard drink = 0.6 oz pure alcoho l) Sex Assigned at Date Recorded Not on file documented as of this encounter Last Filed Vital Signs Vital Sign Reading Time Taken Comments Blood Pressure 121/79 08/23/2018 12:11 PM RELIGIOUS EDUCATION DIRECTOR Pulse 80 08/23/2018 12:11 PM RELIGIOUS EDUCATION DIRECTOR Temperature - - Respiratory Rate - - Oxygen Saturation 99% 08/23/2018 12:11 PM RELIGIOUS EDUCATION DIRECTOR Inhaled Oxygen Concentration - - Weight 107.3 kg (236 lb 8 oz) 08/23/2018 12:11 PM RELIGIOUS EDUCATION DIRECTOR Height - - Body Mass Index - - documented in this encounter Patient Instructions Patient InstructionsTodd Bright MD - 08/23/2018 12:00 PM CST We do not see any evidence of dystonia on your exam. Try taking gabapentin for your cramps. I have ordered one lab to rule out a cause of cramping. GIOUS EDUCATION DIRECTOR documented in this encounter Progress Notes Savage Aguilar MD - 08/23/2018 12:00 PM CST [facility] Movement Disorders Clinic - New Patient CC: [...] swing, and stride length. Pivot turns. Imaging: [facility] IMAGING HEAD MRI WITHOUT AND WITH IV [...] (seen in some crampdisorders). Savage Aguilar MD GIOUS EDUCATION DIRECTOR documented in this encounter Nursing Notes Bart Gonzalez EMT - 08/23/2018 12:00 PM CST Chief Complaint Patient presents with ??? Consult [facility] NEW - LARYNGEAL/LINGUAL DYSTONIA, HANDS/FEET CRAMPING ISAI Cabrera GIOUS EDUCATION DIRECTOR documented in this encounter Plan of Treatment Not on filedocumented as of this encounter Results Paraneoplastic antibody (08/23/2018 2:05 PM RELIGIOUS EDUCATION DIRECTOR) Analysis Performed At Patho logist Time Signature PNP Antibody SEE NOTE 09/01/2018 [facility] 09/01/2018 12:41 PM [facility] 12:41 PM [facility] Comment: (Note) Test ? Result [...] its perf ormance characteristics ?? determined by [facility] in [place] consistent with CLIA ?? requirements. This test has not been cleared or approved by ?? the U.S. Food and Drug Administratio n. CINTHYA-2, S ?Negative ? titer ?? <1:240 ? This test was developed and its perf ormance characteristics ?? determined by [facility] in [place] consistent with CLIA ?? requirements. This test has not been cleared or approved by ?? the U.S. Food and Drug Administratio n. CINTHYA-3, S ?Negative ? titer ?? <1:240 ? This test was developed and its perf ormance characteristics ?? determined by [facility] in [place] consistent with CLIA ?? requirements. This test has not been cleared or approved by ?? the U.S. Food and Drug Administratio n. AGNA-1, S ?Negative ? titer ?? <1:240 ? This test was developed and its perf ormance characteristics ?? determined by [facility] [place] consistent with CLIA ?? requirements. This test has not been cleared or approved by ?? the U.S. Food and Drug Administratio n. BAKERY PASTRY INTERNSHIP-1, S ? Negative ? titer ?? <1:240 ? This test was developed and its perf ormance characteristics ?? determined by [facility] in [place] consistent with CLIA ?? requirements. This test has not been cleared or approved by ?? the U.S. Food and Drug Administratio n. BAKERY PASTRY INTERNSHIP-2, S ? Negative ? titer ?? <1:240 ? This test was developed and its perf ormance characteristics ?? determined by [facility] in [place] consistent with CLIA ?? requirements. This test has not been cleared or approved by ?? the U.S. Food and Drug Administratio n. BAKERY PASTRY INTERNSHIP-Tr, S ?Negative ? titer ?? <1:240 ? This test was developed and its perf ormance characteristics ?? determined by [facility] in [place] consistent with CLIA ?? requirements. This test has not been cleared or approved by ?? the U.S. Food and Drug Administratio n. Amphiphysin Ab, S ?Negative ? titer ?? <1:240 ? This test was developed and its perf ormance characteristics ?? determined by [facility] in [place] consistent with CLIA ?? requirements. This test has not been cleared or approved by ?? the U.S. Food and Drug Administratio n. CRMP-5-IgG, S ?Negative ? titer ?? <1:240 ? This test was developed and its perf ormance characteristics ?? determined by [facility] in [place] consistent with CLIA ?? requirements. This test has not been cleared or approved by ?? the U.S. Food and Drug Administratio n. Striational (Striated Muscle) ?Nega tive ? titer ?? <1:120 ?? Ab, S ?? This test was developed and its perf ormance characteristics ?? determined by [facility] in [place] consistent with CLIA ?? requirements. This test has not been cleared or approved by ?? the U.S. Food and Drug Administratio n. P/Q-Type Calcium Channel Ab ?0.0 0 ? nmol/L ??<=0.02 ? This test was developed and its perf ormance characteristics ?? determined by [facility] [place] consistent with CLIA ?? requirements. This test has not been cleared or approved by ?? the U.S. Food and Drug Administratio n. N-Type Calcium Channel Ab ?0. 00 ? nmol/L ??<=0.03 ? This test was developed and its perf ormance characteristics ?? determined by [facility] in [place] consistent with CLIA ?? requirements. This test has not been cleared or approved by ?? the U.S. Food and Drug Administratio n. ACh Receptor (Muscle) Binding ?0.00 ? nmol/L ??<=0.02 ?? Ab ?? This test was developed and its perf ormance characteristics ?? determined by [facility] in [place] consistent with CLIA ?? requirements. This test has not been cleared or approved by ?? the U.S. Food and Drug Administratio n. AChR Ganglionic Neuronal Ab, S ?? 0.00 ? nmol/L ??<=0.02 ? This test was developed and its perf ormance characteristics ?? determined by [facility] [place] consistent with CLIA ?? requirements. This test has not been cleared or approved by ?? the U.S. Food and Drug Administratio n. Neuronal (V-G) K+ Channel Ab, S ??0.00 ? nmol/L ??<=0.02 ? This test was developed and its perf ormance characteristics ?? determined by [facility] in [place] consistent with CLIA ?? requirements. This test has not been cleared or approved by ?? the U.S. Food and Drug Administratio n. ? Test Performed by: ?? [facility] ?? [address] [address] 4023 Specimen Anatomical Collection Method Collection Time Receive d Time (Source) Location / / Volume Laterality Blood specimen 08/23/2018 2:05 PM 018 2:10 (specimen) RELIGIOUS EDUCATION DIRECTOR PM RELIGIOUS EDUCATION DIRECTOR Todd Bright MD LAB - BLOOD ORDERABLES Performing Organization Address City/State/ZIP Code Phon e Number [address] [address] [facility] documented in this encounter Visit Diagnoses Diagnosis Cramp of limb - Primary Temporomandibular dysfunction syndrome Temporomandibular joint disorders, unspe cified documented in this encounter Additional Health Concerns Assessment Noted Time PHQ-9 Depression Total Score: 16 05/13/2018 7:03 AM CD T documented as of this encounter Care Teams Epic Beacon Analyst Relationship Specialty Start Date End Date Logan Hayes MD PCP - General 10/21/01 [address] [place] [address] documented as of this encounter
--- OUTSIDE RECORDS SUMMARY | 2022-06-29 10:21 | XMS_ITS | Encounter Summary ---
:1970 Author Organization [place] Address [address] [facility] [place] [address] Care Team Providers Name Role Phone Logan Hayes MD Primary Care Provider [phone] Reason for Visit Reason Onset Date Comments Previsit 08/23/2018 Laryngeal/Lingual Dy stonia Encounter Details Date Type Department Care Team Description 08/23/2018 PRE VISIT [facility] Neurology Savage Aguilar, Previsit [address] [place] [address] (Laryngeal/Lingual 3rd Floor [address] [place] [address] Dystonia) [place] [address] [phone] Social History Tobacco Use Types Packs/Day Years [...] Date: 08/23/18 ?? Time: 12p ?? Location: [facility] REFERRAL INFORMATION: ?? Referring provider: Dr. Peraza ?? Referring providers clinic: [facility] ENT ?? Reason for visit/diagnosis Laryngeal/Lingual Dystonia RECORDS REQUESTED FROM: Clinic name Comments Records Status Imaging Status [facility] ENT Dr. Peraza 07/18/18 OV with WAYBILL CLERK Connie Yoon Internal EPIC 08/10/18: Internal referral from Dr. Peraza in ENT. Records and imaging in EPIC. D ADMINISTRATOR documented in this encounter Plan of Treatment Not on filedocumented as of this encounter Visit Diagnoses Not on filedocumented in this encounter Additional Health Concerns Assessment Noted Time PHQ-9 Depression Total Score: 16 05/13/2018 7:03 AM CD T documented as of this encounter Care Teams Seaman Relationship Specialty Start Date End Date Logan Hayes MD PCP - General 10/21/01 [address] [place] [address] documented as of this encounter
--- OUTSIDE RECORDS SUMMARY | 2022-06-29 10:21 | XMS_ITS | Encounter Summary ---
:1970 Author Organization [place] Address [address] [facility] [place] [address] Care Team Providers Name Role Phone Logan Hayes MD Primary Care Provider [phone] Reason for Visit Reason Onset Date Comments Other 08/23/2018 DOUGLAS number Encounter Details Date Type Department Care Team Description 08/23/2018 [facility] Savage Aguilar Othe r (DOUGLAS number) Neurology Clinic Nhi HUTCHINS [address] [address] [phone] Social History Tobacco Use Types Packs/Day Years Used Date Smoking Tobacco: Never Smokeless Tobacco: Never Alcohol Use Standard Drinks/Week Comments No 0 (1 standard drink = 0.6 oz pure alcoho l) Sex Assigned at Date Recorded Not on file documented as of this encounter Miscellaneous Notes Telephone Encounter - Todd Bright MD - 08/23/2018 2:10 PM SLIDE FORMING MACHINE OPERATOR Called. My DOUGLAS number is incorrect in system. Called and fixed with pharmacy. Todd Bright MD Movement Disorders Fellow E FORMING MACHINE OPERATOR Telephone Encounter - Adrienne Patel - 08/23/2018 1:37 PM CST [facility] Phone Message May a detailed message be left on voicemail: yes Reason for Call: Other: Kyle at [facility] called in looking for the DOUGLAS number for Todd Bright. He says the number that was sent in on pt's script is inaccurate. Please give Kyle a call back [phone]. Thank you. Action Taken: Message routed to: [facility] Neurology E FORMING MACHINE OPERATOR documented in this encounter Plan of Treatment Not on filedocumented as of this encounter Visit Diagnoses Not on filedocumented in this encounter Additional Health Concerns Assessment Noted Time PHQ-9 Depression Total Score: 16 05/13/2018 7:03 AM CD T documented as of this encounter Care Teams Volcanology Teacher Relationship Specialty Start Date End Date Logan Hayes MD PCP - General 10/21/01 [address] [place] [address] documented as of this encounter
--- OUTSIDE RECORDS SUMMARY | 2022-06-29 10:21 | XMS_ITS | Encounter Summary ---
:1970 Author Organization [place] Address [address] [facility] [place] [address] Care Team Providers Name Role Phone Logan Hayes MD Primary Care Provider [phone] Encounter Details Date Type Department Care Team Description 07/18/2018 Office Visit [facility] Voice Connie Yoon, Dysphonia (Primary Dx); [address] [facility] SE ROLE PLAYER Throat pain [address] Floor [place] [address] [facility] [address] CLINIC 8A [phone] [place] [address] Social History Tobacco Use Types Packs/Day Years Used Date Smoking Tobacco: Never Alcohol Use Standard Drinks/Week Comments No 0 (1 standard drink = 0.6 oz pure alcoho l) Sex Assigned at Date Recorded Not on file documented as of this encounter Progress Notes Connie Yoon, ROLE PLAYER - 07/18/2018 3:00 PM CST [facility] VOICE CLINIC THERAPY NOTE (CPT 77459) Patient: Vamsi Chappell Date of Service: 07/18/2018 [...] times over the last few weeks, unsuccessfully. [place] like she was choking. ?? PT has [...] PATIENT REPORTED MEASURES: Patient Supplied Answers To ROLE PLAYER QOL Questionnaire Therapy Quality of Life 07/18/2018 [...] pitch before speaking; this was helpful. ?? [place] techniques to reduce glottal lund and improve [...] home practice was instructed. ASSESSMENT/PLAN PROGRESS TOWARD [facility] GOALS: Adequate progress; please see above IMPRESSIONS: [...] ?? TOTAL SERVICE TIME: 60 minutes TREATMENT (23094): 60 minutes NO CHARGE FACILITY FEE (82131) ?? Connie Yoon M.M. (voice), M.A., CCC/ROLE PLAYER Speech-Language Pathologist Certificate of Vocology [facility] [phone] [email or web address] Prounouns: she/her ?? ILIZER PROCESSING SUPERVISOR Connie Yoon, ROLE PLAYER - 07/18/2018 3:00 PM CST Images from [...] have a sneeze/cough/etc that sets you back Shift Supervisor Rn: Val Redd [phone]/ [email or web address] Connie Yoon M.M. (voice), MRanjanA., [facility]/ROLE PLAYER Speech-Language Pathologist Certificate of Vocology [facility] [phone] [email or web address] Prounouns: she/her ILIZER PROCESSING SUPERVISOR documented in this encounter Plan of Treatment Not on filedocumented as of this encounter Procedures Procedure Name Priority Date/Time Associated Diagnosis Comme [facility] SPEECH/HEARING Routine 07/25/2018 10:08 AM Dysphonia THERAPY, INDIVIDUAL FERTILIZER PROCESSING SUPERVISOR Throat pain documented in this encounter Visit Diagnoses Diagnosis Dysphonia - Primary Throat pain documented in this encounter Additional Health Concerns Assessment Noted Time PHQ-9 Depression Total Score: 16 05/13/2018 7:03 AM CD T documented as of this encounter Care Teams Director Of Analytical Development Relationship Specialty Start Date End Date Logan Hayes MD PCP - General 10/21/01 [address] [place] [address] documented as of this encounter
--- OUTSIDE RECORDS SUMMARY | 2022-06-29 10:21 | XMS_ITS | Encounter Summary ---
:1970 Author Organization [place] Address [facility] [place] [address] Care Team Providers Name Role Phone Logan Hayes MD Primary Care Provider [phone] Reason for Visit Reason Comments RECHECK Encounter Details Date Type Department Care Team Description 08/09/2018 Office Visit [facility] and Bertram Peraza (Primary Dx); Throat MD Katie Other diseases of vocal cords [address] [place] [phone] Social History Tobacco Use Types Packs/Day [...] or concerns after your appointment, please call [phone]. Press option #1 for scheduling related needs. Press option #3 for Nurse advice. 2. Plan is to return to clinic as needed. Nia Duarte RN [facility] ER ENT Head & Neck Surgery IFIED RESPIRATORY THERAPIST documented in this encounter Progress Notes Bertram [...] symptoms. ?? She was seen by an fitter hand and felt to have a laryngeal muscle [...] mouth ??? fluticasone (FLONASE) 50 MCG/ACT spray [place] 1 spray in nostril ??? hyoscyamine (ANASPAZ/LEVSIN) [...] see her back after completion of therapy. IFIED RESPIRATORY THERAPIST documented in this encounter Nursing Notes Conor Ngo - 08/09/2018 11:15 AM CST Chief Complaint Patient presents with ??? RECHECK Huber Perdomo IFIED RESPIRATORY THERAPIST documented in this encounter Plan of Treatment Not on filedocumented as of this encounter Procedures Procedure Name Priority Date/Time Associated Diagnosis Comme nts IMAGESTREAM RECORDING Routine 08/09/2018 12:39 PM Dysphonia ORDER CERTIFIED RESPIRATORY THERAPIST documented in this encounter Results IMAGESTREAM RECORDING ORDER (08/09/2018 12:39 PM CERTIFIED RESPIRATORY THERAPIST) Specimen (Source) Anatomical Location Collection Method / [...] documented as of this encounter Care Teams Loin Trimmer Relationship Specialty Start Date End Date Logan Hayes MD PCP - General 10/21/01 [address] [place] [address] documented as of this encounter
--- OUTSIDE RECORDS SUMMARY | 2022-06-29 10:21 | XMS_ITS | Encounter Summary ---
:1970 Author Organization [place] Address [address] [facility] [place] [address] Care Team Providers Name Role Phone Logan Hayes MD Primary Care Provider [phone] Reason for Visit Reason Onset Date Comments Appointment 11/24/2018 Encounter Details Date Type Department Care Team Description 11/24/2018 Telephone [facility] [place] Neurology None Appointment [address] [facility] 3rd [place] [phone] Social History Tobacco Use Types Packs/Day Years Used Date Smoking Tobacco: Never Smokeless Tobacco: Never Alcohol Use Standard Drinks/Week Comments No 0 (1 standard drink = 0.6 oz pure alcoho l) Sex Assigned at Date Recorded Not on file documented as of this encounter Miscellaneous Notes Telephone Encounter - Roya Barbour - 11/24/2018 9:35 AM CDT [facility] [place] Call Center Phone Message May a detailed message be left on voicemail: yes Reason for Call: Other: Patient is being referred by Dr. Leslie Ardon with [facility] for possible dystonia / neurogenetics. [...] documented as of this encounter Care Teams Furnace Installer Helper Relationship Specialty Start Date End Date Logan Hayes MD PCP - General 10/21/01 [address] [place] [address] documented as of this encounter
--- OUTSIDE RECORDS SUMMARY | 2022-06-29 10:21 | XMS_ITS | Encounter Summary ---
:1970 Author Organization [place] Address [address] [facility] [place] [address] Care Team Providers Name Role Phone Logan Hayes MD Primary Care Provider [phone] Encounter Details Date Type Department Care Team Description 07/11/2018 Office Visit [facility] Voice Connie Yoon, Dysphonia (Primary Dx); [address] [facility] SE RESEARCH DEVELOPMENT DIRECTOR Throat pain 4th Floor [place] [id number] [facility] [place] [address] CLINIC 8A [phone] [place] [address] Social History Tobacco Use Types Packs/Day Years Used Date Smoking Tobacco: Never Alcohol Use Standard Drinks/Week Comments No 0 (1 standard drink = 0.6 oz pure alcoho l) Sex Assigned at Date Recorded Not on file documented as of this encounter Progress Notes Connie Yoon, RESEARCH DEVELOPMENT DIRECTOR - 07/11/2018 3:00 PM CST [facility] VOICE CLINIC THERAPY NOTE (CPT 44306) Patient: Vamsi Chappell Date of Service: 07/11/2018 [...] PATIENT REPORTED MEASURES: Patient Supplied Answers To RESEARCH DEVELOPMENT DIRECTOR QOL Questionnaire Therapy Quality of Life 07/11/2018 [...] activities to facilitate practice. ASSESSMENT/PLAN PROGRESS TOWARD GROCERY SPECIALIST GOALS: Modest progress to date, therapeutic methods [...] AVS. TOTAL SERVICE TIME: 60 minutes TREATMENT (10879): 60 minutes NO CHARGE FACILITY FEE (39286) Connie Yoon M.M. (voice), M.A., CCC/RESEARCH DEVELOPMENT DIRECTOR Speech-Language Pathologist Certificate of Vocology [facility] Voice [facility] [phone] [email or web address] Prounouns: she/her NSED STAFF MFT Connie Yoon, RESEARCH DEVELOPMENT DIRECTOR - 07/11/2018 3:00 PM CST Images from [...] and like a bubbly cauldron 2) Jingle [place] (10 times): Whooooo, whooooo, whooooooooooooooo on one [...] us from trouble and things coming in Pelt [place]: Val Redd [phone]/ [email or web address] Connie Yoon M.M. (voice), MRanjanA., [facility]/RESEARCH DEVELOPMENT DIRECTOR Speech-Language Pathologist Certificate of Vocology [facility] [phone] [email or web address] Prounouns: she/her NSED STAFF MFT documented in this encounter Plan of Treatment Not on filedocumented as of this encounter Procedures Procedure Name Priority Date/Time Associated Diagnosis Comme [facility] SPEECH/HEARING Routine 07/18/2018 3:00 PM LICENSED STAFF MFT Dyspho kia THERAPY, INDIVIDUAL Throat pain documented in this encounter Visit Diagnoses Diagnosis Dysphonia - Primary Throat pain documented in this encounter Additional Health Concerns Assessment Noted Time PHQ-9 Depression Total Score: 16 05/13/2018 7:03 AM CD T documented as of this encounter Care Teams Regulatory Assistant Relationship Specialty Start Date End Date Logan Hayes MD PCP - General 10/21/01 [address] [place] [address] documented as of this encounter
--- OUTSIDE RECORDS SUMMARY | 2022-06-29 10:21 | XMS_ITS | Encounter Summary ---
:1970 Author Organization [place] Address [address] [facility] [place] [address] Care Team Providers Name Role Phone Logan Hayes MD Primary Care Provider [phone] Encounter Details Date Type Department Care Team Description 06/08/2018 Orders Only [facility] [place], Bertram Throat MD Katie [address] [place] [address] [place] [address] [phone] Social History Tobacco Use Types Packs/Day Years [...] documented as of this encounter Care Teams Powerhouse Mechanic Helper Relationship Specialty Start Date End Date Logan Hayes MD PCP - General 10/21/01 [address] [place], [place] [phone] documented as of this encounter
--- OUTSIDE RECORDS SUMMARY | 2022-06-29 10:21 | XMS_ITS | Encounter Summary ---
:1970 Author Organization [place] Address [address] [facility] [place] [address] Care Team Providers Name Role Phone Logan Hayes MD Primary Care Provider [phone] Encounter Details Date Type Department Care Team Description 09/01/2018 Office Visit [facility] Voice Jose Roberto Black, Dysphonia (Primary Dx); 909 [facility] DOWEL SANDER OPERATOR Throat pain 4th [place] [address] Social History Tobacco Use Types Packs/Day Years Used Date Smoking Tobacco: Never Smokeless Tobacco: Never Alcohol Use Standard Drinks/Week Comments No 0 (1 standard drink = 0.6 oz pure alcoho l) Sex Assigned at Date Recorded Not on file documented as of this encounter Progress Notes Jose Roberto Black, DOWEL SANDER OPERATOR - 09/01/2018 1:00 PM CST [facility] VOICE CLINIC THERAPY NOTE (CPT 85538) Patient: Vamsi Chappell Date of Service: 09/01/2018 [...] PATIENT REPORTED MEASURES: Patient Supplied Answers To DOWEL SANDER OPERATOR QOL Questionnaire Therapy Quality of Life 09/01/2018 [...] activities to facilitate practice. ASSESSMENT/PLAN PROGRESS TOWARD CLUB MANAGER GOALS: Adequate progress; please see above IMPRESSIONS: [...] therapy TOTAL SERVICE TIME: 60 minutes TREATMENT (02437): 60 minutes NO CHARGE FACILITY FEE (18201) Eb Black M.M., M.A., [facility]-DOWEL SANDER OPERATOR Speech-Language Pathologist Certificate of Vocology [phone] L MACHINE TENDER documented in this encounter Plan of Treatment Not on filedocumented as of this encounter Procedures Procedure Name Priority Date/Time Associated Diagnosis Comme [facility] SPEECH/HEARING Routine 09/01/2018 1:30 PM PANEL MACHINE TENDER Dyspho kia THERAPY, INDIVIDUAL Throat pain documented in this encounter Visit Diagnoses Diagnosis Dysphonia - Primary Throat pain documented in this encounter Additional Health Concerns Assessment Noted Time PHQ-9 Depression Total Score: 16 05/13/2018 7:03 AM CD T documented as of this encounter Care Teams Airport Ramp Attendant Relationship Specialty Start Date End Date Logan Hayes MD PCP - General 10/21/01 [address] [place] [address] documented as of this encounter
--- OUTSIDE RECORDS SUMMARY | 2022-06-29 10:21 | XMS_ITS | Encounter Summary ---
:1970 Author Organization [place] Address [facility] 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 Hold For Preauthorization: [address] [place] [phone] Referral ID Status Reason Start Date Expiration Date Visits Requ ested Visits Authorized [id number] Closed 12/30/2018 12/30/2019 1 47 Reason for Visit Reason Comments REINALDO Medeiros Encounter Details Date Type Department Care Team Description 12/30/2018 Office Visit [facility] Neurology Jonathan Jalloh, Dystonia, torsion, [address]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 She was previously seen by Dr. Aguilar [...] complicated by reduced penetrance, andin some cases, nmuatx-ye-[id number] specific imprinting. Thus, it can be difficult [...] check on prior authorizatoin. Drew Jalloh MS, [facility] Licensed Genetic Counselor Jonathan Jalloh GC - 12/30/2018 12:00 PM CDT GENETIC COUNSELING- addendum I incorrectly stated in my initial note that Coleman's mother had experienced cramping and anal spasms- it was actually a sister who had experienced anal spasms. Drew Jalloh MS, [facility] Licensed Genetic Counselor documented in this encounter Nursing Notes Kaila Willett MA - 12/30/2018 12:00 PM CDT Chief Complaint Patient presents with ??? REINALDO Willett MA documented in this encounter Plan of Treatment Not on filedocumented as of this encounter Results Hereditary Genomics Hold For Preauthorization: (12/30/2018 1:06 PM CDT) Component Value Ref Test Analysis Performed At [facility] Method Time Signature Copath Report Patient Name: COLEMAN RIVER LAINA MR#: [id number] Specimen #: [id number] Collected: 12/30/2018 13:06 Received: 01/02/2019 09:20 Reported: [...] questions, . Electronically Signed Out By: BOOM Senior Site Manager CPT Codes: A: [id number] TESTING LAB LOCATION: [address] [place] [id number] COLLECTION SITE: Client: ??[facility] Location: ??[facility] (B) Specimen Anatomical Collection Method Collection [...] documented as of this encounter Care Teams Garden Implement Mechanic Relationship Specialty Start Date End Date Logan Hayes MD PCP - General 10/21/01 [address] [place] [address] documented as of this encounter
--- OUTSIDE RECORDS SUMMARY | 2022-06-29 10:21 | XMS_ITS | Encounter Summary ---
:1970 Author Organization [place] Address [address] [facility] [place] [address] Care Team Providers Name Role Phone Logan Hayes MD Primary Care Provider [phone] Encounter Details Date Type Department Care Team Description 08/09/2018 Office Visit [facility] Voice Connie Yoon, Dysphonia (Primary Dx); [address] [facility] SE TOWEL WEAVER Throat pain 4th Floor [place], [place] [address] [facility] [address] CLINIC 8A [phone] [place] [address] Social History Tobacco Use Types Packs/Day Years Used Date Smoking Tobacco: Never Alcohol Use Standard Drinks/Week Comments No 0 (1 standard drink = 0.6 oz pure alcoho l) Sex Assigned at Date Recorded Not on file documented as of this encounter Progress Notes Connie Yoon, FABIAN - 08/09/2018 11:15 AM CST Images from the original note were not included. [facility] Bertram Peraza Jr., M.D., F.A.C.S. Aida Lerner M.D., M.P.H. Jennifer Blanco, Ph.D., CCC/TOWEL WEAVER Connie Yoon M.M. (voice), Livan., CCC/TOWEL WEAVER Jose Roberto Black M.M. (voice) MTigist., CCC/TOWEL WEAVER [facility] VOICE/SPEECH/BREATHING THERAPY CLINICAL FOLLOW-UP AND LARYNGEAL EXAMINATION REPORT Clinician: Connie Yoon M.M. (voice)Vanita, CCC/TOWEL WEAVER Seen in conjunction with: Dr. Peraza Referring [...] yet met. OBJECTIVE FINDINGS PERCEPTUAL EVALUATION (CPT 21954) POSTURE / TENSION: ?? tounge base ?? [...] moderate to severe LARYNGEAL FUNCTION STUDIES (CPT 15428) Laryngeal Function Studies (CPT 54024) Acoustic Measures Protocol / Parameter = result Fundamental frequency Metrics /a/ mean F0 = 227 Hz (SD = 3.01 Hz) /i/ mean F0 = 224 Hz (SD = 3.47 Hz) [place] Pass[place] Mean f0 = 232 Hz (SD 62.52 Hz) [place]: Min F0 = 63 Hz Max F0 = 816 Hz Range = 753 Hz Notes = limited range, but was intentionally more careful today Cepstral Measures CPPS /a/ = 22.51 dB CPPS /i/ = 23.02 dB CPPS all voiced = 16.87 dB AVQI (v.3.01) = 2.40 Additional Measures Harmonic to Noise Ratio /a/ = 23.36 dB Harmonic to Noise Ratio: [place] passage = 12.11 dB Jitter (local) /a/ [...] Performed by: Connie Yoon M.M. (voice), Vanita, CCC/TOWEL WEAVER The laryngeal and pharyngeal structures were evaluated [...] 90 minutes EVALUATION OF VOICE AND RESONANCE (13626) LARYNGEAL FUNCTION STUDIES (57306) ENDOSCOPIC LARYNGEAL EXAMINATION WITHOUT STROBOSCOPY (91662) NO CHARGE FACILITY FEE (38142) Connie Yoon M.M. (voice), MRanjanA., CCC/TOWEL WEAVER Speech-Language Pathologist Certificate of Vocology [facility] [phone] [email or web address] Prounouns: she/her TRACER documented in this encounter Plan of Treatment Not on filedocumented as of this encounter Procedures Procedure Name Priority Date/Time Associated Diagnosis Comme [facility] BEHAVIORAL & Routine 08/11/2018 8:25 AM Dysphonia QUALITATIVE ANALYSIS JOB TRACER Throat pain [facility] LARYNGOSCOPY FLEX Routine 08/11/2018 8:25 AM Dysphoni a FIBEROPTIC, DIAGNOSTIC JOB TRACER Throat pain [facility] LARYNGEAL FUNCTION Routine 08/11/2018 8:25 AM Dyspho kia STUDIES JOB TRACER Throat pain documented in this encounter Visit Diagnoses Diagnosis Dysphonia - Primary Throat pain documented in this encounter Additional Health Concerns Assessment Noted Time PHQ-9 Depression Total Score: 16 05/13/2018 7:03 AM CD T documented as of this encounter Care Teams Men'S Golf Coach Relationship Specialty Start Date End Date Logan Hayes MD PCP - General 10/21/01 [address] [place] [address] documented as of this encounter
--- OUTSIDE RECORDS SUMMARY | 2022-06-29 10:21 | XMS_ITS | Encounter Summary ---
:1970 Author Organization [place] Address [address] [facility] [place] [address] Care Team Providers Name Role Phone Logan Hayes MD Primary Care Provider [phone] Encounter Details Date Type Department Care Team Description 08/23/2018 Orders Only [facility] Cramp of limb [address] [facility] SE 1st Floor [place], [place] [phone] Social History Tobacco Use [...] Cramp of li mb Results for this BOAT WORKER procedure are i n the results section. documented in this encounter Results Paraneoplastic antibody (08/23/2018 2:05 PM BOAT WORKER) Analysis Performed At Patho logist Time Signature PNP Antibody SEE NOTE 09/01/2018 [facility] 09/01/2018 12:41 PM BOAT WORKER [place] 12:41 PM [facility] MANITOU Comment: (Note) Test ? Result ?? Flag [...] ormance characteristics ?? determined by [facility] in a mariola r consistent with CLIA ?? requirements. This test has not been cleared or approved by ?? the U.S. Food and Drug Administratio n. CINTHYA-2, S ?Negative ? titer ?? <1:240 ? This test was developed and its perf ormance characteristics ?? determined by [facility] in a mariola r consistent with CLIA ?? requirements. This test has not been cleared or approved by ?? the U.S. Food and Drug Administratio n. CINTHYA-3, S ?Negative ? titer ?? <1:240 ? This test was developed and its perf ormance characteristics ?? determined by [facility] in a mariola r consistent with CLIA ?? requirements. This test has not been cleared or approved by ?? the U.S. Food and Drug Administratio n. AGNA-1, S ?Negative ? titer ?? <1:240 ? This test was developed and its perf ormance characteristics ?? determined by [facility] in a mariola r consistent with CLIA ?? requirements. This test has not been cleared or approved by ?? the U.S. Food and Drug Administratio n. CLASSROOM INSTRUCTOR-1, S ? Negative ? titer ?? <1:240 ? This test was developed and its perf ormance characteristics ?? determined by [facility] in a mariola r consistent with CLIA ?? requirements. This test has not been cleared or approved by ?? the U.S. Food and Drug Administratio n. CLASSROOM INSTRUCTOR-2, S ? Negative ? titer ?? <1:240 ? This test was developed and its perf ormance characteristics ?? determined by [facility] in a mariola r consistent with CLIA ?? requirements. This test has not been cleared or approved by ?? the U.S. Food and Drug Administratio n. CLASSROOM INSTRUCTOR-Tr, S ?Negative ? titer ?? <1:240 ? This test was developed and its perf ormance characteristics ?? determined by [facility] in a mariola r consistent with CLIA ?? requirements. This test has not been cleared or approved by ?? the U.S. Food and Drug Administratio n. Amphiphysin Ab, S ?Negative ? titer ?? <1:240 ? This test was developed and its perf ormance characteristics ?? determined by [facility] in a mariola r consistent with CLIA ?? requirements. This test has not been cleared or approved by ?? the U.S. Food and Drug Administratio n. CRMP-5-IgG, S ?Negative ? titer ?? <1:240 ? This test was developed and its perf ormance characteristics ?? determined by [facility] in a mariola r consistent with CLIA ?? requirements. This test has not been cleared or approved by ?? the U.S. Food and Drug Administratio n. Striational (Striated Muscle) ?Nega tive ? titer ?? <1:120 ?? Ab, S ?? This test was developed and its perf ormance characteristics ?? determined by [facility] in a mariola r consistent with CLIA ?? requirements. This test has not been cleared or approved by ?? the U.S. Food and Drug Administratio n. P/Q-Type Calcium Channel Ab ?0.0 0 ? nmol/L ??<=0.02 ? This test was developed and its perf ormance characteristics ?? determined by [facility] in a mariola r consistent with CLIA ?? requirements. This test has not been cleared or approved by ?? the U.S. Food and Drug Administratio n. N-Type Calcium Channel Ab ?0. 00 ? nmol/L ??<=0.03 ? This test was developed and its perf ormance characteristics ?? determined by [facility] in a mariola r consistent with CLIA ?? requirements. This test has not been cleared or approved by ?? the U.S. Food and Drug Administratio n. ACh Receptor (Muscle) Binding ?0.00 ? nmol/L ??<=0.02 ?? Ab ?? This test was developed and its perf ormance characteristics ?? determined by [facility] in a mariola r consistent with CLIA ?? requirements. This test has not been cleared or approved by ?? the U.S. Food and Drug Administratio n. AChR Ganglionic Neuronal Ab, S ?? 0.00 ? nmol/L ??<=0.02 ? This test was developed and its perf ormance characteristics ?? determined by [facility] in a mariola r consistent with CLIA ?? requirements. This test has not been cleared or approved by ?? the U.S. Food and Drug Administratio n. Neuronal (V-G) K+ Channel Ab, S ??0.00 ? nmol/L ??<=0.02 ? This test was developed and its perf ormance characteristics ?? determined by [facility] in a mariola r consistent with CLIA ?? requirements. This test has not been cleared or approved by ?? the U.S. Food and Drug Administratio n. ? Test Performed by: ?? [facility] [place] ?? [address] [place], [place] [address] Specimen Anatomical Collection Method Collection Time Receive d Time (Source) Location / / Volume Laterality Blood specimen 08/23/2018 2:05 PM 018 2:10 (specimen) BOAT WORKER PM BOAT WORKER Todd Bright MD LAB - BLOOD ORDERABLES Performing Organization Address City/State/ZIP Code Phon e Number [address] [address] [facility][note 3] documented in this encounter Visit Diagnoses Diagnosis Cramp of limb documented in this encounter Additional Health Concerns Assessment Noted Time PHQ-9 Depression Total Score: 16 05/13/2018 7:03 AM CD T documented as of this encounter Care Teams Safety Companion Relationship Specialty Start Date End Date Logan Hayes MD PCP - General 10/21/01 [address] [facility] [place] [address] documented as of this encounter
--- OUTSIDE RECORDS SUMMARY | 2022-06-29 10:21 | XMS_ITS | Encounter Summary ---
:1970 Author Organization [place] Address [address] [facility] [place] [address] Care Team Providers Name Role Phone Logan Hayes MD Primary Care Provider [phone] Encounter Details Date Type Department Care Team Description 01/19/2019 Telephone [facility] Neurology Jonathan Walker GC [address] 3rd Floor [id number] [place], [place] [phone] [place] [address] (Wo rk) Social History Tobacco [...] of covered genes: COL6A3,GCH1,PNKD,SGCE,SLC2A1,TH,THAP1,TOR1A. Drew Walker MS, [facility] Licensed Genetic Counselor documented in this encounter Plan of Treatment Not on filedocumented as of this encounter Results Next Generation Sequencing (12/30/2018 1:06 PM CDT) Component Value Ref Test Analysis Performed At [facility] gist Range Method Time Signature Copath Report Patient Name: COLEMAN RIVER MR#: [id number] Specimen #: [id number] Collected: 12/30/2018 13:06 Received: 01/19/2019 13:15 Reported: [...] according to standard Illumina protocols utilizing the [employer] One DianDian Sequencing [place] el and a custom designed supplemental capture for enrichment of targeted genes. ??The enriched DNA libraries are sequenced on an Illumina LoveLula instrument. Raw sequencing reads are mapped to [...] interpreted according to guidance issued by the [employer] [Edel et al.2015]. Pathogenic and predicted pathogenic variants that meet ALL o f the following criteria are reported without validation by [place] sequencing: ??1- single nucleotide subs titution, 2- receives a PASS from the SNP or indel filter, 3- has a VAF in the accepted range (heterozygo us = 0.3-0.6, homozygous/hemizygous >0.9), 4- has a minimum of 20x coverage, and 5-is present in the GATAdreima VC F file. ?? Pathogenic variants that [...] a Broad Target Capture NGS Assay without [place] Verific ation. [facility] biomarkers 2(1):1005. Jarrett Greenberg Bower M, Henzler C, Sumanth Farmer, Reese OSHEA, Addis B. 2016. CNV-RF Is a Random [place]-Based Copy Number Variation Detection Method Using Fast FiBR-Generation Sequencing. J Mol Diagn. 18(6):872-881. PMID: 55024398. Scot Greenberg Spears MD, Malik Carlton, Laura MCMAHON, Rashida Cardoso, Odalis Rdz, Aaron Tucker, Deonte OSHEA, Addis B. 2014. Implementation of [place]ess based next gene ration sequencing data analysis in a clinical laboratory. BMC Res Notes. 7:314. PMID: 52344043. Edel S, Melva N, Renzo S, Fausto D, Nestor S, Jolie J, Kj CASTRO, Lanette Farmer, Be E, Jenae E, Nicki K, Ranulfo HL, [facility] Laboratory Qa Developer Committee. 201 5. Standards and guidelines for the interpretation of sequence variants: a joint consensus recommendation of e [place] [employer] Genetics and Genomics and the Association for Molecular Pathology. Cynthia. Med. 17(5):405-24. PMID: 95139308. Clotilde JA, Erasmo AW, O'Jigar TD, Fu W, Siddharth EE, Gravel S, Peña S, Do R, Helton X, Berto G, Sainz HM, Estrada D, Aisha SM, Jarred S, Tyrel MJ, Abecaeva G, Altshuler D, N bebo DA, Brandon E, Sunyaev S, Paul CD, Ramirez MJ, Ladi JM, Broad GO, Leighton GO, [facility] Exome S equencing Project. 2012. Evolution and functional impact of rare coding variation from deep sequencing of gay n exomes. Science. 337(8299):64-9. PMID: 71422268. Odalis Rdz, Bert Cardoso, Jing Mckee, Aaron Car Schomaker M, O nsongo G, Wilson J, Erdmann J, Devaughn Y, Gary Flores MD, Laura Mckee, Deonte OSHEA, Addis B. 2015 . Clinical validation of targeted next-generation sequencing for inherited disorders. Arch. Pathol. Lab. Med. 139(2):204-10. PMID: 69216586. If a patient is the recipient of an allogeneic bone marrow t ransplant, this test must be done on a pre-transplant sample or buccal swab. ??A previous allogenei c bone marrow transplant will interfere with test results. ??Call the [facility]([phone]) for instructions on sample collection for these patients. This test was developed and its performance characteristics determined by the [facility], ??Molecular Diagnostics Laboratory and the [facility](Cancer & Cardiovascular Research Building Room 1-210, [address] [place] [address]). ?? Genomic DNA extraction, interpretation of sequencing data, and when nece ssary, [place] sequencing is performed at [facility], ??Molecular Diagno stics Laboratory. ?? Wet bench processes including library creation, sequence capture using an Illumina LoveLula analyzer and bioinformatics is performed at the [facility]. ??It has not been c [...] Electronically Signed Out By: Sreekanth Boles M.D., [facility] CPT Codes: A: [id number], [id number] TESTING LAB LOCATION: [address] [place] [id number] COLLECTION SITE: Client: ??[facility] Location: ??[facility] (B) Specimen Anatomical Collection Method Collection Time [...] documented as of this encounter Care Teams Religious Healer Relationship Specialty Start Date End Date Logan Hayes MD PCP - General 10/21/01 [address] [place] [address] documented as of this encounter
--- OUTSIDE RECORDS SUMMARY | 2022-06-29 10:21 | XMS_ITS | Encounter Summary ---
:1970 Author Organization [place] Address [address] [facility] [place] [address] Care Team Providers Name Role Phone Logan Hayes MD Primary Care Provider [phone] Reason for Visit [facility] (Routine) - Closed Specialty Diagnoses / Procedures Referred By Contact Refer red To Contact Physical Therapy Diagnoses neck and throat / Connie Yoon @ [facility] OUT OF STATE Connie Yoon, AUTO SERVICER Zeferino Arredondo, PT Procedures SPINE IN[facility]IAL [facility] [place] [address] [facility] [address] [place], [place] [address] [place] [address] Phone: Fax: Referral ID Status Reason Start Date Expiration Date Visits Requ ested Visits Authorized [id number] Closed 06/27/2018 09/05/2018 70 68 Encounter Details Date Type Department Care Team Description 08/01/2018 Therapy Visit [facility] Zeferino Arredondo, PT Neck pain Rehabilitation Services [facility] [address] [facility] AMANDA [address] [place] [address] [place], [place] [address] [phone] Social History Tobacco Use Types Packs/Day Years [...] 2:05 PM Neck pain TECH,1+REGIONS,EA 15 MIN EXPERIMENTAL TECHNICIAN Z NEUROMUSCULAR Routine 08/01/2018 2:05 PM Neck pain RE-EDUCATION EXPERIMENTAL TECHNICIAN ZZC THERAPEUTIC EXERCISES Routine 08/01/2018 2:05 PM Neck pain EXPERIMENTAL TECHNICIAN documented in this encounter Visit Diagnoses Diagnosis Neck pain Cervicalgia documented in this encounter Additional Health Concerns Assessment Noted Time PHQ-9 Depression Total Score: 16 05/13/2018 7:03 AM CD T documented as of this encounter Care Teams Clerical Assigner Relationship Specialty Start Date End Date Logan Hayes MD PCP - General 10/21/01 [address] [place] [address] documented as of this encounter
--- OUTSIDE RECORDS SUMMARY | 2022-06-29 10:21 | XMS_ITS | Encounter Summary ---
:1970 Author Organization [place] Address [address] [facility] [place] [address] Care Team Providers Name Role Phone Logan Hayes MD Primary Care Provider Encounter Details Date Type Department Care Team Description 05/31/[address] [facility] Voice Connie Yoon, Dysphonia (Primary Dx); [address] [facility] [address] CONSULTANT Throat pain 4th Floor [place] [address] [facility] [address] CLINIC 8A [phone] [place] [address] Social History Tobacco Use Types Packs/Day Years Used Date Smoking Tobacco: Never Alcohol Use Standard Drinks/Week Comments No 0 (1 standard drink = 0.6 oz pure alcoho l) Sex Assigned at Date Recorded Not on file documented as of this encounter Progress Notes Connie Yoon, ROAD CONSULTANT - 05/31/2018 1:00 PM CDT [facility] VOICE CLINIC THERAPY NOTE (CPT 10344) Patient: Vamsi Chappell Date of Service: 05/31/2018 [...] difficult to hear - can listen to jainism music again, but turns the kohler down. [...] PATIENT REPORTED MEASURES: Patient Supplied Answers To ROAD CONSULTANT QOL Questionnaire Therapy Quality of Life 05/31/2018 [...] plosives, which seemed to trigger hersymptoms ?? [place] techniques to improve voice quality; negative practice [...] activities to facilitate practice. ASSESSMENT/PLAN PROGRESS TOWARD HEALTH COMMISSIONER GOALS: Adequate progress; too early for objective [...] Chappell in 3 weeks. [facility]? For practice goals see AVS. TOTAL SERVICE TIME: 60 minutes TREATMENT (91165): 60 minutes NO CHARGE FACILITY FEE (10908) Connie Yoon M.M. (voice)Vanita, CCC/ROAD CONSULTANT Speech-Language Pathologist Certificate of Vocology [facility] [phone] [email or web address] Prounouns: she/her Connie Yoon ROAD CONSULTANT - 05/31/2018 1:00 PM CDT Images from [...] breath/ who on B3, then transition to cpa-lma-osi-william-who..., then chanting qsc-ntkb-luo to help recalibrate your voice to the [...] and 2-syllable words to the modified sentences Power Distributor: Val Redd [phone]/ [email or web address] Connie Yoon M.M. (voice), M.A., [facility]/ROAD CONSULTANT Speech-Language Pathologist Certificate of Vocology [facility] [phone] [email or web address] Prounouns: she/her Connie Yoon SLP - 05/31/2018 1:00 PM CDT Images from the original note were not included. documented in this encounter Plan of Treatment Not on filedocumented as of this encounter Procedures Procedure Name Priority Date/Time Associated Diagnosis Comme nts [facility] SPEECH/HEARING Routine 06/04/2018 10:25 PM Dysphonia THERAPY, INDIVIDUAL CDT Throat pain documented in this encounter Visit Diagnoses Diagnosis Dysphonia - Primary Throat pain documented in this encounter Additional Health Concerns Assessment Noted Time PHQ-9 Depression Total Score: 16 05/13/2018 7:03 AM CD T documented as of this encounter Care Teams Biology Tutor Relationship Specialty Start Date End Date Logan Hayes MD PCP - General 10/21/01 [address] [place] [address] documented as of this encounter
--- OUTSIDE RECORDS SUMMARY | 2022-06-29 10:21 | XMS_ITS | Encounter Summary ---
:1970 Author Organization [place] Address [address] [facility] [place] [address] Care Team Providers Name Role Phone Logan Hayes MD Primary Care Provider [phone] Encounter Details Date Type Department Care [...] documented as of this encounter Care Teams Human Performance Consultant Relationship Specialty Start Date End Date Logan Hayes MD PCP - General 10/21/01 [address] [place], [place] [id number] documented as of this encounter
--- OUTSIDE RECORDS SUMMARY | 2022-06-29 10:22 | XMS_ITS | Encounter Summary ---
:1970 Author Organization [place] Address [address] [facility] [place] [address] Care Team Providers Name Role Phone Logan Hayes MD Primary Care Provider [phone] Encounter Details Date Type Department Care Team Description 05/10/2018 Office Visit [facility] Voice Connie Yoon, Dysphonia (Primary Dx); [address] [facility] SE EMBROIDERY FINISHER Throat pain 4th Floor [place], [place] [address] [facility] [address] CLINIC 8A [phone] [place] [address] Social History Tobacco Use Types Packs/Day Years Used Date Smoking Tobacco: Never Alcohol Use Standard Drinks/Week Comments No 0 (1 standard drink = 0.6 oz pure alcoho l) Sex Assigned at Date Recorded Not on file documented as of this encounter Progress Notes Connie Yoon, FABIAN - 05/10/2018 10:30 AM CDT Images from the original note were not included. [facility] VOICE CLINIC Bertram Peraza Jr., M.D., F.A.C.S. Aida Lerner M.D., M.P.H. Jennifer Blanco, Ph.D., CCC/EMBROIDERY FINISHER Connie Yoon M.M. (voice), Vanita, CCC/EMBROIDERY FINISHER Jose Roberto Black M.M. (voice) MTigist., CCC/EMBROIDERY FINISHER Evaluation report Clinician: Connie Yoon M.M. (voice)Vanita, CCC/EMBROIDERY FINISHER Seen in conjunction with: Dr. Peraza Referring [...] ?? 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 PERCEPTUAL EVALUATION (CPT 49971) POSTURE / TENSION: ?? jaw ?? tounge [...] extrinsic neck muscles. LARYNGEAL FUNCTION STUDIES (CPT 09136) Initiated, but not completed. Will complete this [...] agreed with the recommendations. THERAPY NOTE (CPT 02594) Date of Service: 05/10/2018 SUBJECTIVE / OBJECTIVE: [...] of practice frequently throughout each day o Meeker concepts of volitional practice to facilitate motor learning. ??? A regimen for home practice was instructed. ASSESSMENT/PLAN PROGRESS TOWARD AUTO AIR CONDITIONING MECHANIC GOALS: Minimal at this point, as this is first session, but good learning today IMPRESSIONS: R49.0 (Dysphonia) in the context of R07.0 (Throat Pain) PLAN: I will see Ms. Chappell in 2 days to complete the laryngeal function studies and continue therapy TOTAL SERVICE TIME: 75 minutes EVALUATION OF VOICE AND RESONANCE (34066) TREATMENT (45361) NO CHARGE FACILITY FEE (59252) Connie Yoon M.M. (voice) MRanjanARanjan, [facility]/EMBROIDERY FINISHER Speech-Language Pathologist Certificate of Vocology [facility] [phone] [email or web address] Prounouns: she/her Answers for HPI/ROS submitted by [...] Name Priority Date/Time Associated Diagnosis Comme nts [facility] & Routine 05/10/2018 4:10 PM Dysphonia QUALITATIVE ANALYSIS CDT Throat pain VOICE AND RESONANCE [facility] SPEECH/HEARING Routine 05/10/2018 4:10 PM Dysphonia THERAPY, INDIVIDUAL CDT Throat pain documented in this encounter Visit Diagnoses Diagnosis Dysphonia - Primary Throat pain documented in this encounter Additional Health Concerns Assessment Noted Time PHQ-9 Depression Total Score: 17 05/12/2018 8:55 AM CD T documented as of this encounter Care Teams Publishing Director Relationship Specialty Start Date End Date Logan Hayes MD PCP - General 10/21/01 [address] [place] [address] documented as of this encounter
--- OUTSIDE RECORDS SUMMARY | 2022-06-29 10:22 | XMS_ITS | Encounter Summary ---
:1970 Author Organization [facility] Address [address] [place] [address] Care Team Providers Name Role Phone Jatinder Haddad MD Primary Care Provider Reason for Visit Procedure/Equipment (Routine) - Closed Specialty Diagnoses / Procedures Referred By Contact Refer red To Contact Diagnoses Muscle cramps Muscle spasm Dysphonia Leslie Ardon MD Procedures NEURO--EMG ELECTRICAL NERVE CONDUCTION STUDY [address] [place], [place] [address] Referral ID Status Reason Start Date Expiration Date Visits Requ ested Visits Authorized [id number] Closed 10/25/2018 01/24/2020 1 1 Encounter Details Date Type Department Care Team Description 11/08/2018 Office Visit David Cardozo Left arm pa in (Primary Dx); [facility] [place] Muscle cramps; Neurology EEG/EMG [address] Muscle spasm; [address] [place], [place] Dysphonia; [place] [address] Left leg pain [phone] Social History Tobacco Use Types Packs/Day Years [...] concerns, please contact us. Call for the [facility] Neurology EMG Clinic in [place]. CRIPTIONIST documented in this encounter Progress Notes David Bright MD - 11/08/2018 10:00 AM CST Normal study. David Bright MD 11/08/2018, 10:49 AM Department of Neurology [facility] CRIPTIONIST documented in this encounter Plan of Treatment Not on filedocumented as of this encounter Visit Diagnoses Diagnosis Left arm pain - Primary Pain in limb Muscle cramps Cramp of limb Muscle spasm Spasm of muscle Dysphonia Left leg pain Pain in limb documented in this encounter Care Teams Collar Turner Operator Relationship Specialty Start Date End Date Jatinder Haddad MD PCP - General 08/18/1996 [address] [place] [address] documented as of this encounter
--- OUTSIDE RECORDS SUMMARY | 2022-06-29 10:22 | XMS_ITS | Encounter Summary ---
:1970 Author Organization [place] Address [address] [facility] [place] [address] Care Team Providers Name Role Phone Logan Hayes MD Primary Care Provider Encounter Details Date Type Department Care Team Description 05/12/2018 [facility] Visit [facility] Voice Connie Yoon, Dysphonia (Primary Dx); [address] [facility] SE TIER AND DETONATOR Throat pain 4th Floor [place] [address] [facility] [address] CLINIC 8A [phone] [place] [address] Social History Tobacco Use Types Packs/Day Years Used Date Smoking Tobacco: Never Alcohol Use Standard Drinks/Week Comments No 0 (1 standard drink = 0.6 oz pure alcoho l) Sex Assigned at Date Recorded Not on file documented as of this encounter Patient Instructions Patient InstructionsConnie Yoon, TIER AND DETONATOR - 05/12/2018 10:00 AM CDT Images from [...] breath/ who on B3, then transition to ofk-mwr-qiw-william-who..., then chanting ojb-rmdw-aes to help recalibrate your voice to the [...] - guadarrama - you and continue through ndbwh-ydpig-cbndu ??? [place] o Take breaths as needed o Keep speech in the mask * No - you don't sound sexual! Call me the next 2 and leave a voice message when you have time, BUT - avoid phone use, orother circumstances that make you try to speak louder for now. Intervention Teacher: Val Redd [phone]/ [email or web address] Connie Yoon M.M. (voice)Vanita, [facility]/TIER AND DETONATOR Speech-Language Pathologist Certificate of Vocology [facility] [phone] [email or web address] Prounouns: she/her documented in this encounter Progress Notes Connie Yoon SLP - 05/12/2018 10:00 AM CDT Images from the original note were not included. [facility] VOICE [facility] THERAPY NOTE (CPT 91222) Patient: Vamsi Chappell Date of Service: 05/12/2018 [...] PATIENT REPORTED MEASURES: Patient Supplied Answers To TIER AND DETONATOR QOL Questionnaire Therapy Quality of Life 05/12/2018 [...] About the same Laryngeal Function Studies (CPT 18851) Acoustic Measures Protocol / Parameter = result Fundamental frequency Metrics /a/ mean F0 = 150 Hz (SD = 68.58 Hz) /i/ mean F0 = 178 Hz (SD = 27.66 Hz) [place] Pass[place] Mean f0 = 219 Hz (SD 53.81 Hz) Bard: Min F0 = 51 Hz Max F0 = 1773 Hz Range = 1721 Hz Cepstral Measures CPPS /a/ = 15.21 dB CPPS /i/ = 16.73 dB CPPS all voiced = 16.06 dB AVQI (v.3.01) = 2.29 Additional Measures Harmonic to Noise Ratio /a/ = 4.69 dB Harmonic to Noise Ratio: [place] passage = 17.00 dB Jitter (local) /a/ [...] trained using the pulsed sh task ?? Pope a respiratory pacing exercise; this was helpful [...] phrases on Bb3; this was helpful. ?? Pope techniques to reduce muscle tension and improve breath flow. ?? Good increase in awareness today. Instructed in techniques to improve length of utterance with reduced effort for optimal carryover. o Instructed with the [place] o Focusing on taking breaths as [...] activities to facilitate practice. ASSESSMENT/PLAN PROGRESS TOWARD STILL PHOTOGRAPHER GOALS: Minimal at this point, as this [...] SERVICE TIME: 120 minutes LARYNGEAL FUNCTION STUDIES (80504) TREATMENT (45864) NO CHARGE FACILITY FEE (90106) Connie Yoon M.M. (voice), Vanita, CCC/TIER AND DETONATOR Speech-Language Pathologist Certificate of Vocology [facility] Voice Clinic [phone] [email or web address] Prounouns: she/her Answers for HPI/ROS submitted by the patient on 05/12/2018 PHQ-2 Score: 4 If you checked off any problems, how difficult have these problems made it for you to do your work, take care of things at home, or get along with other people?: Very difficult PHQ9 TOTAL SCORE: 16 Connie Yoon TIER AND DETONATOR - 05/12/2018 10:00 AM CDT Images from [...] breath/ who on B3, then transition to bdk-vzi-kxr-william-who..., then chanting rjb-ylaq-vsi to help recalibrate your voice to the [...] - guadarrama - you and continue through rhaey-xwnyq-wtpwu ??? [place] o Take breaths as needed o Keep speech in the mask * No - you don't sound sexual! Call me the next 2 and leave a voice message when you have time, BUT - avoid phone use, orother circumstances that make you try to speak louder for now. Intervention Teacher: Val Redd [phone]/ [email or web address] Connie Yoon M.M. (voice), M.A., CCC/TIER AND DETONATOR Speech-Language Pathologist Certificate of Vocology [facility] [phone] [email or web address] Prounouns: she/her documented in this encounter Plan of Treatment Not on filedocumented as of this encounter Procedures Procedure Name Priority Date/Time Associated Diagnosis Comme nts [facility] LARY[facility]GEAL FUNCTION Routine 05/12/2018 6:33 PM CDT Dy sphonia STUDIES Throat pain [facility] SPEECH/HEARING Routine 05/12/2018 6:33 PM CDT Dyspho kia THERAPY, INDIVIDUAL Throat pain documented in this encounter Visit Diagnoses Diagnosis Dysphonia - Primary Throat pain documented in this encounter Additional Health Concerns Assessment Noted Time PHQ-9 Depression Total Score: 16 05/13/2018 7:03 AM CD T documented as of this encounter Care Teams Pipeline Systems Operator Relationship Specialty Start Date End Date Logan Hayes MD PCP - General 10/21/01 [address] [place] [address] documented as of this encounter
--- OUTSIDE RECORDS SUMMARY | 2022-06-29 10:22 | XMS_ITS | Encounter Summary ---
:1970 Author Organization [place] Address [facility] [place] [address] Care Team Providers Name Role Phone Logan Hayes MD Primary Care Provider [phone] Reason for Visit Reason Comments Derm Problem bumps on lower leg Encounter Details Date Type Department Care Team Description 03/19/2005 Office Visit [facility] Logan Hayes SEBORR HEIC KERATOSIS NOS; Clinic Randolph MD Sixto MOLLUSCUM CONTAGIOSUM [address] [place] [address] [phone] Social History Tobacco Use Types Packs/Day Years [...] contagiosum documented in this encounter Care Teams Director Client Services Relationship Specialty Start Date End Date Logan Hayes MD PCP - General 10/21/01 [address] [place] [address] documented as of this encounter
--- OUTSIDE RECORDS SUMMARY | 2022-06-29 10:22 | XMS_ITS | Encounter Summary ---
:1970 Author Organization [place] Address [id number] [place] [address] Care Team Providers Name Role Phone Logan Hayes MD Primary Care Provider [phone] Reason for Visit Reason Comments Derm Problem rash on upper chest area Nose Problem tingling on face and chin Encounter Details Date Type Department Care Team Description 12/16/2004 Office Visit [facility] Logan Hayes T FEVER (Primary Clinic JacksonPiter Henson MD Dx) [address] [place] [id number] [phone] Social History Tobacco Use Types Packs/Day Years [...] Component Value Ref Test Analysis Performed At [facility] Range Method Time Signature Specimen Throat [place] Description [facility] Culture Micro No Beta [place] Streptococcus [facility] Report status FINAL [id number] [facility] Specimen Anatomical Collection Method Collection Time Receive d Time (Source) Location / / Volume Laterality 12/16/2004 12:14 12/16/2004 PM CDT 12:19 PM CDT Logan Hayes MD LABORATORY Performing Organization Address City/[facility]/ZIP Code Phon e Number [facility] [address] [place] [address] [facility] STREP GROUP A AG (RAPID) (12/16/2004 12:14 PM CDT) Component Value Ref Test Analysis Performed At [facility] Range Method Time Signature Specimen Throat [place] Description [facility] Rapid Strep A NEGATIVE: No Group A strepto coccal antigen detected by immunoassay, await [place] Screen culture report. [facility] Report status FINAL [id number] [facility] Specimen Anatomical Collection Method Collection Time Receive d Time (Source) Location / / Volume Laterality 12/16/2004 12:14 12/16/2004 PM CDT 12:19 PM CDT Logan Hayes MD LABORATORY Performing Organization Address City/[facility]/ZIP Code Phon e Number [facility] [phone] [place] [address] [facility] documented in this encounter Visit Diagnoses Diagnosis Scarlet fever - Primary documented in this encounter Care Teams Information Consultant Relationship Specialty Start Date End Date Logan Hayes MD PCP - General 10/21/[id number] [place] [address] documented as of this encounter
--- OUTSIDE RECORDS SUMMARY | 2022-06-29 10:22 | XMS_ITS | Encounter Summary ---
:1970 Author Organization [facility] Address [address], [place] [address] Care Team Providers Name Role Phone Jatinder Haddad MD Primary Care Provider Reason for Visit Auth/Cert Specialty Diagnoses / Procedures Referred By Contact Refer red To Contact Referral ID Status Reason Start Date Expiration Date Visits Requ ested Visits Authorized [id number] 1 1 Encounter Details Date Type Department Care Team Description 11/02/2018 Ancillary [facility], Muscle cramps ; Procedure [facility] MRI Leslie Cardoso MD Muscle spasm; [address] [place] [address] [facility] [phone] [place] [address] Social History Tobacco Use Types Packs/Day Years Used Date Smoking Tobacco: Never Assessed Sex Assigned at Date Recorded Not on file documented as of this encounter Progress Notes Leslie Ardon MD - 11/02/2018 11:45 AM CST Please call:her: MRI c-spine looks good N UP SUPERVISOR documented in this encounter Plan of Treatment Not on filedocumented as of this encounter Procedures Procedure Name Priority Date/Time Associated Diagnosis Comme nts MR CERVICAL SPINE Routine 11/02/2018 12:17 PM Muscle precision aircraft structure assembler mps Results for this WO IV CONT CLEAN UP SUPERVISOR Muscle spasm procedure are in Dysphonia the results section. documented in this encounter Results MR Cervical Spine WO IV Cont (11/02/2018 12:17 PM CLEAN UP SUPERVISOR) Anatomical Region Laterality Modality Spine, C-Spine, Neck, Vascular Magnetic Resonance Specimen (Source) Anatomical Collection Method Collection Time Re ceived Time Location / / Volume Laterality 11/02/2018 12:17 PM CLEAN UP SUPERVISOR Narrative 11/02/2018 3:25 PM CLEAN [address]VISOR [facility] EXAM: MR CERVICAL SPINE [...] note might be different from the original. [facility] RADIOLOGY EXAM: MR CERVICAL SPINE WO IV [...] Dysphonia documented in this encounter Care Teams Chief Yeoman Relationship Specialty Start Date End Date Jatinder Haddad MD PCP - General 08/18/1996 [address] [place] [address] documented as of this encounter
--- OUTSIDE RECORDS SUMMARY | 2022-06-29 10:22 | XMS_ITS | Encounter Summary ---
:1970 Author Organization [facility] Address [address] [place] [address] Care Team Providers Name Role Phone Jatinder Haddad MD Primary Care Provider Reason for Visit Reason Comments Refill Encounter Details Date Type Department Care Team Description 03/26/2020 Refill [facility] Leslie Ardon MD Refill [address] [place], [place] [address] [place], [place] [address] (Wo rk) Social History Tobacco Use Types Packs/Day Years Used Date Smoking Tobacco: Never Assessed Sex Assigned at Date Recorded Not on file documented as of this encounter Nursing Notes Danielle Domínguez RN - 03/26/2020 4:29 PM CDT Last seen: 10/25/18. Called and spoke with Vamsi. She states she has been using something called Xsigo and this effects the neuro points and has helped with her symptoms. 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 She has reduced her gabapentin to 1 tab daily, so will refuse this request. Set up follow-up on 06/18/20 documented in this encounter Plan of Treatment Not on filedocumented as of this encounter Visit Diagnoses Not on filedocumented in this encounter Care Teams Latex Foam Worker Relationship Specialty Start Date End Date Jatinder Haddad MD PCP - General 08/18/1996 [address] [place] [address] documented as of this encounter
--- OUTSIDE RECORDS SUMMARY | 2022-06-29 10:22 | XMS_ITS | Encounter Summary ---
:1970 Author Organization [facility] Address [address], [place] [address] Care Team Providers Name Role Phone Jatinder Haddad MD Primary Care Provider Encounter Details Date Type Department Care Team Description 11/08/2018 Orders Only [facility] Neu[facility] EEG /EMG [address] [place] [address]. [facility] [place] [address] [place], [place] [phone] [id number] (Wo rk) Social History Tobacco Use Types Packs/Day Years Used Date Smoking Tobacco: Never Assessed Sex Assigned at Date Recorded Not on file documented as of this encounter Progress Notes Leslie Ardon MD - 11/08/2018 11:59 PM CST Please call her: the EMG was normal. RONICS TECHNICIAN documented in this encounter Plan of Treatment Not on filedocumented as of this encounter Procedures Procedure Name Priority Date/Time Associated Diagnosis Comme nts EMG SCAN 11/08/2018 12:00 AM Results for this MEDTRONICS TECHNICIAN procedure are i n the results section . documented in this encounter Results EMG SCAN (11/08/2018 12:00 AM MEDTRONICS TECHNICIAN) Specimen (Source) Anatomical Location Collection Method / Collectio n Time Received Time / Laterality Volume 11/08/2018 Narrative This result has an attachment that is no t available. Leslie Ardon MD [facility] [employer] documented in this encounter Visit Diagnoses Not on filedocumented in this encounter Care Teams Carboy Filler Relationship Specialty Start Date End Date Jatidner Haddad MD PCP - General 08/18/1996 [address] [place] [address] documented as of this encounter
--- OUTSIDE RECORDS SUMMARY | 2022-06-29 10:22 | XMS_ITS | Encounter Summary ---
:1970 Author Organization [facility] Address [address], [place] [address] Care Team Providers Name Role Phone Jatinder Haddad MD Primary Care Provider Encounter Details Date Type Department Care Team Description 04/06/2014 [facility] Visit [facility] Adarsh Butler Suture reaction, [address] WORLEY MD initial en counter [address] (Primary Dx) [place] [address] Social History Tobacco Use Types [...] bustillo documented in this encounter Care Teams Strategic Client Executive Relationship Specialty Start Date End Date Jatinder Haddad MD PCP - General 08/18/1996 [address] [place] [address] documented as of this encounter
--- OUTSIDE RECORDS SUMMARY | 2022-06-29 10:22 | XMS_ITS | Clinical Summary ---
:1970 Author Organization [facility] Address [address], [place] [address] Care Team Providers Name Role Phone Jatinder [...] for each transition of care or referral. [facility]SK[facility] Allergies Active Allergy Reactions Severity Noted Date [...] Postoperative wound infection 03/31/2014 Overview: See 03/30/14 Biological Lab Technician note. 03/31/2014 Positive wound culture for Sta [...] 172.7 cm (5' 8) 10/25/2018 10:24 AM SUPERVISOR INSTRUMENT MECHANICS Body Mass Index 35.12 10/25/2018 10:24 AM SUPERVISOR INSTRUMENT MECHANICS Plan of Treatment Health Maintenance Due Date [...] ss Type Group BCBS BCBS OUT OF [id number] 2013-Present [address] [address] [place] [address] (Home) W [phone] [place] (Work) [address] Vamsi Chappell Personal/Family Self [address] (Home) [place] [address] Care Teams Cafeteria Clerk Relationship Specialty Start Date End Date Jatinder Haddad MD PCP - General 08/18/1996 [address] [place] [address]
--- OUTSIDE RECORDS SUMMARY | 2022-06-29 10:22 | XMS_ITS | Clinical Summary ---
:1970 Author Organization [facility] [place] [address] Care Team Providers Name Role Phone Dario Ramos MD Primary Care Provider Allergies Active Allergy Reactions Severity Noted Date Comments Codeine Vomiting 11/17/2006 Hydromorphone Vomiting 12/04/2016 Doxycycline Rash 01/12/2012 Hydrocodone Vomiting 02/20/2014 Promethazine 11/17/2006 Adhesive Tape 06/26/2009 Burn king fro m some type of tapes Tetracycline Rash 03/29/2014 Medications Medication Sig Dispensed Refills Start End Date Status Date fluticasone (50 mcg Inhale 1 [place] 1 Bottle 0 Active per actuation) nasal [...] Wan MD 04/16/2022 Hospital Encounter Florencia Tran, TESTS SUPERINTENDENT Yasmin Nathan, PT Discharge Summary - Yasmin Nathan, PT - 04/16/2022 10:30 AM CDT [facility] Outpatient Physical Therapy Discharge Summary DISCHARGE NOTE [...] for patient's last known status in therapy. [facility] Physical Therapy Outpatient Progress Note ? Patient [...] PROGRAM for re ference ?? Access Code: [email or web address] URL: [email or web address] Date: 04/16/2022 Prepared by: Yasmin Nathan ?? [...] 12 ?? Planned Interventions: Thera peutic exercise (29649);Therapeutic activity (60486);Neuromuscular re-education (99083);Manual therapy (26666);Biofeedback Desiree/Anorect with EMG (41843/50581) 04/16/2022 Travel 04/06/2022 Hospital Encounter Alvin Tran ssiradha E, TESTS SUPERINTENDENT Mixed stress and urge urinary Yasmin Nathan, PT incontin ence 04/06/2022 Travel from Last 3 Months Immunizations Name Administration Dates Next Due COVID-19 vaccine (Darling-J&J) PF, MDV 2021 Influenza, IIV3 (Age >=3 [...] CDT Respiratory Rate 16 10/29/2020 12:00 PM MEMBERSHIP DIRECTOR Oxygen Saturation 98% 06/12/2022 2:16 PM CDT Inhaled Oxygen Concentration - - Weight 113.7 kg (250 lb 11.2 oz) 06/12/2022 2:16 PM CDT Height 171.5 cm (5' 7.52) 06/12/2022 2:16 PM CDT Body Mass Index 38.66 06/12/2022 2:16 PM CDT Plan of Treatment Health Maintenance Due [...] Signature CREATININE 1.08 0.57 - 1.11 06/13/2022 [facility] mg/dL 10:17 AM CDT LABORATORY-CENT RAL LABORATORY [...] Claire Erwin DO CHEMISTRY Performing Organization Address City/[facility] Code Phon e Number [facility] [phone] [place] [address] [place] [address] LABORATORY-CENTRAL 1999 LABORATORY (ABNORMAL) AEROBIC BACTERIAL CULTURE, STAIN (06/05/2022 1:40 PM CDT) Component Value Ref Test Analysis Performed At [facility] Range Method Time Signature CULTURE RESULT (A) 06/08/2022 [facility] 2:20 PM CDT LABORATORY-CE NTRAL LABORATORY CULTURE 1+ Staphylococcus 06/08/2022 [facility] coagulase negative 2:20 PM CDT LABORATOR Y-CE NTRAL LABORATORY GRAM STAIN No Epithelial 06/08/2022 [facility] cells 2:20 PM CDT LABORATORY-CE NTRAL LABORATORY GRAM STAIN 4+ RBCs 06/08/2022 [facility] 2:20 PM CDT LABORATORY-CE NTRAL LABORATORY GRAM STAIN No PMNs 06/08/2022 [facility] 2:20 PM CDT LABORATORY-CE NTRAL LABORATORY GRAM STAIN No organisms seen 06/08/2022 [facility] 2:20 PM CDT LABORATORY-CE NTRAL LABORATORY Specimen Anatomical Collection Method Collection Time Receive d Time (Source) Location / / Volume Laterality Other (Other) Non-Blood / 06/05/2022 1:40 PM 06/05/20 1:40 Unknown CDT PM CDT Claire Erwin DO MICROBIOLOGY Performing Organization Address City/[facility]/ZIP [facility] Phon e Number [facility] [address] [place], [place] [address] [place] [address] LABORATORY-CENTRAL 1999 LABORATORY from Last 3 Months Insurance Payer Benefit Plan Subscriber ID Effective Dates Phone Address Type / Group WC WORKERS WC WORKERS [id number] 2005-Presen [phone] [address] [place] [address] BLUE CROSS BLUE CROSS OF [id number] 2021-[place] [address] [id number] [place] [address] ChappellJOSE RAFAEL Jim Workers Comp Self [id number] (Home) [place] [address] Care Teams Viscera Washer Relationship Specialty Start Date End Date Dario Ramos MD PCP - General Family Practice 06/15/22 [address] [place], [place] [id number]
--- OUTSIDE RECORDS SUMMARY | 2022-06-29 10:22 | XMS_ITS | Encounter Summary ---
:1970 Author Organization [employer] Address [address] [place] [address] Care Team Providers Name Role Phone Jatinder Haddad MD Primary Care Provider Reason for Visit Reason Comments INCISION DRAINING hysterectomy 01/24/14 [facility] vaniaIL Encounter Details Date Type Department Care Team Description 03/29/2014 Office Visit [facility] Theresa, Post- operative and Gynecology MD Bart complication, initial Physicians [address] encounter (Primary Dx) [address] [place], [place] [address] [place] [address] [phone] Social History Tobacco Use Types Packs/Day Years [...] in collaboration with Dr. Gela Escobar had [facility]. Preoperative diagnosis was pelvic pain, history of [...] findings. This was arranged for her at [facility] the next several days. The meantime advised [...] Component Value Ref Test Analysis Performed At [facility] Range Method Time Signature Specimen Abdomen [...] AM C DT Performed at [facility], [address] [place] [address] ??[id number] Organism Antibiotic Method Susceptibility Moderate staphylococcus aureus [...] City/State/ZIP Code Phon e Number [facility] [phone] (ABNORMAL) HEMOGRAM/PLTS (03/29/2014 1:59 PM CDT) athologist [...] 03/29/2014 2:10 PM C DT Performed at On license of [facility], [address], [place] [address] Bart Cardenas MD LAB_1 Performing Organization Address City/State/ZIP Code Phon e Number [facility] [phone] documented in this encounter Visit Diagnoses Diagnosis Post-operative complication, initial enc ounter - Primary documented in this encounter Care Teams Chess Instructor Relationship Specialty Start Date End Date Jatinder Haddad MD PCP - General 08/18/1996 [address] [place] [address] documented as of this encounter
--- OUTSIDE RECORDS SUMMARY | 2022-06-29 10:22 | XMS_ITS | Encounter Summary ---
:1970 Author Organization [email or web address] Address [address] [address] Care Team Providers Name Role Phone Jatinder Haddad MD Primary Care Provider Reason for Visit Reason Onset Date Comments Medication Request 12/07/2018 gabepentin Refill 12/12/2018 Refill 12/14/2018 Refill 12/15/2018 Refill 01/05/2019 Encounter Details Date Type Department Care Team Description 12/07/2018 Refill [facility] Allison Tavera Medication Request [address] fabby Elder, RN (gabepentin); Refill; [place], [place] [address] Refill; Refill; Refill [phone] Social History Tobacco Use Types Packs/Day Years [...] genetic appointment later this week at the [facility] Dr. Ardon - please advise on medication documented in this encounter Plan of Treatment Not on filedocumented as of this encounter Visit Diagnoses Not on filedocumented in this encounter Care Teams Diversified Crops Supervisor Relationship Specialty Start Date End Date Jatinder Haddad MD PCP - General 08/18/1996 [address] [place] [address] documented as of this encounter
--- OUTSIDE RECORDS SUMMARY | 2022-06-29 10:22 | XMS_ITS | Encounter Summary ---
:1970 Author Organization [facility] Address [address] [facility] [place] [address] Care Team Providers Name Role Phone Logan Hayes MD Primary Care Provider [phone] Encounter Details Date Type Department Care Team Description 12/13/2005 Historic Results INTERFACED REPORT Kyle Tom MD [address] [place] [address] Social History Tobacco Use Types [...] differential and platelet (12/13/2005 2:45 AM CDT) [facility] Method Time Signature MCV [id number] [...] UA with microscopic (12/13/2005 2:30 AM CDT) [facility] Method Time Signature Source Midstream MISYS Urine Color Urine Yellow MISYS Appearance Urine Clear MISYS Glucose Urine Negative NEG mg/dL MISYS Bilirubin Urine Negative NEG MISYS Ketones Urine Negative NEG mg/dL MISYS Specific [place] 1.007 1.003 - MISYS Urine 1.035 Blood [...] on filedocumented in this encounter Care Teams Awning Craftsman Relationship Specialty Start Date End Date Logan Hayes MD PCP - General 10/21/01 [address] [place] [address] documented as of this encounter
--- OUTSIDE RECORDS SUMMARY | 2022-06-29 10:22 | XMS_ITS | Encounter Summary ---
:1970 Author Organization [facility] Address [address] [facility] [address] Care Team Providers Name Role Phone Logan Hayes MD Primary Care Provider [phone] Reason for Visit Reason Onset Date Comments Previsit 05/10/2018 Encounter Details Date Type Department Care Team Description 05/10/2018 [facility]IT [facility] Peraza Previsit [address] [place] [address] MD Katie [address] [place] [phone] [place] [address] (Wo rk) Social History Tobacco [...] Date: 05/10/2018 ?? Time: 10:30 ?? [place] [facility] [place]: ?? Referring provider: DR Gallardo [...] documented as of this encounter Care Teams Gearman Relationship Specialty Start Date End Date Logan Hayes MD PCP - General 10/21/01 [address] [place] [address] documented as of this encounter
--- OUTSIDE RECORDS SUMMARY | 2022-06-29 10:22 | XMS_ITS | Encounter Summary ---
:1970 Author Organization [facility] Address [address] [place] [address] Care Team Providers Name Role Phone Jatinder Haddad MD Primary Care Provider Reason for Visit Reason Onset Date Comments Medication Request 03/31/2014 Encounter Details Date Type Department Care Team Description 03/31/2014 Telephone Careline Consuelo Arriaga, Medication Request [address] [place], [place] [address] Social History Tobacco Use Types [...] on filedocumented in this encounter Care Teams Manager Social Relationship Specialty Start Date End Date Jatinder Haddad MD PCP - General 08/18/1996 [address] [place], [place] [id number] documented as of this encounter
--- OUTSIDE RECORDS SUMMARY | 2022-06-29 10:22 | XMS_ITS | Encounter Summary ---
:1970 Author Organization [facility] Address [address] [address] Care Team Providers Name Role Phone Jatinder Haddad MD Primary Care Provider Encounter Details Date Type Department Care Team Description 11/02/2018 Correspondence [facility] Radiology, MRI SAFETY SHEET [address] [facility] [place] [address] Social History Tobacco Use Types Packs/Day Years Used Date Smoking Tobacco: Never Assessed Sex Assigned at Date Recorded Not on file documented as of this encounter Plan of Treatment Not on filedocumented as of this encounter Visit Diagnoses Not on filedocumented in this encounter Care Teams Sinter Machine Operator Relationship Specialty Start Date End Date Jatinder Haddad MD PCP - General 08/18/1996 [address] [place] [address] documented as of this encounter
--- OUTSIDE RECORDS SUMMARY | 2022-06-29 10:22 | XMS_ITS | Encounter Summary ---
:1970 Author Organization [facility] Address [address], [place] [address] Care Team Providers Name Role Phone Jatinder Haddad MD Primary Care Provider Reason for Referral Procedure/Equipment (Routine) - Closed Specialty Diagnoses / Procedures Referred By Contact Refer red To Contact Diagnoses Muscle cramps Muscle spasm Dysphonia Leslie Ardon MD [address] [place], [place] [address] Referral ID Status Reason Start Date Expiration Date Visits Requ ested Visits Authorized [id number] Closed 10/25/2018 01/24/2020 1 1 Scheduling Instructions Your provider has recommended genetic la b testing. This request is being reviewed by the [facility]. If testing is needed, your care team will contact you to assist you in settin g up a lab appointment. The recommended service and/or location may not be cover ed by your insurance plan. Please call the number on your insurance card to find ou t your specific benefits and coverage for the recommended services and/or location. MAL SURFACING MACHINE OPERATOR Procedure/Equipment (Routine) - Closed Specialty Diagnoses / Procedures Referred By Contact Refer red To Contact Diagnoses Muscle cramps Muscle spasm Dysphonia Leslie Ardon MD Procedures NEURO--EMG ELECTRICAL NERVE CONDUCTION STUDY [facility] [place], [place] [address] Referral ID Status Reason Start Date Expiration Date Visits Requ ested Visits Authorized [id number] Closed 10/25/2018 01/24/2020 1 1 MAL SURFACING MACHINE OPERATOR Procedure/Equipment (Routine) - Incomplete Specialty Diagnoses / Procedures Referred By Contact Refer red To Contact Diagnoses Muscle cramps Muscle spasm Dysphonia Leslie Ardon MD Procedures MR Cervical Spine WO IV Cont [address] [place], [place] [address] Referral ID Status Reason Start Date Expiration Date Visits V isits Requested Authorized [id number] Incomplete 10/25/2018 01/24/2020 1 1 MAL SURFACING MACHINE OPERATOR Reason for Visit Reason Comments Cramps foot and hand cramps TREMORS left hand on occasion for pa st few years, has increased in past year Symptoms neck pain, voice changes sin ce February of 2018 due to bronchitis Encounter Details Date Type Department Care Team Description 10/25/2018 Initial Consult [facility] Leslie Ardon Muscle cramps (Primary Dx); [address] Khalif Orona MD Muscle spasm; Drive [address] [facility] [address] [place], [place] [phone] [address] Social History Tobacco Use Types Packs/Day Years Used Date Smoking Tobacco: Never Assessed Sex Assigned at Date Recorded Not on file documented as of this encounter Last Filed Vital Signs Vital Sign Reading Time Taken Comments Blood Pressure 121/80 10/25/2018 10:26 AM THERMAL SURFACING MACHINE OPERATOR Pulse 95 10/25/2018 10:26 AM THERMAL SURFACING MACHINE OPERATOR Temperature - - Respiratory Rate - - Oxygen Saturation - - Inhaled Oxygen Concentration - - Weight 107 kg (236 lb) 10/25/2018 10:24 AM THERMAL SURFACING MACHINE OPERATOR Height 172.7 cm (5' 8) 10/25/2018 10:24 AM THERMAL SURFACING MACHINE OPERATOR Body Mass Index 35.88 10/25/2018 10:24 AM THERMAL SURFACING MACHINE OPERATOR documented in this encounter Patient Instructions Patient InstructionsYing Jackson RN - 10/25/2018 10:10 AM THERMAL SURFACING MACHINE OPERATOR Please call the [facility] nurse line for any questions, concerns or updates, . Ying Jackson RN MAL SURFACING MACHINE OPERATOR documented in this encounter Progress Notes Leslie [...] then she saw Dr. Gandhi at the [facility] who made the diagnosis of [...] be indicated. Seen Dr. Aguilar at the [facility] who did not feel this was dystonia. [...] to light touch and vibration. Coordination: Normal pjfkmy-nrar-uppdcm, bmiz-gteb-pbza. Normal rapid alternating motion rate in the4 [...] counseling 3. EMG 4. Follow up afterwards. MAL SURFACING MACHINE OPERATOR documented in this encounter Plan of Treatment Scheduled Referrals Name Type Priority Associated Diagnoses Order S chedule Genetic Lab Testing Referral Routine Muscle cramp s Ordered: 10/25/2018 Request Muscle spasm Dysphonia documented as of this encounter Results MR Cervical Spine WO IV Cont (11/02/2018 12:17 PM THERMAL SURFACING MACHINE OPERATOR) Anatomical Region Laterality Modality Spine, C-Spine, Neck, Vascular Magnetic Resonance Specimen (Source) Anatomical Collection Method Collection Time Re ceived Time Location / / Volume Laterality 11/02/2018 12:17 PM THERMAL SURFACING MACHINE OPERATOR Narrative 11/02/2018 3:25 PM THERMAL SURFACING MACHINE OPERATOR [facility] EXAM: MR CERVICAL SPINE WO IV [...] note might be different from the original. [facility] EXAM: MR CERVICAL SPINE WO IV [...] Dysphonia documented in this encounter Care Teams Entry Level Electrical Engineer Relationship Specialty Start Date End Date Jatinder Haddad MD PCP - General 08/18/1996 [address] [place] [address] documented as of this encounter
--- OUTSIDE RECORDS SUMMARY | 2022-06-29 10:22 | XMS_ITS | Encounter Summary ---
:1970 Author Organization [facility] Address [address], [place] [address] Care Team Providers Name Role Phone Jatinder Haddad MD Primary Care Provider Reason for Visit Reason Comments Outside Records on File CT TMJ Disk Encounter Details Date Type Department Care Team Description 09/23/2018 Telephone [facility] Allison Tavera Outside Records on [address] Jerrod RN File (CT T MJ Disk) [place] [address] Social History Tobacco Use Types Packs/Day Years Used Date Smoking Tobacco: Never Assessed Sex Assigned at Date Recorded Not on file documented as of this encounter Nursing Notes Allison Tavera RN - 09/23/2018 3:28 PM CST Received a CT TMJ disk. Placed in Dr. Ardon blue folder for review. Patient has upcoming appointment. Closing encounter at this time. Dr. Reva CEDEÑO [employer] ARCHITECT documented in this encounter Plan of Treatment Not on filedocumented as of this encounter Visit Diagnoses Not on filedocumented in this encounter Care Teams Manager Environmental Relationship Specialty Start Date End Date Jatinder Haddad MD PCP - General 08/18/1996 [address] [place] [address] documented as of this encounter
--- OUTSIDE RECORDS SUMMARY | 2022-06-29 10:22 | XMS_ITS | Encounter Summary ---
:1970 Author Organization [facility] Address [address], [place] [address] Care Team Providers Name Role Phone Jatinder Haddad MD Primary Care Provider Reason for Referral Consult/Transfer Care (Routine) - Closed Specialty Diagnoses / Procedures Referred By Contact Refer red To Contact Diagnoses Muscle spasm Dysphonia Leslie Ardon MD [address] [place], [place] [address] Referral ID Status Reason Start Date Expiration Date Visits Requ ested Visits Authorized [id number] Closed 11/18/2018 05/17/2019 1 1 Scheduling Instructions [...] Type Department Care Team Description 11/15/2018 Telephone [place] [facility] Mayte Oropeza RN RESULTS, TEST [address] [place], [place] [address] Social History Tobacco Use Types Packs/Day Years Used Date Smoking Tobacco: Never Assessed Sex Assigned at Date Recorded Not on file documented as of this encounter Nursing Notes Ying Jackson, ERYN - 11/22/2018 1:56 PM CDT Completed referral to [facility] faxed to [phone]. Mayte Constantino RN - 11/21/2018 2:53 PM [...] for review/completion. Attached the signed Rx from [facility]. Did speak with pt today. She states [...] like to do the referral to the [facility] for genetic testing as well. Please [...] does not want to go back to [facility] (she said she had a bad experience at the Neurology office). Pt states she's interested in trying a lower-dose of gabapentin to see if it helps her foot concerns; previously when she tried it she experienced bothersome fatigue. Dr. Ardon - please advise. Thanks Leslie Ardon MD - 11/17/2018 2:27 PM CDT Could refer her for genetic counseling to the [facility], but she has been seen there before by Neurology, so I don't know if she wishes to go there. Typically the [facility] drug department worker wants his patients evaluated also by [facility] neurology, but she already had that [...] That would be with Yasmeen at [facility]. Follow up with me [...] Did you want her to f/u at [place] or the [facility]? thanks Mayte Constantino RN - 11/15/2018 10:08 AM CDT Attempted call to pt to discuss results. Was only able to LM. Awaiting return call. Mayte Dumont RN - 11/15/2018 10:07 AM CDT ----- Message from Leslie Ardon MD sent at 11/11/2018 2:45 PM PRESCHOOL ASSOCIATE TEACHER ----- Please call her: the EMG was normal. documented in this encounter Plan of Treatment Scheduled Referrals Name Type Priority Associated Diagnoses Order S chedule Genetics Consult-Adult Referral Routine Muscle sp asm Ordered: 11/18/2018 Dysphonia documented as of this encounter Visit Diagnoses Diagnosis Muscle spasm - Primary Spasm of muscle Dysphonia documented in this encounter Care Teams Hazmat Cdl Driver Relationship Specialty Start Date End Date Jatinder Haddad MD PCP - General 08/18/1996 [address] [place] [address] documented as of this encounter
--- OUTSIDE RECORDS SUMMARY | 2022-06-29 10:22 | XMS_ITS | Encounter Summary ---
:1970 Author Organization [facility] Address [facility] [place] [address] Care Team Providers Name Role Phone Logan Hayes MD Primary Care Provider [phone] Encounter Details Date Type Department Care Team Description 12/13/2005 Orders Only [facility] Logan Hayes SIS NOT YET Clinic [place] MD Sixto DEFINED (Primary Dx) [address] [facility] [address] [place] [phone] [id number] Social History Tobacco Use Types Packs/Day Years [...] Primary documented in this encounter Care Teams Manager Support Relationship Specialty Start Date End Date Logna Hayes MD PCP - General 10/21/01 [address] [place], [place] [id number] documented as of this encounter
--- OUTSIDE RECORDS SUMMARY | 2022-06-29 10:22 | XMS_ITS | Encounter Summary ---
:1970 Author Organization [facility] Address [address], [place] [address] Care Team Providers Name Role Phone Jatinder Haddad MD Primary Care Provider Reason for Visit Reason Comments Follow-up Medication Questions Should she take the gabapent in? Or when should she take it? Encounter Details Date Type Department Care Team Description 06/18/2020 Telemedicine [facility] Parashos, Sotirios Muscle spasm (Primary Dx); [address] Khalif Cardoso MD Dysphonia; Drive [address] Muscle cramps [place], [place] S [address] [place], [place] [phone] (Wo rk) Social History Tobacco Use [...] Body Mass Index 35.12 10/25/2018 10:24 AM INPATIENT CODER documented in this encounter Patient Instructions Patient InstructionsDanielle Domínguez RN - 06/18/2020 4:10 PM CDT Please note the number that your provider called from is a non-working number for return calls. Please contact us using [employer] or by calling the [facility] nurse line at [phone]. Danielle Domínguez RN documented in this encounter [...] dystonia. She had been evaluated at the [facility] previously and the evaluation was inconclusive for [...] limb documented in this encounter Care Teams Substation Supervisor Relationship Specialty Start Date End Date Jatinder Haddad MD PCP - General 08/18/1996 [address] [place] [address] documented as of this encounter
--- OUTSIDE RECORDS SUMMARY | 2022-06-29 10:22 | XMS_ITS | Encounter Summary ---
:1970 Author Organization [facility] Address [address] [place] [address] Care Team Providers Name Role Phone Jatinder Haddad MD Primary Care Provider Encounter Details Date Type Department Care Team Description 03/31/2014 Telephone [facility] Bart Cardenas MD Gynecology Physician s [address] [place], [place] [address] [phone] (Wo rk) Social History Tobacco Use Types [...] Cephalexin. Patient also wants to see a environmental safety specialist for evaluation. I informed her that lead [...] still says she wants to see a environmental safety specialist next week. I told patient that she would be called Wednesday by lead nurse Shira Freeman, but, in the meantime, she should lemon picker her Cephalexin Rx and start this today. She is in agreement with that. Bart Cardenas MD 03/31/2014, 11:26 AM documented in this encounter Plan of Treatment Not on filedocumented as of this encounter Visit Diagnoses Not on filedocumented in this encounter Care Teams Data Control Assistant Relationship Specialty Start Date End Date Jatinder Haddad MD PCP - General 08/18/1996 [address] [place] [address] documented as of this encounter
--- OUTSIDE RECORDS SUMMARY | 2022-06-29 10:22 | XMS_ITS | Encounter Summary ---
:1970 Author Organization [facility] Address [address] [facility] [place] [address] Care Team Providers Name Role Phone Logan Hayes MD Primary Care Provider [phone] Reason for Visit Reason Comments Consult spasmodic dysphonia Encounter Details Date Type Department Care Team Description 05/10/2018 Office Visit [facility] Ear Nose and Bertram Peraza honia (Primary Dx); Throat MD Katie Other diseases of vocal cords [address] [place] [address] [address] [place], [place] [phone] Social History Tobacco Use Types Packs/Day [...] her symptoms. She was seen by an hazardous materials driver and felt to have a laryngeal muscle [...] ?? multiple heart attacks Good Health Sister Cathi ?? Heart Disease Sister Cathi pacer / [...] mouth ??? fluticasone (FLONASE) 50 MCG/ACT spray [place] 1 spray in nostril ??? hyoscyamine (ANASPAZ/LEVSIN) [...] Procedure Name Priority Date/Time Associated Diagnosis [facility] HC LARYNGOSCOPY FLEX Routine 05/10/2018 4:22 PM [...] documented as of this encounter Care Teams Allocation Analyst Relationship Specialty Start Date End Date Logan Hayes MD PCP - General 10/21/01 [address] [place] [address] documented as of this encounter
--- OUTSIDE RECORDS SUMMARY | 2022-06-29 10:23 | XMS_ITS | Encounter Summary ---
:1970 Author Organization [facility] Address [address], [place] [address] Care Team Providers Name Role Phone Jatinder Haddad MD Primary Care Provider Encounter Details Date Type Department Care Team Description 11/13/1994 Office Visit Jatinder Haddad MD Supervision of normal first [address] [facility] [place], [place] [phone] (Wo rk) Social History Tobacco Use Types Packs/Day Years Used Date Smoking Tobacco: Never Assessed Sex Assigned at Date Recorded Not on file documented as of this encounter Plan of Treatment Not on filedocumented as of this encounter Visit Diagnoses Diagnosis Supervision of normal first documented in this encounter Care Teams Admissions Dean Relationship Specialty Start Date End Date Jatinder Haddad MD PCP - General 08/18/1996 [address] [place], [place] [address] documented as of this encounter
--- OUTSIDE RECORDS SUMMARY | 2022-06-29 10:23 | XMS_ITS | Encounter Summary ---
:1970 Author Organization [facility] Address [address] [place] [address] Care Team Providers Name Role Phone Jatinder Haddad MD Primary Care Provider Encounter Details Date Type Department Care Team Description 12/22/1994 Orders Only Everton Arriaga MD [address] [place] [address] (Wo rk) Social History Tobacco Use Types Packs/Day Years Used Date Smoking Tobacco: Never Assessed Sex Assigned at Date Recorded Not on file documented as of this encounter Plan of Treatment Not on filedocumented as of this encounter Visit Diagnoses Not on filedocumented in this encounter Care Teams Glass Melt Operator Relationship Specialty Start Date End Date Jatinder Haddad MD PCP - General 08/18/1996 [address] [place] [address] documented as of this encounter
--- OUTSIDE RECORDS SUMMARY | 2022-06-29 10:23 | XMS_ITS | Encounter Summary ---
:1970 Author Organization [facility] Address [address] [place] [address] Care Team Providers Name Role Phone Jatinder Haddad MD Primary Care Provider Encounter Details Date Type Department Care Team Description 12/22/1994 Office Visit Everton Arriaga MD Infections of genitourinary [address] tract antepartum [place], [place] [address] (Wo rk) Social History Tobacco Use Types Packs/Day Years Used Date Smoking Tobacco: Never Assessed Sex Assigned at Date Recorded Not on file documented as of this encounter Plan of Treatment Not on filedocumented as of this encounter Visit Diagnoses Diagnosis Infections of genitourinary tract antepa rtum documented in this encounter Care Teams Converting Operator Relationship Specialty Start Date End Date Jatinder Haddad MD PCP - General 08/18/1996 [address] [place] [address] documented as of this encounter
--- OUTSIDE RECORDS SUMMARY | 2022-06-29 10:23 | XMS_ITS | Encounter Summary ---
:1970 Author Organization [facility] Address [address] [address] Care Team Providers Name Role Phone Jatinder Haddad MD Primary Care Provider Encounter Details Date Type Department Care Team Description 01/27/1995 Office Visit Jatinder Haddad MD Supervision of normal first [address] [facility] [place], [place] [phone] (Wo rk) Social History Tobacco Use Types Packs/Day Years Used Date Smoking Tobacco: Never Assessed Sex Assigned at Date Recorded Not on file documented as of this encounter Plan of Treatment Not on filedocumented as of this encounter Visit Diagnoses Diagnosis Supervision of normal first documented in this encounter Care Teams Sr. Strategic Sourcing Manager Relationship Specialty Start Date End Date Jatinder Haddad MD PCP - General 08/18/1996 [address] [place], [place] [address] documented as of this encounter
--- OUTSIDE RECORDS SUMMARY | 2022-06-29 10:23 | XMS_ITS | Encounter Summary ---
:1970 Author Organization [facility] Address [address] [place] [address] Care Team Providers Name Role Phone Jatinder Haddad MD Primary Care Provider Encounter Details Date Type Department Care Team Description 07/02/1997 Office Visit David Hennessy MD ABDOMINAL PAIN [facility] [address] [facility] [address] [place], [place] [phone] (Wo rk) Social History Tobacco Use Types [...] than mentioned above at this time. cc: ERVATION PLANNER documented in this encounter Plan of Treatment Not on filedocumented as of this encounter Visit Diagnoses Diagnosis Abdominal pain, unspecified site documented in this encounter Care Teams Experience Planning Strategist Relationship Specialty Start Date End Date Jatinder Haddad MD PCP - General 08/18/1996 [address] [place] [address] documented as of this encounter
--- OUTSIDE RECORDS SUMMARY | 2022-06-29 10:23 | XMS_ITS | Encounter Summary ---
:1970 Author Organization [facility] Address [address], [place] [address] Care Team Providers Name Role Phone Jatinder Haddad MD Primary Care Provider Encounter Details Date Type Department Care Team Description 03/01/1995 [place] [address] [place] [address] (Wo rk) Social History Tobacco Use Types Packs/Day Years Used Date Smoking Tobacco: Never Assessed Sex Assigned at Date Recorded Not on file documented as of this encounter Plan of Treatment Not on filedocumented as of this encounter Visit Diagnoses Not on filedocumented in this encounter Care Teams Carpenter Supervisor Relationship Specialty Start Date End Date Jatinder Haddad MD PCP - General 08/18/1996 [address] [place], [place] [phone] documented as of this encounter
--- OUTSIDE RECORDS SUMMARY | 2022-06-29 10:23 | XMS_ITS | Encounter Summary ---
:1970 Author Organization [facility] Address [address], [place] [address] Care Team Providers Name Role Phone Jatinder Haddad MD Primary Care Provider Encounter Details Date Type Department Care Team Description 08/19/1994 Office Visit Jatinder Haddad MD Supervision of other normal [address] [facility] [place], [place] [phone] (Wo rk) Social History Tobacco Use Types Packs/Day Years Used Date Smoking Tobacco: Never Assessed Sex Assigned at Date Recorded Not on file documented as of this encounter Plan of Treatment Not on filedocumented as of this encounter Visit Diagnoses Diagnosis Supervision of other normal documented in this encounter Care Teams Taxation Consultant Relationship Specialty Start Date End Date Jatinder Haddad MD PCP - General 08/18/1996 [address] [place], [place] [phone] documented as of this encounter
--- OUTSIDE RECORDS SUMMARY | 2022-06-29 10:23 | XMS_ITS | Encounter Summary ---
:1970 Author Organization [facility] Address [address], [place] [address] Care Team Providers Name Role Phone Jatinder Haddad MD Primary Care Provider Encounter Details Date Type Department Care Team Description 04/27/1995 Office Visit Destiny Cintron MD Acute sinusitis, [address] unspecified [place], [place] [address] (Wo rk) Social History [...] unspecified documented in this encounter Care Teams Dean Of Instruction Relationship Specialty Start Date End Date Jatinder Haddad MD PCP - General 08/18/1996 [address] [place] [address] documented as of this encounter
--- OUTSIDE RECORDS SUMMARY | 2022-06-29 10:23 | XMS_ITS | Encounter Summary ---
:1970 Author Organization [facility] Address [address], [place] [address] Care Team Providers Name Role Phone Jatinder Haddad MD Primary Care Provider Encounter Details Date Type Department Care Team Description 01/24/2014 Orders Only External to Sadie Wilson MD [address] [place], [place] [address] Social History Tobacco Use [...] on filedocumented in this encounter Care Teams Lacquerer Relationship Specialty Start Date End Date Jatinder Haddad MD PCP - General 08/18/1996 [address] [place] [address] documented as of this encounter
--- OUTSIDE RECORDS SUMMARY | 2022-06-29 10:23 | XMS_ITS | Encounter Summary ---
:1970 Author Organization [facility] Address [address] [place] [address] Care Team Providers Name Role Phone Jatinder Haddad MD Primary Care Provider Encounter Details Date Type Department Care Team Description 07/17/1994 Office Visit Everton Arriaga MD Mild hyperemesis [address] gravidarum, antepartum [place], [place] [address] (Wo rk) Social History Tobacco Use Types [...] with her regular provider for visit. cc: ZINE REPAIRER documented in this encounter Plan of Treatment Not on filedocumented as of this encounter Visit Diagnoses Diagnosis Mild hyperemesis gravidarum, antepartum documented in this encounter Care Teams Stick Inserter Relationship Specialty Start Date End Date Jatinder Haddad MD PCP - General 08/18/1996 [address] [place], [place] [phone] documented as of this encounter
--- OUTSIDE RECORDS SUMMARY | 2022-06-29 10:23 | XMS_ITS | Encounter Summary ---
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 Patient had been living in [place], moved back to [place] in . Underwent an appendectomy in , [...] seen with her primary care clinic in [place] at that time and an ultrasound was [...] battery of tests during this time in [place]. She was admitted to the hospital in [place] in late March overnight. Evaluation has included [...] also underwent an upper endoscopy by a inbound customer service agent in late March. Apparently showed very mild [...] that point. She has been working at [employer]. Has not been under any more stress. [...] documented in this encounter Care Teams Manager Distribution Center Relationship Specialty Start Date End Date Jatinder Haddad MD PCP - General 08/18/1996 [address] [place] [address] documented as of this encounter
--- OUTSIDE RECORDS SUMMARY | 2022-06-29 10:23 | XMS_ITS | Encounter Summary ---
:1970 Author Organization [facility] Address [address], [place] [address] Care Team Providers Name Role Phone Jatinder Haddad MD Primary Care Provider Encounter Details Date Type Department Care Team Description 02/03/1995 Office Visit Jatinder Haddad MD Supervision of other normal [address] [facility] [place], [place] [phone] (Wo rk) Social History Tobacco Use Types Packs/Day Years Used Date Smoking Tobacco: Never Assessed Sex Assigned at Date Recorded Not on file documented as of this encounter Plan of Treatment Not on filedocumented as of this encounter Visit Diagnoses Diagnosis Supervision of other normal documented in this encounter Care Teams Housekeeping Cleaner Relationship Specialty Start Date End Date Jatinder Haddad MD PCP - General 08/18/1996 [address] [place], [place] [phone] documented as of this encounter
--- OUTSIDE RECORDS SUMMARY | 2022-06-29 10:23 | XMS_ITS | Encounter Summary ---
:1970 Author Organization [facility] Address [address] [address] Care Team Providers Name Role Phone Jatinder Haddad MD Primary Care Provider Encounter Details Date Type Department Care Team Description 11/02/2000 PN Conversion Only [facility] re Leann Hazel [address] [facility] [place] [address] URGENT CARE [phone] URGENT CARE, 000 00 Social History [...] 12/24/109 Note Time: 11/02/00 0001 Status: Signed Director Of Training: Leann Hazel MD (Physician) IMPRESSION: Gastritis and [...] or melena, she should be seen immediately. [id number] C: DOCUMENT: [id number] Suzan Carvajal MD - 10/30/2000 12:01 AM CST Progress Notes signed by at 10/28/022109 Author: Suzan Gutierrez MD Service: (none) Author Type: Physician Filed: 12/24/102109 Note Time: 10/30/002109 Status: Signed Director Of Training: Suzan Gutierrez MD (Physician) IMPRESSION: No dictation. Sinusitis. SUBJECTIVE: N/A OBJECTIVE: N/A ASSESSMENT: Sinusitis. PLAN: TREATMENT: Amoxicillin. [id number] C: DOCUMENT: [id number] OR OF AUDIOLOGY Amira Zuleta MD - 04/11/2000 12:01 AM CDT Progress Notes signed by Amira Zuleta MD at 05/13/01 0008 Author: Amira Zuleta MD Service: (none) Author Type: Physician Filed: 12/24/10 3587 Note Time: 04/11/00 0001 Status: Signed Director Of Training: Amira Zuleta MD (Physician) IMPRESSION: Tonsillitis. SUBJECTIVE: [...] May use Tylenol or ibuprofen. Recheck p.r.n. [id number] C: DOCUMENT: [id number] Adri Kelly MD - 08/03/1999 12:01 AM CST Progress Notes signed by Adri Kelly MD at 08/06/992040 Author: Guy Kelly MD Service: (none) Author Type: Physician Filed: 12/24/10 2856 Note Time: 08/03/992109 Status: Signed Director Of Training: Guy Kelly MD (Physician) IMPRESSION: Upper respiratory [...] not improving after a few days. CC: [facility]:[id number] C: DOCUMENT: [id number] OR OF AUDIOLOGY Suzan Gutierrez MD - 08/01/1999 12:01 AM CST Progress Notes signed by Suzan Gutierrez MD at 06/16/002002 Author: Suzan Gutierrez MD Service: (none) Author Type: Physician Filed: 12/24/10 3850 Note Time: 08/01/992109 Status: Signed Director Of Training: Suzan Gutierrez MD (Physician) IMPRESSION: Viral syndrome. Sinusitis. SUBJECTIVE: No dictation. OBJECTIVE: N/A ASSESSMENT: 1. Viral syndrome. 2. Sinusitis. PLAN: Amoxicillin. CC: [id number] C: DOCUMENT: [id number] documented in this encounter Plan of Treatment [...] Strep Follow up Culture @ ? Collected: ??[id number] ??1044 Source: Throat ?Processed: ??[id number] ??1327 ? 1V Final Report ------ ?[id number] ??1015 No beta hemolytic Strep group A isolated . @ = Rapid F/U Cult Performed at ??[address] [place], [place] ?[address] Specimen (Source) Anatomical Collection Method Collection Time Re ceived Time Location / / Volume Laterality 04/11/2000 10:44 AM CDT Jimy Rushing MD LAB_1 Performing Organization Address City/State/ZIP Code Phon e Number HP CONVERSION documented in this encounter Visit Diagnoses Not on filedocumented in this encounter Care Teams Pet Care Assistant Relationship Specialty Start Date End Date Jatinder Haddad MD PCP - General 08/18/1996 [address] [place] [address] documented as of this encounter
--- OUTSIDE RECORDS SUMMARY | 2022-06-29 10:23 | XMS_ITS | Encounter Summary ---
:1970 Author Organization [facility] Address [address], [place] [address] Care Team Providers Name Role Phone Jatinder Haddad MD Primary Care Provider Encounter Details Date Type Department Care Team Description 01/13/1995 Office Visit Jatinder Haddad MD Supervision of normal first [address] [facility] [place], [place] [phone] (Wo rk) Social History Tobacco Use Types Packs/Day Years Used Date Smoking Tobacco: Never Assessed Sex Assigned at Date Recorded Not on file documented as of this encounter Plan of Treatment Not on filedocumented as of this encounter Visit Diagnoses Diagnosis Supervision of normal first documented in this encounter Care Teams Supervisor Plating And Point Assembly Relationship Specialty Start Date End Date Jatinder Haddad MD PCP - General 08/18/1996 [address] [place], [place] [phone] documented as of this encounter
--- OUTSIDE RECORDS SUMMARY | 2022-06-29 10:23 | XMS_ITS | Encounter Summary ---
:1970 Author Organization [facility] Address [address], [place] [address] Care Team Providers Name Role Phone Jatinder [...] on filedocumented in this encounter Care Teams Hardwood Floor Refinisher Relationship Specialty Start Date End Date Jatinder Haddad MD PCP - General 08/18/1996 [address] [place] [address] documented as of this encounter
--- OUTSIDE RECORDS SUMMARY | 2022-06-29 10:23 | XMS_ITS | Encounter Summary ---
:1970 Author Organization [facility] Address [address], [place] [address] Care Team Providers Name Role Phone Jatinder Haddad MD Primary Care Provider Encounter Details Date Type Department Care Team Description 10/19/1994 Office Visit Lisette Rubio, Supervi alfonso of normal TAXATION ACCOUNTANT, SOCIAL WORKER PALLIATIVE CARE first [address] [place] [address] Social History Tobacco Use Types Packs/Day Years Used Date Smoking Tobacco: Never Assessed Sex Assigned at Date Recorded Not on file documented as of this encounter Plan of Treatment Not on filedocumented as of this encounter Visit Diagnoses Diagnosis Supervision of normal first documented in this encounter Care Teams Flying I Instructor Relationship Specialty Start Date End Date Jatinder Haddad MD PCP - General 08/18/1996 [address] [place] [address] documented as of this encounter
--- OUTSIDE RECORDS SUMMARY | 2022-06-29 10:23 | XMS_ITS | Encounter Summary ---
:1970 Author Organization [facility] Address [address], [place] [address] Care Team Providers Name Role Phone Jatinder Haddad MD Primary Care Provider Encounter Details Date Type Department Care Team Description 11/02/1994 Office Visit Jatinder Haddad MD Abdominal pain; [address] [facility] Supervision of normal first [place], [place] [phone] (Wo rk) Social History Tobacco Use Types Packs/Day Years Used Date Smoking Tobacco: Never Assessed Sex Assigned at Date Recorded Not on file documented as of this encounter Plan of Treatment Not on filedocumented as of this encounter Visit Diagnoses Diagnosis Abdominal pain Supervision of normal first documented in this encounter Care Teams Business Team Leader Relationship Specialty Start Date End Date Jatinder Haddad MD PCP - General 08/18/1996 [address] [place] [address] documented as of this encounter
--- OUTSIDE RECORDS SUMMARY | 2022-06-29 10:23 | XMS_ITS | Encounter Summary ---
:1970 Author Organization [facility] Address [address], [place] [address] Care Team Providers Name Role Phone Jatinder Haddad MD Primary Care Provider Encounter Details Date Type Department Care Team Description 12/30/1994 Office Visit Jatinder Haddad MD Supervision of normal first [address] [facility] [place], [place] [phone] (Wo rk) Social History Tobacco Use Types Packs/Day Years Used Date Smoking Tobacco: Never Assessed Sex Assigned at Date Recorded Not on file documented as of this encounter Plan of Treatment Not on filedocumented as of this encounter Visit Diagnoses Diagnosis Supervision of normal first documented in this encounter Care Teams Shirring Machine Operator Automatic Relationship Specialty Start Date End Date Jatinder Haddad MD PCP - General 08/18/1996 [address] [place], [place] [phone] documented as of this encounter
--- OUTSIDE RECORDS SUMMARY | 2022-06-29 10:23 | XMS_ITS | Encounter Summary ---
:1970 Author Organization [employer] Address [address], [place] [address] Care Team Providers Name Role Phone Jatinder Haddad MD Primary Care Provider Encounter Details Date Type Department Care Team Description 07/06/1997 Orders Only David Arriaga MD ABDOMINAL PAIN UNSPEC SITE [address] [place] [address] (Wo rk) Social History Tobacco [...] Abdominal Pain Uns pec Results for this LAPPING MACHINE TENDER Site procedure are i n the results section. documented in this encounter Results CHOLECYSTOGRAPHY (GALLBLADDER) (07/06/1997 12:00 AM LAPPING MACHINE TENDER) Anatomical Region Laterality Modality Other Specimen (Source) Anatomical Location Collection Method / Collectio n Time Received Time / Laterality Volume 07/06/1997 Transcriptions Davis Osuna - 07/06/1997 12:00 AM C STCLINICAL DATA: RUQ PAIN, R/O GALLSTONES INTERPRETATION: OCG: The gallblader is w ell opacified. The gallbladder is Nl. and no stone is identified. aDvis Sepulveda MD cc: Radiology AV David Arriaga M.D. David Arriaga MD RAD_FL documented in this encounter Visit Diagnoses Diagnosis Abdominal pain, unspecified site documented in this encounter Care Teams Aquatic Performer Relationship Specialty Start Date End Date Jatinder Haddad MD PCP - General 08/18/1996 [address] [place] [address] documented as of this encounter
--- OUTSIDE RECORDS SUMMARY | 2022-06-29 10:23 | XMS_ITS | Encounter Summary ---
:1970 Author Organization [facility] Address [address] [address] Care Team Providers Name Role Phone Jatinder Haddad MD Primary Care Provider Encounter Details Date Type Department Care Team Description 09/28/2006 Correspondence External to External, Provid er AMELIA [place]AS [place] [address] Social History Tobacco Use Types Packs/Day Years Used Date Smoking Tobacco: Never Assessed Sex Assigned at Date Recorded Not on file documented as of this encounter Progress Notes External, Provider - 09/28/2006 12:[address] documented in this encounter Plan of Treatment Not on filedocumented as of this encounter Visit Diagnoses Not on filedocumented in this encounter Care Teams Big Data Developer Relationship Specialty Start Date End Date Jatinder Haddad MD PCP - General 08/18/1996 [address] [place] [address] documented as of this encounter
--- OUTSIDE RECORDS SUMMARY | 2022-06-29 10:23 | XMS_ITS | Encounter Summary ---
:1970 Author Organization [facility] Address [address] [address] Care Team Providers Name Role Phone Jatinder Haddad MD Primary Care Provider Encounter Details Date Type Department Care Team Description 01/20/1995 Office Visit Jatinder Haddad MD Supervision of normal first [address] [facility] [place], [place] [phone] (Wo rk) Social History Tobacco Use Types Packs/Day Years Used Date Smoking Tobacco: Never Assessed Sex Assigned at Date Recorded Not on file documented as of this encounter Plan of Treatment Not on filedocumented as of this encounter Visit Diagnoses Diagnosis Supervision of normal first documented in this encounter Care Teams Cheesemaking Laborer Relationship Specialty Start Date End Date Jatinder Haddad MD PCP - General 08/18/1996 [address] [place], [place] [phone] documented as of this encounter
--- OUTSIDE RECORDS SUMMARY | 2022-06-29 10:23 | XMS_ITS | Encounter Summary ---
:1970 Author Organization [employer] Address [address] [address] Care Team Providers Name Role Phone Jatinder Haddad MD Primary Care Provider Encounter Details Date Type Department Care Team Description 05/22/1997 Notes/[place] [address] [place] [address] (Wo rk) Social History Tobacco [...] athologist Signature Bilirubin, 0.3 0.3 - 1.2 [facility] Total mg/dl Specimen Anatomical Collection Method Collection Time Receive d Time (Source) Location / / Volume Laterality 05/22/1997 4:38 PM 7 4:39 CDT PM CDT Jatinder Haddad MD LAB_1 Performing Organization Address [facility] [place] [facility] Phon e Number [facility] [phone] [facility] [address] [place] [phone] AST (SGOT) (05/22/1997 4:38 PM CDT) athologist Signature AST (SGOT) 14 12 - 45 U/L [facility] Specimen Anatomical Collection Method Collection Time Receive d Time (Source) Location / / Volume Laterality 05/22/1997 4:38 PM 7 4:39 CDT PM CDT Jatinder Haddad MD LAB_1 Performing Organization Address [facility] [place] [facility] Phon e Number [facility] [phone] [phone] AMYLASE (05/22/1997 4:38 PM CDT) athologist Signature Amylase 87 34 - 122 [facility] U/L Specimen Anatomical Collection Method Collection Time Receive d Time (Source) Location / / Volume Laterality 05/22/1997 4:38 PM 7 4:39 CDT PM CDT Jatinder Haddad MD LAB_1 Performing Organization Address [facility] [place] [facility] Phon e Number [facility] [phone] [facility] [address] [place] [phone] ALT (SGPT) (05/22/1997 4:38 PM CDT) athologist Signature ALT (SGPT) 6 0 - 55 U/L [facility] Specimen Anatomical Collection Method Collection Time Receive d Time (Source) Location / / Volume Laterality 05/22/1997 4:38 PM 7 4:39 CDT PM CDT Jatinder Haddad MD LAB_1 Performing Organization Address [facility] Code Phon e Number [facility] [phone] [facility] [address] [place] [phone] ALK. P'TASE, TOTAL (05/22/1997 4:38 PM CDT) Analysis Performed At Patho logist Time Signature Alkaline 88 31 - 115 [facility] Phosphatase U/L Specimen Anatomical Collection Method Collection Time Receive d Time (Source) Location / / Volume Laterality 05/22/1997 4:38 PM 7 4:39 CDT PM CDT Jatinder Haddad MD LAB_1 Performing Organization Address [facility] Phon e Number [facility] [phone] [facility] [address] [place] [phone] UA MICRO IF (05/22/1997 4:38 PM [...] Jatinder Haddad MD LAB_1 Performing Organization Address [facility] Phon e Number [facility] [phone] [facility] [address] [place] [phone] CBC HEME PANEL (05/22/1997 4:38 PM CDT) P athologist Signature WBC 7.1 4.2 - 10.0 [facility] k/ul RBC 4.61 3.8 - 5.4 [facility] M/ul Hemoglobin 14.6 12 - 16 [facility] g/dl HCT 42.6 35 - 46 % [facility] MCV 92 80 - 98 fl [facility] MCH 31.7 27 - 34 pg [facility] MCHC 34.3 32 - 36 % [facility] Platelets 214 150 - 450 [facility] k/ul Specimen Anatomical Collection Method Collection Time Receive d Time (Source) Location / / Volume Laterality 05/22/1997 4:38 PM 7 4:39 CDT PM CDT Jatinder Haddad MD LAB_1 Performing Organization Address City/State/ZIP Code Phon e Number [facility] [phone] [address] documented in this encounter Visit Diagnoses Not on filedocumented in this encounter Care Teams Lap Checker Relationship Specialty Start Date End Date Jatinder Haddad MD PCP - General 08/18/1996 [address] [place] [address] documented as of this encounter
--- OUTSIDE RECORDS SUMMARY | 2022-06-29 10:23 | XMS_ITS | Encounter Summary ---
:1970 Author Organization [facility] Address [address] [address] Care Team Providers Name Role Phone Jatinder Haddad MD Primary Care Provider Encounter Details Date Type Department Care Team Description 01/24/2014 Outside Hospital External to Sadie Wilson OPE RATIVE REPORT [facility] [address] [place] [address] Social History Tobacco Use Types Packs/Day Years Used Date Smoking Tobacco: Never Assessed Sex Assigned at Date Recorded Not on file documented as of this encounter Plan of Treatment Not on filedocumented as of this encounter Visit Diagnoses Not on filedocumented in this encounter Care Teams Diet Clerk Relationship Specialty Start Date End Date Jatinder Haddad MD PCP - General 08/18/1996 [address] [place] [address] documented as of this encounter
--- OUTSIDE RECORDS SUMMARY | 2022-06-29 10:23 | XMS_ITS | Encounter Summary ---
:1970 Author Organization [facility] Address [address] [address] Care Team Providers Name Role Phone Jatinder Haddad MD Primary Care Provider Encounter Details Date Type Department Care Team Description 07/22/1994 Office Visit Jatinder Haddad MD Supervision of normal first [address] [facility] [place], [place] [phone] (Wo rk) Social History Tobacco Use Types Packs/Day Years Used Date Smoking Tobacco: Never Assessed Sex Assigned at Date Recorded Not on file documented as of this encounter Plan of Treatment Not on filedocumented as of this encounter Visit Diagnoses Diagnosis Supervision of normal first documented in this encounter Care Teams Typing Secretary Relationship Specialty Start Date End Date Jatinder Haddad MD PCP - General 08/18/1996 [address] [place], [place] [phone] documented as of this encounter
--- OUTSIDE RECORDS SUMMARY | 2022-06-29 10:23 | XMS_ITS | Encounter Summary ---
:1970 Author Organization [facility] Address [address] [address] Care Team Providers Name Role Phone Jatinder Haddad MD Primary Care Provider Encounter Details Date Type Department Care Team Description 03/15/1995 Office Visit Terry Amaro Cracke d nipple, condition or complication [address] [place] [phone] (Wo rk) Social History Tobacco Use Types Packs/Day Years Used Date Smoking Tobacco: Never Assessed Sex Assigned at Date Recorded Not on file documented as of this encounter Plan of Treatment Not on filedocumented as of this encounter Visit Diagnoses Diagnosis Cracked nipple, condition or complication documented in this encounter Care Teams Dental Technician Metal Relationship Specialty Start Date End Date Jatinder Haddad MD PCP - General 08/18/1996 [address] [place] [address] documented as of this encounter
--- OUTSIDE RECORDS SUMMARY | 2022-06-29 10:23 | XMS_ITS | Encounter Summary ---
:1970 Author Organization [employer] Address [address] [place] [address] Care Team Providers Name Role Phone Jatinder Haddad MD Primary Care Provider Encounter Details Date Type Department Care Team Description 03/01/1995 Office Visit Jatinder Haddad MD Nonpurulent mastitis [address] [facility] [place] [address] (Wo rk) Social History Tobacco Use Types Packs/Day Years Used Date Smoking Tobacco: Never Assessed Sex Assigned at Date Recorded Not on file documented as of this encounter Progress Notes Jatinder Haddad MD - 03/01/1995 12:00 AM CDTS: Patient had a vaginal delivery on 02/09/95 and on 02/21 was treated over the phone by environmental health technologist physician for post mastitis. At that time [...] care documented in this encounter Care Teams Director Of Nursing Relationship Specialty Start Date End Date Jatinder Haddad MD PCP - General 08/18/1996 [address] [place] [address] documented as of this encounter
--- OUTSIDE RECORDS SUMMARY | 2022-06-29 10:23 | XMS_ITS | Encounter Summary ---
:1970 Author Organization [employer] Address [address] [place] [address] Care Team Providers Name Role Phone Jatinder Haddad MD Primary Care Provider Encounter Details Date Type Department Care Team Description 02/09/1995 [place] [address] [place], [place] [phone] (Wo rk) Social History Tobacco Use Types Packs/Day Years Used Date Smoking Tobacco: Never Assessed Sex Assigned at Date Recorded Not on file documented as of this encounter Plan of Treatment Not on filedocumented as of this encounter Visit Diagnoses Diagnosis Cord around neck, with compression, comp licating labor and delivery, delivered documented in this encounter Care Teams Mechanical Laboratory Technician Relationship Specialty Start Date End Date Jatinder Haddad MD PCP - General 08/18/1996 [address] [place] [address] documented as of this encounter
--- OUTSIDE RECORDS SUMMARY | 2022-06-29 10:23 | XMS_ITS | Encounter Summary ---
:1970 Author Organization [facility] Address [address] [address] Care Team Providers Name Role Phone Jatinder Haddad MD Primary Care Provider Encounter Details Date Type Department Care Team Description 12/16/1994 Office Visit Jatinder Haddad MD Supervision of normal first [address] [facility] [place], [place] [phone] (Wo rk) Social History Tobacco Use Types Packs/Day Years Used Date Smoking Tobacco: Never Assessed Sex Assigned at Date Recorded Not on file documented as of this encounter Plan of Treatment Not on filedocumented as of this encounter Visit Diagnoses Diagnosis Supervision of normal first documented in this encounter Care Teams Messenger Copy Relationship Specialty Start Date End Date Jatinder Haddad MD PCP - General 08/18/1996 [address] [place], [place] [address] documented as of this encounter
--- OUTSIDE RECORDS SUMMARY | 2022-06-29 10:24 | XMS_ITS | Encounter Summary ---
:1970 Author Organization [facility] Address [address] [address] Care Team Providers Name Role Phone Jatinder Haddad MD Primary Care Provider Encounter Details Date Type Department Care Team Description 03/06/1994 Office Visit Lisa Burris MD Enthesopathy of unspecified [address] [place], [place] [phone] (Wo rk) Social History Tobacco Use Types Packs/Day Years Used Date Smoking Tobacco: Never Assessed Sex Assigned at Date Recorded Not on file documented as of this encounter Plan of Treatment Not on filedocumented as of this encounter Visit Diagnoses Diagnosis Enthesopathy of unspecified site documented in this encounter Care Teams Welder Fitter Helper Relationship Specialty Start Date End Date Jatinder Haddad MD PCP - General 08/18/1996 [address] [place] [address] documented as of this encounter
--- OUTSIDE RECORDS SUMMARY | 2022-06-29 10:24 | XMS_ITS | Encounter Summary ---
:1970 Author Organization [employer] Address [address] [place] [address] Care Team Providers Name Role Phone Jatinder Haddad MD Primary Care Provider Encounter Details Date Type Department Care Team Description 03/10/1994 Orders Only Unknown, Physici an [address] [place] [address] (Wo rk) Social History Tobacco Use Types Packs/Day Years Used Date Smoking Tobacco: Never Assessed Sex Assigned at Date Recorded Not on file documented as of this encounter Procedure Notes John Nevarez - 03/10/1994 12:00 AM CDTAssociated Order(s): RADIOLOGIC STUDY ORDERING PHYSICIAN CLINICAL DATA: INTERPRETATION: Normal. Davino Huang MD cc: Radiology AV Fam.Prac.2 MD [...] on filedocumented in this encounter Care Teams Disk Grinder Relationship Specialty Start Date End Date Jatinder Haddad MD PCP - General 08/18/1996 [address] [place] [address] documented as of this encounter
--- OUTSIDE RECORDS SUMMARY | 2022-06-29 10:24 | XMS_ITS | Encounter Summary ---
:1970 Author Organization [facility] Address [address], [place] [address] Care Team Providers Name Role Phone Jatinder Haddad MD Primary Care Provider Encounter Details Date Type Department Care Team Description 04/10/1994 Office Visit Cathy Witt [facility] [address] [place], [place] [id number] Social History Tobacco Use Types Packs/Day Years Used Date Smoking Tobacco: Never Assessed Sex Assigned at Date Recorded Not on file documented as of this encounter Plan of Treatment Not on filedocumented as of this encounter Visit Diagnoses Diagnosis Myopia documented in this encounter Care Teams Bone Worker Relationship Specialty Start Date End Date Jatinder Haddad MD PCP - General 08/18/1996 [address] [place] [address] documented as of this encounter
--- OUTSIDE RECORDS SUMMARY | 2022-06-29 10:24 | XMS_ITS | Encounter Summary ---
:1970 Author Organization [facility] Address [address] [address] Care Team Providers Name Role Phone Jatinder Haddad MD Primary Care Provider Encounter Details Date Type Department Care Team Description 04/29/1994 Office Visit Lisette Rubio Headach e(784.0); ALEXANDRA VACA Unspecified otitis media [address] [place] [address] Social History Tobacco Use Types [...] her head at times. Was at the [facility] and had a free chiropractic evaluation and [...] media documented in this encounter Care Teams Packing Machine Inspector Relationship Specialty Start Date End Date Jatinder Haddad MD PCP - General 08/18/1996 [address] [place] [address] documented as of this encounter
--- OUTSIDE RECORDS SUMMARY | 2022-06-29 10:24 | XMS_ITS | Encounter Summary ---
:1970 Author Organization [facility] Address [address], [place] [address] Care Team Providers Name Role Phone Jatinder Haddad MD Primary Care Provider Encounter Details Date Type Department Care Team Description 06/13/1994 Office Visit Ky Escalera examination or HP BUILDING test [address] [place] [address] Social History Tobacco Use Types Packs/Day Years Used Date Smoking Tobacco: Never Assessed Sex Assigned at Date Recorded Not on file documented as of this encounter Plan of Treatment Not on filedocumented as of this encounter Visit Diagnoses Diagnosis examination or test documented in this encounter Care Teams Mount Loader Relationship Specialty Start Date End Date Jatinder Haddad MD PCP - General 08/18/1996 [address] [place] [address] documented as of this encounter
--- OUTSIDE RECORDS SUMMARY | 2022-06-29 10:24 | XMS_ITS | Encounter Summary ---
:1970 Author Organization [employer] Address [address] [place] [address] Care Team Providers Name Role Phone Jatinder Haddad MD Primary Care Provider Encounter Details Date Type Department Care Team Description 07/15/1994 Office Visit Everton Arriaga MD Supervision of normal first ; [address] [place] [address] (Wo rk) Social History Tobacco [...] in several days with primary physician. cc: TIDIGITATOR documented in this encounter Plan of Treatment Not on filedocumented as of this encounter Visit Diagnoses Diagnosis Supervision of normal first Persistent vomiting documented in this encounter Care Teams Wedding Coordinator Relationship Specialty Start Date End Date Jatinder Haddad MD PCP - General 08/18/1996 [address] [place] [address] documented as of this encounter
--- OUTSIDE RECORDS SUMMARY | 2022-06-29 10:24 | XMS_ITS | Encounter Summary ---
:1970 Author Organization [facility] Address [address] [address] Care Team Providers Name Role Phone Jatinder Haddad MD Primary Care Provider Encounter Details Date Type Department Care Team Description 06/23/1994 Office Visit Jatinder Haddad MD Supervision of normal first [address] [facility] [place], [place] [phone] (Wo rk) Social History Tobacco Use Types Packs/Day Years Used Date Smoking Tobacco: Never Assessed Sex Assigned at Date Recorded Not on file documented as of this encounter Plan of Treatment Not on filedocumented as of this encounter Visit Diagnoses Diagnosis Supervision of normal first documented in this encounter Care Teams Head Counselor Relationship Specialty Start Date End Date Jatinder Haddad MD PCP - General 08/18/1996 [address] [place], [place] [id number] documented as of this encounter
--- OUTSIDE RECORDS SUMMARY | 2022-06-29 10:24 | XMS_ITS | Encounter Summary ---
:1970 Author Organization [facility] Address [address] [address] Care Team Providers Name Role Phone Jatinder Haddad MD Primary Care Provider Encounter Details Date Type Department Care Team Description 04/14/1994 Office Visit Lisette Rubio, Unspeci fied otitis media SCROLL SAW OPERATOR, HOME VISITOR [address] [place], [place] [address] Social History Tobacco Use Types Packs/Day Years Used Date Smoking Tobacco: Never Assessed Sex Assigned at Date Recorded Not on file documented as of this encounter Progress Notes Lisette Rubio, SCROLL SAW OPERATOR, HOME VISITOR - 04/14/1994 12:00 AM CDTS. Complains of [...] media documented in this encounter Care Teams Director Of Market Analysis Relationship Specialty Start Date End Date Jatinder Haddad MD PCP - General 08/18/1996 [address] [place] [address] documented as of this encounter
--- OUTSIDE RECORDS SUMMARY | 2022-06-29 10:24 | XMS_ITS | Encounter Summary ---
:1970 Author Organization [facility] Address [address] [address] Care Team Providers Name Role Phone Jatinder Haddad MD Primary Care Provider Encounter Details Date Type Department Care Team Description 01/06/1994 Office Visit Jatinder Haddad MD Other bursitis disorders [address] [place] [address] (Wo rk) Social History Tobacco [...] disorders documented in this encounter Care Teams Avid Editor Relationship Specialty Start Date End Date Jatinder Haddad MD PCP - General 08/18/1996 [address] [place] [address] documented as of this encounter
--- OUTSIDE RECORDS SUMMARY | 2022-06-29 10:24 | XMS_ITS | Encounter Summary ---
:1970 Author Organization [facility] Address [address], [place] [address] Care Team Providers Name Role Phone Jatinder Haddad MD Primary Care Provider Encounter Details Date Type Department Care Team Description 03/23/1994 Office Visit Lisette Rubio, Unspeci fied otitis media ROSS FURNACE OPERATOR, EMC STORAGE ARCHITECT [address] [place] [address] Social History Tobacco Use Types Packs/Day Years Used Date Smoking Tobacco: Never Assessed Sex Assigned at Date Recorded Not on file documented as of this encounter Progress Notes Lisette Rubio, ROSS FURNACE OPERATOR, EMC STORAGE ARCHITECT - 03/23/1994 12:00 AM CDTS: C/o pain [...] media documented in this encounter Care Teams Inspecting Machine Adjuster Relationship Specialty Start Date End Date Jatinder Haddad MD PCP - General 08/18/1996 [address] [place] [address] documented as of this encounter
--- OUTSIDE RECORDS SUMMARY | 2022-06-29 10:24 | XMS_ITS | Encounter Summary ---
:1970 Author Organization [facility] Address [address] [place] [address] Care Team Providers Name Role Phone Jatinder Haddad MD Primary Care Provider Encounter Details Date Type Department Care Team Description 06/29/1994 Office Visit Jatinder Haddad MD Mild hyperemesis gravidarum, antepartum; [address] [facility] [place]vision [place] [address] (Wo rk) Social History Tobacco Use Types Packs/Day Years Used Date Smoking Tobacco: Never Assessed Sex Assigned at Date Recorded Not on file documented as of this encounter Plan of Treatment Not on filedocumented as of this encounter Visit Diagnoses Diagnosis Mild hyperemesis gravidarum, antepartum Supervision of normal first documented in this encounter Care Teams Computerized Machine Fabric Cutter Relationship Specialty Start Date End Date Jatinder Haddad MD PCP - General 08/18/1996 [address] [place] [address] documented as of this encounter
--- NOTE | 2022-06-29 12:12 | W.ANESCHARGE ---
Anesthesia Charges Start Date/Time Anesthesia Start Date: 06/29/22 Anesthesia Start Time: 11:45 Stop Date/Time Anesthesia Stop Date: 06/29/22 Anesthesia Stop Time: 12:10 Summary Emergency: No
--- NOTE | 2022-06-29 12:33 | W.ANESCHARGE ---
Anesthesia Charges Start Date/Time Anesthesia Start Date: 06/29/22 Anesthesia Start Time: 11:45 Stop Date/Time Anesthesia Stop Date: 06/29/22 Anesthesia Stop Time: 12:10 Summary Emergency: No
== END 2022-06-29 10:18 | disposition home or self-care (01) ==
PROVIDERS: PCP Family Medicine; Visit Provider Internal Medicine Gastroenterology
DX: Z12.11 Encounter for screening for malignant neoplasm of colon (principal); K63.5 Polyp of colon
CPT/HCPCS: 00811; 00812; 45385; A9270; J2704

== ENCOUNTER 2023-12-05 07:57 | Emergency (ER) | payer BC, SELFPAY ==
[2023-12-05 08:05] VITALS: BP 138/86; PULSE 86; RESP 14; TEMP 36.6; O2SAT 99; BMI 38.1
[2023-12-05 08:15] VITALS: O2SAT 98
--- NOTE | 2023-12-05 08:21 | XR_ITS ---
Patient: JOSE RAFAEL RIVER Facility:?[facility] Patient ID:?[id number] Site Patient ID:?[id number]. Site :?1970 Study:?XRay-Chest PCXR-12/05/2023 8:53:42 AM Ordering Physician:ANDREW Final Report: INDICATION: Palpitations. TECHNIQUE: Portable AP chest. FINDINGS: Lungs are clear. Normal heart size and pulmonary vascularity. No pleural effusion. No pneumothorax. IMPRESSION: Normal chest. Dictated by Everett Frey MD @ 12/05/2023 8:58:10 AM Signed by:?Everett Frey MD @12/05/2023 8:58:10 AM (Electronic Signature)
--- NOTE | 2023-12-05 08:26 | ED_ITS ---
HPI - General Adult General Chief complaint: Arrhythmia/Palpitations Stated complaint: Elevated heartrate Time Seen by Provider: 12/05/23 08:02 History of Present Illness HPI narrative: Patient is a 53-year-old female who has had a history of intermittent palpitations over the years, these seem to come at variable intervals of time. They may not be present for a year or more. She has talked to Dr. Ramos about this and they were cut contemplating doing some type of monitoring, but she reports that they are so infrequent that she has not pursued that. She has had no history of cardiac issues although has a his family history of cardiac issues. She reports that this morning she woke up , and felt a really fast heart rate for 30 seconds to a minute, then it abated. She still has a little bit of a dull fullness feeling in her chest, she thinks it might be anxiety, but is unsure. She has had no recent illness, no history of cardiac issues. She reports she and her had sexual intercourse last night. She has had no leg swelling or edema. She has had no fevers chills or cough as mention. Symptoms have largely abated. Her pulse feels normal now. Her heart rate is 86 and regular. Her EKG on presentation by my read shows normal sinus rhythm limited R-wave progression anteriorly but no acute ST T wave changes. No ectopy noted. Related Data Home Medications Medication Instructions Recorded Confirmed levothyroxine 125 mcg tablet 125 mcg PO DAILY 12/05/23 12/05/23 loratadine 10 mg chewable tablet 20 mg PO DAILY 12/05/23 12/05/23 (Claritin) Allergies Allergy/AdvReac Type Severity Reaction Status Date / Time adhesive tape Allergy Verified 06/29/22 15:04 doxycycline Allergy Rash Verified 06/29/22 15:04 promethazine [From Phenergan] Allergy Verified 06/29/22 15:04 tetracycline Allergy Rash Verified 06/29/22 15:04 codeine AdvReac Vomiting Verified 06/29/22 15:04 hydrocodone AdvReac Vomiting Verified 06/29/22 15:04 hydromorphone [From Dilaudid] AdvReac Verified 06/29/22 15:04 Review of Systems Status of ROS: Reports: 6 or more systems reviewed and unremarkable except as noted in History and below PFSH PFSH Social History Smoking Status: Never smoker How often do you have a drink containing alcohol: never AUDIT-C Alcohol total score: 0 Non-prescribed substance use: denies use Exam Narrative: Exam Narrative: Objective: Patient is alert oriented noncyanotic talks in even and unlabored sentences Vital signs are within normal limits. O2 sat excellent at 99% HEENT is unremarkable no facial asymmetry no scleral icterus Lungs clear Heart rhythm regular with 2/6 systolic murmur no ectopy noted Abdomen benign soft Extremities are no edema neurologic nonfocal good peripheral perfusion noted Skin is warm and dry Const: Vital Signs, click to edit/add: Vital Signs - 24 hr 12/05/23 08:05 12/05/23 08:15 12/05/23 09:00 Temperature 97.8 F Pulse Rate 71 Pulse Rate [Pulse Oximeter] 86 Respiratory Rate 14 14 Blood Pressure 130/85 Blood Pressure [Ri ght Upper Arm] 138/86 Pulse Oximetry 99 98 96 Oxygen Delivery Me thod Room Air 12/05/23 09:36 12/05/23 09:41 Temperature 97.8 F Pulse Rate 71 Pulse Rate [Pulse Oximeter] 86 Respiratory Rate 12 12 Blood Pressure 122/76 Blood Pressure [Ri ght Upper Arm] 122/76 Pulse Oximetry 94 Oxygen Delivery Me thod Course Vital Signs Vital signs: Initial Vital Signs Temperature 97.8 F 12/05/23 08:05 Temperature Source Temporal Artery Scan 12/05/23 08:05 Pulse Rate 86 12/05/23 08:05 Pulse Rhythm Regular 12/05/23 08:05 Respiratory Rate 14 12/05/23 08:05 Blood Pressure 138/86 12/05/23 08:05 Blood Pressure Mean 103 12/05/23 08:05 Blood Pressure Position Sitting 12/05/23 08:05 Pulse Oximetry 99 12/05/23 08:05 Oxygen Delivery Method Room Air 12/05/23 08:05 Vital Signs Temperature 97.8 F 12/05/23 08:05 Pulse Rate 86 12/05/23 08:05 Respiratory Rate 14 12/05/23 08:05 Blood Pressure 138/86 12/05/23 08:05 Pulse Oximetry 99 12/05/23 08:05 Oxygen Delivery Method Room Air 12/05/23 08:05 Temperature 97.8 F 12/05/23 09:41 Pulse Rate 86 12/05/23 09:41 Respiratory Rate 12 12/05/23 09:41 Blood Pressure 122/76 12/05/23 09:41 Pulse Oximetry 94 12/05/23 09:36 Oxygen Delivery Method Room Air 12/05/23 08:05 Medications Administered Medications: Discontinued Medications Generic Name Dose Route Start Last Admin Trade Name Richy PRN Reason Stop Dose Admin Aspirin 324 mg 12/05/23 08:21 12/05/23 08:30 Aspirin 81 Mg Tab.Chew PO 12/05/23 08:22 324 mg ONCE ONE Administration Sodium Chloride 500 mls @ 500 mls/hr 12/05/23 08:21 12/05/23 09:43 0.9 % Sodium Chloride 500 Ml IV 12/05/23 09:20 Infused .Q1H ONE Infusion Medical Decision Making MDM Narrative Medical decision making narrative: 53-year-old white female with a history of what sounds like SVT or palpitations. The patient had a brief episode of 30-60 seconds this morning. Still has a little bit of chest fullness feeling, she will relay this to anxiety but I think be bourne to get cardiac enzyme, get a chest x-ray, labs, give her aspirin. Will check a point of care troponin. And a D-dimer. If these are negative then she can go home and would recommend follow-up with Dr. Ramos to consider a stress echo and perhaps some type of more long-term monitoring like a ZIO patch. Patient was in agreement with the workup at this time. Addendum 920 a.m.: The patient's EKG shows no significant ischemic change, troponin is negative, D-dimer is negative, her chest x-ray by my read is unremarkable. At this point she is in sinus rhythm and has been during her observation. I would recommend she follow up Dr. Ramos and consider stress testing and echocardiogram and follow-up. Her perhaps even longer studies such as a ZIO patch. At this point would avoid caffeine, light activity good hydration and recheck if problems or concerns. Lab Data Labs: Lab Results 12/05/23 Range/Units 08:42 WBC 5.92 (4.50-11.00) K/uL RBC 4.46 (4.00-5.20) m/uL Hgb 14.2 (12.0-16.0) gm/dL Hct 41.7 (33.0-51.0) % MCV 94 (80-100) fL MCH 32 (26-34) pg MCHC 34 (32-36) gm/dL RDW Coeff of Tonja 12.3 (11.5-15.5) % Plt Count 213 (140-440) K/uL Neut % (Auto) 60.0 (42.0-72.0) % Lymph % (Auto) 28.7 (20-44) % Cameron % (Auto) 7.9 (0.0-11.0) % Eos % (Auto) 1.9 (0.0-7.0) % Baso % (Auto) 1.2 (0.0-3.0) % Neut # (Auto) 3.55 (1.7-7.0) K/uL Lymph # (Auto) 1.70 (0.90-2.90) K/uL Cameron # (Auto) 0.50 (0.00-0.90) K/UL Eos # (Auto) 0.11 (0.00-0.50) K/uL Baso # (Auto) 0.07 (0.00-0.30) K/uL Abs Immat Gran (auto) 0.02 (0.00-0.30) K/uL Imm/Tot Granulo (auto) 0.3 % D-Dimer Quant (PE/DVT) < 0.27 (0.00-0.50) ug/ml Sodium 140 (135-149) mmol/L Potassium 4.1 (3.6-5.1) mmol/L Chloride 108 (96-114) mmol/L Carbon Dioxide 23 (20-32) mmol/L Anion Gap 9 (7-15) mEq/L BUN 18 (7-30) mg/dL Creatinine 0.7 (0.5-1.5) mg/dL Estimated Creat Clear 90.38 Estimated GFR 103 ml/min Glucose 106 (60-115) mg/dL Calcium 9.5 (8.4-10.6) mg/dL Total Bilirubin 0.7 (0.1-1.5) mg/dL Direct Bilirubin 0.2 (0.0-0.5) mg/dL AST 49 H (12-35) U/L ALT 83 H (4-35) U/L Alkaline Phosphatase 134 (40-150) U/L C-Reactive Protein 0.5 (0.5-1.0) mg/dL NT-Pro-B Natriuret Pep < 20 pg/mL Total Protein 7.9 (6.0-8.3) g/dL Albumin 4.5 (3.3-5.0) g/dL POC Troponin I 0.02 (0.01-0.04) ng/ml Discharge Plan Discharge Clinical Impression: Palpitations Patient Disposition: Home w/ Parent or Adult Condition: Improved Additional Instructions: Light activity for a couple of days, adequate fluid intake, avoid caffeine, follow-up with Dr. Ramos in the next week to 2 weeks for reassessment. Return to ED sooner problems or concerns. Recommend talking to Dr. Aranda about perhaps a stress echocardiogram, and prolonged monitoring system such as a ZIO patch. Activity Level: Light activity Discharge Diet: Regular Prescriptions: No Action levothyroxine 125 mcg tablet 125 mcg PO DAILY Claritin 10 mg tablet,chewable 20 mg PO DAILY Follow Up/Referrals: Dario Ramos MD [Primary Care Provider] - Stand Alone Forms: [employer] Info Instructions
[2023-12-05] MEDS: ASPIRIN 81 MG TAB.CHEW 324 MG PO (08:30)
[2023-12-05] MEDS: 0.9 % SODIUM CHLORIDE 500 ML 500 ML IV (08:45)
[2023-12-05 08:50] LABS: Basophils Absolute Auto 0.07 K/uL (0.00-0.30); Basophils Percent Auto 1.2 % (0.0-3.0); Eosinophils Absolute Auto 0.11 K/uL (0.00-0.50); Eosinophils Percent Auto 1.9 % (0.0-7.0); Hematocrit 41.7 % (33.0-51.0); Hemoglobin* 14.2 gm/dL (12.0-16.0); Immature Granulocytes Abs Auto 0.02 K/uL (0.00-0.30); Immature Granulocytes Pct Auto 0.3 %; Lymphocytes Percent Auto 28.7 % (20-44); Mean Corpuscular HGB Conc 34 gm/dL (32-36); Mean Corpuscular Hemoglobin 32 pg (26-34); Mean Corpuscular Volume 94 fL (80-100); Monocytes Percent Auto 7.9 % (0.0-11.0); Neutrophils Absolute Auto 3.55 K/uL (1.7-7.0); Platelet Count* 213 K/uL (140-440); RDW Coefficient of Variation % 12.3 % (11.5-15.5); Red Blood Count 4.46 m/uL (4.00-5.20); White Blood Count* 5.92 K/uL (4.50-11.00)
[2023-12-05 08:52] LABS: Slide Review Reflex No
[2023-12-05 08:55] LABS: Troponin, Point-of-Care* 0.02 ng/ml (0.01-0.04)
[2023-12-05 09:00] VITALS: BP 130/85; PULSE 71; RESP 14; O2SAT 96
[2023-12-05 09:05] LABS: Albumin* 4.5 g/dL (3.3-5.0); Chloride* 108 mmol/L (96-114); Potassium* 4.1 mmol/L (3.6-5.1); Sodium* 140 mmol/L (135-149)
[2023-12-05 09:07] LABS: Creatinine* 0.7 mg/dL (0.5-1.5); Est. Creatinine Clearance* 90.38; Estimated Glomerular Filt Rate 103 ml/min
[2023-12-05 09:08] LABS: Alanine Aminotransferase* 83 U/L (4-35); Alkaline Phosphatase* 134 U/L (40-150); Anion Gap 9 mEq/L (7-15); Aspartate Amino Transferase* 49 U/L (12-35); Bilirubin Direct* 0.2 mg/dL (0.0-0.5); Bilirubin Total* 0.7 mg/dL (0.1-1.5); Blood Urea Nitrogen* 18 mg/dL (7-30); Calcium* 9.5 mg/dL (8.4-10.6); Carbon Dioxide* 23 mmol/L (20-32); Glucose* 106 mg/dL (60-115); Total Protein* 7.9 g/dL (6.0-8.3)
[2023-12-05 09:11] LABS: C Reactive Protein* 0.5 mg/dL (0.5-1.0)
[2023-12-05 09:14] LABS: D Dimer Quantitative* < 0.27 ug/ml (0.00-0.50)
[2023-12-05 09:17] LABS: NT Pro B Type NatriureticPept* < 20 pg/mL
[2023-12-05 09:36] VITALS: BP 122/76; PULSE 71; RESP 12; O2SAT 94
[2023-12-05 09:41] VITALS: BP 122/76; PULSE 86; RESP 12; TEMP 36.6
== END 2023-12-05 09:42 | disposition home or self-care (01) ==
PROVIDERS: Emergency Provider Family Medicine; PCP Family Medicine
DX: R00.2 Palpitations (principal)
CPT/HCPCS: 36415; 71045; 80048; 80076; 83880; 84484; 85025; 85379; 86140; 93005; 94761; 99284; 99285; A9270; J7030